=== PATIENT | female | born 1935 | race Caucasian/White ===

== ENCOUNTER 2016-12-13 17:39 | Emergency (ER) | payer MEDICARE ==
[~2016-12-13] VITALS: Ht 152.4 cm; Wt 44.9 kg
[~2016-12-13 17:39] MED LIST: AMLO1TAB52 PO; ASPI-933 PO; ATOR10TA PO; ATOR10TA66 PO; ATR20T PO; AZIT250T5 PO; AZTH250C PO; CELE50CA PO; CEPH500C PO; CLCX200C PO; CLN.1T PO; DCS100C PO; DIAZ2TAB2 PO; FOLI1TAB7 PO; FURO20TA4 PO; HYDR-2889 PO; HYDR-3816 PO; HYDR-700 PO; HYDR1TAB PO; METO50TA2 PO; METO50TA7 PO; ONDA8TAB6 PO; PHEN57OI24 PR; POLY119P5 PO; POLY17PO23 PO; albuterol MDI
--- OUTSIDE RECORDS SUMMARY | 2016-12-13 18:02 | XMS REPORT | Continuity of Care Document ---
Author Author [facility] Organization [facility] Address Unknown Phone Unavailable Allergies Active Description Code Type Severity Reaction Onset Reported/Identified Relationship to Patient Clinical Status Yes acetaminophen [id number] Drug Allergy Unknown N/A 03/16/2016 Yes codeine [id number] Drug Allergy Unknown N/A 03/16/2016 Yes erythromycin base [id number] Drug Allergy Unknown N/A 03/16/2016 Yes oxycodone [id number] Drug Allergy Unknown N/A 03/16/2016 Yes propoxyphene [id number] Drug Allergy Unknown N/A 03/16/2016 Yes Sulfa (Sulfonamide Antibiotics) [id number] Drug Allergy Unknown N/A 03/16/2016 Medications Problems Date Dx Coded Attending Type Code Diagnosis Diagnosed By 07/28/2010 Ot 250.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, TYPE II OR UNSPEC TY 07/28/2010 Ot 338.29 OTHER CHRONIC PAIN 07/28/2010 Ot 403.90 HYPTNSV CHR KID DIS, UNSPEC, W CHR KD ST 07/28/2010 Ot 414.00 CORON ATHEROSCLER NOS TYPE VESSEL, NATIV 07/28/2010 Ot 486 PNEUMONIA, ORGANISM NOS 07/28/2010 Ot 496 CHR AIRWAY OBSTRUCT NEC 07/28/2010 Ot 585.9 CHRONIC KIDNEY DISEASE, UNSPECIFIED 07/28/2010 Ot 780.52 INSOMNIA, UNSPECIFIED 07/28/2010 Ot 787.91 DIARRHEA 07/28/2010 Ot V45.81 AORTOCORONARY BYPASS 07/31/2010 Ot 715.90 OSTEOARTHROS NOS-UNSPEC 07/31/2010 Ot 719.41 JOINT PAIN-SHLDER 07/31/2010 Ot 733.00 OSTEOPOROSIS NOS 07/31/2010 Ot V45.81 AORTOCORONARY BYPASS 07/31/2010 Ot V45.82 PERCUTANEOUS TRANSLUM CORON ANGIOPLASTY 07/31/2010 Ot V57.1 PHYSICAL THERAPY NEC 07/31/2010 Ot V58.49 OTHER SPECIFIED AFTERCARE FOLLOWING SURG 12/03/2010 Ot 715.90 OSTEOARTHROS NOS-UNSPEC 12/03/2010 Ot 719.41 JOINT PAIN-SHLDER 12/03/2010 Ot 733.00 OSTEOPOROSIS NOS 12/03/2010 Ot V45.81 AORTOCORONARY BYPASS 12/03/2010 Ot V45.82 PERCUTANEOUS TRANSLUM CORON ANGIOPLASTY 12/03/2010 Ot V57.21 ENCOUNTER FOR OCCUPATIONAL THERAPY 12/03/2010 Ot V58.49 OTHER SPECIFIED AFTERCARE FOLLOWING SURG 03/01/2011 Ot 715.90 OSTEOARTHROS NOS-UNSPEC 03/01/2011 Ot 719.41 JOINT PAIN-SHLDER 03/01/2011 Ot 733.00 OSTEOPOROSIS NOS 03/01/2011 Ot V45.81 AORTOCORONARY BYPASS 03/01/2011 Ot V45.82 PERCUTANEOUS TRANSLUM CORON ANGIOPLASTY 03/01/2011 Ot V57.21 ENCOUNTER FOR OCCUPATIONAL THERAPY 03/01/2011 Ot V58.49 OTHER SPECIFIED AFTERCARE FOLLOWING SURG 09/12/2012 Ot 491.20 OBSTR CHRONIC BRONCHITIS, W/O EXACERBATI 09/12/2012 Ot 786.2 COUGH 04/12/2013 RO ABDULLAHI, KRZYSZTOF P Ot 564.00 UNSPEC CONSTIPATION 04/28/2013 CYNDIE ABDULLAHI, EDGAR Cassidy Ot 272.4 HYPERLIPIDEMIA NEC/NOS 04/28/2013 CYNDIE ABDULLAHI, EDGAR Cassidy Ot 305.1 TOBACCO USE DISORDER 04/28/2013 CYNDIE ABDULLAHI, EDGAR Cassidy Ot 401.9 HYPERTENSION NOS 04/28/2013 CYNDIE ABDULLAHI, EDGAR Cassidy Ot 486 PNEUMONIA, ORGANISM NOS 04/28/2013 EDGAR AEGE MD Ot 491.21 OBSTR CHRONIC BRONCHITIS, W (ACUTE) EXAC 04/28/2013 EDGAR AGEE MD Ot 593.9 RENAL URETERAL DIS NOS 11/06/2013 ANALIA ORDOÑEZ MD Ot 721.3 LUMBOSACRAL SPONDYLOSIS 11/06/2013 ANALIA ORDOÑEZ MD Ot 722.52 LUMB/LUMBOSAC DISC DEGEN 11/06/2013 ANALIA ORDOÑEZ MD Ot 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 11/06/2013 ANALIA ORDOÑEZ MD Ot V58.69 OTH MED,LT,CURRENT USE 04/08/2015 ANALIA ORDOÑEZ MD Ot M47.816 SPONDYLOSIS W/O MYELOPATHY OR RADICULOPA 04/08/2015 ANALIA ORDOÑEZ MD Ot M53.3 SACROCOCCYGEAL DISORDERS, NOT ELSEWHERE 04/08/2015 SMITA ABDULLAHI, ANALIA Bar Ot Z79.899 OTHER MARKETING SUPPORT SPECIALIST (CURRENT) DRUG THERAPY 10/27/2015 Ot 593.9 RENAL URETERAL DIS NOS 10/27/2015 Ot 783.21 LOSS OF WEIGHT 10/27/2015 Ot 585.9 CHRONIC KIDNEY DISEASE, UNSPECIFIED 10/27/2015 Ot 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, UNSPECIFIED 10/27/2015 Ot 585.9 CHRONIC KIDNEY DISEASE, UNSPECIFIED 10/27/2015 Ot 564.00 UNSPEC CONSTIPATION 11/23/2015 CYNDIE ABDULLAHI, EDGAR R Ot R05 COUGH 11/25/2015 CYNDIE ABDULLAHI, EDGAR R Ot R05 COUGH 01/01/2016 EDGAR AGEE MD R Ot M41.9 SCOLIOSIS, UNSPECIFIED 01/01/2016 EDGAR AGEE MD R Ot M51.24 OTHER INTERVERTEBRAL DISC DISPLACEMENT, 01/01/2016 EDGAR AGEE MD R Ot M54.5 LOW BACK PAIN 01/26/2016 EDGAR AGEE MD R Ot M41.9 SCOLIOSIS, UNSPECIFIED 01/26/2016 EDGAR AGEE MD R Ot M51.24 OTHER INTERVERTEBRAL DISC DISPLACEMENT, 01/26/2016 EDGAR AGEE MD R Ot M54.5 LOW BACK PAIN 02/13/2016 EDGAR AGEE MD R Ot M41.9 SCOLIOSIS, UNSPECIFIED 02/13/2016 EDGAR AGEE MD R Ot M51.24 OTHER INTERVERTEBRAL DISC DISPLACEMENT, 02/13/2016 EDGAR AGEE MD R Ot M54.5 LOW BACK PAIN 03/16/2016 Ot 564.00 UNSPEC CONSTIPATION 03/21/2016 EDGAR AGEE MD R Ot F17.210 NICOTINE DEPENDENCE, CIGARETTES, UNCOMPL 03/21/2016 EDGAR AGEE MD R Ot I11.0 HYPERTENSIVE HEART DISEASE WITH HEART FA 03/21/2016 EDGAR AGEE MD R Ot I50.9 HEART FAILURE, UNSPECIFIED 03/21/2016 EDGAR AGEE MD R Ot J44.9 CHRONIC OBSTRUCTIVE PULMONARY DISEASE, U 03/21/2016 EDGAR AGEE MD R Ot M06.9 RHEUMATOID ARTHRITIS, UNSPECIFIED 03/21/2016 EDGAR AGEE MD, Ot M21.70 UNEQUAL LIMB LENGTH (ACQUIRED), UNSPECIF 03/21/2016 EDGAR AGEE MD Ot M41.9 SCOLIOSIS, UNSPECIFIED 03/21/2016 EDGAR AGEE MD Ot N17.9 ACUTE KIDNEY FAILURE, UNSPECIFIED 03/21/2016 EDGAR AGEE MD Ot N39.0 URINARY TRACT INFECTION, SITE NOT SPECIF 03/21/2016 EDGAR AGEE MD Ot R26.89 OTHER ABNORMALITIES OF GAIT AND MOBILITY 03/21/2016 EDGAR AGEE MD Ot R63.4 ABNORMAL WEIGHT LOSS 03/21/2016 EDGAR AGEE MD, Ot S32.19XA OTHER FRACTURE OF SACRUM, INIT ENCNTR FO 03/21/2016 EDGAR GAEE MD Ot S32.591A OTH FRACTURE OF RIGHT PUBIS, INIT ENCNTR 03/21/2016 EDGAR AGEE MD Ot S51.812A LACERATION WITHOUT FOREIGN BODY OF LEFT 03/21/2016 EDGAR AGEE MD Ot W18.30XA FALL ON SAME LEVEL, UNSPECIFIED, INITIAL 03/21/2016 EDGAR AGEE MD Ot Y92.[address] [facility] 03/21/2016 EDGAR AGEE MD Ot Z95.1 PRESENCE OF AORTOCORONARY BYPASS GRAFT 03/21/2016 EDGAR AGEE MD Ot Z95.5 PRESENCE OF CORONARY ANGIOPLASTY IMPLANT 03/22/2016 EDGAR AGEE MD Ot F17.210 NICOTINE DEPENDENCE, CIGARETTES, UNCOMPL 03/22/2016 EDGAR AGEE MD Ot I11.0 HYPERTENSIVE HEART DISEASE WITH HEART FA 03/22/2016 EDGAR AGEE MD Ot I50.9 HEART FAILURE, UNSPECIFIED 03/22/2016 EDGAR AGEE MD Ot J44.9 CHRONIC OBSTRUCTIVE PULMONARY DISEASE, U 03/22/2016 EDGAR AGEE MD Ot M06.9 RHEUMATOID ARTHRITIS, UNSPECIFIED 03/22/2016 EDGAR AGEE MD Ot M21.70 UNEQUAL LIMB LENGTH (ACQUIRED), UNSPECIF 03/22/2016 SEGLIE MD, EDGAR R Ot M41.9 SCOLIOSIS, UNSPECIFIED 03/22/2016 EDGAR AGEE MD Ot N17.9 ACUTE KIDNEY FAILURE, UNSPECIFIED 03/22/2016 EDGAR AGEE MD Ot N39.0 URINARY TRACT INFECTION, SITE NOT SPECIF 03/22/2016 EDGAR AGEE MD Ot R26.89 OTHER ABNORMALITIES OF GAIT AND MOBILITY 03/22/2016 EDGAR AGEE MD Ot R63.4 ABNORMAL WEIGHT LOSS 03/22/2016 EDGAR AGEE MD R Ot S32.19XA OTHER FRACTURE OF SACRUM, INIT ENCNTR FO 03/22/2016 EDGAR AGEE MD Ot S32.591A OTH FRACTURE OF RIGHT PUBIS, INIT ENCNTR 03/22/2016 EDGAR AGEE MD Ot S51.812A LACERATION WITHOUT FOREIGN BODY OF LEFT 03/22/2016 EDGAR AGEE MD Ot W18.30XA FALL ON SAME LEVEL, UNSPECIFIED, INITIAL 03/22/2016 EDGAR AGEE MD Ot Y92.[address] IN [facility] (PRIVATE) 03/22/2016 EDGAR AGEE MD Ot Y99.8 OTHER EXTERNAL CAUSE STATUS 03/22/2016 EDGAR AGEE MD Ot Z95.1 PRESENCE OF AORTOCORONARY BYPASS GRAFT 03/22/2016 EDGAR AGEE MD Ot Z95.5 PRESENCE OF CORONARY ANGIOPLASTY IMPLANT 03/22/2016 Ot 593.9 RENAL URETERAL DIS NOS 03/22/2016 Ot 783.21 LOSS OF WEIGHT 03/22/2016 Ot 585.9 CHRONIC KIDNEY DISEASE, UNSPECIFIED 03/22/2016 Ot 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, UNSPECIFIED 03/22/2016 Ot 585.9 CHRONIC KIDNEY DISEASE, UNSPECIFIED 03/22/2016 Ot 564.00 UNSPEC CONSTIPATION 03/22/2016 EDGAR AGEE MD Ot R05 COUGH 03/22/2016 EDGAR AGEE MD Ot M41.9 SCOLIOSIS, UNSPECIFIED 03/22/2016 EDGAR AGEE MD Ot M51.24 OTHER INTERVERTEBRAL DISC DISPLACEMENT, 03/22/2016 EDGAR AGEE MD Ot M54.5 LOW BACK PAIN 03/22/2016 EDGAR AGEE MD Ot F17.210 NICOTINE DEPENDENCE, CIGARETTES, UNCOMPL 03/22/2016 EDGAR AGEE MD Ot I11.0 HYPERTENSIVE HEART DISEASE WITH HEART FA 03/22/2016 EDGAR AGEE MD Ot I50.9 HEART FAILURE, UNSPECIFIED 03/22/2016 EDGAR AGEE MD, Ot J44.9 CHRONIC OBSTRUCTIVE PULMONARY DISEASE, U 03/22/2016 EDGAR AGEE MD Ot M06.9 RHEUMATOID ARTHRITIS, UNSPECIFIED 03/22/2016 EDGAR AGEE MD Ot M21.70 UNEQUAL LIMB LENGTH (ACQUIRED), UNSPECIF 03/22/2016 EDGAR AGEE MD Ot M41.9 SCOLIOSIS, UNSPECIFIED 03/22/2016 EDGAR AGEE MD, Ot N17.9 ACUTE KIDNEY FAILURE, UNSPECIFIED 03/22/2016 EDGAR AGEE MD Ot N39.0 URINARY TRACT INFECTION, SITE NOT SPECIF 03/22/2016 EDGAR AGEE MD Ot R26.89 OTHER ABNORMALITIES OF GAIT AND MOBILITY 03/22/2016 EDGAR AGEE MD Ot R63.4 ABNORMAL WEIGHT LOSS 03/22/2016 EDGAR AGEE MD Ot S32.19XA OTHER FRACTURE OF SACRUM, INIT ENCNTR FO 03/22/2016 EDGAR AGEE MD Ot S32.591A OTH FRACTURE OF RIGHT PUBIS, INIT ENCNTR 03/22/2016 EDGAR AGEE MD Ot S51.812A LACERATION WITHOUT FOREIGN BODY OF LEFT 03/22/2016 EDGAR AGEE MD Ot W18.30XA FALL ON SAME LEVEL, UNSPECIFIED, INITIAL 03/22/2016 EDGAR AGEE MD Ot Y92.[address] IN [facility] 03/22/2016 EDGAR AGEE MD Ot Z95.1 PRESENCE OF AORTOCORONARY BYPASS GRAFT 03/22/2016 EDGAR AGEE MD Ot Z95.5 PRESENCE OF CORONARY ANGIOPLASTY IMPLANT 03/31/2016 CANDACE BETH MD Ot F17.210 NICOTINE DEPENDENCE, CIGARETTES, UNCOMPL 03/31/2016 CANDACE BETH MD Ot I11.0 HYPERTENSIVE HEART DISEASE WITH HEART FA 03/31/2016 CANDACE BETH MD Ot I25.10 ATHSCL HEART DISEASE OF [place] CORONARY 03/31/2016 CANDACE BETH MD Ot I50.9 HEART FAILURE, UNSPECIFIED 03/31/2016 CANDACE BETH MD Ot J44.9 CHRONIC OBSTRUCTIVE PULMONARY DISEASE, U 03/31/2016 CANDACE BETH MD Ot K59.00 CONSTIPATION, UNSPECIFIED 03/31/2016 CANDACE BETH MD Ot R35.1 NOCTURIA 03/31/2016 CANDACE BETH MD Ot S32.501D UNSP FRACTURE OF RIGHT PUBIS, SUBS FOR F 03/31/2016 CANDACE BETH MD Ot W19.XXXD UNSPECIFIED FALL, SUBSEQUENT ENCOUNTER 03/31/2016 CANDACE BETH MD Ot 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, STORE OR MARKET PLACE 03/31/2016 CANDACE BETH MD Ot Z95.1 PRESENCE OF AORTOCORONARY BYPASS GRAFT 03/31/2016 CANDACE BETH MD Ot Z95.5 PRESENCE OF CORONARY ANGIOPLASTY IMPLANT 05/22/2016 EDGAR AGEE MD R Ot S32.501D UNSP FRACTURE OF RIGHT PUBIS, SUBS FOR F 05/24/2016 EDGAR AGEE MD R Ot S32.501D UNSP FRACTURE OF RIGHT PUBIS, SUBS FOR F 06/14/2016 EDGAR AGEE MD R Ot S32.501D UNSP FRACTURE OF RIGHT PUBIS, SUBS FOR F 06/21/2016 EDGAR AGEE MD R Ot S32.501D UNSP FRACTURE OF RIGHT PUBIS, SUBS FOR F Procedures Results Test Result Range Complete urinalysis with reflex to culture - 03/16/16 15:10 Urine color determination YELLOW NRG Urine clarity determination CLEAR NRG Urine pH measurement by test strip 5 5- 9 Specific gravity of urine by test strip 1.015 1.016-1.022 Urine protein assay by test strip, semi-quantitative 2+ NEGATIVE Urine glucose detection by automated test strip NEGATIVE NEGATIVE Erythrocytes detection in urine sediment by light microscopy 3+ NEGATIVE Urine ketones detection by automated test strip NEGATIVE NEGATIVE Urine nitrite detection by test strip NEGATIVE NEGATIVE Urine total bilirubin detection by test strip NEGATIVE NEGATIVE Urine urobilinogen measurement by automated test strip (mass/volume) NORMAL NORMAL Urine leukocyte esterase detection by dipstick 3+ NEGATIVE Automated urine sediment erythrocyte count by microscopy (number/high power field) NONE NRG Automated urine sediment leukocyte count by microscopy (number/high power field ) [HPF] NRG Bacteria detection in urine sediment by light microscopy TRACE NRG Squamous epithelial cells detection in urine sediment by light microscopy 5-10 NRG Crystals detection in urine sediment by light microscopy NONE NRG Casts detection in urine sediment by light microscopy NONE NRG Mucus detection in urine sediment by light microscopy NEGATIVE NRG Complete urinalysis with reflex to culture YES NRG Bacterial urine culture - 03/16/16 15:10 URINE CULTURE RESULTS 10,000/ML - 100,000/ML NRG Complete blood count (CBC) with automated white blood cell (WBC) differential - 03/16/16 17:10 Blood leukocytes automated count (number/volume) 14.6 10*3/ uL 4.3-11.0 Blood erythrocytes automated count (number/volume) 4.04 10*6 /uL 4.35-5.85 Venous blood hemoglobin measurement (mass/volume) 12.4 g/dL 11.5-16.0 Blood hematocrit (volume fraction) 37 % 35-52 Automated erythrocyte mean corpuscular volume 90 [foz_us] 80-99 Automated erythrocyte mean corpuscular hemoglobin (mass per erythrocyte) 31 pg 25-34 Automated erythrocyte mean corpuscular hemoglobin concentration measurement ( mass/volume) 34 g/dL 32-36 Automated erythrocyte distribution width ratio 13.2 % 10.0-14.5 Automated blood platelet count (count/volume) 254 10*3/uL 130-400 Automated blood platelet mean volume measurement 10.3 [foz_ us] 7.4-10.4 Automated blood neutrophils/100 leukocytes 79 % 42-75 Automated blood lymphocytes/100 leukocytes 16 % 12-44 Blood monocytes/100 leukocytes 6 % 0-12 Automated blood eosinophils/100 leukocytes 0 % 0-10 Automated blood basophils/100 leukocytes 0 % 0-10 Blood neutrophils automated count (number/volume) 11.5 10*3 1.8-7.8 Blood lymphocytes automated count (number/volume) 2.3 10*3 1.0-4.0 Blood monocytes automated count (number/volume) 0.9 10*3 0.0-1.0 Automated eosinophil count 0.0 10*3/uL 0.0-0.3 Automated blood basophil count (count/volume) 0.0 10*3/uL 0.0-0.1 Comprehensive metabolic panel - 03/16/16 17:10 Serum or plasma sodium measurement (moles/volume) 140 mmol/ L 135-145 Serum or plasma potassium measurement (moles/volume) 4.4 mmol/L 3.6-5.0 Serum or plasma chloride measurement (moles/volume) 107 mmol /L 98-107 Carbon dioxide 22 mmol/L 21-32 Serum or plasma anion gap determination (moles/volume) 11 mmol/L 5-14 Serum or plasma urea nitrogen measurement (mass/volume) 64 mg/dL 7-18 Serum or plasma creatinine measurement (mass/volume) 2.61 mg /dL 0.60-1.30 Serum or plasma urea nitrogen/creatinine mass ratio 25 NRG Serum or plasma creatinine measurement with calculation of estimated glomerular filtration rate 18 NRG Serum or plasma glucose measurement (mass/volume) 110 mg/dL 70-105 Serum or plasma calcium measurement (mass/volume) 9.2 mg/dL 8.5-10.1 Serum or plasma total bilirubin measurement (mass/volume) 0.3 mg/dL 0.1-1.0 Serum or plasma alkaline phosphatase measurement (enzymatic activity/volume) 65 U/L 40-136 Serum or plasma aspartate aminotransferase measurement (enzymatic activity/ volume) 22 U/L 5-34 Serum or plasma alanine aminotransferase measurement (enzymatic activity/volume ) 14 U/L 0-55 Serum or plasma protein measurement (mass/volume) 7.0 g/dL 6.4-8.2 Serum or plasma albumin measurement (mass/volume) 4.1 g/dL 3.2-4.5 Blood manual differential performed detection - 03/16/16 17:10 Blood monocytes/100 leukocytes 3 % [facility] Manual blood segmented neutrophils/100 leukocytes 84 % [facility] Manual blood lymphocytes/100 leukocytes 13 % [facility] Blood erythrocyte morphology finding identification NORMAL [facility] PT panel in platelet poor plasma by coagulation assay - 03/16/16 17:10 Prothrombin time (PT) in platelet poor plasma by coagulation assay 12.7 s 12.2-14.7 INR in platelet poor plasma or blood by coagulation assay 1.0 0.8-1.4 Activated partial thromboplastin time (aPTT) in platelet poor plasma bycoagulation assay - 03/16/16 17:10 Activated partial thromboplastin time (aPTT) in platelet poor plasma bycoagulation assay 29 s 24-35 Complete blood count (CBC) with automated white blood cell (WBC) differential - 03/17/16 05:58 Blood leukocytes automated count (number/volume) 7.2 10*3/ uL 4.3-11.0 Blood erythrocytes automated count (number/volume) 3.48 10*6 /uL 4.35-5.85 Venous blood hemoglobin measurement (mass/volume) 10.6 g/dL 11.5-16.0 Blood hematocrit (volume fraction) 32 % 35-52 Automated erythrocyte mean corpuscular volume 92 [foz_us] 80-99 Automated erythrocyte mean corpuscular hemoglobin (mass per erythrocyte) 31 pg 25-34 Automated erythrocyte mean corpuscular hemoglobin concentration measurement ( mass/volume) 33 g/dL 32-36 Automated erythrocyte distribution width ratio 13.2 % 10.0-14.5 Automated blood platelet count (count/volume) 204 10*3/uL 130-400 Automated blood platelet mean volume measurement 9.8 [foz_us ] 7.4-10.4 Automated blood neutrophils/100 leukocytes 71 % 42-75 Automated blood lymphocytes/100 leukocytes 21 % 12-44 Blood monocytes/100 leukocytes 7 % 0-12 Automated blood eosinophils/100 leukocytes 0 % 0-10 Automated blood basophils/100 leukocytes 0 % 0-10 Blood neutrophils automated count (number/volume) 5.1 10*3 1.8-7.8 Blood lymphocytes automated count (number/volume) 1.5 10*3 1.0-4.0 Blood monocytes automated count (number/volume) 0.5 10*3 0.0-1.0 Automated eosinophil count 0.0 10*3/uL 0.0-0.3 Automated blood basophil count (count/volume) 0.0 10*3/uL 0.0-0.1 Whole blood basic metabolic panel - 03/17/16 05:58 Serum or plasma sodium measurement (moles/volume) 139 mmol/ L 135-145 Serum or plasma potassium measurement (moles/volume) 4.4 mmol/L 3.6-5.0 Serum or plasma chloride measurement (moles/volume) 112 mmol /L 98-107 Carbon dioxide 16 mmol/L 21-32 Serum or plasma anion gap determination (moles/volume) 11 mmol/L 5-14 Serum or plasma urea nitrogen measurement (mass/volume) 51 mg/dL 7-18 Serum or plasma creatinine measurement (mass/volume) 1.91 mg /dL 0.60-1.30 Serum or plasma urea nitrogen/creatinine mass ratio 27 NRG Serum or plasma creatinine measurement with calculation of estimated glomerular filtration rate 25 NRG Serum or plasma glucose measurement (mass/volume) 91 mg/dL 70-105 Serum or plasma calcium measurement (mass/volume) 8.3 mg/dL 8.5-10.1 Complete blood count (CBC) with automated white blood cell (WBC) differential - 03/19/16 07:18 Blood leukocytes automated count (number/volume) 8.7 10*3/ uL 4.3-11.0 Blood erythrocytes automated count (number/volume) 3.70 10*6 /uL 4.35-5.85 Venous blood hemoglobin measurement (mass/volume) 11.5 g/dL 11.5-16.0 Blood hematocrit (volume fraction) 34 % 35-52 Automated erythrocyte mean corpuscular volume 91 [foz_us] 80-99 Automated erythrocyte mean corpuscular hemoglobin (mass per erythrocyte) 31 pg 25-34 Automated erythrocyte mean corpuscular hemoglobin concentration measurement ( mass/volume) 34 g/dL 32-36 Automated erythrocyte distribution width ratio 13.1 % 10.0-14.5 Automated blood platelet count (count/volume) 171 10*3/uL 130-400 Automated blood platelet mean volume measurement 9.7 [foz_us ] 7.4-10.4 Automated blood neutrophils/100 leukocytes 74 % 42-75 Automated blood lymphocytes/100 leukocytes 18 % 12-44 Blood monocytes/100 leukocytes 8 % 0-12 Automated blood eosinophils/100 leukocytes 0 % 0-10 Automated blood basophils/100 leukocytes 0 % 0-10 Blood neutrophils automated count (number/volume) 6.5 10*3 1.8-7.8 Blood lymphocytes automated count (number/volume) 1.6 10*3 1.0-4.0 Blood monocytes automated count (number/volume) 0.7 10*3 0.0-1.0 Automated eosinophil count 0.0 10*3/uL 0.0-0.3 Automated blood basophil count (count/volume) 0.0 10*3/uL 0.0-0.1 Comprehensive metabolic panel - 03/19/16 07:18 Serum or plasma sodium measurement (moles/volume) 136 mmol/ L 135-145 Serum or plasma potassium measurement (moles/volume) 4.7 mmol/L 3.6-5.0 Serum or plasma chloride measurement (moles/volume) 109 mmol /L 98-107 Carbon dioxide 15 mmol/L 21-32 Serum or plasma anion gap determination (moles/volume) 12 mmol/L 5-14 Serum or plasma urea nitrogen measurement (mass/volume) 29 mg/dL 7-18 Serum or plasma creatinine measurement (mass/volume) 1.33 mg /dL 0.60-1.30 Serum or plasma urea nitrogen/creatinine mass ratio 22 NRG Serum or plasma creatinine measurement with calculation of estimated glomerular filtration rate 38 NRG Serum or plasma glucose measurement (mass/volume) 117 mg/dL 70-105 Serum or plasma calcium measurement (mass/volume) 8.5 mg/dL 8.5-10.1 Serum or plasma total bilirubin measurement (mass/volume) 0.3 mg/dL 0.1-1.0 Serum or plasma alkaline phosphatase measurement (enzymatic activity/volume) 49 U/L 40-136 Serum or plasma aspartate aminotransferase measurement (enzymatic activity/ volume) 21 U/L 5-34 Serum or plasma alanine aminotransferase measurement (enzymatic activity/volume ) 10 U/L 0-55 Serum or plasma protein measurement (mass/volume) 6.0 g/dL 6.4-8.2 Serum or plasma albumin measurement (mass/volume) 3.4 g/dL 3.2-4.5 Complete urinalysis with reflex to culture - 03/22/16 09:16 Urine color determination YELLOW NRG Urine clarity determination CLEAR NRG Urine pH measurement by test strip 7 5- 9 Specific gravity of urine by test strip 1.005 1.016-1.022 Urine protein assay by test strip, semi-quantitative 1+ NEGATIVE Urine glucose detection by automated test strip NEGATIVE NEGATIVE Erythrocytes detection in urine sediment by light microscopy 1+ NEGATIVE Urine ketones detection by automated test strip NEGATIVE NEGATIVE Urine nitrite detection by test strip NEGATIVE NEGATIVE Urine total bilirubin detection by test strip NEGATIVE NEGATIVE Urine urobilinogen measurement by automated test strip (mass/volume) NORMAL NORMAL Urine leukocyte esterase detection by dipstick NEGATIVE NEGATIVE Automated urine sediment erythrocyte count by microscopy (number/high power field) RARE NRG Automated urine sediment leukocyte count by microscopy (number/high power field ) NONE NRG Bacteria detection in urine sediment by light microscopy NEGATIVE NRG Squamous epithelial cells detection in urine sediment by light microscopy 5-10 NRG Crystals detection in urine sediment by light microscopy NONE NRG Casts detection in urine sediment by light microscopy NONE NRG Mucus detection in urine sediment by light microscopy NEGATIVE NRG Complete urinalysis with reflex to culture NO NRG Complete blood count (CBC) with automated white blood cell (WBC) differential - 03/23/16 04:45 Blood leukocytes automated count (number/volume) 6.7 10*3/ uL 4.3-11.0 Blood erythrocytes automated count (number/volume) 3.23 10*6 /uL 4.35-5.85 Venous blood hemoglobin measurement (mass/volume) 9.8 g/dL 11.5-16.0 Blood hematocrit (volume fraction) 29 % 35-52 Automated erythrocyte mean corpuscular volume 90 [foz_us] 80-99 Automated erythrocyte mean corpuscular hemoglobin (mass per erythrocyte) 30 pg 25-34 Automated erythrocyte mean corpuscular hemoglobin concentration measurement ( mass/volume) 34 g/dL 32-36 Automated erythrocyte distribution width ratio 13.0 % 10.0-14.5 Automated blood platelet count (count/volume) 225 10*3/uL 130-400 Automated blood platelet mean volume measurement 14.0 [foz_ us] 7.4-10.4 Automated blood neutrophils/100 leukocytes 64 % 42-75 Automated blood lymphocytes/100 leukocytes 25 % 12-44 Blood monocytes/100 leukocytes 10 % 0-12 Automated blood eosinophils/100 leukocytes 0 % 0-10 Automated blood basophils/100 leukocytes 0 % 0-10 Blood neutrophils automated count (number/volume) 4.3 10*3 1.8-7.8 Blood lymphocytes automated count (number/volume) 1.7 10*3 1.0-4.0 Blood monocytes automated count (number/volume) 0.7 10*3 0.0-1.0 Automated eosinophil count 0.0 10*3/uL 0.0-0.3 Automated blood basophil count (count/volume) 0.0 10*3/uL 0.0-0.1 Comprehensive metabolic panel - 03/23/16 04:55 Serum or plasma sodium measurement (moles/volume) 136 mmol/ L 135-145 Serum or plasma potassium measurement (moles/volume) 4.3 mmol/L 3.6-5.0 Serum or plasma chloride measurement (moles/volume) 104 mmol /L 98-107 Carbon dioxide 18 mmol/L 21-32 Serum or plasma anion gap determination (moles/volume) 14 mmol/L 5-14 Serum or plasma urea nitrogen measurement (mass/volume) 30 mg/dL 7-18 Serum or plasma creatinine measurement (mass/volume) 1.51 mg /dL 0.60-1.30 Serum or plasma urea nitrogen/creatinine mass ratio 20 NRG Serum or plasma creatinine measurement with calculation of estimated glomerular filtration rate 33 NRG Serum or plasma glucose measurement (mass/volume) 104 mg/dL 70-105 Serum or plasma calcium measurement (mass/volume) 8.7 mg/dL 8.5-10.1 Serum or plasma total bilirubin measurement (mass/volume) 0.4 mg/dL 0.1-1.0 Serum or plasma alkaline phosphatase measurement (enzymatic activity/volume) 50 U/L 40-136 Serum or plasma aspartate aminotransferase measurement (enzymatic activity/ volume) 21 U/L 5-34 Serum or plasma alanine aminotransferase measurement (enzymatic activity/volume ) 16 U/L 0-55 Serum or plasma protein measurement (mass/volume) 5.8 g/dL 6.4-8.2 Serum or plasma albumin measurement (mass/volume) 3.3 g/dL 3.2-4.5 Complete urinalysis with reflex to culture - 03/28/16 08:33 Urine color determination YELLOW NRG Urine clarity determination SLIGHTLY CLOUDY NRG Urine pH measurement by test strip 6.5 5 -9 Specific gravity of urine by test strip 1.010 1.016-1.022 Urine protein assay by test strip, semi-quantitative 1+ NEGATIVE Urine glucose detection by automated test strip NEGATIVE NEGATIVE Erythrocytes detection in urine sediment by light microscopy NEGATIVE NEGATIVE Urine ketones detection by automated test strip NEGATIVE NEGATIVE Urine nitrite detection by test strip NEGATIVE NEGATIVE Urine total bilirubin detection by test strip NEGATIVE NEGATIVE Urine urobilinogen measurement by automated test strip (mass/volume) NORMAL NORMAL Urine leukocyte esterase detection by dipstick 1+ NEGATIVE Automated urine sediment erythrocyte count by microscopy (number/high power field) NONE NRG Automated urine sediment leukocyte count by microscopy (number/high power field ) [HPF] NRG Bacteria detection in urine sediment by light microscopy NEGATIVE NRG Squamous epithelial cells detection in urine sediment by light microscopy 5-10 NRG Crystals detection in urine sediment by light microscopy NONE NRG Casts detection in urine sediment by light microscopy NONE NRG Mucus detection in urine sediment by light microscopy NEGATIVE NRG Complete urinalysis with reflex to culture NO NRG Automated blood complete blood count (hemogram) panel - 03/28/16 15:21 Blood leukocytes automated count (number/volume) 7.0 10*3/ uL 4.3-11.0 Blood erythrocytes automated count (number/volume) 3.42 10*6 /uL 4.35-5.85 Venous blood hemoglobin measurement (mass/volume) 10.6 g/dL 11.5-16.0 Blood hematocrit (volume fraction) 31 % 35-52 Automated erythrocyte mean corpuscular volume 90 [foz_us] 80-99 Automated erythrocyte mean corpuscular hemoglobin (mass per erythrocyte) 31 pg 25-34 Automated erythrocyte mean corpuscular hemoglobin concentration measurement ( mass/volume) 34 g/dL 32-36 Automated erythrocyte distribution width ratio 13.2 % 10.0-14.5 Automated blood platelet count (count/volume) 346 10*3/uL 130-400 Automated blood platelet mean volume measurement 9.4 [foz_us ] 7.4-10.4 Comprehensive metabolic panel - 03/28/16 15:21 Serum or plasma sodium measurement (moles/volume) 132 mmol/ L 135-145 Serum or plasma potassium measurement (moles/volume) 5.1 mmol/L 3.6-5.0 Serum or plasma chloride measurement (moles/volume) 99 mmol/ L 98-107 Carbon dioxide 20 mmol/L 21-32 Serum or plasma anion gap determination (moles/volume) 13 mmol/L 5-14 Serum or plasma urea nitrogen measurement (mass/volume) 43 mg/dL 7-18 Serum or plasma creatinine measurement (mass/volume) 1.95 mg /dL 0.60-1.30 Serum or plasma urea nitrogen/creatinine mass ratio 22 NRG Serum or plasma creatinine measurement with calculation of estimated glomerular filtration rate 25 NRG Serum or plasma glucose measurement (mass/volume) 105 mg/dL 70-105 Serum or plasma calcium measurement (mass/volume) 8.8 mg/dL 8.5-10.1 Serum or plasma total bilirubin measurement (mass/volume) 0.3 mg/dL 0.1-1.0 Serum or plasma alkaline phosphatase measurement (enzymatic activity/volume) 70 U/L 40-136 Serum or plasma aspartate aminotransferase measurement (enzymatic activity/ volume) 25 U/L 5-34 Serum or plasma alanine aminotransferase measurement (enzymatic activity/volume ) 23 U/L 0-55 Serum or plasma protein measurement (mass/volume) 6.5 g/dL 6.4-8.2 Serum or plasma albumin measurement (mass/volume) 3.7 g/dL 3.2-4.5 Encounters ACCT No. Visit Date/Time Discharge Status Pt. Type Provider Facility Loc./Unit Complaint [id number] 03/22/2016 13:46:00 2015 10:10:00 DIS Inpatient KIRIT ABDULLAHI, CANDACE [place] [facility] IRF ARF,PELVIC FX,UTI [id number] 03/16/2016 19:14:00 2015 13:45:00 DIS Inpatient EDGAR AGEE MD [facility] 4TH ARF,PELVIC FX,UTI [id number] 04/08/2015 12:43:00 2014 13:52:00 DIS Outpatient ANALIA ORDOÑEZ MD [facility] CARD SACROCOCCYGEAL DISORDER [id number] 11/06/2013 10:10:00 2013 11:25:00 DIS Outpatient ANALIA ORDOÑEZ MD [facility] CARD DDD-LUMBAR [id number] 04/24/2013 17:31:00 2012 11:25:00 DIS Inpatient EDGAR AGEE MD [facility] 4TH PNEUMONIA; CHEST AND ABDOMEN CONTUSION [id number] 01/12/2013 14:41:00 2012 00:01:00 DIS Outpatient RO ABDULLAHI, KRZYSZTOF P [facility] RAD CONSTIPATION [id number] 05/21/2016 14:15:00 ACT Outpatient EDGAR AGEE MD [facility] RAD HX FX OF PELVIS [id number] 03/22/2016 15:05:00 PEN Preadmit KIRIT ABDULLAHI, CANDACE [place] [facility] [id number] 12/23/2015 13:42:00 ACT Outpatient EDGAR AGEE MD [facility] RAD RENAL FAILURE [id number] 10/27/2015 15:04:00 ACT Outpatient EDGAR AGEE MD [facility] RAD COUGH [id number] 04/13/2013 00:00:00 Document Registration [id number] 09/12/2012 14:38:00 Document Registration [id number] 04/02/2011 13:35:00 Document Registration [id number] 03/29/2011 09:07:00 Document Registration [id number] 02/15/2011 13:40:00 Document Registration [id number] 01/19/2011 14:45:00 Document Registration [id number] 12/01/2010 13:18:00 Document Registration [id number] 07/22/2010 16:08:00 Document Registration [id number] 07/13/2010 13:14:00 Document Registration
[2016-12-13] MEDS ORDERED: ATOR10TA PO (18:24)
[2016-12-13] MEDS ORDERED: CLON0.1T PO (18:24)
[2016-12-13] MEDS ORDERED: METO50TA2 PO (18:24)
[2016-12-13] MEDS ORDERED: HYDR-700 PO (18:24)
[2016-12-13] MEDS ORDERED: ASPI-933 PO (18:24)
[2016-12-13] MEDS ORDERED: HYDR-3816 PO (18:24)
[2016-12-13] MEDS ORDERED: DIAZ2TAB2 PO (18:24)
[2016-12-13] MEDS ORDERED: AMLO1TAB52 PO (18:24)
--- NOTE | 2016-12-13 18:24 | ED Lower Extremity ---
General Chief Complaint: Lower Extremity Stated Complaint: RT LEG/FOOT TENDERNESS AND SWELLING Nursing Triage Note: to ER with complaints of right lower leg swelling and redness for the past week. Nursing Sepsis Screen: No Definite Risk Source: patient Exam Limitations: no limitations History of Present Illness Time seen by provider: 18:22 Initial Comments To ER with a swollen red leg area is been present for one week. Began after she scraped the anterior lateral aspect of the right lower leg on steps at home. She was seen at urgent care on Saturday of this week and had a bandage placed. Since then she's had progressive redness and swelling to the anterior and lateral aspect of the leg. None to the calf.. She denies fevers. Onset: just prior to arrival Severity: moderate Pain/Injury Location: right leg Method of Injury: other (scraped on Thursday 12/07) Allergies and Home Medications Allergies Coded Allergies: Sulfa (Sulfonamide Antibiotics) (Unverified Allergy, Unknown, 03/16/16) acetaminophen (Unverified Allergy, Unknown, 03/16/16) codeine (Unverified Allergy, Unknown, 03/16/16) erythromycin base (Unverified Allergy, Unknown, 03/16/16) oxycodone (Unverified Allergy, Unknown, 03/16/16) propoxyphene (Unverified Allergy, Unknown, 03/16/16) Home Medications Amlodipine Bes/Olmesartan Med 1 Each Tablet, 1 EACH PO DAILY, (Reported) Amoxicillin/Potassium Clav 1 Each Tablet, 1 EACH PO BID, #14 Prescribed by: MAIA CHISHOLM on 12/13/16 7974 Aspirin 81 Mg Tablet.dr, 81 MG PO DAILY, (Reported) Atorvastatin Calcium 10 Mg Tablet, 10 MG PO DAILY, (Reported) Clonidine HCl 0.1 Mg Tablet, 0.2 MG PO BID, (Reported) Diazepam 2 Mg Tablet, 2 MG PO HS PRN for SLEEP, (Reported) Hydrocodone/Acetaminophen 1 Each Tablet, 1 EACH PO q6-q8 PRN for PAIN-MILD TO MODERATE, (Reported) Hydroxyzine HCl 25 Mg Tablet, 25 MG PO DAILY PRN for RASH, (Reported) Metoprolol Tartrate 50 Mg Tablet, 50 MG PO DAILY, (Reported) Constitutional: see HPI, No chills, No fever EENTM: see HPI Respiratory: no symptoms reported Cardiovascular: no symptoms reported Genitourinary: no symptoms reported Musculoskeletal: no symptoms reported Skin: see HPI Psychiatric/Neurological: No Symptoms Reported Past Gwlyzei-Abvsiq-Igvnen Hx Patient Social History Alcohol Use: Denies Use Recreational Drug Use: No Smoking Status: Current Everyday Smoker Type Used: Cigarettes Recent Foreign Travel: No Contact w/Someone Who Travel: No Recent Infectious Disease Expo: No Recent Hopitalizations: No Immunizations Up To Date Tetanus Booster (TDap): More than 5yrs Seasonal Allergies Seasonal Allergies: No Surgeries HX Surgeries: Yes (HEMORRHOIDECTOMY) Surgeries: CABG, Coronary Stent, Eye Surgery, Gallbladder, Hysterectomy, Joint Replacement Respiratory Hx Respiratory Disorders: Yes Respiratory Disorders: Chronic Bronchitis, COPD Cardiovascular Hx Cardiac Disorders: Yes (STENTS, CABG, heart failure) Neurological Hx Neurological Disorders: Yes (shingles) Reproductive System Hx Reproductive Disorders: No Sexually Transmitted Disease: No HIV/AIDS: No Genitourinary Hx Genitourinary Disorders: Yes Genitourinary Disorders: Renal Failure Gastrointestinal Hx Gastrointestinal Disorders: Yes Gastrointestinal Disorders: Abdominal Hernia, Colitis, Chronic Constipation, Diverticulosis, Ulcer, Gall Bladder Disease, Irritable Bowel Musculoskeletal Hx Musculoskeletal Disorders: Yes (CHRONIC GENERALIZED PAIN) Musculoskeletal Disorders: Arthritis, Rheumatoid Arthritis, Chronic Back Pain Endocrine Hx Endocrine Disorders: No HEENT HX ENT Disorders: Yes HEENT Disorders: Cataract Loss of Vision: Bilateral Cancer Hx Cancer: No Psychosocial Hx Psychiatric Problems: Yes Behavioral Health Disorders: Anxiety, Depression Integumentary HX Skin/Integumentary Disorder: Yes (frequent hives) Blood Transfusions Hx Blood Disorders: No Family Medical History Family Medial History: Cataract 03 MOTHER Chest pain 03 FATHER Congestive heart failure 03 MOTHER Family history: Arthritis 03 FATHER 03 MOTHER Family history: Coronary thrombosis 03 FATHER Family history: Diabetes mellitus 03 FATHER Family history: Hypertension 03 FATHER Heart disease 03 FATHER Myocardial infarction 03 FATHER No Family History of: Abdominal aortic aneurysm [place]'s disease Alcoholism Aphasia Cancer Cancer of colon Congenital heart disease Cystic fibrosis Dementia Dysphagia Family history: Allergy Family history: Alzheimer's disease Family history: Asthma Family history: Breast disease Family history: Cardiovascular disease Family history: Gastrointestinal disease Family history: Glaucoma Family history: Osteoporosis Family history: Thyroid disorder Headache Hearing loss Hereditary disease History of - anemia History of - disorder History of - respiratory disease History of drug abuse Human immunodeficiency virus (HIV) seropositivity Hypercholesterolemia Infertile Kidney disease Malignant neoplasm of lung Parkinson's disease Prostate cancer Psychotic disorder Seizure disorder Stroke Tuberculosis Visual impairment Physical Exam Vital Signs Vital Sign - Last 12Hours 12/13/16 18:14 Temp 98.5 Pulse 75 Resp 15 B/P (MAP) 159/89 Pulse Ox 94 O2 Delivery Room Air Capillary Refill : Less Than 3 Seconds General Appearance: WD/WN, no apparent distress HEENT: PERRL/EOMI, normal ENT inspection Neck: non-tender, full range of motion Respiratory: no respiratory distress, no accessory muscle use Hips: bilateral hip non-tender, bilateral hip normal inspection, bilateral hip normal range of motion Legs: right leg pain, right leg soft tissue tenderness, right leg swelling Knees: bilateral knee non-tender, bilateral knee normal inspection, bilateral knee normal range of motion Ankles: bilateral ankle non-tender, bilateral ankle normal inspection, bilateral ankle normal range of motion Neurologic/Psychiatric: alert, normal mood/affect, oriented x 3 Skin: normal color, warm/dry Progress/Results/Core Measures Results/Orders Lab Results Laboratory Tests Test 12/13/16 18:28 Range/Units White Blood Count 8.4 4.3-11.0 10^3/uL Red Blood Count 3.93 L 4.35-5.85 10^6/uL Hemoglobin 12.0 11.5-16.0 G/DL Hematocrit 36 35-52 % Mean Corpuscular Volume 90 80-99 FL Mean Corpuscular Hemoglobin 31 25-34 PG Mean Corpuscular Hemoglobin Concent 34 32-36 G/DL Red Cell Distribution Width 13.4 10.0-14.5 % Platelet Count 262 130-400 10^3/uL Mean Platelet Volume 9.9 7.4-10.4 FL Neutrophils (%) (Auto) 66 42-75 % Lymphocytes (%) (Auto) 27 12-44 % Monocytes (%) (Auto) 7 0-12 % Eosinophils (%) (Auto) 0 0-10 % Basophils (%) (Auto) 0 0-10 % Neutrophils # (Auto) 5.5 1.8-7.8 X 10^3 Lymphocytes # (Auto) 2.3 1.0-4.0 X 10^3 Monocytes # (Auto) 0.6 0.0-1.0 X 10^3 Eosinophils # (Auto) 0.0 0.0-0.3 10^3/uL Basophils # (Auto) 0.0 0.0-0.1 10^3/uL Sodium Level 141 135-145 MMOL/L Potassium Level 4.0 3.6-5.0 MMOL/L Chloride Level 108 H 98-107 MMOL/L Carbon Dioxide Level 20 L 21-32 MMOL/L Anion Gap 13 5-14 MMOL/L Blood Urea Nitrogen 45 H 7-18 MG/DL Creatinine 1.94 H 0.60-1.30 MG/DL Estimat Glomerular Filtration Rate 25 BUN/Creatinine Ratio 23 Glucose Level 155 H 70-105 MG/DL Calcium Level 9.2 8.5-10.1 MG/DL My Orders Orders - MAIA CHISHOLM APRN Cbc With Automated Diff (12/13/16 18:21) Saline Lock/Iv-Start (12/13/16 18:21) Basic Metabolic Panel (12/13/16 18:21) Ceftriaxone Injection (Rocephin Injectio (12/13/16 19:00) Medications Given in ED Current Medications Medications Dose Ordered Sig/Varsha Route Start Time Stop Time Status Last Admin Dose Admin Ceftriaxone Sodium 1000 mg/ Sodium Chloride 50 ml @ 100 mls/hr ONCE ONCE IV 12/13/16 19:00 12/13/16 19:29 DC 12/13/16 19:06 100 MLS/HR Vital Signs/I&O Vital Sign - Last 12Hours 12/13/16 18:14 Temp 98.5 Pulse 75 Resp 15 B/P (MAP) 159/89 Pulse Ox 94 O2 Delivery Room Air Blood Pressure Mean: 112 Departure Impression Impression: Primary Impression: Cellulitis of leg Disposition: 01 HOME, SELF-CARE Condition: Stable Departure-Patient Inst. Decision time for Depature: 18:54 Referrals: EDGAR AGEE MD (PCP/Family) Primary Care Physician Patient Instructions: Cellulitis (Skin Infection), Adult (DC) Add. Discharge Instructions: 1. Return to ER for any concerns 2. See your doctor next week. If you have any worsening of symptoms between now and next week U should return to the emergency room. Worsening of symptoms would be fevers, increasing redness, pain. All discharge instructions reviewed with patient and/or family. Voiced understanding. Scripts Amoxicillin/Potassium Clav (Augmentin 875-125 Tablet) 1 Each Tablet 1 EACH PO BID, #14 TAB Prov: MAIA CHISHOLM APRN 12/13/16 MAIA CHISHOLM APRN Dec 13, 2016 18:24
[2016-12-13 18:34] LABS: BASOPHILS % (AUTO) 0 % (0-10); EOSINOPHILS % (AUTO) 0 % (0-10); LYMPHOCYTES # (AUTO) 2.3 X 10^3 (1.0-4.0); LYMPHOCYTES % (AUTO) 27 % (12-44); MEAN CORPUSCULAR HEMOGLOBIN 31 PG (25-34); MEAN CORPUSCULAR HGB CONC 34 G/DL (32-36); MEAN CORPUSCULAR VOLUME 90 FL (80-99); MEAN PLATELET VOLUME 9.9 FL (7.4-10.4); MONOCYTES # (AUTO) 0.6 X 10^3 (0.0-1.0); MONOCYTES % (AUTO) 7 % (0-12); NEUTROPHILS # (AUTO) 5.5 X 10^3 (1.8-7.8); NEUTROPHILS % (AUTO) 66 % (42-75); PLATELET COUNT 262 10^3/uL (130-400); RED BLOOD COUNT 3.93 10^6/uL (4.35-5.85); RED CELL DISTRIBUTION WIDTH 13.4 % (10.0-14.5); WHITE BLOOD COUNT 8.4 10^3/uL (4.3-11.0)
[2016-12-13 18:49] LABS: CALCIUM 9.2 MG/DL (8.5-10.1); CREATININE SERUM 1.94 MG/DL (0.60-1.30)
[2016-12-13] MEDS ORDERED: AMOX-358 PO (18:55)
[2016-12-13] MEDS ORDERED: cefTRIAXone INJECTION 1,000 MG in NS (IVPB) 50 ML IV ONE (19:00)
[2016-12-13 19:49] VITALS: BP 181/93
== END 2016-12-13 19:49 | disposition home or self-care (01) ==
LOC: EDUNIT# 17:39 → ER 17:42
DX: L03.115 Cellulitis of right lower limb (principal); F17.210 Nicotine dependence, cigarettes, uncomplicated; J44.9 Chronic obstructive pulmonary disease, unspecified; M06.9 Rheumatoid arthritis, unspecified; M19.90 Unspecified osteoarthritis, unspecified site; M54.9 Dorsalgia, unspecified; F41.9 Anxiety disorder, unspecified; F32.9 Major depressive disorder, single episode, unspecified
CPT/HCPCS: 36415; 80048; 85025; 96365

== ENCOUNTER 2017-01-10 20:59 | Inpatient (IN) | payer MEDICARE ==
[~2017-01-10] VITALS: Ht 152.4 cm; Wt 46.5 kg
[~2017-01-10 20:59] MED LIST changes: +AMOX-358 PO; +CLON0.1T PO
--- NOTE | 2017-01-10 21:28 | ED Lower Extremity ---
General Chief Complaint: Lower Extremity Stated Complaint: RT LEG/FOOT TENDERNESS AND SWELLING Nursing Triage Note: pt was brought to room by wheelchair. pt states she was in the er on december 13 of this year due to her right lower leg being red and swollen. pt states she was given numerous antibiotics and nothing has gotten better since then. pt also states she is pretty sure she broke her right pinky toe 2 days ago. Nursing Sepsis Screen: No Definite Risk Source: patient, old records History of Present Illness Time seen by provider: 21:07 Initial Comments PT ARRIVES VIA POV FROM HOME C/O PAIN, REDNESS AND SWELLING TO RIGHT LOWER LEG SYMPTOMS BEGAN A MONTH AGO--INITIALLY SCRAPED HER RIGHT LOWER LEG ON STEPS, AND IT GOT INFECTED. WENT TO URGENT CARE, AND THEN WAS SEEN HERE 12/13/16. WAS TREATED FOR CELLULITIS AND PRESCRIBED KEFLEX ( ORIGINALLY GIVEN RX FOR AUGMENTIN, BUT CAUSED NAUSEA SO SWITCHED TO OMNICEF, BUT PT STATES SHE WAS ON KEFLEX ) SYMPTOMS GOT A LITTLE BETTER, THEN GOT WORSE SEEN BY DR. AGEE A WEEK AGO FOR THIS PROBLEM AND WAS GIVEN RX FOR KEFLEX 500 MG QID #14 TABLETS, ANOTHER RX FOR KEFLEX WAS CALLED IN 2 DAYS AGO FOR 7 DAYS OF ANTIBIOTICS, BUT HAS NOT SEEN HIM SINCE THE . PT STATES SHE TOOK 2 DOSES YESTERDAY AND 3 DOSES TODAY SYMPTOMS ARE NOT IMPROVING, AND ARE GETTING WORSE NO KNOWN FEVER NO PARESTHESIAS OR MOTOR DEFICITS ADDITIONALLY, PT STUBBED HER RIGHT 5TH TOE ON A CHAIR LEG, YESTERDAY OR THE DAY BEFORE, AND NOW IT IS BRUISED AND SWOLLEN AND FEELS LIKE SHE HAS BROKEN HER TOE LAST TETANUS UNKNOWN, PT NOT INTERESTED IN GETTING A TETANUS SHOT PT HAS NOT TAKEN ANYTHING FOR PAIN TODAY, ALTHOUGH SHE HAS HYDROCODONE AT HOME, WHICH SHE TAKES FOR CHRONIC GENERALIZED PAIN. TOOK 1 YESTERDAY BEFORE BED. PCP: DR. AGEE Allergies and Home Medications Allergies Coded Allergies: Sulfa (Sulfonamide Antibiotics) (Unverified Allergy, Unknown, 03/16/16) acetaminophen (Unverified Allergy, Unknown, 03/16/16) codeine (Unverified Allergy, Unknown, 03/16/16) erythromycin base (Unverified Allergy, Unknown, 03/16/16) oxycodone (Unverified Allergy, Unknown, 03/16/16) propoxyphene (Unverified Allergy, Unknown, 03/16/16) Home Medications Amlodipine Bes/Olmesartan Med 1 Each Tablet, 1 EACH PO DAILY, (Reported) Amoxicillin/Potassium Clav 1 Each Tablet, 1 EACH PO BID, #14 Prescribed by: MAIA CHISHOLM on 12/13/16 6875 Aspirin 81 Mg Tablet.dr, 81 MG PO DAILY, (Reported) Atorvastatin Calcium 10 Mg Tablet, 10 MG PO DAILY, (Reported) Clonidine HCl 0.1 Mg Tablet, 0.2 MG PO BID, (Reported) Diazepam 2 Mg Tablet, 2 MG PO HS PRN for SLEEP, (Reported) Hydrocodone/Acetaminophen 1 Each Tablet, 1 EACH PO q6-q8 PRN for PAIN-MILD TO MODERATE, (Reported) Hydroxyzine HCl 25 Mg Tablet, 25 MG PO DAILY PRN for RASH, (Reported) Metoprolol Tartrate 50 Mg Tablet, 50 MG PO DAILY, (Reported) Constitutional: no symptoms reported Respiratory: no symptoms reported, cough (CHRONIC ) Cardiovascular: no symptoms reported Gastrointestinal: no symptoms reported Genitourinary: no symptoms reported Musculoskeletal: see HPI Skin: see HPI Psychiatric/Neurological: No Symptoms Reported Past Seufimx-Ymvwnu-Txqzps Hx Patient Social History Alcohol Use: Denies Use Recreational Drug Use: No Smoking Status: Current Everyday Smoker (1/2 PPD) Type Used: Cigarettes Recent Foreign Travel: No Contact w/Someone Who Travel: No Recent Infectious Disease Expo: No Recent Hopitalizations: No Immunizations Up To Date Tetanus Booster (TDap): More than 5yrs Seasonal Allergies Seasonal Allergies: No Surgeries HX Surgeries: Yes (HEMORRHOIDECTOMY; BLEPHAROPLASTY;CARDIAC CATHS AND STENTS; LEFT SHOULDER SURGERY; RIGHT THUMB SURGERY; CATARACTS) Surgeries: CABG, Coronary Stent, Eye Surgery, Gallbladder, Hysterectomy, Joint Replacement, Orthopedic, Rectal Respiratory Hx Respiratory Disorders: Yes Respiratory Disorders: Chronic Bronchitis, COPD Cardiovascular Hx Cardiac Disorders: Yes (CARDIAC CATHS, STENTS, CABG; CHF) Cardiac Disorders: Coronary Artery Disease, Heart Attack, High Cholesterol, Hypertension Neurological Hx Neurological Disorders: Yes (shingles) Neurological Disorders: Stroke Reproductive System Hx Reproductive Disorders: No Sexually Transmitted Disease: No HIV/AIDS: No Genitourinary Hx Genitourinary Disorders: Yes Genitourinary Disorders: Renal Failure Gastrointestinal Hx Gastrointestinal Disorders: Yes (S/P THOM) Gastrointestinal Disorders: Abdominal Hernia, Colitis, Chronic Constipation, Diverticulosis, Ulcer, Gall Bladder Disease, Irritable Bowel Musculoskeletal Hx Musculoskeletal Disorders: Yes (CHRONIC GENERALIZED PAIN) Musculoskeletal Disorders: Arthritis, Rheumatoid Arthritis, Chronic Back Pain Endocrine Hx Endocrine Disorders: No HEENT HX ENT Disorders: Yes HEENT Disorders: Cataract Loss of Vision: Bilateral Cancer Hx Cancer: No Psychosocial Hx Psychiatric Problems: Yes Behavioral Health Disorders: Anxiety, Depression Integumentary HX Skin/Integumentary Disorder: Yes (frequent hives; SHINGLES) Blood Transfusions Hx Blood Disorders: No Family Medical History Family Medial History: Cataract 03 MOTHER Chest pain 03 FATHER Congestive heart failure 03 MOTHER Family history: Arthritis 03 FATHER 03 MOTHER Family history: Coronary thrombosis 03 FATHER Family history: Diabetes mellitus 03 FATHER Family history: Hypertension 03 FATHER Heart disease 03 FATHER Myocardial infarction 03 FATHER No Family History of: Abdominal aortic aneurysm Conrado's disease Alcoholism Aphasia Cancer Cancer of colon Congenital heart disease Cystic fibrosis Dementia Dysphagia Family history: Allergy Family history: Alzheimer's disease Family history: Asthma Family history: Breast disease Family history: Cardiovascular disease Family history: Gastrointestinal disease Family history: Glaucoma Family history: Osteoporosis Family history: Thyroid disorder Headache Hearing loss Hereditary disease History of - anemia History of - disorder History of - respiratory disease History of drug abuse Human immunodeficiency virus (HIV) seropositivity Hypercholesterolemia Infertile Kidney disease Malignant neoplasm of lung Parkinson's disease Prostate cancer Psychotic disorder Seizure disorder Stroke Tuberculosis Visual impairment Physical Exam Vital Signs Vital Sign - Last 12Hours 01/10/17 21:09 Temp 98.6 Pulse 83 Resp 16 B/P (MAP) 169/89 Pulse Ox 96 O2 Delivery Room Air Capillary Refill : Less Than 3 Seconds General Appearance: no apparent distress, thin HEENT: other (POOR ORAL HYGIENE) Neck: normal inspection, No carotid bruit Cardiovascular: regular rate, rhythm, no murmur Respiratory: normal breath sounds, no respiratory distress, no accessory muscle use Gastrointestinal: non tender, soft Hips: bilateral hip normal inspection Legs: left leg normal inspection, right leg other (2-3+ EDEMA TO RIGHT LOWER LEG, WITH SIGNIFICANT REDNESS, WARMTH AND MILD TENDERNESS. DISTAL PULSES INTACT + 3/4 BILATERALLY. ) Knees: bilateral knee normal inspection Ankles: right ankle other ( ABOVE) Feet: left foot normal inspection, right foot other ( ABOVE; RIGHT 5TH TOE WITH MODERATE SWELLING, BRUISING AND TENDERNESS. ) Neurologic/Tendon: normal sensation, normal motor functions, normal tendon functions Neurologic/Psychiatric: leather staker II-XII nml as tested, no motor/sensory deficits, alert, normal mood/affect, oriented x 3 Skin: normal color, warm/dry Progress/Results/Core Measures Results/Orders Lab Results Laboratory Tests Test 01/10/17 21:17 Range/Units White Blood Count 7.3 4.3-11.0 10^3/uL Red Blood Count 3.90 L 4.35-5.85 10^6/uL Hemoglobin 11.9 11.5-16.0 G/DL Hematocrit 36 35-52 % Mean Corpuscular Volume 91 80-99 FL Mean Corpuscular Hemoglobin 31 25-34 PG Mean Corpuscular Hemoglobin Concent 34 32-36 G/DL Red Cell Distribution Width 13.2 10.0-14.5 % Platelet Count 255 130-400 10^3/uL Mean Platelet Volume 10.4 7.4-10.4 FL Neutrophils (%) (Auto) 71 42-75 % Lymphocytes (%) (Auto) 24 12-44 % Monocytes (%) (Auto) 6 0-12 % Eosinophils (%) (Auto) 0 0-10 % Basophils (%) (Auto) 0 0-10 % Neutrophils # (Auto) 5.2 1.8-7.8 X 10^3 Lymphocytes # (Auto) 1.7 1.0-4.0 X 10^3 Monocytes # (Auto) 0.4 0.0-1.0 X 10^3 Eosinophils # (Auto) 0.0 0.0-0.3 10^3/uL Basophils # (Auto) 0.0 0.0-0.1 10^3/uL Erythrocyte Sedimentation Rate 30 0-30 MM/HR Sodium Level 140 135-145 MMOL/L Potassium Level 4.6 3.6-5.0 MMOL/L Chloride Level 106 98-107 MMOL/L Carbon Dioxide Level 22 21-32 MMOL/L Anion Gap 12 5-14 MMOL/L Blood Urea Nitrogen 63 H 7-18 MG/DL Creatinine 2.01 H 0.60-1.30 MG/DL Estimat Glomerular Filtration Rate 24 BUN/Creatinine Ratio 31 Glucose Level 125 H 70-105 MG/DL Lactic Acid Level 0.76 0.50-2.00 MMOL/L Calcium Level 9.2 8.5-10.1 MG/DL Total Bilirubin 0.3 0.1-1.0 MG/DL Aspartate Amino Transf (AST/SGOT) 16 5-34 U/L Alanine Aminotransferase (ALT/SGPT) 10 0-55 U/L Alkaline Phosphatase 73 40-136 U/L C-Reactive Protein High Sensitivity 0.33 0.00-0.50 MG/DL Total Protein 7.0 6.4-8.2 GM/DL Albumin 3.9 3.2-4.5 GM/DL My Orders Orders - ONIEL FRANCISCO DO Saline Lock/Iv-Start (01/10/17 21:16) Cbc With Automated Diff (01/10/17 21:16) Comprehensive Metabolic Panel (01/10/17 21:16) Hs C Reactive Protein (01/10/17 21:16) Erythrocyte Sedimentation Rate (01/10/17 21:16) Lactic Acid Analyzer (01/10/17 21:16) Blood Culture (01/10/17 21:16) Tibia/Fibula, Right, 2 Views (01/10/17 21:16) Foot, Right, 3 View (01/10/17 21:16) Ketorolac Injection (Toradol Injection) (01/10/17 21:51) Vancomycin Injection (Vancomycin Injecti (01/10/17 22:00) Hydrocodone/Apap 10/325 Tablet (Lortab 1 (01/10/17 22:15) Vancomycin Injection (Vancomycin Injecti (01/10/17 22:01) Ns (Ivpb) (Sodium Chloride 0.9%) (01/10/17 22:02) Medications Given in ED Current Medications Medications Dose Ordered Sig/Varsha Route Start Time Stop Time Status Last Admin Dose Admin Vancomycin HCl 1000 mg/Sodium Chloride 250 ml @ 250 mls/hr ONCE ONCE IV 01/10/17 22:00 01/10/17 22:59 DC 01/10/17 22:12 250 MLS/HR Vital Signs/I&O Vital Sign - Last 12Hours 01/10/17 21:09 Temp 98.6 Pulse 83 Resp 16 B/P (MAP) 169/89 Pulse Ox 96 O2 Delivery Room Air Blood Pressure Mean: 115 Diagnostic Imaging Comments XRAYS RIGHT TIB-FIB-NO ACUTE PROCESS XRAYS RIGHT FOOT--FX PROXIMAL 5TH TOE Departure Communication Progress Notes 2149--SPOKE WITH DR. RUIZ, ACCEPTS PT FOR ADMIT. ADVISES VANCOMYCIN AND ZOSYN Impression Impression: Primary Impression: CELLULITIS RIGHT LOWER LEG AND FOOT Additional Impressions: Failure of outpatient treatment Fracture of fifth toe, right, closed Disposition: 09 ADMITTED INPATIENT Condition: Stable Decision to Admit Reason: Admit from ER (General) Decision to Admit/Date: Jan 10, 2017 Time/Decision to Admit Time: 21:55 Departure-Patient Inst. Referrals: EDGAR AGEE MD (PCP/Family) Primary Care Physician ONIEL FRANCISCO DO Jan 10, 2017 21:28
[2017-01-10 21:35] LABS: BASOPHILS % (AUTO) 0 % (0-10); EOSINOPHILS % (AUTO) 0 % (0-10); LYMPHOCYTES # (AUTO) 1.7 X 10^3 (1.0-4.0); LYMPHOCYTES % (AUTO) 24 % (12-44); MEAN CORPUSCULAR HEMOGLOBIN 31 PG (25-34); MEAN CORPUSCULAR HGB CONC 34 G/DL (32-36); MEAN CORPUSCULAR VOLUME 91 FL (80-99); MEAN PLATELET VOLUME 10.4 FL (7.4-10.4); MONOCYTES # (AUTO) 0.4 X 10^3 (0.0-1.0); MONOCYTES % (AUTO) 6 % (0-12); NEUTROPHILS # (AUTO) 5.2 X 10^3 (1.8-7.8); NEUTROPHILS % (AUTO) 71 % (42-75); PLATELET COUNT 255 10^3/uL (130-400); RED CELL DISTRIBUTION WIDTH 13.2 % (10.0-14.5); WHITE BLOOD COUNT 7.3 10^3/uL (4.3-11.0)
--- NOTE | 2017-01-10 21:45 | Diagnostic Imaging Report ---
INDICATION: Swelling right foot and leg. No known injury. FINDINGS: The bones appear osteoporotic. No bony destructive process or acute periosteal reaction. No fracture could be identified. IMPRESSION: Tib-fib appeared nonacute and unremarkable aside from extensive osteopenia. No gas or foreign body. Dictated by: Dictated on workstation # [id number]
--- NOTE | 2017-01-10 21:46 | Diagnostic Imaging Report ---
INDICATION: Red, swollen, painful foot. EXAMINATION: Multiple views of the right foot. FINDINGS: The bones are severely osteoporotic. There is a fracture through the base of the proximal phalanx of the fifth toe, extra-articular, and not significantly displaced. No abnormal parosteal reaction. No additional fracture. IMPRESSION: Osteoporotic bones. Fracture without evidence for healing, presumed recent extra-articular proximal phalanx fifth toe, nondisplaced. Dictated by: Dictated on workstation # [id number]
[2017-01-10] MEDS ORDERED: KETOROLAC 30 MG/ML VIAL IVP STA (21:51)
[2017-01-10 21:59] LABS: ERYTHROCYTE SEDIMENTATION RATE 30 MM/HR (0-30)
[2017-01-10] MEDS ORDERED: VANCOMYCIN INJECTION 1,000 MG in NS (IVPB) 250 ML IV ONE (22:00)
[2017-01-10] MEDS ORDERED: VANCOMYCIN 1000 MG/VIAL ONE (22:01)
[2017-01-10] MEDS ORDERED: NS (IVPB) 250 ML ONE (22:02)
[2017-01-10 22:03] LABS: ALBUMIN 3.9 GM/DL (3.2-4.5); BILIRUBIN,TOTAL 0.3 MG/DL (0.1-1.0); CALCIUM 9.2 MG/DL (8.5-10.1); CREATININE SERUM 2.01 MG/DL (0.60-1.30); POTASSIUM 4.6 MMOL/L (3.6-5.0); hs C REACTIVE PROTEIN 0.33 MG/DL (0.00-0.50)
[2017-01-10] MEDS ORDERED: HYDROcodone/APAP 10 MG/325 MG (LORTAB) TAB PO ONE (22:15)
[2017-01-10 22:40] VITALS: BP 170/86
[2017-01-10] MEDS ORDERED: NS (IVPB) 100 ML ONE (23:33)
[2017-01-10] MEDS ORDERED: PIPERACILLIN/TAZO 4.5 GM VIAL (ZOSYN) IV ONE (23:33)
[2017-01-11] VITALS: BP 151/70
[2017-01-11] MEDS ORDERED: cloNIDine 0.1 MG (CATAPRES) TAB ONE (00:12)
[2017-01-11] MEDS ORDERED: diphenhydrAMINE 50 MG/ML INJ (BENADRYL) INJ PRN (00:15)
[2017-01-11] MEDS: cloNIDine 0.1 MG (CATAPRES) TAB PO SCH ×3 (00:23→20:15)
[2017-01-11] MEDS ORDERED: HYDROcodone/APAP 10 MG/325 MG (LORTAB) TAB PO PRN (01:30)
[2017-01-11] MEDS ORDERED: KETOROLAC 30 MG/ML VIAL IVP PRN (01:30)
[2017-01-11 04:20] VITALS: BP 108/59
[2017-01-11] MEDS ORDERED: PIPERACILLIN/TAZOBACTAM 4.5 GM/NS100 ML IVPB IV SCH ×2 (06:00)
[2017-01-11 08:00] VITALS: BP 122/56
--- NOTE | 2017-01-11 09:28 | History & Physical-Hospitalist ---
HPI History of Present Illness: HPI/Chief Complaint CC: Severe right lower extremity cellulitis refractory to outpatient oral antibiotics 4 rounds by primary care provider HPI: This is an 81-year-old white female clinic patient of Dr. Coker that presents to the emergency room with complaints of severe right lower extremity pain with swelling and erythema. She reports a subjective fever at home and reports that she's had multiple antibiotic rounds including Keflex and amoxicillin and Augmentin (of which caused her nausea and vomiting and can no longer take that) within the past month after she scraped her lower leg on a door when she opened it at home. To note she had a very deep laceration many years ago in the right lower extremity and ever since has had issues with swelling and rashes. She did not qualify for sepsis. Due to the severity of the leg she was placed on vancomycin and Zosyn empirically and she has responded dramatically since admission. She does smoke of which I counseled for cessation. She does have a history of pelvic fracture that returned back home because she declined to go to senior living. She does not wear home oxygen. Source: patient Exam Limitations: no limitations Date Seen 01/11/17 Time Seen by Provider: 09:00 Attending Physician Anastacio Coker MD PCP Anastacio Coker MD Referring Physician Date of Admission Jan 10, 2017 at 22:12 Home Medications & Allergies Home Medications Reviewed patient Home Medication Reconciliation Form Allergies Allergies Coded Allergies Sulfa (Sulfonamide Antibiotics) (Unverified Allergy, Unknown, 03/16/16) acetaminophen (Unverified Allergy, Unknown, 03/16/16) codeine (Unverified Allergy, Unknown, 03/16/16) erythromycin base (Unverified Allergy, Unknown, 03/16/16) oxycodone (Unverified Allergy, Unknown, 03/16/16) propoxyphene (Unverified Allergy, Unknown, 03/16/16) Past Laozdqg-Tpaxwk-Oqijhu Hx Patient Social History Marrital Status: single Employed/Student: retired ([employer] 30 yrs) Alcohol Use: Occasionally Uses Recreational Drug Use: No Smoking Status: Current Everyday Smoker Type Used: Cigarettes 2nd Hand Smoke Exposure: Yes Physical Abuse Screen: No Sexual Abuse: No Recent Foreign Travel: No Contact w/other who traveled: No Recent Hopitalizations: No Recent Infectious Disease Expo: No Immunizations Up To Date Tetanus Booster (TDap): More than 5yrs Seasonal Allergies Seasonal Allergies: No Surgeries HX Surgeries: Yes (HEMORRHOIDECTOMY; BLEPHAROPLASTY;CARDIAC CATHS AND STENTS; LEFT SHOULDER SURGERY; RIGHT THUMB SURGERY; CATARACTS) Surgeries: CABG, Coronary Stent, Eye Surgery, Gallbladder, Hysterectomy, Joint Replacement, Orthopedic, Rectal Respiratory Hx Respiratory Disorders: Yes Respiratory Disorders: COPD Cardiovascular Hx Cardiovascular Disorders: Yes (CARDIAC CATHS, STENTS, CABG; CHF) Cardiac Disorders: Coronary Artery Disease, Heart Attack, High Cholesterol, Hypertension Neurological Hx Neurological Disorders: Yes (shingles) Neurological Disorders: Stroke Reproductive System Hx Reproductive Disorders: No Sexually Transmitted Disease: No HIV/AIDS: No Genitourinary Hx Genitourinary Disorders: Yes Genitourinary Disorders: Renal Failure Gastrointestinal Hx Gastrointestinal Disorders: Yes (S/P THOM) Gastrointestinal Disorders: Abdominal Hernia, Colitis, Chronic Constipation, Diverticulosis, Hemorrhoids, Ulcer, Gall Bladder Disease, Irritable Bowel Musculoskeletal Hx Musculoskeletal Disorders: Yes (CHRONIC GENERALIZED PAIN) Musculoskeletal Disorders: Arthritis, Rheumatoid Arthritis, Chronic Back Pain Endocrine Hx Endocrine Disorders: No HEENT HX ENT Disorders: Yes HEENT Disorders: Cataract Loss of Vision: Bilateral Cancer Hx Cancer: No Psychosocial Hx Psychiatric Problems: Yes Behavioral Health Disorders: Anxiety, Depression Integumentary HX Skin/Integumentary Disorder: Yes (frequent hives; SHINGLES) Blood Transfusions Hx Blood Disorders: No Family Medical History Family Hx: Cataract 03 MOTHER Chest pain 03 FATHER Congestive heart failure 03 MOTHER Family history: Arthritis 03 FATHER 03 MOTHER Family history: Coronary thrombosis 03 FATHER Family history: Diabetes mellitus 03 FATHER Family history: Hypertension 03 FATHER Heart disease 03 FATHER Myocardial infarction 03 FATHER No Family History of: Abdominal aortic aneurysm Conrado's disease Alcoholism Aphasia Cancer Cancer of colon Congenital heart disease Cystic fibrosis Dementia Dysphagia Family history: Allergy Family history: Alzheimer's disease Family history: Asthma Family history: Breast disease Family history: Cardiovascular disease Family history: Gastrointestinal disease Family history: Glaucoma Family history: Osteoporosis Family history: Thyroid disorder Headache Hearing loss Hereditary disease History of - anemia History of - disorder History of - respiratory disease History of drug abuse Human immunodeficiency virus (HIV) seropositivity Hypercholesterolemia Infertile Kidney disease Malignant neoplasm of lung Parkinson's disease Prostate cancer Psychotic disorder Seizure disorder Stroke Tuberculosis Visual impairment Review of Systems Constitutional: see HPI, fever, weakness EENTM: no symptoms reported Respiratory: no symptoms reported Cardiovascular: no symptoms reported Gastrointestinal: no symptoms reported Genitourinary: no symptoms reported Musculoskeletal: muscle pain (right lower leg) Skin: no symptoms reported Psychiatric/Neurological: No Symptoms Reported All Other Systems Reviewed Negative Unless Noted: Yes Physical Exam Physical Exam Vital Signs Vital Sign - Last 12Hours 01/10/17 21:09 Temp 98.6 Pulse 83 Resp 16 B/P (MAP) 169/89 Pulse Ox 96 O2 Delivery Room Air Capillary Refill : Less Than 3 SecondsLess Than 3 Seconds General Appearance: No Apparent Distress, WD/WN, Chronically ill, Thin Eyes: Bilateral Eye Normal Inspection, Bilateral Eye PERRL HEENT: PERRL/EOMI, Normal ENT Inspection, Pharynx Normal Neck: Full Range of Motion, Normal Inspection, Non Tender, Supple, Carotid Bruit Respiratory: Chest Non Tender, Lungs Clear, Normal Breath Sounds, No Accessory Muscle Use, No Respiratory Distress Cardiovascular: Regular Rate, Rhythm, No Edema, No Gallop, No JVD, No Murmur, Normal Peripheral Pulses Gastrointestinal: Normal Bowel Sounds, No Organomegaly, No Pulsatile Mass, Non Tender, Soft Back: Normal Inspection, No CVA Tenderness, No Vertebral Tenderness Extremity: Normal Capillary Refill, Normal Inspection, Normal Range of Motion, Non Tender, No Calf Tenderness, No Pedal Edema, Swelling (negative Homans sign) Neurologic/Psychiatric: Alert, Oriented x3, No Motor/Sensory Deficits, Normal Mood/Affect Skin: Normal Color, Warm/Dry, Rash (right lower leg with venous stasis changes noted but dramatic improvement of erythema with improvement from demarcation) Lymphatic: No Adenopathy Results Results/Procedures Lab Laboratory Tests 01/10/17 21:17 Assessment/Plan Admission Diagnosis Assessment: Severe right lower leg cellulitis refractory to PO abx with h/o deep laceration remotely of the right leg now w/recent abrasion 1 month ago Current smoker Coronary artery disease Presumed osteoporosis with recent pelvic fracture CRI usual creat 2.0 Congestive heart failure EF 40% h/o Shingles. Chronic Colitis. Chronic constipation. Diverticulosis. Irritable bowel syndrome. Anxiety. Depression. h/o CABG. Assessment and Plan Plan: Evaluate rash that occurred with Vancomycin and whether that was a true allergy or not considering she experiences urticaria frequency for now reason that responded to Benadryl quickly. I did speak with Hortencia with pharmacy and she agrees with the plan to continue the antibiotics because she does have chronic urticaria and it does not appear to be vancomycin allergy. Reconciled home meds Smoking cessation discussed Monitor creatinine Clinical Quality Measures DVT/VTE Risk/Contraindication: Risk Factor Score Per Nursin RFS Level Per Nursing on Admit: 4+=Very High CASTILLO RUIZ DO Jan 11, 2017 09:28
[2017-01-11] MEDS ORDERED: ATOR10TA66 PO (10:35)
[2017-01-11] MEDS ORDERED: FURO20TA4 PO (10:35)
[2017-01-11] MEDS ORDERED: CEPH500C PO (10:35)
[2017-01-11] MEDS ORDERED: POLY119P5 PO (10:47)
[2017-01-11] MEDS ORDERED: BISA-65 PO (10:47)
[2017-01-11 11:33] VITALS: BP 107/54
[2017-01-11] MEDS ORDERED: BISACODYL 5 MG (DULCOLAX) TABLET PO PRN (11:45)
[2017-01-11] MEDS ORDERED: hydrOXYzine (VISTARIL) 25 MG CAP PO PRN (12:15)
[2017-01-11] MEDS: PIPERACILLIN/TAZOBACTAM 4.5 GM/NS100 ML IVPB IV SCH ×2 (12:38)
[2017-01-11] MEDS: ENOXAPARIN 30 MG/0.3 ML (LOVENOX) SYR SC SCH (12:39)
[2017-01-11 16:00] VITALS: BP 122/73
[2017-01-11] MEDS ORDERED: TROUGH ORDER-PHARMACY XX NR (19:00)
[2017-01-11 20:00] VITALS: BP 121/77
[2017-01-11] MEDS: OLMESARTAN 20 MG (BENICAR) TABLET PO SCH (20:14)
[2017-01-11] MEDS: ASPIRIN E.C. 81 MG (ECOTRIN) TAB PO SCH (20:14)
[2017-01-11] MEDS: ATORVASTATIN 10 MG (LIPITOR) TABLET PO SCH (20:14)
[2017-01-11] MEDS: meTOprolol TARTRATE 50 MG (LOPRESSOR) TAB PO SCH (20:15)
[2017-01-11] MEDS: amLODIPine 5 MG (NORVASC) TAB PO SCH (20:15)
[2017-01-11] MEDS: FUROSEMIDE 20 MG (LASIX) TAB PO SCH (20:15)
[2017-01-11] MEDS: DIAZEPAM 2 MG (VALIUM) TAB PO SCH (20:15)
[2017-01-11] MEDS: VANCOMYCIN 500 MG/NS 100 ML IVPB IV SCH ×2 (20:16)
[2017-01-11] MEDS: HYDROcodone/APAP 7.5 MG/325 MG (LORTAB, LORCET PLUS) TABLET PO PRN (20:22)
[2017-01-11] MEDS ORDERED: POLYETHYLENE GLYCOL 17 GM (MIRALAX) PACK PO PRN (21:00)
[2017-01-11] MEDS ORDERED: VANCOMYCIN 1 GM/NS 250 ML IVPB IV SCH ×2 (22:00)
[2017-01-12] VITALS: BP 159/74
[2017-01-12] MEDS: PIPERACILLIN/TAZOBACTAM 4.5 GM/NS100 ML IVPB IV SCH ×6 (00:28→23:44)
[2017-01-12 05:39] LABS: BASOPHILS % (AUTO) 0 % (0-10); EOSINOPHILS % (AUTO) 0 % (0-10); LYMPHOCYTES % (AUTO) 28 % (12-44); MEAN CORPUSCULAR HEMOGLOBIN 30 PG (25-34); MEAN CORPUSCULAR HGB CONC 33 G/DL (32-36); MEAN CORPUSCULAR VOLUME 91 FL (80-99); MEAN PLATELET VOLUME 10.8 FL (7.4-10.4); MONOCYTES # (AUTO) 0.6 X 10^3 (0.0-1.0); MONOCYTES % (AUTO) 8 % (0-12); NEUTROPHILS # (AUTO) 4.5 X 10^3 (1.8-7.8); NEUTROPHILS % (AUTO) 64 % (42-75); PLATELET COUNT 247 10^3/uL (130-400); RED BLOOD COUNT 3.87 10^6/uL (4.35-5.85); RED CELL DISTRIBUTION WIDTH 13.2 % (10.0-14.5); WHITE BLOOD COUNT 7.1 10^3/uL (4.3-11.0)
[2017-01-12 06:03] LABS: ALBUMIN 3.5 GM/DL (3.2-4.5); BILIRUBIN,TOTAL 0.4 MG/DL (0.1-1.0); CALCIUM 8.6 MG/DL (8.5-10.1); CREATININE SERUM 2.08 MG/DL (0.60-1.30); POTASSIUM 4.6 MMOL/L (3.6-5.0); TOTAL PROTEIN 6.2 GM/DL (6.4-8.2)
[2017-01-12 08:00] VITALS: BP 155/82
[2017-01-12] MEDS ORDERED: ONDANSETRON 4 MG (ZOFRAN) ORAL DISSOLVE TAB ONE (08:48)
[2017-01-12] MEDS: cloNIDine 0.1 MG (CATAPRES) TAB PO SCH ×2 (08:55→21:17)
[2017-01-12] MEDS ORDERED: ONDANSETRON 4 MG (ZOFRAN) ORAL DISSOLVE TAB PO PRN (09:00)
[2017-01-12 11:32] VITALS: BP 112/65
[2017-01-12] MEDS: ENOXAPARIN 30 MG/0.3 ML (LOVENOX) SYR SC SCH (11:53)
[2017-01-12 16:00] VITALS: BP 128/74
--- NOTE | 2017-01-12 18:00 | Progress Note-Hospitalist ---
Subjective HPI/CC On Admission Date Seen by Provider: Jan 12, 2017 Time Seen by Provider: 17:57 CC: Severe right lower extremity cellulitis refractory to outpatient oral antibiotics 4 rounds by primary care provider HPI: This is an 81-year-old white female clinic patient of Dr. Coker that presents to the emergency room with complaints of severe right lower extremity pain with swelling and erythema. She reports a subjective fever at home and reports that she's had multiple antibiotic rounds including Keflex and amoxicillin and Augmentin (of which caused her nausea and vomiting and can no longer take that) within the past month after she scraped her lower leg on a door when she opened it at home. To note she had a very deep laceration many years ago in the right lower extremity and ever since has had issues with swelling and rashes. She did not qualify for sepsis. Due to the severity of the leg she was placed on vancomycin and Zosyn empirically and she has responded dramatically since admission. She does smoke of which I counseled for cessation. She does have a history of pelvic fracture that returned back home because she declined to go to snf. She does not wear home oxygen. Objective Exam Vital Signs Vital Sign - Last 12Hours 01/10/17 21:09 Temp 98.6 Pulse 83 Resp 16 B/P (MAP) 169/89 Pulse Ox 96 O2 Delivery Room Air Capillary Refill : Less Than 3 SecondsLess Than 3 Seconds General Appearance: No Apparent Distress, Chronically ill Respiratory: No Accessory Muscle Use, No Respiratory Distress, Other ( diminished BS posteriorly no rales or ronchi) Cardiovascular: Regular Rate, Rhythm, No Edema, No Gallop, No JVD, No Murmur Extremity: Swelling (around R 5th toe with purpura feet warm nor erythema with chronic venous insufficiency changes on R no ulceration) Neurologic/Psychiatric: Alert, Oriented x3 Results/Procedures Lab Laboratory Tests 01/13/17 05:11 Assessment/Plan Assessment and Plan Assess & Plan/Chief Complaint 1. Cellulitis versus exacerbation of venous insufficiency with dermatitis continue antibiotics possible discharge tomorrow. 2. 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 3. Plain films with previous sacral insufficiency fracture all compatible with significant osteoporosis secondary to number 2. Patient was advised to discuss treatment of osteoporosis with Dr. Coker and quit smoking. In discussion and answering her many questions with chart review 50 minutes care time spent today. FERN MCGUIRE MD Jan 12, 2017 18:00
[2017-01-12 19:44] VITALS: BP 136/81
[2017-01-12] MEDS: VANCOMYCIN 500 MG/NS 100 ML IVPB IV SCH ×2 (19:54)
[2017-01-12] MEDS: DIAZEPAM 2 MG (VALIUM) TAB PO SCH (21:16)
[2017-01-12] MEDS: OLMESARTAN 20 MG (BENICAR) TABLET PO SCH (21:16)
[2017-01-12] MEDS: amLODIPine 5 MG (NORVASC) TAB PO SCH (21:16)
[2017-01-12] MEDS: ATORVASTATIN 10 MG (LIPITOR) TABLET PO SCH (21:17)
[2017-01-12] MEDS: meTOprolol TARTRATE 50 MG (LOPRESSOR) TAB PO SCH (21:17)
[2017-01-12] MEDS: ASPIRIN E.C. 81 MG (ECOTRIN) TAB PO SCH (21:17)
[2017-01-12] MEDS: FUROSEMIDE 20 MG (LASIX) TAB PO SCH (21:17)
[2017-01-12] MEDS: HYDROcodone/APAP 7.5 MG/325 MG (LORTAB, LORCET PLUS) TABLET PO PRN (21:23)
[2017-01-13] VITALS: BP 113/68
[2017-01-13 03:59] VITALS: BP 122/69
[2017-01-13 06:02] LABS: CALCIUM 8.6 MG/DL (8.5-10.1); CREATININE SERUM 2.23 MG/DL (0.60-1.30); POTASSIUM 4.4 MMOL/L (3.6-5.0)
[2017-01-13 08:00] VITALS: BP 139/67
[2017-01-13] MEDS: cloNIDine 0.1 MG (CATAPRES) TAB PO SCH (08:32)
--- NOTE | 2017-01-13 10:51 | Progress Note-Hospitalist ---
Subjective HPI/CC On Admission Date Seen by Provider: Jan 13, 2017 Time Seen by Provider: 10:40 CC: Severe right lower extremity cellulitis refractory to outpatient oral antibiotics 4 rounds by primary care provider HPI: This is an 81-year-old white female clinic patient of Dr. Coker that presents to the emergency room with complaints of severe right lower extremity pain with swelling and erythema. She reports a subjective fever at home and reports that she's had multiple antibiotic rounds including Keflex and amoxicillin and Augmentin (of which caused her nausea and vomiting and can no longer take that) within the past month after she scraped her lower leg on a door when she opened it at home. To note she had a very deep laceration many years ago in the right lower extremity and ever since has had issues with swelling and rashes. She did not qualify for sepsis. Due to the severity of the leg she was placed on vancomycin and Zosyn empirically and she has responded dramatically since admission. She does smoke of which I counseled for cessation. She does have a history of pelvic fracture that returned back home because she declined to go to shelter. She does not wear home oxygen. Subjective/Events-last exam integument dose of MiraLAX yesterday evening over concerns of constipation and now is had multiple loose stools without abdominal cramping. She reports that this has happened to her in the past. She's had several accidents this morning. She denies any leg pain except if the fracture site in her right fifth metatarsal is pressured. Objective Exam Vital Signs Vital Sign - Last 12Hours 01/10/17 21:09 Temp 98.6 Pulse 83 Resp 16 B/P (MAP) 169/89 Pulse Ox 96 O2 Delivery Room Air Capillary Refill : Less Than 3 SecondsLess Than 3 Seconds General Appearance: No Apparent Distress Respiratory: No Accessory Muscle Use, No Respiratory Distress, Other (stable unchanged from yesterday.) Cardiovascular: Regular Rate, Rhythm, No Edema, No Gallop, No JVD, No Murmur Extremity: Other (old edema and purpura only at the fracture site elsewhere there is no pain tenderness redness or swelling of the right lower extremity.) Results/Procedures Lab Laboratory Tests 01/13/17 05:11 Assessment/Plan Assessment and Plan Assess & Plan/Chief Complaint 1. Right lower extremity cellulitis versus venous insufficiency with dermatitis. There is no evidence for infection at this point we'll give 1 more dose of vancomycin. 2. Diarrhea we'll discontinue Zosyn and check stool for C. difficile. If her diarrhea abates and she is C. difficile negative she could be discharged later this afternoon. FERN MCGUIRE MD Jan 13, 2017 10:51
[2017-01-13] MEDS: ENOXAPARIN 30 MG/0.3 ML (LOVENOX) SYR SC SCH (11:33)
[2017-01-13 11:48] VITALS: BP 129/77
[2017-01-13 14:20] VITALS: BP 129/77
[2017-01-13] MEDS ORDERED: TROUGH ORDER-PHARMACY XX NR (19:00)
== END 2017-01-13 14:20 | disposition home or self-care (01) | DRG 603 ==
LOC: EDUNIT# 20:59 → ER 21:01 → 4TH 22:12
PROVIDERS: ADMIT Internal Medicine; ATTEND Family Medicine
DX: L03.115 Cellulitis of right lower limb (principal); M80.071A Age-related osteoporosis with current pathological fracture, right ankle and foot, initial encounter for fracture; I10 Essential (primary) hypertension; I25.10 Atherosclerotic heart disease of native coronary artery without angina pectoris; I25.2 Old myocardial infarction; J44.9 Chronic obstructive pulmonary disease, unspecified; F17.210 Nicotine dependence, cigarettes, uncomplicated; F41.9 Anxiety disorder, unspecified; M19.91 Primary osteoarthritis, unspecified site; M06.9 Rheumatoid arthritis, unspecified; M54.9 Dorsalgia, unspecified; E78.00 Pure hypercholesterolemia, unspecified; S80.811S Abrasion, right lower leg, sequela; W22.03XA Walked into furniture, initial encounter; Z86.73 Personal history of transient ischemic attack (TIA), and cerebral infarction without residual deficits; Z95.1 Presence of aortocoronary bypass graft; Z95.5 Presence of coronary angioplasty implant and graft
CPT/HCPCS: 36415; 73590; 73630; 80048; 80053; 80202; 83605; 85025; 85652; 86141; 87040; 96374; 96375

== ENCOUNTER → 2017-05-24 | Outpatient (CLI) | payer MEDICARE ==
[~2017-05-24] MED LIST changes: +AZIT250T12 PO; -AZIT250T5 PO; +BISA-65 PO; +METO50TA15 PO; -METO50TA2 PO
--- NOTE | 2017-05-24 15:31 | Diagnostic Imaging Report ---
INDICATION: Cough x3 weeks. COMPARISON: 03/16/2016. FINDINGS: Obstructive interstitial lung disease is again noted with mnyxtovo-cj-ynxaib hyperaeration. No acute infiltrates are present. Median sternotomy changes are again noted. Heart is mildly enlarged. There is no evidence of pulmonary edema. No hilar adenopathy. No pneumothorax. No pleural effusion. IMPRESSION: 1. Kxmqqffo-xb-xhtoar obstructive interstitial lung disease with no acute infiltrates demonstrated. 2. Postoperative residue. Mild cardiomegaly with no findings to indicate congestive failure. Dictated by: Dictated on workstation # [id number]
== END ==
LOC: RAD 14:55
PROVIDERS: ATTEND Nurse Practitioner Family
DX: J84.89 Other specified interstitial pulmonary diseases (principal); I51.7 Cardiomegaly; Z98.890 Other specified postprocedural states
CPT/HCPCS: 71020

== ENCOUNTER 2018-02-25 09:00 | Emergency (ER) | payer MEDICARE ==
[~2018-02-25] VITALS: Ht 142.2 cm; Wt 44.5 kg
[~2018-02-25 09:00] MED LIST changes: +HYDR-34 PO; -HYDR-3816 PO
--- OUTSIDE RECORDS SUMMARY | 2018-02-25 09:09 | XMS REPORT | Clinical Summary ---
Author Author [facility] Organization [facility] Address Unknown Phone Unavailable Care Team Providers Care Director Of Training Name Role Phone Anastacio Coker MD PCP Cesar Herring MD Unavailable Source Comments Some departments are not documenting in the electronic medical record. If you do not see the information that you expected, contact Release of Information in the Health Information Management department at [phone] for further assistance in locating additional records.[facility] Allergies Active Allergy Reactions Severity Noted Date Comments Erythromycin NAUSEA AND VOMITING Low 02/03/2012 Sulfa (Sulfonamide UNKNOWN Low 07/30/2017 Antibiotics) Current Medications Prescription Sig. Disp. Refills Start End Date Status Date amLODIPine (NORVASC) 5 mg 07/22/19 Active tablet 18 aspirin EC 81 mg tablet 81 mg. Active atorvastatin (LIPITOR) 10 05/27/20 Active mg tablet 17 cloNIDine (CATAPRESS) 0.1 07/23/19 Active mg tablet 18 diazePAM (VALIUM) 2 mg 07/23/19 Active tablet 18 furosemide (LASIX) 20 mg 07/23/19 Active tablet 18 HYDROcodone/acetaminophen 07/26/19 Active (NORCO) 7.5/325 mg tablet 18 irbesartan(+) (AVAPRO) 07/22/19 Active 150 mg tablet 18 hydrOXYzine (ATARAX) 25 25 mg every 8 hours. Active mg tablet metoprolol tartrate 05/27/20 Active (LOPRESSOR) 50 mg tablet 17 valACYclovir (VALTREX) 500 mg. Active 500 mg tablet acyclovir (ZOVIRAX) 200 Take 200 mg by mouth five Active mg capsule times daily. Active Problems Problem Noted Date Leg swelling 07/31/2017 Dyslipidemia 07/31/2017 Family History Medical History Relation Name Comments Heart Disease Father None Reported Maternal Grandfather None Reported Maternal Grandmother Circulatory problem Mother Varicose Veins Heart Disease Mother Hypertension Mother Stroke Mother None Reported Paternal Grandfather None Reported Paternal Grandmother Relation Name Status Comments Father Maternal Grandfather Maternal Grandmother Mother Paternal Grandfather Paternal Grandmother Social History Tobacco Use Types Packs/Day Years Used Date Current Every Day Smoker Cigarettes 1 Smokeless Tobacco: Never Used Alcohol Use Drinks/Week oz/Week Comments Yes Sex Assigned at Date Recorded Not on file Last Filed Vital Signs Vital Sign Reading Time Taken Blood Pressure 128/80 07/30/2017 3:12 PM [employer] Pulse - - Temperature - - Respiratory Rate - - Oxygen Saturation - - Inhaled Oxygen - - Concentration Weight 44.9 kg (99 lb) 07/30/2017 3:12 PM [employer] Height 142.2 cm (4' 8") 07/30/2017 3:12 PM [employer] Body Mass Index 22.2 07/30/2017 3:12 PM [employer] Plan of Treatment Health Maintenance Due Date Last Done Comments PHYSICAL (COMPREHENSIVE) 1942 EXAM PERTUSSIS VACCINE 1946 TETANUS VACCINE 01/18/1952 SHINGLES RECOMBINANT 1985 VACCINE (1 of 2) OSTEOPOROSIS SCREENING 01/18/2000 PNEUMONIA (PCV13/PPSV23) 01/18/2000 VACCINES (1 of 2 - PCV13) INFLUENZA VACCINE 03/17/2018 Results Not on filefrom Last 3 Months
--- OUTSIDE RECORDS SUMMARY | 2018-02-25 09:13 | XMS REPORT | Continuity of Care Document ---
Author Author [facility] Organization [facility] Address Unknown Phone Unavailable Allergies Active Description Code Type Severity Reaction Onset Reported/Identified Relationship to Patient Clinical Status Yes acetaminophen [id number] Drug Allergy Unknown N/A 03/16/2016 Yes codeine [id number] Drug Allergy Unknown N/A 03/16/2016 Yes erythromycin base [id number] Drug Allergy Unknown N/A 03/16/2016 Yes oxycodone [id number] Drug Allergy Unknown N/A 03/16/2016 Yes propoxyphene [id number] Drug Allergy Unknown N/A 03/16/2016 Yes Sulfa (Sulfonamide Antibiotics) [id number] Drug Allergy Unknown N/A 2015 Medications There is no data. Problems Date Dx Coded Attending Type Code [...] 715.90 OSTEOARTHROS NOS-UNSPEC 07/31/2010 Ot 719.41 JOINT PAIN- SHLDER 07/31/2010 Ot 733.00 OSTEOPOROSIS NOS 07/31/2010 Ot V45.81 AORTOCORONARY BYPASS 07/31/2010 Ot V45.82 PERCUTANEOUS TRANSLUM CORON ANGIOPLASTY 07/31/2010 Ot V57.1 PHYSICAL THERAPY NEC 07/31/2010 Ot V58.49 OTHER SPECIFIED AFTERCARE FOLLOWING SURG 12/03/2010 Ot 715.90 OSTEOARTHROS NOS-UNSPEC 12/03/2010 Ot 719.41 JOINT PAIN- [place]LDER 12/03/2010 Ot 733.00 OSTEOPOROSIS NOS 12/03/2010 Ot V45.81 AORTOCORONARY BYPASS 12/03/2010 Ot V45.82 PERCUTANEOUS TRANSLUM CORON ANGIOPLASTY 12/03/2010 Ot V57.21 ENCOUNTER FOR OCCUPATIONAL THERAPY 12/03/2010 Ot V58.49 OTHER SPECIFIED AFTERCARE FOLLOWING SURG 03/01/2011 Ot 715.90 OSTEOARTHROS NOS-UNSPEC 03/01/2011 Ot 719.41 JOINT PAIN- [place] 03/01/2011 Ot 733.00 OSTEOPOROSIS NOS 03/01/2011 Ot V45.81 AORTOCORONARY BYPASS 03/01/2011 Ot V45.82 PERCUTANEOUS TRANSLUM CORON ANGIOPLASTY 03/01/2011 Ot V57.21 ENCOUNTER FOR OCCUPATIONAL THERAPY 03/01/2011 Ot V58.49 OTHER SPECIFIED AFTERCARE FOLLOWING SURG 09/12/2012 Ot 491.20 OBSTR CHRONIC BRONCHITIS, W/O EXACERBATI 09/12/2012 Ot 786.2 COUGH 04/12/2013 RO ABDULLAHI, KRZYSZTOF P Ot 564.00 UNSPEC CONSTIPATION 04/28/2013 EDGAR AGEE MD Ot 272.4 HYPERLIPIDEMIA NEC/NOS 04/28/2013 EDGAR AGEE MD Ot 305.1 TOBACCO USE DISORDER 04/28/2013 EDGAR AGEE MD Ot 401.9 HYPERTENSION NOS 04/28/2013 EDGAR AGEE MD Ot 486 PNEUMONIA, ORGANISM NOS 04/28/2013 EDGAR AGEE MD Ot 491.21 OBSTR CHRONIC BRONCHITIS, W [...] M47.816 SPONDYLOSIS W/O MYELOPATHY OR RADICULOPA 04/08/2015 SMITA ABDULLAHI, ANALIA Bar Ot M53.3 SACROCOCCYGEAL DISORDERS, NOT ELSEWHERE 04/08/2015 SMITA ABDULLAHI, ANALIA Bar Ot Z79.899 OTHER MANAGER BANK (CURRENT) DRUG THERAPY 10/27/2015 Ot 593.9 RENAL URETERAL DIS NOS 10/27/2015 Ot 783.21 LOSS OF WEIGHT 10/27/2015 Ot 585.9 CHRONIC KIDNEY DISEASE, UNSPECIFIED 10/27/2015 Ot 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, UNSPECIFIED 10/27/2015 Ot 585.9 CHRONIC KIDNEY DISEASE, UNSPECIFIED 10/27/2015 Ot 564.00 UNSPEC CONSTIPATION 11/23/2015 EDGAR AGEE MD R Ot R05 COUGH 11/25/2015 CYNDIE ABDULLAHI, [...] M06.9 RHEUMATOID ARTHRITIS, UNSPECIFIED 03/21/2016 EDGAR AGEE MD Ot M21.70 UNEQUAL LIMB [...] OF SACRUM, INIT ENCNTR FO 03/21/2016 EDGAR AGEE MD Ot S32.591A OTH FRACTURE OF RIGHT PUBIS, INIT ENCNTR 03/21/2016 EDGAR AGEE MD Ot S51.812A LACERATION WITHOUT FOREIGN BODY OF LEFT 03/21/2016 EDGAR AGEE MD Ot W18.30XA FALL ON SAME LEVEL, UNSPECIFIED, INITIAL 03/21/2016 EDGAR AGEE MD Ot Y92.[address] [facility] [place] [facility] 03/21/2016 EDGAR AGEE MD Ot [...] M21.70 UNEQUAL LIMB LENGTH (ACQUIRED), UNSPECIF 03/22/2016 DEGAR AGEE MD Ot M41.9 SCOLIOSIS, UNSPECIFIED 03/22/2016 [...] AGEE MD Ot Y92.[address] IN [place] NON[facility] (PRIVATE) 03/22/2016 EDGAR AGEE MD Ot Y99.8 [...] AGEE MD Ot Y92.[address] IN [place] NON[facility] (PRIVATE) 03/22/2016 EDGAR AGEE MD Ot Z95.1 PRESENCE OF AORTOCORONARY BYPASS GRAFT 03/22/2016 EDGAR AGEE MD Ot Z95.5 PRESENCE OF CORONARY ANGIOPLASTY IMPLANT 03/31/2016 CANDACE BETH MD Ot F17.210 NICOTINE DEPENDENCE, CIGARETTES, UNCOMPL 03/31/2016 CANDACE BETH MD Ot I11.0 HYPERTENSIVE HEART DISEASE WITH HEART FA 03/31/2016 CANDACE BETH MD Ot I25.10 ATHSCL HEART DISEASE OF [place] CORONARY 03/31/2016 CANDACE BETH MD Ot I50.9 [...] OF RIGHT PUBIS, SUBS FOR F 05/24/2016 CYNDIE ABDULLAHI EDGAR R Ot S32.501D UNSP FRACTURE OF RIGHT PUBIS, SUBS FOR F 06/14/2016 EDGAR AGEE MD R Ot S32.501D UNSP FRACTURE OF RIGHT PUBIS, SUBS FOR F 06/21/2016 CYNDIE ABDULLAHI EDGAR R Ot S32.501D UNSP FRACTURE OF RIGHT PUBIS, SUBS FOR F 12/13/2016 MAIA CHISHOLM APRN Ot F17.210 NICOTINE DEPENDENCE, CIGARETTES, UNCOMPL 12/13/2016 MAIA CHISHOLM APRN Ot F32.9 MAJOR DEPRESSIVE DISORDER, SINGLE EPISOD 12/13/2016 MAIA CHISHOLM APRN Ot F41.9 ANXIETY DISORDER, UNSPECIFIED 12/13/2016 MAIA CHISHOLM APRN Ot J44.9 CHRONIC OBSTRUCTIVE PULMONARY DISEASE, U 12/13/2016 MAIA CHISHOLM APRN Ot L03.115 CELLULITIS OF RIGHT LOWER LIMB 12/13/2016 MAIA CHISHOLM APRN Ot M06.9 RHEUMATOID ARTHRITIS, UNSPECIFIED 12/13/2016 MAIA CHISHOLM APRN Ot M19.90 UNSPECIFIED OSTEOARTHRITIS, UNSPECIFIED 12/13/2016 MAIA CHISHOLM APRN Ot M54.9 DORSALGIA, UNSPECIFIED 01/13/2017 EDGAR AGEE MD Ot E78.00 PURE HYPERCHOLESTEROLEMIA, UNSPECIFIED 01/13/2017 EDGAR AGEE MD Ot F17.210 NICOTINE DEPENDENCE, CIGARETTES, UNCOMPL 01/13/2017 EDGAR AGEE MD Ot F41.9 ANXIETY DISORDER, UNSPECIFIED 01/13/2017 EDGAR AGEE MD Ot I10 ESSENTIAL (PRIMARY) HYPERTENSION 01/13/2017 EDGAR AGEE MD Ot I25.10 ATHSCL HEART DISEASE OF [place] CORONARY 01/13/2017 EDGAR AGEE MD Ot I25.2 OLD MYOCARDIAL INFARCTION 01/13/2017 EDGAR AGEE MD, Ot J44.9 CHRONIC OBSTRUCTIVE PULMONARY DISEASE, U 01/13/2017 EDGAR AGEE MD Ot L03.115 CELLULITIS OF RIGHT LOWER LIMB 01/13/2017 EDGAR AGEE MD Ot M06.9 RHEUMATOID ARTHRITIS, UNSPECIFIED 01/13/2017 EDGAR AGEE MD Ot M19.91 PRIMARY OSTEOARTHRITIS, UNSPECIFIED SITE 01/13/2017 EDGAR AGEE MD Ot M54.9 DORSALGIA, UNSPECIFIED 01/13/2017 EDGAR AGEE MD Ot M80.071A AGE-REL OSTEOPOR W CURRENT PATH FRACTURE 01/13/2017 EDGAR AGEE MD Ot S80.811S ABRASION, RIGHT LOWER LEG, SEQUELA 01/13/2017 EDGAR AGEE MD Ot W22.03XA WALKED INTO FURNITURE, INITIAL ENCOUNTER 01/13/2017 EDGAR AGEE MD Ot Z86.73 PRSNL HX OF TIA (TIA), AND CEREB INFRC W 01/13/2017 EDGAR AGEE MD Ot Z95.1 PRESENCE OF AORTOCORONARY BYPASS GRAFT 01/13/2017 EDGAR AGEE MD Ot Z95.5 PRESENCE OF CORONARY ANGIOPLASTY IMPLANT 06/14/2017 NICOLAS FARIAS APRN Ot I51.7 CARDIOMEGALY 06/14/2017 NICOLAS FARIAS APRN Ot J84.89 OTHER SPECIFIED INTERSTITIAL PULMONARY D 06/14/2017 NICOLAS FARIAS APRN Ot Z98.890 OTHER SPECIFIED POSTPROCEDURAL STATES 06/27/2017 NICOLAS FARIAS APRN Ot I51.7 CARDIOMEGALY 06/27/2017 NICOLAS FARIAS APRN Ot J84.89 OTHER SPECIFIED INTERSTITIAL PULMONARY D 06/27/2017 NICOLAS FARIAS APRN Ot Z98.890 OTHER SPECIFIED POSTPROCEDURAL STATES Procedures There is no data. Results Test Result Range Complete urinalysis with reflex to culture - 03/16/16 15:10 Urine color determination YELLOW NRG Urine clarity determination CLEAR NRG Urine pH measurement by test strip 5 5-9 Specific gravity of urine by test strip 1.015 1.016- 1.022 Urine protein assay by test strip, semi-quantitative [...] 17:10 Blood leukocytes automated count (number/volume) 14.6 10*3/uL 4.3-11.0 Blood erythrocytes automated count (number/volume) 4.04 10*6/uL 4.35-5.85 Venous blood hemoglobin measurement (mass/volume) 12.4 [...] Automated blood platelet mean volume measurement 10.3 [foz_us] 7.4-10.4 Automated blood neutrophils/100 leukocytes 79 % [...] Serum or plasma sodium measurement (moles/volume) 140 mmol/L 135-145 Serum or plasma potassium measurement (moles/volume) 4.4 mmol/L 3.6-5.0 Serum or plasma chloride measurement (moles/volume) 107 mmol/L 98-107 Carbon dioxide 22 mmol/L 21-32 Serum or plasma anion gap determination (moles/volume) 11 mmol/L 5-14 Serum or plasma urea nitrogen measurement (mass/volume) 64 mg/dL 7-18 Serum or plasma creatinine measurement (mass/volume) 2.61 mg/dL 0.60-1.30 Serum or plasma urea nitrogen/creatinine mass [...] 03/16/16 17:10 Blood monocytes/100 leukocytes 3 % NRG Manual blood segmented neutrophils/100 leukocytes 84 % NRG Manual blood lymphocytes/100 leukocytes 13 % NR Blood erythrocyte morphology finding identification NORMAL NR PT panel in platelet poor plasma by [...] 05:58 Blood leukocytes automated count (number/volume) 7.2 10*3/uL 4.3-11.0 Blood erythrocytes automated count (number/volume) 3.48 10*6/uL 4.35-5.85 Venous blood hemoglobin measurement (mass/volume) 10.6 [...] Automated blood platelet mean volume measurement 9.8 [foz_us] 7.4-10.4 Automated blood neutrophils/100 leukocytes 71 % [...] Serum or plasma sodium measurement (moles/volume) 139 mmol/L 135-145 Serum or plasma potassium measurement (moles/volume) 4.4 mmol/L 3.6-5.0 Serum or plasma chloride measurement (moles/volume) 112 mmol/L 98-107 Carbon dioxide 16 mmol/L 21-32 Serum or plasma anion gap determination (moles/volume) 11 mmol/L 5-14 Serum or plasma urea nitrogen measurement (mass/volume) 51 mg/dL 7-18 Serum or plasma creatinine measurement (mass/volume) 1.91 mg/dL 0.60-1.30 Serum or plasma urea nitrogen/creatinine mass ratio 27 NRG Serum or plasma creatinine measurement with calculation of estimated glomerular filtration rate 25 NRG Serum or plasma glucose measurement (mass/volume) 91 mg/dL 70-105 Serum or plasma calcium measurement (mass/volume) 8.3 mg/dL 8.5-10.1 Complete blood count (CBC) with automated white blood cell (WBC) differential - 03/19/16 07:18 Blood leukocytes automated count (number/volume) 8.7 10*3/uL 4.3-11.0 Blood erythrocytes automated count (number/volume) 3.70 10*6/uL 4.35-5.85 Venous blood hemoglobin measurement (mass/volume) 11.5 [...] Automated blood platelet mean volume measurement 9.7 [foz_us] 7.4-10.4 Automated blood neutrophils/100 leukocytes 74 % [...] Serum or plasma sodium measurement (moles/volume) 136 mmol/L 135-145 Serum or plasma potassium measurement (moles/volume) 4.7 mmol/L 3.6-5.0 Serum or plasma chloride measurement (moles/volume) 109 mmol/L 98-107 Carbon dioxide 15 mmol/L 21-32 Serum or plasma anion gap determination (moles/volume) 12 mmol/L 5-14 Serum or plasma urea nitrogen measurement (mass/volume) 29 mg/dL 7-18 Serum or plasma creatinine measurement (mass/volume) 1.33 mg/dL 0.60-1.30 Serum or plasma urea nitrogen/creatinine mass [...] Urine pH measurement by test strip 7 5-9 Specific gravity of urine by test strip 1.005 1.016- 1.022 Urine protein assay by test strip, semi-quantitative [...] 04:45 Blood leukocytes automated count (number/volume) 6.7 10*3/uL 4.3-11.0 Blood erythrocytes automated count (number/volume) 3.23 10*6/uL 4.35-5.85 Venous blood hemoglobin measurement (mass/volume) 9.8 [...] Automated blood platelet mean volume measurement 14.0 [foz_us] 7.4-10.4 Automated blood neutrophils/100 leukocytes 64 % [...] Serum or plasma sodium measurement (moles/volume) 136 mmol/L 135-145 Serum or plasma potassium measurement (moles/volume) 4.3 mmol/L 3.6-5.0 Serum or plasma chloride measurement (moles/volume) 104 mmol/L 98-107 Carbon dioxide 18 mmol/L 21-32 Serum or plasma anion gap determination (moles/volume) 14 mmol/L 5-14 Serum or plasma urea nitrogen measurement (mass/volume) 30 mg/dL 7-18 Serum or plasma creatinine measurement (mass/volume) 1.51 mg/dL 0.60-1.30 Serum or plasma urea nitrogen/creatinine mass [...] Urine pH measurement by test strip 6.5 5-9 Specific gravity of urine by test strip 1.010 1.016- 1.022 Urine protein assay by test strip, semi-quantitative [...] 15:21 Blood leukocytes automated count (number/volume) 7.0 10*3/uL 4.3-11.0 Blood erythrocytes automated count (number/volume) 3.42 10*6/uL 4.35-5.85 Venous blood hemoglobin measurement (mass/volume) 10.6 [...] Automated blood platelet mean volume measurement 9.4 [foz_us] 7.4-10.4 Comprehensive metabolic panel - 03/28/16 15:21 Serum or plasma sodium measurement (moles/volume) 132 mmol/L 135-145 Serum or plasma potassium measurement (moles/volume) 5.1 mmol/L 3.6-5.0 Serum or plasma chloride measurement (moles/volume) 99 mmol/L 98-107 Carbon dioxide 20 mmol/L 21-32 Serum or plasma anion gap determination (moles/volume) 13 mmol/L 5-14 Serum or plasma urea nitrogen measurement (mass/volume) 43 mg/dL 7-18 Serum or plasma creatinine measurement (mass/volume) 1.95 mg/dL 0.60-1.30 Serum or plasma urea nitrogen/creatinine mass [...] plasma albumin measurement (mass/volume) 3.7 g/dL 3.2-4.5 Complete blood count (CBC) with automated white blood cell (WBC) differential - 12/13/16 18:28 Blood leukocytes automated count (number/volume) 8.4 10*3/uL 4.3-11.0 Blood erythrocytes automated count (number/volume) 3.93 10*6/uL 4.35-5.85 Venous blood hemoglobin measurement (mass/volume) 12.0 g/dL 11.5-16.0 Blood hematocrit (volume fraction) 36 % 35-52 Automated erythrocyte mean corpuscular volume 90 [foz_us] 80-99 Automated erythrocyte mean corpuscular hemoglobin (mass per erythrocyte) 31 pg 25-34 Automated erythrocyte mean corpuscular hemoglobin concentration measurement ( mass/volume) 34 g/dL 32-36 Automated erythrocyte distribution width ratio 13.4 % 10.0-14.5 Automated blood platelet count (count/volume) 262 10*3/uL 130-400 Automated blood platelet mean volume measurement 9.9 [foz_us] 7.4-10.4 Automated blood neutrophils/100 leukocytes 66 % 42-75 Automated blood lymphocytes/100 leukocytes 27 % 12-44 Blood monocytes/100 leukocytes 7 % 0-12 Automated blood eosinophils/100 leukocytes 0 % 0-10 Automated blood basophils/100 leukocytes 0 % 0-10 Blood neutrophils automated count (number/volume) 5.5 10*3 1.8-7.8 Blood lymphocytes automated count (number/volume) 2.3 10*3 1.0-4.0 Blood monocytes automated count (number/volume) 0.6 10*3 0.0-1.0 Automated eosinophil count 0.0 10*3/uL 0.0-0.3 Automated blood basophil count (count/volume) 0.0 10*3/uL 0.0-0.1 Whole blood basic metabolic panel - 12/13/16 18:28 Serum or plasma sodium measurement (moles/volume) 141 mmol/L 135-145 Serum or plasma potassium measurement (moles/volume) 4.0 mmol/L 3.6-5.0 Serum or plasma chloride measurement (moles/volume) 108 mmol/L 98-107 Carbon dioxide 20 mmol/L 21-32 Serum or plasma anion gap determination (moles/volume) 13 mmol/L 5-14 Serum or plasma urea nitrogen measurement (mass/volume) 45 mg/dL 7-18 Serum or plasma creatinine measurement (mass/volume) 1.94 mg/dL 0.60-1.30 Serum or plasma urea nitrogen/creatinine mass ratio 23 NRG Serum or plasma creatinine measurement with calculation of estimated glomerular filtration rate 25 NR Serum or plasma glucose measurement (mass/volume) 155 mg/dL 70-105 Serum or plasma calcium measurement (mass/volume) 9.2 mg/dL 8.5-10.1 Complete blood count (CBC) with automated white blood cell (WBC) differential - 01/10/17 21:17 Blood leukocytes automated count (number/volume) 7.3 10*3/uL 4.3-11.0 Blood erythrocytes automated count (number/volume) 3.90 10*6/uL 4.35-5.85 Venous blood hemoglobin measurement (mass/volume) 11.9 g/dL 11.5-16.0 Blood hematocrit (volume fraction) 36 % 35-52 Automated erythrocyte mean corpuscular volume 91 [foz_us] 80-99 Automated erythrocyte mean corpuscular hemoglobin (mass per erythrocyte) 31 pg 25-34 Automated erythrocyte mean corpuscular hemoglobin concentration measurement ( mass/volume) 34 g/dL 32-36 Automated erythrocyte distribution width ratio 13.2 % 10.0-14.5 Automated blood platelet count (count/volume) 255 10*3/uL 130-400 Automated blood platelet mean volume measurement 10.4 [foz_us] 7.4-10.4 Automated blood neutrophils/100 leukocytes 71 % 42-75 Automated blood lymphocytes/100 leukocytes 24 % 12-44 Blood monocytes/100 leukocytes 6 % 0-12 Automated blood eosinophils/100 leukocytes 0 % 0-10 Automated blood basophils/100 leukocytes 0 % 0-10 Blood neutrophils automated count (number/volume) 5.2 10*3 1.8-7.8 Blood lymphocytes automated count (number/volume) 1.7 10*3 1.0-4.0 Blood monocytes automated count (number/volume) 0.4 10*3 0.0-1.0 Automated eosinophil count 0.0 10*3/uL 0.0-0.3 Automated blood basophil count (count/volume) 0.0 10*3/uL 0.0-0.1 Blood lactic acid measurement (moles/volume) - 01/10/17 21:17 Blood lactic acid measurement (moles/volume) 0.76 mmol/L 0.50-2.00 Erythrocyte sedimentation rate by westergren method - 01/10/17 21:17 Erythrocyte sedimentation rate by westergren method 30 mm 0-30 Comprehensive metabolic panel - 01/10/17 21:17 Serum or plasma sodium measurement (moles/volume) 140 mmol/L 135-145 Serum or plasma potassium measurement (moles/volume) 4.6 mmol/L 3.6-5.0 Serum or plasma chloride measurement (moles/volume) 106 mmol/L 98-107 Carbon dioxide 22 mmol/L 21-32 Serum or plasma anion gap determination (moles/volume) 12 mmol/L 5-14 Serum or plasma urea nitrogen measurement (mass/volume) 63 mg/dL 7-18 Serum or plasma creatinine measurement (mass/volume) 2.01 mg/dL 0.60-1.30 Serum or plasma urea nitrogen/creatinine mass ratio 31 NRG Serum or plasma creatinine measurement with calculation of estimated glomerular filtration rate 24 NRG Serum or plasma glucose measurement (mass/volume) 125 mg/dL 70-105 Serum or plasma calcium measurement (mass/volume) 9.2 mg/dL 8.5-10.1 Serum or plasma total bilirubin measurement (mass/volume) 0.3 mg/dL 0.1-1.0 Serum or plasma alkaline phosphatase measurement (enzymatic activity/volume) 73 U/L 40-136 Serum or plasma aspartate aminotransferase measurement (enzymatic activity/ volume) 16 U/L 5-34 Serum or plasma alanine aminotransferase measurement (enzymatic activity/volume ) 10 U/L 0-55 Serum or plasma protein measurement (mass/volume) 7.0 g/dL 6.4-8.2 Serum or plasma albumin measurement (mass/volume) 3.9 g/dL 3.2-4.5 Serum or plasma C reactive protein measurement (mass/volume) - 01/10/17 21:17 Serum or plasma C reactive protein measurement (mass/volume) 0.33 mg /dL 0.00-0.50 Bacterial blood culture - 01/10/17 21:17 Bacterial blood culture NG NRG Bacterial blood culture - 01/10/17 21:28 Bacterial blood culture NG NRG Vancomycin trough - 01/11/17 18:55 Vancomycin trough 9.4 ug/mL 10.0-20.0 Complete blood count (CBC) with automated white blood cell (WBC) differential - 01/12/17 05:11 Blood leukocytes automated count (number/volume) 7.1 10*3/uL 4.3-11.0 Blood erythrocytes automated count (number/volume) 3.87 10*6/uL 4.35-5.85 Venous blood hemoglobin measurement (mass/volume) 11.7 g/dL 11.5-16.0 Blood hematocrit (volume fraction) 35 % 35-52 Automated erythrocyte mean corpuscular volume 91 [foz_us] 80-99 Automated erythrocyte mean corpuscular hemoglobin (mass per erythrocyte) 30 pg 25-34 Automated erythrocyte mean corpuscular hemoglobin concentration measurement ( mass/volume) 33 g/dL 32-36 Automated erythrocyte distribution width ratio 13.2 % 10.0-14.5 Automated blood platelet count (count/volume) 247 10*3/uL 130-400 Automated blood platelet mean volume measurement 10.8 [foz_us] 7.4-10.4 Automated blood neutrophils/100 leukocytes 64 % 42-75 Automated blood lymphocytes/100 leukocytes 28 % 12-44 Blood monocytes/100 leukocytes 8 % 0-12 Automated blood eosinophils/100 leukocytes 0 % 0-10 Automated blood basophils/100 leukocytes 0 % 0-10 Blood neutrophils automated count (number/volume) 4.5 10*3 1.8-7.8 Blood lymphocytes automated count (number/volume) 2.0 10*3 1.0-4.0 Blood monocytes automated count (number/volume) 0.6 10*3 0.0-1.0 Automated eosinophil count 0.0 10*3/uL 0.0-0.3 Automated blood basophil count (count/volume) 0.0 10*3/uL 0.0-0.1 Comprehensive metabolic panel - 01/12/17 05:11 Serum or plasma sodium measurement (moles/volume) 139 mmol/L 135-145 Serum or plasma potassium measurement (moles/volume) 4.6 mmol/L 3.6-5.0 Serum or plasma chloride measurement (moles/volume) 109 mmol/L 98-107 Carbon dioxide 17 mmol/L 21-32 Serum or plasma anion gap determination (moles/volume) 13 mmol/L 5-14 Serum or plasma urea nitrogen measurement (mass/volume) 60 mg/dL 7-18 Serum or plasma creatinine measurement (mass/volume) 2.08 mg/dL 0.60-1.30 Serum or plasma urea nitrogen/creatinine mass ratio 29 NRG Serum or plasma creatinine measurement with calculation of estimated glomerular filtration rate 23 NRG Serum or plasma glucose measurement (mass/volume) 90 mg/dL 70-105 Serum or plasma calcium measurement (mass/volume) 8.6 mg/dL 8.5-10.1 Serum or plasma total bilirubin measurement (mass/volume) 0.4 mg/dL 0.1-1.0 Serum or plasma alkaline phosphatase measurement (enzymatic activity/volume) 53 U/L 40-136 Serum or plasma aspartate aminotransferase measurement (enzymatic activity/ volume) 15 U/L 5-34 Serum or plasma alanine aminotransferase measurement (enzymatic activity/volume ) 9 U/L 0-55 Serum or plasma protein measurement (mass/volume) 6.2 g/dL 6.4-8.2 Serum or plasma albumin measurement (mass/volume) 3.5 g/dL 3.2-4.5 Whole blood basic metabolic panel - 01/13/17 05:11 Serum or plasma sodium measurement (moles/volume) 142 mmol/L 135-145 Serum or plasma potassium measurement (moles/volume) 4.4 mmol/L 3.6-5.0 Serum or plasma chloride measurement (moles/volume) 111 mmol/L 98-107 Carbon dioxide 19 mmol/L 21-32 Serum or plasma anion gap determination (moles/volume) 12 mmol/L 5-14 Serum or plasma urea nitrogen measurement (mass/volume) 46 mg/dL 7-18 Serum or plasma creatinine measurement (mass/volume) 2.23 mg/dL 0.60-1.30 Serum or plasma urea nitrogen/creatinine mass ratio 21 NRG Serum or plasma creatinine measurement with calculation of estimated glomerular filtration rate 21 NRG Serum or plasma glucose measurement (mass/volume) 96 mg/dL 70-105 Serum or plasma calcium measurement (mass/volume) 8.6 mg/dL 8.5-10.1 Encounters ACCT No. Visit Date/Time Discharge Status Pt. 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[employer] [facility] RAD R05 [id number] 01/10/2017 22:12:00 01/10/2017 23:59:59 CLS Inpatient EDGAR AGEE MD [facility] 4TH CELLULITIS R LOWER LEG- FAILURE OF OUTPT TX; [id number] 12/13/2016 17:42:00 12/13/2016 19:49:00 DIS Emergency MAIA CHISHOLM APRN [facility] ER RT LEG/FOOT TENDERNESS AND SWELLING [id number] 05/21/2016 14:15:00 05/21/2016 23:59:59 CLS Outpatient EDGAR AGEE MD [facility] RAD HX FX OF PELVIS [id number] 03/22/2016 13:46:00 03/31/2016 10:10:00 DIS Inpatient CANDACE BETH MD [facility] IRF ARF,PELVIC FX,UTI [id number] 03/22/2016 15:05:00 03/22/2016 23:59:59 CLS Preadmit KIRIT ABDULLAHI, CANDACE E REHAB [id number] 03/16/2016 19:14:00 03/22/2016 13:45:00 DIS Inpatient EDGAR AGEE MD [facility] 4TH ARF,PELVIC FX,UTI [id number] 12/23/2015 13:42:00 12/23/2015 23:59:59 CLS Outpatient EDGAR AGEE MD [facility] RAD RENAL FAILURE [id number] 10/27/2015 15:04:00 10/27/2015 23:59:59 CLS Outpatient EDGAR AGEE MD [facility] RAD COUGH [id number] 04/08/2015 12:43:00 04/08/2015 13:52:00 DIS Outpatient ANALIA ORDOÑEZ MD [facility] CARD SACROCOCCYGEAL DISORDER [id number] 11/06/2013 10:10:00 11/06/2013 11:25:00 DIS Outpatient ANALIA ORDOÑEZ MD [facility] CARD DDD-LUMBAR [id number] 04/24/2013 17:31:00 04/28/2013 11:25:00 DIS Inpatient EDGAR AGEE MD [facility] 4TH PNEUMONIA; CHEST AND ABDOMEN CONTUSION [id number] 01/12/2013 14:41:00 04/12/2013 00:01:00 DIS Outpatient KRZYSZTOF STARR MD [facility] RAD CONSTIPATION [id number] 04/13/2013 00:00:00 Document Registration [id number] 09/12/2012 14:38:00 Document Registration [id number] 04/02/2011 13:35:00 Document Registration [id number] 03/29/2011 09:07:00 Document Registration [id number] 02/15/2011 13:40:00 Document Registration [id number] 01/19/2011 14:45:00 Document Registration [id number] 12/01/2010 13:18:00 Document Registration [id number] 07/22/2010 16:08:00 Document Registration [id number] 07/13/2010 13:14:00 Document Registration
--- NOTE | 2018-02-25 09:32 | ED Fall/Injury ---
General Chief Complaint: Trauma-Non Activation Stated Complaint: FALL Nursing Triage Note: PT TO ROOM 3 PT CO OF FALL ON SATURDAY NITE, PT STATES FELL BACKWARDS UNSURE IF HAD LOC, PT CO OF NECK PAIN, UPPER BACK PAIN AND SHOULDER NAS PAIN, PT HAS BRUISE ON R ELBOW. PT STATES HAS NOT TAKEN PAIN MED, DR VERMA IN ROOM STATES OK TO TAKE OWN HYDROCODONE 7.5. PT IS VERY [place] Source: patient, family Exam Limitations: no limitations History of Present Illness Date Seen by Provider: Feb 25, 2018 Time Seen by Provider: 09:15 Initial Comments The patient presents to the ER by private conveyance with her significant other and chief complaint that Saturday around midnight, 2 days ago she was getting up melena night to the bathroom and fell. She's not sure why she fell. She does not think she got knocked out but she may have laid down on the floor for a few minutes she said. She had pain all over at that time but she wanted to wait and see what really hurt before coming to be evaluated at the hospital. She has hydrocodone available to her and she had taken one a few hours prior to the fall. She has not taken hydrocodone since that time though. She says today however she still having quite a bit of pain in her middle back between the shoulder blades as well as pain in both of her shoulders. She's had a lizzie placed in her left humerus by the orthopedic surgeon. She also has a large bruise on her right elbow and some tenderness in her right elbow. She's not had any nausea vomiting, fevers chills cough dysuria discharge, but she does have a headache. She says she only takes the hydrocodone when checked her members to take them which is not very often. A few a week she says. She says she has a known history of kidney failure but not on dialysis. Followed by Dr. Coker. The swelling in her right lower extremity is chronic and she's had evaluated by surgeons and told there is nothing to be done about it years ago. Allergies and Home Medications Allergies Coded Allergies: Sulfa (Sulfonamide Antibiotics) (Unverified Allergy, Unknown, 03/16/16) acetaminophen (Unverified Allergy, Unknown, 03/16/16) codeine (Unverified Allergy, Unknown, 03/16/16) erythromycin base (Unverified Allergy, Unknown, 03/16/16) oxycodone (Unverified Allergy, Unknown, 03/16/16) propoxyphene (Unverified Allergy, Unknown, 03/16/16) Home Medications Amlodipine Bes/Olmesartan Med 1 Each Tablet, 1 TAB PO HS, (Reported) Aspirin 81 Mg Tablet.dr, 81 MG PO HS, (Reported) Atorvastatin Calcium 10 Mg Tablet, 10 MG PO HS, (Reported) Bisacodyl 5 Mg Tablet.dr, 15 MG PO HS PRN for CONSTIPATION-5TH LINE, (Reported) TAKES 3 (5 MG) TABLETS Clonidine HCl 0.1 Mg Tablet, 0.2 MG PO HS, (Reported) TAKES 2 (0.1 MG) TABLETS Diazepam 2 Mg Tablet, 2 MG PO HS, (Reported) Furosemide 20 Mg Tablet, 20 MG PO HS, (Reported) Hydrocodone Bit/Acetaminophen 1 Each Tablet, 1 TAB PO EVERY 6-8 HOURS PRN for PAIN-MODERATE, (Reported) Hydroxyzine HCl 25 Mg Tablet, 25 MG PO Q12H PRN for RASH, (Reported) Metoprolol Tartrate 50 Mg Tablet, 50 MG PO HS, (Reported) Polyethylene Glycol 3350 119 Gm Powder, 17 GM PO HS PRN for CONSTIPATION-2ND LINE, (Reported) Patient Home Medication List Home Medication List Reviewed: Yes Review of Systems Review of Systems Constitutional: No chills, No diaphoresis Eyes: Denies Blindness, Denies Blurred Vision Ears, Nose, Mouth, Throat: denies ear pain, denies ear discharge Respiratory: No cough, No dyspnea on exertion Cardiovascular: No chest pain, No palpitations Gastrointestinal: No abdominal pain, No nausea Genitourinary: No discharge, No dysuria Musculoskeletal: see HPI, back pain, joint pain Past Ycvuggo-Rmlrur-Xqvfkr Hx Patient Social History Alcohol Use: Denies Use Number of Drinks Today: Alcohol Beverage of Choice: Wine Recreational Drug Use: No Smoking Status: Current Everyday Smoker Type Used: Cigarettes 2nd Hand Smoke Exposure: Yes Recent Foreign Travel: No Contact w/Someone Who Travel: No Recent Infectious Disease Expo: No Recent Hopitalizations: No Immunizations Up To Date Tetanus Booster (TDap): More than 5yrs Seasonal Allergies Seasonal Allergies: No Past Medical History Surgeries: Yes (HEMORRHOIDECTOMY) CABG, Coronary Stent, Eye Surgery, Gallbladder, Hysterectomy, Joint Replacement , Orthopedic, Rectal Respiratory: Yes Chronic Bronchitis, COPD Currently Using CPAP: No Currently Using BIPAP: No Cardiac: Yes (STENTS, CABG, heart failure) Coronary Artery Disease, Heart Attack, High Cholesterol, Hypertension Neurological: Yes (shingles) Stroke Reproductive Disorders: No Sexually Transmitted Disease: No HIV/AIDS: No Genitourinary: Yes Renal Failure Gastrointestinal: Yes Abdominal Hernia, Colitis, Chronic Constipation, Diverticulosis, Hemorrhoids, Ulcer, Gall Bladder Disease, Irritable Bowel Musculoskeletal: Yes (CHRONIC GENERALIZED PAIN) Arthritis, Rheumatoid Arthritis, Chronic Back Pain Endocrine: No Cataract Loss of Vision: Bilateral Cancer: No Psychosocial: Yes Anxiety, Depression Integumentary: Yes (frequent hives) Blood Disorders: No Family Medical History Cataract 03 MOTHER Chest pain 03 FATHER Congestive heart failure 03 MOTHER Family history: Arthritis 03 FATHER 03 MOTHER Family history: Coronary thrombosis 03 FATHER Family history: Diabetes mellitus 03 FATHER Family history: Hypertension 03 FATHER Heart disease 03 FATHER Myocardial infarction 03 FATHER No Family History of: Abdominal aortic aneurysm Hagerman's disease Alcoholism Aphasia Cancer Cancer of colon Congenital heart disease Cystic fibrosis Dementia Dysphagia Family history: Allergy Family history: Alzheimer's disease Family history: Asthma Family history: Breast disease Family history: Cardiovascular disease Family history: Gastrointestinal disease Family history: Glaucoma Family history: Osteoporosis Family history: Thyroid disorder Headache Hearing loss Hereditary disease History of - anemia History of - disorder History of - respiratory disease History of drug abuse Human immunodeficiency virus (HIV) seropositivity Hypercholesterolemia Infertile Kidney disease Malignant neoplasm of lung Parkinson's disease Prostate cancer Psychotic disorder Seizure disorder Stroke Tuberculosis Visual impairment Physical Exam Vital Signs Vital Signs - First Documented 02/25/18 09:00 Temp 97.9 Pulse 67 Resp 18 B/P (MAP) 177/80 (112) Pulse Ox 99 Capillary Refill : Less Than 3 Seconds Height, Weight, BMI Height: 4'8.00" Weight: 98lbs. 8.0oz. 44.236527lc; 20.0 BMI Method:Stated General Appearance: mild distress, thin HEENT: PERRL/EOMI, TMs normal, pharynx normal, other (negative for Ordaz signs , raccoon eyes, hemotympanum) Neck: non-tender, full range of motion, supple, normal inspection Cardiovascular: normal peripheral pulses, regular rate, rhythm, no murmur Respiratory: chest non-tender, lungs clear, normal breath sounds, no respiratory distress, no accessory muscle use Peripheral Pulses: 2+ Dorsalis Pedis (R), 2+ Left Dors-Pedis (L) Gastrointestinal: normal bowel sounds, non tender, soft Back: No normal inspection (kyphosis and scoliosis); decreased range of motion (chronic), vertebral tenderness (tenderness in the upper thoracic midline vertebral to palpation) 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, no motor/sensory deficits, alert, normal mood/affect, oriented x 3 Skin: other (small ecchymoses approximately 2-37 m diameter on right elbow) [place] Coma Score Best Eye Response: (4) Open Spontaneously Best Verbal Response: (5) Oriented Best Motor Response: (6) Obeys Commands Bernard Total: 15 Progress/Results/Core Measures Results/Orders Lab Results Laboratory Tests Test 02/25/18 09:35 02/25/18 09:36 Range/Units White Blood Count 9.8 4.3-11.0 10^3/uL Red Blood Count 3.57 L 4.35-5.85 10^6/uL Hemoglobin 11.3 L 11.5-16.0 G/DL Hematocrit 33 L 35-52 % Mean Corpuscular Volume 93 80-99 FL Mean Corpuscular Hemoglobin 32 25-34 PG Mean Corpuscular Hemoglobin Concent 34 32-36 G/DL Red Cell Distribution Width 14.2 10.0-14.5 % Platelet Count 270 130-400 10^3/uL Mean Platelet Volume 9.5 7.4-10.4 FL Neutrophils (%) (Auto) 81 H 42-75 % Lymphocytes (%) (Auto) 11 L 12-44 % Monocytes (%) (Auto) 8 0-12 % Eosinophils (%) (Auto) 0 0-10 % Basophils (%) (Auto) 0 0-10 % Neutrophils # (Auto) 8.0 H 1.8-7.8 X 10^3 Lymphocytes # (Auto) 1.1 1.0-4.0 X 10^3 Monocytes # (Auto) 0.8 0.0-1.0 X 10^3 Eosinophils # (Auto) 0.0 0.0-0.3 10^3/uL Basophils # (Auto) 0.0 0.0-0.1 10^3/uL Sodium Level 138 135-145 MMOL/L Potassium Level 4.7 3.6-5.0 MMOL/L Chloride Level 108 H 98-107 MMOL/L Carbon Dioxide Level 20 L 21-32 MMOL/L Anion Gap 10 5-14 MMOL/L Blood Urea Nitrogen 37 H 7-18 MG/DL Creatinine 1.74 H 0.60-1.30 MG/DL Estimat Glomerular Filtration Rate 28 BUN/Creatinine Ratio 21 Glucose Level 110 H 70-105 MG/DL Calcium Level 9.0 8.5-10.1 MG/DL Corrected Calcium 9.2 8.5-10.1 MG/DL Total Bilirubin 0.4 0.1-1.0 MG/DL Aspartate Amino Transf (AST/SGOT) 14 5-34 U/L Alanine Aminotransferase (ALT/SGPT) 11 0-55 U/L Alkaline Phosphatase 54 40-136 U/L Total Creatine Kinase 99 29-168 U/L Total Protein 6.4 6.4-8.2 GM/DL Albumin 3.8 3.2-4.5 GM/DL Urine Color YELLOW Urine Clarity CLEAR Urine pH 5 5-9 Urine Specific [place] 1.015 L 1.016-1.022 Urine Protein 3+ H NEGATIVE Urine Glucose (UA) NEGATIVE NEGATIVE Urine Ketones NEGATIVE NEGATIVE Urine Nitrite NEGATIVE NEGATIVE Urine Bilirubin NEGATIVE NEGATIVE Urine Urobilinogen NORMAL NORMAL MG/DL Urine Leukocyte Esterase NEGATIVE NEGATIVE Urine RBC (Auto) 1+ H NEGATIVE Urine RBC NONE /HPF Urine WBC NONE /HPF Urine Crystals NONE /LPF Urine Bacteria NEGATIVE /HPF Urine Casts PRESENT /LPF Urine Hyaline Casts RARE /LPF Urine Mucus NEGATIVE /LPF Urine Culture Indicated NO My Orders Orders - SYEDA VERMA Ct Head/Cervical Spine Wo (02/25/18 09:22) Ct Thoracic Spine Wo (02/25/18 09:22) Cbc With Automated Diff (02/25/18:22) Comprehensive Metabolic Panel (02/25/18:22) Ua Culture If Indicated (02/25/18:22) Elbow, Right, 3 Views (02/25/18:22) Creatine Kinase (02/25/18 09:32) Shoulder, Bilateral, 3 Views (02/25/18:22) Vital Signs/I&O 02/25/18 09:00 Temp 97.9 Pulse 67 Resp 18 B/P (MAP) 177/80 (112) Pulse Ox 99 Blood Pressure Mean: 112 Progress Progress Note : Time: 11:16 Progress Note We allowed her to have one of her 5 x 3 25 mg [place] use and this helped with her pain significantly. Diagnostic Imaging Diagonstic Imaging: Xray Plain Films/CT/US/NM/MRI: elbow Comments [facility] [place], [place] NAME: FLAKITO SABILLON [facility] REC#: [id number] PT STATUS: REG ER : 1935 PHYSICIAN: SYEDA VERMA MD ADMIT DATE: 02/25/18/ER Draft Date of Exam:02/25/18 ELBOW, RIGHT, 3 VIEWS INDICATION: Pain post recent fall TECHNIQUE: 3 views of the right elbow CORRELATION STUDY: None FINDINGS: Rather pronounced bony demineralization is present. Slight irregularity at the right radial head and neck likely of no significance. The osseous structures appear to be intact and in normal alignment. No abnormal joint effusion. IMPRESSION: 1. Negative for acute bony abnormality of the elbow. Rather pronounced bony demineralization present. Dictated on workstation # [id number] Dict: 02/25/18 1023 Trans: 02/25/18 1042 CR [id number] Interpreted by: JEREMY ALCANTARA DO Electronically signed by: Reviewed: Reviewed by Me Diagonstic Imaging: CT Plain Films/CT/US/NM/MRI: c-spine, head, other (T Spine) Comments [facility] [place] [place] NAME: FLAKITO SABILLON [facility] REC#: [id number] PT STATUS: REG ER : 1935 PHYSICIAN: SYEDA VERMA MD ADMIT DATE: 02/25/18/ER Draft Date of Exam:02/25/18 CT HEAD/CERVICAL SPINE WO Clinical indication: Patient fell hitting head. Exam: Head CT without IV contrast. Axial CT scan of the cervical spine with sagittal and coronal reformations. Comparison: CT scan of the head and cervical spine dated 03/16/2016. Findings: Head CT: There is no evidence of acute cerebral infarct, intracranial hemorrhage, or gross mass effect. The brain parenchymal volume appears appropriate for patient's age. There are small patchy areas of high T2 signal white matter changes involving both cerebral hemispheres, likely representing chronic small vessel ischemic disease. There is normal harris-white matter distinction. There is no significant midline shift or herniation. There is no evidence of hydrocephalus. The basal cisterns are unremarkable. The skull, extracranial soft tissue, and orbits are unremarkable. The paranasal sinuses are unremarkable. Temporal bones show no significant abnormality. Cervical spine: There is no interval acute cervical spine fracture. There is stable grade 2 anterolisthesis of C4 on C5 and C5 on C6. There is intervertebral bony fusion of the C5-C6 level. There is no pars defect seen. There is again seen hypertrophic spurs throughout cervical spine and facet arthropathy. There is focal kyphosis of the cervical spine centered at the C5-C6 level, again seen with at least moderate central canal narrowing. There is moderate to severe multilevel cervical spine neural foramen narrowing again noted. The neck soft tissue structures show no significant abnormalities. Visualized upper lung poole are clear. Impression: 1: There is no evidence of acute intracranial process, intracranial hemorrhage, or skull fracture. 2: There is no significant change to the cervical spine with no interval acute fracture. 3: Stable multilevel cervical spine degenerative disease, abnormal kyphosis of the cervical spine, and grade 2 anterolisthesis C4 on C5. Dictated on workstation # [id number] Dict: 02/25/18 1007 Trans: 02/25/18 1039 CV [id number] Interpreted by: JIM JACOME MD Electronically signed by: [facility]. [place], [place] NAME: FLAKITO SABILLON [facility] REC#: [id number] PT STATUS: REG ER : 1935 PHYSICIAN: SYEDA VERMA MD ADMIT DATE: 02/25/18/ER Draft Date of Exam:02/25/18 CT THORACIC SPINE WO PROCEDURE: CT thoracic spine without contrast. TECHNIQUE: Multiple axial computerized tomography images were obtained from the base of the thoracic spine to the vertex without intravenous contrast. INDICATION: Fall, pain. Study correlated with an MRI thoracic spine performed 12/23/2015 and correlated with axial and reconstructed images from a CT of the chest, abdomen and pelvis performed 04/24/2013. There is a moderate to severe leftward convexity thoracolumbar junction scoliotic curvature with leftward lateral listhesis of L1 on L2 is not obviously changed from the previous CT chest abdomen pelvis of 2013. There are old healed left greater than right rib deformities consistent with old healed fractures partially visualized. There is quintero-thoracic degenerative changes to the discs endplates and facets chronic. The some bilateral infrahilar and left greater than right paravertebral atelectatic changes and parenchymal scarring generally, chronic and not obviously changed. No demonstrated pleural fluid. No acute thoracic spinal fracture is evident. There is tortuous aortic atherosclerotic calcifications without demonstrated aneurysm. IMPRESSION: Severe spondylosis and leftward scoliosis and left lateral listhesis not appreciably changed from a CT performed in 2013. An acute spinal injury is not evident chronic lung disease unchanged. There are old healed rib fracture deformities. Dictated on workstation # [id number] Dict: 02/25/18 1012 Trans: 02/25/18 1027 CV [id number] Interpreted by: JORDON MAHONEY Electronically signed by: Reviewed: Reviewed by Me Diagonstic Imaging: Xray Plain Films/CT/US/NM/MRI: other (bilateral shoulders) Comments Old prostheses noted of the left humerus and glenohumeral joint. No new acute fractures. Reviewed: Reviewed by Me Departure Impression Primary Impression: Fall on same level Qualified Codes: W18.30XA - Fall on same level, unspecified, initial encounter Disposition: 01 HOME, SELF-CARE Condition: Stable Departure-Patient Inst. Decision time for Depature: 11:16 Referrals: EDGAR COKER MD (PCP/Family) Primary Care Physician Patient Instructions: Upper Back Pain (DC) Add. Discharge Instructions: Use Tylenol and ibuprofen as well as your [place] to control your pain. You can also use ice packs, heating pads or icy hot or Aspercreme. Follow-up with your primary care doctor if you're not seeing improvement in the next couple weeks. You're having constipation you can decrease the use of the hydrocodone as well as use a laxative such as MiraLAX twice a day, one capful in 6 ounces of fluids. All discharge instructions reviewed with patient and/or family. Voiced understanding. Copy Copies To 1: EDGAR COKER MD, TITUS J Feb 25, 2018 09:32
[2018-02-25 09:41] LABS: BASOPHILS % (AUTO) 0 % (0-10); EOSINOPHILS % (AUTO) 0 % (0-10); HEMATOCRIT 33 % (35-52); HEMOGLOBIN 11.3 G/DL (11.5-16.0); LYMPHOCYTES # (AUTO) 1.1 X 10^3 (1.0-4.0); LYMPHOCYTES % (AUTO) 11 % (12-44); MEAN CORPUSCULAR HEMOGLOBIN 32 PG (25-34); MEAN CORPUSCULAR HGB CONC 34 G/DL (32-36); MEAN CORPUSCULAR VOLUME 93 FL (80-99); MEAN PLATELET VOLUME 9.5 FL (7.4-10.4); MONOCYTES # (AUTO) 0.8 X 10^3 (0.0-1.0); MONOCYTES % (AUTO) 8 % (0-12); NEUTROPHILS % (AUTO) 81 % (42-75); PLATELET COUNT 270 10^3/uL (130-400); RED BLOOD COUNT 3.57 10^6/uL (4.35-5.85); RED CELL DISTRIBUTION WIDTH 14.2 % (10.0-14.5); WHITE BLOOD COUNT 9.8 10^3/uL (4.3-11.0)
[2018-02-25 09:45] LABS: BILIRUBIN,URINE NEGATIVE (NEGATIVE); CLARITY,URINE CLEAR; COLOR,URINE YELLOW; GLUCOSE, URINE (UA) NEGATIVE (NEGATIVE); KETONES,URINE NEGATIVE (NEGATIVE); LEUKOCYTE ESTERASE ,URINE NEGATIVE (NEGATIVE); NITRITE,URINE NEGATIVE (NEGATIVE); PH,URINE 5 (5-9); PROTEIN,URINE 3+ (NEGATIVE); UROBILINOGEN,URINE NORMAL (NORMAL)
[2018-02-25 10:01] LABS: BACTERIA,URINE NEGATIVE /HPF
[2018-02-25 10:01] LABS: ALBUMIN 3.8 GM/DL (3.2-4.5); BILIRUBIN,TOTAL 0.4 MG/DL (0.1-1.0); CREATININE SERUM 1.74 MG/DL (0.60-1.30); POTASSIUM 4.7 MMOL/L (3.6-5.0); TOTAL PROTEIN 6.4 GM/DL (6.4-8.2)
[2018-02-25 10:02] LABS: HYALINE CASTS, URINE RARE /LPF
--- NOTE | 2018-02-25 10:27 | Diagnostic Imaging Report ---
PROCEDURE: CT thoracic spine without contrast. TECHNIQUE: Multiple axial computerized tomography images were obtained from the base of the thoracic spine to the vertex without intravenous contrast. INDICATION: Fall, pain. Study correlated with an MRI thoracic spine performed 12/23/2015 and correlated with axial and reconstructed images from a CT of the chest, abdomen and pelvis performed 04/24/2013. There is a moderate to severe leftward convexity thoracolumbar junction scoliotic curvature with leftward lateral listhesis of L1 on L2 is not obviously changed from the previous CT chest abdomen pelvis of 2012. There are old healed left greater than right rib deformities consistent with old healed fractures partially visualized. There is quintero-thoracic degenerative changes to the discs endplates and facets chronic. The some bilateral infrahilar and left greater than right paravertebral atelectatic changes and parenchymal scarring generally, chronic and not obviously changed. No demonstrated pleural fluid. No acute thoracic spinal fracture is evident. There is tortuous aortic atherosclerotic calcifications without demonstrated aneurysm. IMPRESSION: Severe spondylosis and leftward scoliosis and left lateral listhesis not appreciably changed from a CT performed in 2012. An acute spinal injury is not evident chronic lung disease unchanged. There are old healed rib fracture deformities. Dictated by: Dictated on workstation # [id number]
--- NOTE | 2018-02-25 10:39 | Diagnostic Imaging Report ---
Clinical indication: Patient fell hitting head. Exam: Head CT without IV contrast. Axial CT scan of the cervical spine with sagittal and coronal reformations. Comparison: CT scan of the head and cervical spine dated 03/16/2016. Findings: Head CT: There is no evidence of acute cerebral infarct, intracranial hemorrhage, or gross mass effect. The brain parenchymal volume appears appropriate for patient's age. There are small patchy areas of high T2 signal white matter changes involving both cerebral hemispheres, likely representing chronic small vessel ischemic disease. There is normal harris-white matter distinction. There is no significant midline shift or herniation. There is no evidence of hydrocephalus. The basal cisterns are unremarkable. The skull, extracranial soft tissue, and orbits are unremarkable. The paranasal sinuses are unremarkable. Temporal bones show no significant abnormality. Cervical spine: There is no interval acute cervical spine fracture. There is stable grade 2 anterolisthesis of C4 on C5 and C5 on C6. There is intervertebral bony fusion of the C5-C6 level. There is no pars defect seen. There is again seen hypertrophic spurs throughout cervical spine and facet arthropathy. There is focal kyphosis of the cervical spine centered at the C5-C6 level, again seen with at least moderate central canal narrowing. There is moderate to severe multilevel cervical spine neural foramen narrowing again noted. The neck soft tissue structures show no significant abnormalities. Visualized upper lung poole are clear. Impression: 1: There is no evidence of acute intracranial process, intracranial hemorrhage, or skull fracture. 2: There is no significant change to the cervical spine with no interval acute fracture. 3: Stable multilevel cervical spine degenerative disease, abnormal kyphosis of the cervical spine, and grade 2 anterolisthesis C4 on C5. Dictated by: Dictated on workstation # [id number]
--- NOTE | 2018-02-25 10:42 | Diagnostic Imaging Report ---
INDICATION: Pain post recent fall TECHNIQUE: 3 views of the right elbow CORRELATION STUDY: None FINDINGS: Rather pronounced bony demineralization is present. Slight irregularity at the right radial head and neck likely of no significance. The osseous structures appear to be intact and in normal alignment. No abnormal joint effusion. IMPRESSION: 1. Negative for acute bony abnormality of the elbow. Rather pronounced bony demineralization present. Dictated by: Dictated on workstation # [id number]
--- NOTE | 2018-02-25 10:47 | Diagnostic Imaging Report ---
INDICATION: Pain post recent fall. TECHNIQUE: Multiple views of bilateral shoulders, 10:39 AM CORRELATION STUDY: None FINDINGS: Right shoulder: There is high riding humeral head with significant narrowing of the subacromial joint space. Osteophyte formation about the acromioclavicular joint. Marginal osteophyte formation of the humeral head and glenoid. There is no acute fracture or dislocation. Left shoulder: There are surgical change of reverse left shoulder arthroplasty. Heterotopic ossification in and around the resected component and prosthesis is present. The alignment appears to be anatomic. No evidence for fracture or loosening of hardware or acute bony abnormality. There are multiple displaced left sided and to a lesser degree right sided rib fracture deformities. While some of these do appear to be ununited, the overall features favor probable older bilateral rib fractures. IMPRESSION: 1. Negative for acute bony abnormality about the shoulder. Right shoulder demonstrates marked joint space narrowing which can be associated with underlying rotator cuff pathology. Surgical change of a left shoulder prosthesis. 2. Bilateral rib fracture deformities. Features are likely nonacute. Clinical correlation recommended. Dictated by: Dictated on workstation # [id number]
[2018-02-25 11:35] VITALS: BP 177/80
== END 2018-02-25 11:35 | disposition home or self-care (01) ==
LOC: EDUNIT# 09:00 → ER 09:01
DX: S50.01XA Contusion of right elbow, initial encounter (principal); M54.2 Cervicalgia; M54.6 Pain in thoracic spine; M25.511 Pain in right shoulder; M25.512 Pain in left shoulder; J44.9 Chronic obstructive pulmonary disease, unspecified; I25.2 Old myocardial infarction; I25.10 Atherosclerotic heart disease of native coronary artery without angina pectoris; I10 Essential (primary) hypertension; F41.9 Anxiety disorder, unspecified; F32.9 Major depressive disorder, single episode, unspecified; E78.00 Pure hypercholesterolemia, unspecified; M06.9 Rheumatoid arthritis, unspecified; R40.2142 Coma scale, eyes open, spontaneous, at arrival to emergency department; R40.2252 Coma scale, best verbal response, oriented, at arrival to emergency department; R40.2362 Coma scale, best motor response, obeys commands, at arrival to emergency department; F17.210 Nicotine dependence, cigarettes, uncomplicated; Z90.710 Acquired absence of both cervix and uterus; Z87.19 Personal history of other diseases of the digestive system; Z82.49 Family history of ischemic heart disease and other diseases of the circulatory system; Z86.73 Personal history of transient ischemic attack (TIA), and cerebral infarction without residual deficits; Z95.5 Presence of coronary angioplasty implant and graft; Z95.1 Presence of aortocoronary bypass graft; Z90.89 Acquired absence of other organs; Z88.2 Allergy status to sulfonamides; Z88.5 Allergy status to narcotic agent; Z88.0 Allergy status to penicillin; Z88.8 Allergy status to other drugs, medicaments and biological substances; Z79.82 Long term (current) use of aspirin; W18.30XA Fall on same level, unspecified, initial encounter; Y92.002 Bathroom of unspecified non-institutional (private) residence as the place of occurrence of the external cause
CPT/HCPCS: 36415; 51701; 70450; 72125; 72128; 73080; 80053; 81000; 82550; 85025

== ENCOUNTER 2018-03-29 08:16 | Emergency (ER) | payer MEDICARE ==
[~2018-03-29] VITALS: Ht 142.2 cm; Wt 44.7 kg
[2018-03-29] MEDS ORDERED: CETI5TAB6 PO (08:43)
[2018-03-29] MEDS ORDERED: CEFD300C3 PO (08:43)
--- NOTE | 2018-03-29 08:43 | ED General ---
General Chief Complaint: Cough/Cold/Flu Symptoms Stated Complaint: RIGHT EYE SWELLING,EAR CONGESTION Nursing Triage Note: TO ROOM REPORTS IS HAVING SOME CONGESTION AND WOULD LIKE A Z PACK. Nursing Sepsis Screen: No Definite Risk Source of Information: Patient Exam Limitations: No Limitations History of Present Illness Date Seen by Provider: Mar 29, 2018 Time Seen by Provider: 08:20 Initial Comments This 85 or one presents to the emergency room with complaints of ear congestion and left ear pain. She also states her right eye is irritated. She is to have surgery on her eye later this month and wants to make sure she is in good condition for that surgery. She is specifically requesting a Z-Enzo. She feels like there is some swelling behind her left ear. She has been afebrile. She denies cough. Patient smokes half pack a day. Allergies and Home Medications Allergies Coded Allergies: Sulfa (Sulfonamide Antibiotics) (Unverified Allergy, Unknown, 03/16/16) acetaminophen (Unverified Allergy, Unknown, 03/16/16) codeine (Unverified Allergy, Unknown, 03/16/16) erythromycin base (Unverified Allergy, Unknown, 03/16/16) oxycodone (Unverified Allergy, Unknown, 03/16/16) propoxyphene (Unverified Allergy, Unknown, 03/16/16) Home Medications Amlodipine Bes/Olmesartan Med 1 Each Tablet, 1 TAB PO HS, (Reported) Aspirin 81 Mg Tablet.dr, 81 MG PO HS, (Reported) Atorvastatin Calcium 10 Mg Tablet, 10 MG PO HS, (Reported) Bisacodyl 5 Mg Tablet.dr, 15 MG PO HS PRN for CONSTIPATION-5TH LINE, (Reported) TAKES 3 (5 MG) TABLETS Cefdinir 300 Mg Capsule, 300 MG PO DAILY Prescribed by: VINOD HAGER on 03/29/18842 Cetirizine HCl 5 Mg Tablet, 5 MG PO DAILY Prescribed by: VINOD HAGER on 03/29/18842 Clonidine HCl 0.1 Mg Tablet, 0.2 MG PO HS, (Reported) TAKES 2 (0.1 MG) TABLETS Diazepam 2 Mg Tablet, 2 MG PO HS, (Reported) Furosemide 20 Mg Tablet, 20 MG PO HS, (Reported) Hydrocodone Bit/Acetaminophen 1 Each Tablet, 1 TAB PO EVERY 6-8 HOURS PRN for PAIN-MODERATE, (Reported) Hydroxyzine HCl 25 Mg Tablet, 25 MG PO Q12H PRN for RASH, (Reported) Metoprolol Tartrate 50 Mg Tablet, 50 MG PO HS, (Reported) Polyethylene Glycol 3350 119 Gm Powder, 17 GM PO HS PRN for CONSTIPATION-2ND LINE, (Reported) Patient Home Medication List Home Medication List Reviewed: Yes Review of Systems Review of Systems Constitutional: no symptoms reported EENTM: see HPI Respiratory: no symptoms reported Cardiovascular: no symptoms reported Gastrointestinal: no symptoms reported Genitourinary: no symptoms reported Musculoskeletal: no symptoms reported Skin: no symptoms reported Psychiatric/Neurological: No Symptoms Reported Hematologic/Lymphatic: No Symptoms Reported Past Eimvryn-Qlkqag-Nmofqf Hx Patient Social History Alcohol Use: Denies Use Number of Drinks Today: Alcohol Beverage of Choice: Wine Recreational Drug Use: No Type Used: Cigarettes 2nd Hand Smoke Exposure: Yes Recent Foreign Travel: No Contact w/Someone Who Travel: No Recent Infectious Disease Expo: No Recent Hopitalizations: No Immunizations Up To Date Tetanus Booster (TDap): More than 5yrs Seasonal Allergies Seasonal Allergies: No Past Medical History Surgeries: Yes (HEMORRHOIDECTOMY) CABG, Coronary Stent, Eye Surgery, Gallbladder, Hysterectomy, Joint Replacement , Orthopedic, Rectal Respiratory: Yes Chronic Bronchitis, COPD Currently Using CPAP: No Currently Using BIPAP: No Cardiac: Yes (STENTS, CABG, heart failure) Coronary Artery Disease, Heart Attack, High Cholesterol, Hypertension Neurological: Yes (shingles) Stroke Reproductive Disorders: No Sexually Transmitted Disease: No HIV/AIDS: No Genitourinary: Yes Renal Failure Gastrointestinal: Yes Abdominal Hernia, Colitis, Chronic Constipation, Diverticulosis, Hemorrhoids, Ulcer, Gall Bladder Disease, Irritable Bowel Musculoskeletal: Yes (CHRONIC GENERALIZED PAIN) Arthritis, Rheumatoid Arthritis, Chronic Back Pain Endocrine: No Cataract Loss of Vision: Bilateral Cancer: No Psychosocial: Yes Anxiety, Depression Integumentary: Yes (frequent hives) Blood Disorders: No Family Medical History Cataract 03 MOTHER Chest pain 03 FATHER Congestive heart failure 03 MOTHER Family history: Arthritis 03 FATHER 03 MOTHER Family history: Coronary thrombosis 03 FATHER Family history: Diabetes mellitus 03 FATHER Family history: Hypertension 03 FATHER Heart disease 03 FATHER Myocardial infarction 03 FATHER No Family History of: Abdominal aortic aneurysm Conrado's disease Alcoholism Aphasia Cancer Cancer of colon Congenital heart disease Cystic fibrosis Dementia Dysphagia Family history: Allergy Family history: Alzheimer's disease Family history: Asthma Family history: Breast disease Family history: Cardiovascular disease Family history: Gastrointestinal disease Family history: Glaucoma Family history: Osteoporosis Family history: Thyroid disorder Headache Hearing loss Hereditary disease History of - anemia History of - disorder History of - respiratory disease History of drug abuse Human immunodeficiency virus (HIV) seropositivity Hypercholesterolemia Infertile Kidney disease Malignant neoplasm of lung Parkinson's disease Prostate cancer Psychotic disorder Seizure disorder Stroke Tuberculosis Visual impairment Physical Exam Vital Signs Vital Signs - First Documented 03/29/18 08:22 Temp 97.5 Pulse 66 Resp 18 B/P (MAP) 176/82 (113) Pulse Ox 100 Capillary Refill : Less Than 3 Seconds Height, Weight, BMI Height: 4'8.00" Weight: 98lbs. 8.0oz. [id number]; 20.0 BMI Method:Stated General Appearance: No Apparent Distress, WD/WN, Thin HEENT: PERRL/EOMI, Normal ENT Inspection, Pharynx Normal, TM Abnormal (L) ( erythema and tenderness with exam) Neck: Supple, Lymphadenopathy (L) Respiratory: Lungs Clear, Normal Breath Sounds, No Accessory Muscle Use, No Respiratory Distress Cardiovascular: Regular Rate, Rhythm, No Edema, No Murmur Extremity: Normal Inspection Neurologic/Psychiatric: Alert, Oriented x3, No Motor/Sensory Deficits, Normal Mood/Affect, engineering group leader II-XII Norm as Tested Skin: Normal Color, Warm/Dry Progress/Results/Core Measures Suspected Sepsis Recent Fever Within 48 Hours: No Infection Criteria Present: None New/Unexplained Altered Menta: No Sepsis Screen: No Definite Risk SIRS Temperature:97.5 Pulse: 66 Respiratory Rate: 18 Blood Pressure 176 /82 Mean: 113 Results/Orders Vital Signs/I&O 03/29/18 03/29/18 08:22 08:53 Temp 97.5 97.5 Pulse 66 66 Resp 18 18 B/P (MAP) 176/82 (113) 176/82 (113) Pulse Ox 100 100 Capillary Refill : Less Than 3 Seconds Blood Pressure Mean: 113 Progress Note : Progress Note I exam was unremarkable. Patient did have a left otitis media. Renal dosing of Omnicef was prescribed. Departure Impression Primary Impression: Left otitis media Qualified Codes: H66.002 - Acute suppurative otitis media without spontaneous rupture of ear drum, left ear Additional Impression: Irritation of right eye Disposition: 01 HOME, SELF-CARE Condition: Stable Departure-Patient Inst. Decision time for Depature: 08:35 Referrals: EDGAR AGEE MD (PCP/Family) Primary Care Physician Patient Instructions: Ear Infections (Otitis Media) Add. Discharge Instructions: Drink plenty of clear liquids. Complete your antibiotic as prescribed. You may take Tylenol up to 650 mg every 6 hours as needed for pain. Take cetirizine (antihistamine) as prescribed for eye irritation. Return to care if symptoms worsen. All discharge instructions reviewed with patient and/or family. Voiced understanding. Scripts Cetirizine HCl (Cetirizine HCl) 5 Mg Tablet 5 MG PO DAILY, #30 TAB Prov: VINOD HOLLIDAY MD 03/29/18 Cefdinir (Cefdinir) 300 Mg Capsule 300 MG PO DAILY, #10 CAP Prov: VINOD HOLLIDAY MD 03/29/18 VINOD HOLLIDAY MD Mar 29, 2018 08:43
[2018-03-29 08:53] VITALS: BP 176/82
== END 2018-03-29 08:53 | disposition home or self-care (01) ==
LOC: EDUNIT# 08:16 → ER 08:18
DX: H66.92 Otitis media, unspecified, left ear (principal); J44.9 Chronic obstructive pulmonary disease, unspecified; I25.2 Old myocardial infarction; I25.10 Atherosclerotic heart disease of native coronary artery without angina pectoris; E78.00 Pure hypercholesterolemia, unspecified; I10 Essential (primary) hypertension; F41.9 Anxiety disorder, unspecified; F32.9 Major depressive disorder, single episode, unspecified; F17.210 Nicotine dependence, cigarettes, uncomplicated; Z95.1 Presence of aortocoronary bypass graft; Z86.73 Personal history of transient ischemic attack (TIA), and cerebral infarction without residual deficits; Z82.49 Family history of ischemic heart disease and other diseases of the circulatory system; Z87.19 Personal history of other diseases of the digestive system; Z95.5 Presence of coronary angioplasty implant and graft; Z90.710 Acquired absence of both cervix and uterus; Z88.2 Allergy status to sulfonamides; Z88.5 Allergy status to narcotic agent; Z88.0 Allergy status to penicillin; Z88.1 Allergy status to other antibiotic agents; Z88.8 Allergy status to other drugs, medicaments and biological substances; Z79.82 Long term (current) use of aspirin
CPT/HCPCS: 99282

== ENCOUNTER 2019-05-16 09:52 | Emergency (ER) | payer MEDICARE ==
[~2019-05-16] VITALS: Ht 146 cm; Wt 46.3 kg
[~2019-05-16 09:52] MED LIST changes: +CEFD300C3 PO; +CETI5TAB6 PO
[2019-05-16] MEDS ORDERED: NS IV 500 ML 500 ML IV ONE (10:09)
[2019-05-16] MEDS ORDERED: CEFEPIME INJECTION 1,000 MG in WATER (STERILE) FOR INJECTION 10 ML IV ONE (10:15)
[2019-05-16] MEDS ORDERED: RT-ALBUTEROL/IPRATROPIUM 3 ML (DUONEB) VIAL INH ONE (10:15)
--- NOTE | 2019-05-16 10:19 | ED Cough/URI ---
General Chief Complaint: Cough/Cold/Flu Symptoms Stated Complaint: COUGH / CONGESTION Nursing Triage Note: Pt to ED in wheelchair. Pt c/o productive cough. Pt was seen in urgent care yesterday and provider thought pneumonia. Pt currently taking zpac. Sepsis Screen: No Definite Risk Source: patient Exam Limitations: no limitations History of Present Illness Date Seen by Provider: May 16, 2019 Time Seen by Provider: 10:04 Initial Comments Patient presents to ER by private conveyance with her significant other and chief complaint a week of cough with clear sputum production occasionally,, shortness of breath malaise. No fevers or chills. She saw a urgent care earlier in the week and they put her on azithromycin which she is still taking one day for. She saw another urgent care last night and they thought that the azithromycin will not be helpful and that she would need a workup for a pneumonia and sent her to the ER. She has not had a x-ray. She has a history of CABG. No worsening edema or weight gain. Chronic edema in her right lower extremity. She does not take breathing treatments or oxygen but does endorse COPD and smokes about one half packs of cigarettes per day. She sees Dr. Coker. She says she still follows with cardiology and nephrology and at one time her creatinine was 2.5. She is on Lasix and hydrochlorothiazide. Allergies and Home Medications Allergies Coded Allergies: Sulfa (Sulfonamide Antibiotics) (Unverified Allergy, Unknown, 03/16/16) acetaminophen (Unverified Allergy, Unknown, 03/16/16) codeine (Unverified Allergy, Unknown, 03/16/16) erythromycin base (Unverified Allergy, Unknown, 03/16/16) oxycodone (Unverified Allergy, Unknown, 03/16/16) propoxyphene (Unverified Allergy, Unknown, 03/16/16) Home Medications Amlodipine Bes/Olmesartan Med 1 Each Tablet, 1 TAB PO HS, (Reported) Aspirin 81 Mg Tablet.dr, 81 MG PO HS, (Reported) Atorvastatin Calcium 10 Mg Tablet, 10 MG PO HS, (Reported) Bisacodyl 5 Mg Tablet.dr, 15 MG PO HS PRN for CONSTIPATION-5TH LINE, (Reported) TAKES 3 (5 MG) TABLETS Cefdinir 300 Mg Capsule, 300 MG PO DAILY Prescribed by: VINOD HAGER on 03/29/18 0843 Cetirizine HCl 5 Mg Tablet, 5 MG PO DAILY Prescribed by: VINOD HAGER on 03/29/18 0843 Clonidine HCl 0.1 Mg Tablet, 0.2 MG PO HS, (Reported) TAKES 2 (0.1 MG) TABLETS Diazepam 2 Mg Tablet, 2 MG PO HS, (Reported) Furosemide 20 Mg Tablet, 20 MG PO HS, (Reported) Hydrocodone Bit/Acetaminophen 1 Each Tablet, 1 TAB PO EVERY 6-8 HOURS PRN for PAIN-MODERATE, (Reported) Hydroxyzine HCl 25 Mg Tablet, 25 MG PO Q12H PRN for RASH, (Reported) Metoprolol Tartrate 50 Mg Tablet, 50 MG PO HS, (Reported) Polyethylene Glycol 3350 119 Gm Powder, 17 GM PO HS PRN for CONSTIPATION-2ND LINE, (Reported) Patient Home Medication List Home Medication List Reviewed: Yes Review of Systems Review of Systems Constitutional: No chills, No fever; malaise EENTM: No ear discharge, No ear pain Respiratory: cough, phlegm, short of breath; No stridor, No wheezing Cardiovascular: No chest pain; Hx of Intervention Gastrointestinal: No abdominal pain, No nausea Genitourinary: No discharge, No dysuria Musculoskeletal: No back pain, No joint pain All Other Systems Reviewed Negative Unless Noted: Yes Past Nzfukpy-Sggege-Jltljj Hx Patient Social History Alcohol Use: Occasionally Uses Number of Drinks Today: Alcohol Beverage of Choice: Wine Recreational Drug Use: No Smoking Status: Current Everyday Smoker Type Used: Cigarettes 2nd Hand Smoke Exposure: Yes Recent Foreign Travel: No Contact w/Someone Who Travel: No Recent Infectious Disease Expo: No Recent Hopitalizations: No Immunizations Up To Date Tetanus Booster (TDap): More than 5yrs Seasonal Allergies Seasonal Allergies: No Past Medical History Surgeries: Yes (HEMORRHOIDECTOMY) CABG, Coronary Stent, Eye Surgery, Gallbladder, Hysterectomy, Joint Replacement, Orthopedic, Rectal Respiratory: Yes Chronic Bronchitis, COPD Currently Using CPAP: No Currently Using BIPAP: No Cardiac: Yes (STENTS, CABG, heart failure) Coronary Artery Disease, Heart Attack, High Cholesterol, Hypertension Neurological: Yes (shingles) Stroke Reproductive Disorders: No Sexually Transmitted Disease: No HIV/AIDS: No Genitourinary: Yes Renal Failure Gastrointestinal: Yes Abdominal Hernia, Colitis, Chronic Constipation, Diverticulosis, Hemorrhoids, Ulcer, Gall Bladder Disease, Irritable Bowel Musculoskeletal: Yes (CHRONIC GENERALIZED PAIN) Arthritis, Rheumatoid Arthritis, Chronic Back Pain Endocrine: No Cataract Loss of Vision: Bilateral Cancer: No Psychosocial: Yes Anxiety, Depression Integumentary: Yes (frequent hives) Blood Disorders: No Family Medical History Cataract 03 MOTHER Chest pain 03 FATHER Congestive heart failure 03 MOTHER Family history: Arthritis 03 FATHER 03 MOTHER Family history: Coronary thrombosis 03 FATHER Family history: Diabetes mellitus 03 FATHER Family history: Hypertension 03 FATHER Heart disease 03 FATHER Myocardial infarction 03 FATHER No Family History of: Abdominal aortic aneurysm Cassadaga's disease Alcoholism Aphasia Cancer Cancer of colon Congenital heart disease Cystic fibrosis Dementia Dysphagia Family history: Allergy Family history: Alzheimer's disease Family history: Asthma Family history: Breast disease Family history: Cardiovascular disease Family history: Gastrointestinal disease Family history: Glaucoma Family history: Osteoporosis Family history: Thyroid disorder Headache Hearing loss Hereditary disease History of - anemia History of - disorder History of - respiratory disease History of drug abuse Human immunodeficiency virus (HIV) seropositivity Hypercholesterolemia Infertile Kidney disease Malignant neoplasm of lung Parkinson's disease Prostate cancer Psychotic disorder Seizure disorder Stroke Tuberculosis Visual impairment Physical Exam Vital Signs - First Documented 05/16/19 09:58 Temp 36.4 Pulse 69 Resp 18 B/P (MAP) 139/90 (106) Pulse Ox 87 O2 Delivery Room Air Capillary Refill : Less Than 3 Seconds Height: 4'8.00" Weight: 98lbs. 8.0oz. 44.998775ht; 21.00 BMI Method:Stated General Appearance: WD/WN, mild distress Eyes: Bilateral Eye Normal Inspection, Bilateral Eye PERRL, Bilateral Eye EOMI HEENT: PERRL/EOMI, normal ENT inspection, TMs normal, pharynx normal Neck: full range of motion, normal inspection Respiratory: no accessory muscle use, respiratory distress (mild; oxygen saturation 88-90% on room air), rales (bilateral), rhonchi Cardiovascular: normal peripheral pulses, regular rate, rhythm, no murmur Gastrointestinal: normal bowel sounds, non tender, soft Neurologic/Psychiatric: alert, normal mood/affect, oriented x 3 Skin: normal color, warm/dry Progress/Results/Core Measures Suspected Sepsis Recent Fever Within 48 Hours: No Infection Criteria Present: None New/Unexplained Altered Menta: No Sepsis Screen: No Definite Risk SIRS Temperature: Pulse: 69 Respiratory Rate: 18 Laboratory Tests 05/16/19 10:20: White Blood Count 7.5 Blood Pressure 139 /90 Mean: 106 Laboratory Tests 05/16/19 10:20: Creatinine 2.32H, Platelet Count 223, Total Bilirubin 0.2 Results/Orders Lab Results Laboratory Tests Test 05/16/19 10:20 Range/Units White Blood Count 7.5 4.3-11.0 10^3/uL Red Blood Count 3.25 L 4.35-5.85 10^6/uL Hemoglobin 10.2 L 11.5-16.0 G/DL Hematocrit 32 L 35-52 % Mean Corpuscular Volume 97 80-99 FL Mean Corpuscular Hemoglobin 31 25-34 PG Mean Corpuscular Hemoglobin Concent 32 32-36 G/DL Red Cell Distribution Width 13.7 10.0-14.5 % Platelet Count 223 130-400 10^3/uL Mean Platelet Volume 10.2 7.4-10.4 FL Neutrophils (%) (Auto) 79 H 42-75 % Lymphocytes (%) (Auto) 14 12-44 % Monocytes (%) (Auto) 8 0-12 % Eosinophils (%) (Auto) 0 0-10 % Basophils (%) (Auto) 0 0-10 % Neutrophils # (Auto) 5.9 1.8-7.8 X 10^3 Lymphocytes # (Auto) 1.0 1.0-4.0 X 10^3 Monocytes # (Auto) 0.6 0.0-1.0 X 10^3 Eosinophils # (Auto) 0.0 0.0-0.3 10^3/uL Basophils # (Auto) 0.0 0.0-0.1 10^3/uL Sodium Level 141 135-145 MMOL/L Potassium Level 5.2 H 3.6-5.0 MMOL/L Chloride Level 114 H 98-107 MMOL/L Carbon Dioxide Level 18 L 21-32 MMOL/L Anion Gap 9 5-14 MMOL/L Blood Urea Nitrogen 59 H 7-18 MG/DL Creatinine 2.32 H 0.60-1.30 MG/DL Estimat Glomerular Filtration Rate 20 BUN/Creatinine Ratio 25 Glucose Level 117 H 70-105 MG/DL Calcium Level 8.6 8.5-10.1 MG/DL Corrected Calcium 8.6 8.5-10.1 MG/DL Total Bilirubin 0.2 0.1-1.0 MG/DL Aspartate Amino Transf (AST/SGOT) 19 5-34 U/L Alanine Aminotransferase (ALT/SGPT) 14 0-55 U/L Alkaline Phosphatase 65 40-136 U/L C-Reactive Protein High Sensitivity 2.58 H 0.00-0.50 MG/DL B-Type Natriuretic Peptide 910.7 H <100.0 PG/ML Total Protein 6.8 6.4-8.2 GM/DL Albumin 4.0 3.2-4.5 GM/DL Micro Results Microbiology 05/16/19 Influenza Types A,B Antigen (GHULAM) - Final, Complete My Orders Orders - SYEDA VERMA Albuterol/Ipra Inhalation Soln (Duoneb I (05/16/19 10:15) Chest 1 View, Ap/Pa Only (05/16/19 10:09) Ed Iv/Invasive Line Start (05/16/19 10:09) Ns Iv 500 Ml (Sodium Chloride 0.9%) (05/16/19 10:09) BNP (05/16/19 10:09) Blood Culture (05/16/19 10:09) Cbc With Automated Diff (05/16/19 10:09) Comprehensive Metabolic Panel (05/16/19 10:09) Hs C Reactive Protein (05/16/19 10:09) Cefepime Injection (Maxipime Injection) (05/16/19 10:15) Sputum Culture (05/16/19 10:09) Influenza A And B Antigens (05/16/19 10:23) Furosemide Injection (Lasix Injection) (05/16/19 11:30) Vital Signs/I&O 05/16/19 05/16/19 09:58 09:58 Temp 36.4 Pulse 69 Resp 18 B/P (MAP) 139/90 (106) Pulse Ox 87 O2 Delivery Room Air Room Air Capillary Refill : Less Than 3 Seconds Blood Pressure Mean: 106 POS Progress Note #1: Time: 10:22 Progress Note Flu, labs, blood cultures, sputum culture. Chest x-ray and a breathing treatment. ABG looking for CO2 retention. Put her on 2 L which brings her up in the mid to upper 90s oxygen sats. She may live in the low 90s upper 80s with her history of COPD and chronic smoking. She did endorse subjective shortness of breath however. We'll start with a half liter fluids and get a BNP. Progress Note #2: Time: 11:10 Progress Note Chest x-ray and BNP revealed pulmonary congestion likely due to acute on chronic heart failure. She is adamant that she does not want stay in the hospital so we can give her a dose of IV Lasix and have her continue her home Lasix can follow- up with primary care with good return precautions. Her potassium of 5.2 demonstrates she is either not taking the Lasix or it is doing no good. We did offer a stay in the hospital. Alternatively we'll give her Lasix she will follow up next week or early with her primary care doctor and double up on her Lasix twice a day. We have done teach back counseling. Diagnostic Imaging Diagonstic Imaging: Xray Plain Films/CT/US/NM/MRI: chest (1v) Comments NAME: FLAKITO SABILLON [facility] REC#: [id number] PT STATUS: REG ER : 1935 PHYSICIAN: SYEDA VERMA MD ADMIT DATE: 05/16/19/ER Draft POSDate of Exam:05/16/19 CHEST 1 VIEW, AP/PA ONLY EXAMINATION: Chest 1 view. HISTORY: CHF. Shortness of breath. COMPARISON: 05/24/2017 FINDINGS: There is cardiomegaly with central pulmonary vascular congestion and interstitial edema. Post-CABG changes are noted. Small bilateral pleural effusions are present. No large pneumothorax. Old left-sided rib fractures are seen. Postsurgical changes of reverse left shoulder arthroplasty are noted. IMPRESSION: 1. Cardiomegaly with central pulmonary vascular congestion and interstitial edema. 2. Small bilateral pleural effusions. Dictated on workstation # [id number] Dict: 05/16/19 1033 Trans: 05/16/19 1037 [facility] [id number] Interpreted by: MARIBEL ODELL DO Electronically signed by: Reviewed: Reviewed by Me Departure Impression Primary Impression: CHF exacerbation Qualified Codes: I50.9 - Heart failure, unspecified Disposition: 01 HOME, SELF-CARE Condition: Stable Departure-Patient Inst. Decision time for Depature: 11:26 Referrals: EDGAR COKER MD (PCP/Family) Primary Care Physician Patient Instructions: Heart Failure, Adult (DC) Add. Discharge Instructions: Start taking your Lasix twice daily once in the morning and again in the afternoon around 2:00. Do this for 7 days. Start taking the potassium supplement one capsule daily for the next week. Saturday morning call your primary care doctor and request follow-up this week. Return to the ER if you begin to have worsening shortness of breath, chest pain, fevers and chills or other worrisome symptoms of a pneumonia. All discharge instructions reviewed with patient and/or family. Voiced understanding. Scripts Potassium Chloride (Potassium Chloride) 20 Meq Tab.er.prt 20 MEQ PO DAILY for 7 Days, #7 EA 0 Refills Prov: SYEDA VERMA 05/16/19 Furosemide (Lasix) 20 Mg Tablet 20 MG PO BID for 7 Days, #14 TAB 0 Refills Prov: SYEDA VERMA 05/16/19 SYEDA VERMA May 16, 2019 10:19 POS
[2019-05-16 10:32] LABS: BASOPHILS % (AUTO) 0 % (0-10); EOSINOPHILS % (AUTO) 0 % (0-10); HEMATOCRIT 32 % (35-52); HEMOGLOBIN 10.2 G/DL (11.5-16.0); LYMPHOCYTES % (AUTO) 14 % (12-44); MEAN CORPUSCULAR HEMOGLOBIN 31 PG (25-34); MEAN CORPUSCULAR HGB CONC 32 G/DL (32-36); MEAN CORPUSCULAR VOLUME 97 FL (80-99); MEAN PLATELET VOLUME 10.2 FL (7.4-10.4); MONOCYTES # (AUTO) 0.6 X 10^3 (0.0-1.0); MONOCYTES % (AUTO) 8 % (0-12); NEUTROPHILS # (AUTO) 5.9 X 10^3 (1.8-7.8); NEUTROPHILS % (AUTO) 79 % (42-75); PLATELET COUNT 223 10^3/uL (130-400); RED CELL DISTRIBUTION WIDTH 13.7 % (10.0-14.5); WHITE BLOOD COUNT 7.5 10^3/uL (4.3-11.0)
--- NOTE | 2019-05-16 10:37 | Diagnostic Imaging Report ---
EXAMINATION: Chest 1 view. HISTORY: CHF. Shortness of breath. COMPARISON: 05/24/2017 FINDINGS: There is cardiomegaly with central pulmonary vascular congestion and interstitial edema. Post-CABG changes are noted. Small bilateral pleural effusions are present. No large pneumothorax. Old left-sided rib fractures are seen. Postsurgical changes of reverse left shoulder arthroplasty are noted. IMPRESSION: 1. Cardiomegaly with central pulmonary vascular congestion and interstitial edema. 2. Small bilateral pleural effusions. Dictated by: Dictated on workstation # [id number]
[2019-05-16 10:49] LABS: BILIRUBIN,TOTAL 0.2 MG/DL (0.1-1.0); CALCIUM 8.6 MG/DL (8.5-10.1); CREATININE SERUM 2.32 MG/DL (0.60-1.30); POTASSIUM 5.2 MMOL/L (3.6-5.0); TOTAL PROTEIN 6.8 GM/DL (6.4-8.2)
[2019-05-16] MEDS ORDERED: FUROSEMIDE 40 MG/4 ML INJ (LASIX) IVP ONE (11:30)
[2019-05-16] MEDS ORDERED: POTA20TA15 PO (11:32)
[2019-05-16] MEDS ORDERED: FURO-125 PO (11:32)
[2019-05-16 11:59] VITALS: BP 148/72
== END 2019-05-16 11:59 | disposition home or self-care (01) ==
LOC: EDUNIT# 09:52 → ER 09:53
DX: I11.0 Hypertensive heart disease with heart failure (principal); I50.9 Heart failure, unspecified; J44.9 Chronic obstructive pulmonary disease, unspecified; I25.10 Atherosclerotic heart disease of native coronary artery without angina pectoris; E78.00 Pure hypercholesterolemia, unspecified; I25.2 Old myocardial infarction; F41.9 Anxiety disorder, unspecified; F32.9 Major depressive disorder, single episode, unspecified; K58.9 Irritable bowel syndrome, unspecified; M06.9 Rheumatoid arthritis, unspecified; F17.210 Nicotine dependence, cigarettes, uncomplicated; Z86.73 Personal history of transient ischemic attack (TIA), and cerebral infarction without residual deficits; Z95.5 Presence of coronary angioplasty implant and graft; Z90.710 Acquired absence of both cervix and uterus; Z95.1 Presence of aortocoronary bypass graft; Z88.2 Allergy status to sulfonamides; Z88.6 Allergy status to analgesic agent; Z88.5 Allergy status to narcotic agent; Z88.1 Allergy status to other antibiotic agents; Z79.82 Long term (current) use of aspirin; Z82.49 Family history of ischemic heart disease and other diseases of the circulatory system
CPT/HCPCS: 36415; 71045; 80053; 83880; 85025; 86141; 87040; 87070; 87077; 87186; 87205; 87804; 96374

== ENCOUNTER 2019-05-18 09:24 | Inpatient (IN) | payer MEDICARE ==
[~2019-05-18] VITALS: Ht 140 cm; Wt 42.7 kg
[~2019-05-18 09:24] MED LIST changes: +FURO-125 PO; +POTA20TA15 PO
--- NOTE | 2019-05-18 09:36 | ED Dyspnea ---
General Chief Complaint: Respiratory Problems Stated Complaint: SOA Source of Information: Patient, EMS History of Present Illness Date Seen by Provider: May 18, 2019 Time Seen by Provider: 09:34 Initial Comments 84-year-old female brought in for shortness of breath and decreased responsiveness. Patient was seen in the ER 2 days ago with pulmonary edema. Moy ortez was recommended admission but refused. This morning patient's neighbor who normally checks on her was unable to get a hold of her and called EMS. When EMS arrived patient was lethargic and hypoxic. She was given breathing treatments, and placed on oxygen and she is now alert to her baseline and feeling much better. Patient still requires a couple liters of oxygen by nasal cannula. She has a mild cough, denies any fevers chills nausea vomiting other systemic complaints. Allergies and Home Medications Allergies Coded Allergies: Sulfa (Sulfonamide Antibiotics) (Unverified Allergy, Mild, hives, 05/18/19) acetaminophen (Unverified Allergy, Unknown, 03/16/16) codeine (Unverified Allergy, Unknown, 03/16/16) erythromycin base (Unverified Allergy, Unknown, 03/16/16) oxycodone (Unverified Allergy, Unknown, 03/16/16) propoxyphene (Unverified Allergy, Unknown, 03/16/16) Home Medications Amlodipine Besylate 5 Mg Tablet, 5 MG PO HS, (Reported) Aspirin 81 Mg Tablet.dr, 81 MG PO HS, (Reported) Atorvastatin Calcium 10 Mg Tablet, 10 MG PO HS, (Reported) Diazepam 2 Mg Tablet, 2 MG PO HS, (Reported) Doxazosin Mesylate 4 Mg Tablet, 4 MG PO HS, (Reported) Furosemide 20 Mg Tablet, 20 MG PO DAILY PRN for SWELLING, (Reported) Furosemide 20 Mg Tablet, 20 MG PO BID, (Reported) 7 DAY THERAPY FILLED 05-16-19 Hydrocodone/Acetaminophen 1 Each Tablet, 2 TAB PO Q6H PRN for PAIN-MODERATE (5- 7), (Reported) Hydroxyzine HCl 25 Mg Tablet, 25 MG PO Q12H PRN for RASH, (Reported) Metoprolol Tartrate 50 Mg Tablet, 50 MG PO HS, (Reported) Potassium Chloride 20 Meq Tablet.er, 20 MEQ PO DAILY, (Reported) 7 DAY THERAPY FILLED 05-16-19 Valsartan 80 Mg Tablet, 80 MG PO HS, (Reported) Patient Home Medication List Home Medication List Reviewed: Yes Review of Systems Review of Systems Constitutional: No chills, No fever Respiratory: see HPI Cardiovascular: No chest pain, No palpitations Gastrointestinal: no symptoms reported Genitourinary: no symptoms reported Musculoskeletal: no symptoms reported Skin: no symptoms reported Past Xwvgvrz-Hnthsw-Bzzpka Hx Patient Social History Alcohol Beverage of Choice: Wine Type Used: Cigarettes 2nd Hand Smoke Exposure: Yes Recent Hopitalizations: No Immunizations Up To Date Tetanus Booster (TDap): More than 5yrs Seasonal Allergies Seasonal Allergies: No Past Medical History Surgeries: Yes (HEMORRHOIDECTOMY) CABG, Coronary Stent, Eye Surgery, Gallbladder, Hysterectomy, Joint Replacement, Orthopedic, Rectal Respiratory: Yes Chronic Bronchitis, COPD Currently Using CPAP: No Currently Using BIPAP: No Cardiac: Yes (STENTS, CABG, heart failure) Coronary Artery Disease, Heart Attack, High Cholesterol, Hypertension Neurological: Yes (shingles) Stroke Reproductive Disorders: No Sexually Transmitted Disease: No HIV/AIDS: No Genitourinary: Yes Renal Failure Gastrointestinal: Yes Abdominal Hernia, Colitis, Chronic Constipation, Diverticulosis, Hemorrhoids, Ulcer, Gall Bladder Disease, Irritable Bowel Musculoskeletal: Yes (CHRONIC GENERALIZED PAIN) Arthritis, Rheumatoid Arthritis, Chronic Back Pain Endocrine: No Cataract Loss of Vision: Bilateral Cancer: No Psychosocial: Yes Anxiety, Depression Integumentary: Yes (frequent hives) Blood Disorders: No Family Medical History Cataract 03 MOTHER Chest pain 03 FATHER Congestive heart failure 03 MOTHER Family history: Arthritis 03 FATHER 03 MOTHER Family history: Coronary thrombosis 03 FATHER Family history: Diabetes mellitus 03 FATHER Family history: Hypertension 03 FATHER Heart disease 03 FATHER Myocardial infarction 03 FATHER No Family History of: Abdominal aortic aneurysm Redmon's disease Alcoholism Aphasia Cancer Cancer of colon Congenital heart disease Cystic fibrosis Dementia Dysphagia Family history: Allergy Family history: Alzheimer's disease Family history: Asthma Family history: Breast disease Family history: Cardiovascular disease Family history: Gastrointestinal disease Family history: Glaucoma Family history: Osteoporosis Family history: Thyroid disorder Headache Hearing loss Hereditary disease History of - anemia History of - disorder History of - respiratory disease History of drug abuse Human immunodeficiency virus (HIV) seropositivity Hypercholesterolemia Infertile Kidney disease Malignant neoplasm of lung Parkinson's disease Prostate cancer Psychotic disorder Seizure disorder Stroke Tuberculosis Visual impairment Physical Exam Vital Signs Vital Signs - First Documented 05/18/19 09:25 Temp 36.6 Pulse 58 Resp 20 B/P (MAP) 137/94 (108) Pulse Ox 96 O2 Delivery Nasal Cannula O2 Flow Rate 2.00 Capillary Refill : Height, Weight, BMI Height: 4'8.00" Weight: 98lbs. 8.0oz. 44.503845ek; 21.00 BMI Method:Stated General Appearance: No Apparent Distress, WD/WN Respiratory: No Accessory Muscle Use, No Respiratory Distress, Decreased Breath Sounds (mild bibasilar) Cardiovascular: Regular Rate, Rhythm, No Edema Extremity: Normal Capillary Refill, Normal Inspection Neurologic/Psychiatric: Alert, Oriented x3, Normal Mood/Affect Skin: Normal Color, Warm/Dry Progress/Results/Core Measures Results/Orders Lab Results Laboratory Tests Test 05/18/19 09:41 Range/Units White Blood Count 7.8 4.3-11.0 10^3/uL Red Blood Count 3.27 L 4.35-5.85 10^6/uL Hemoglobin 10.2 L 11.5-16.0 G/DL Hematocrit 33 L 35-52 % Mean Corpuscular Volume 99 80-99 FL Mean Corpuscular Hemoglobin 31 25-34 PG Mean Corpuscular Hemoglobin Concent 31 L 32-36 G/DL Red Cell Distribution Width 14.1 10.0-14.5 % Platelet Count 235 130-400 10^3/uL Mean Platelet Volume 10.3 7.4-10.4 FL Neutrophils (%) (Auto) 71 42-75 % Lymphocytes (%) (Auto) 19 12-44 % Monocytes (%) (Auto) 10 0-12 % Eosinophils (%) (Auto) 0 0-10 % Basophils (%) (Auto) 0 0-10 % Neutrophils # (Auto) 5.5 1.8-7.8 X 10^3 Lymphocytes # (Auto) 1.5 1.0-4.0 X 10^3 Monocytes # (Auto) 0.8 0.0-1.0 X 10^3 Eosinophils # (Auto) 0.0 0.0-0.3 10^3/uL Basophils # (Auto) 0.0 0.0-0.1 10^3/uL Sodium Level 141 135-145 MMOL/L Potassium Level 5.9 H 3.6-5.0 MMOL/L Chloride Level 114 H 98-107 MMOL/L Carbon Dioxide Level 20 L 21-32 MMOL/L Anion Gap 7 5-14 MMOL/L Blood Urea Nitrogen 67 H 7-18 MG/DL Creatinine 2.59 H 0.60-1.30 MG/DL Estimat Glomerular Filtration Rate 18 BUN/Creatinine Ratio 26 Glucose Level 113 H 70-105 MG/DL Calcium Level 8.6 8.5-10.1 MG/DL Troponin I 0.031 H <0.028 NG/ML B-Type Natriuretic Peptide 802.5 H <100.0 PG/ML My Orders Orders - BAUTISTA,NATIVIDAD L DO Chest Pa/Lat (2 View) (05/18/19 09:32) Basic Metabolic Panel (05/18/19 09:32) BNP (05/18/19 09:32) Cbc With Automated Diff (05/18/19 09:32) Troponin I (05/18/19 09:32) Ekg Tracing (05/18/19 09:32) Rt Request For Service (05/18/19 10:45) Prednisone Tablet (Deltasone Tablet) (05/18/19 10:45) Ceftriaxone For Iv Use (Rocephin For I (05/18/19 10:45) Furosemide Injection (Lasix Injection) (05/18/19 11:00) Medications Given in ED Current Medications Medications Dose Ordered Sig/Varsha Route Start Time Stop Time Status Last Admin Dose Admin Ceftriaxone Sodium 1000 mg/ Sterile Water 10 ml @ 200 mls/hr ONCE ONCE IV 05/18/19 10:45 05/18/19 10:48 DC 05/18/19 11:24 200 MLS/HR Furosemide 20 mg ONCE ONCE IVP 05/18/19 11:00 05/18/19 11:01 DC 05/18/19 11:24 20 MG Prednisone 40 mg ONCE ONCE PO 05/18/19 10:45 05/18/19 10:48 DC 05/18/19 11:24 40 MG Vital Signs/I&O 05/18/19 09:25 Temp 36.6 Pulse 58 Resp 20 B/P (MAP) 137/94 (108) Pulse Ox 96 O2 Delivery Nasal Cannula O2 Flow Rate 2.00 Departure Communication (Admissions) Time/Spoke to Admitting Phy: 10:58 Patient will be admitted in stable condition with 20 mg IV Lasix and breathing treatments. Impression Primary Impression: Pulmonary edema Qualified Codes: J81.0 - Acute pulmonary edema Additional Impression: COPD (chronic obstructive pulmonary disease) Qualified Codes: J44.9 - Chronic obstructive pulmonary disease, unspecified Disposition: 09 ADMITTED INPATIENT Condition: Stable Admissions Decision to Admit Reason: Admit from ER (General) Decision to Admit/Date: May 18, 2019 Time/Decision to Admit Time: 10:55 Departure-Patient Inst. Referrals: EDGAR AGEE MD (PCP/Family) Primary Care Physician NATIVIDAD BAUTISTA DO May 18, 2019 09:35 POS
[2019-05-18 09:55] LABS: BASOPHILS % (AUTO) 0 % (0-10); EOSINOPHILS % (AUTO) 0 % (0-10); HEMATOCRIT 33 % (35-52); HEMOGLOBIN 10.2 G/DL (11.5-16.0); LYMPHOCYTES # (AUTO) 1.5 X 10^3 (1.0-4.0); LYMPHOCYTES % (AUTO) 19 % (12-44); MEAN CORPUSCULAR HEMOGLOBIN 31 PG (25-34); MEAN CORPUSCULAR HGB CONC 31 G/DL (32-36); MEAN CORPUSCULAR VOLUME 99 FL (80-99); MEAN PLATELET VOLUME 10.3 FL (7.4-10.4); MONOCYTES # (AUTO) 0.8 X 10^3 (0.0-1.0); MONOCYTES % (AUTO) 10 % (0-12); NEUTROPHILS # (AUTO) 5.5 X 10^3 (1.8-7.8); NEUTROPHILS % (AUTO) 71 % (42-75); PLATELET COUNT 235 10^3/uL (130-400); RED CELL DISTRIBUTION WIDTH 14.1 % (10.0-14.5); WHITE BLOOD COUNT 7.8 10^3/uL (4.3-11.0)
[2019-05-18 10:10] LABS: CALCIUM 8.6 MG/DL (8.5-10.1); CREATININE SERUM 2.59 MG/DL (0.60-1.30); POTASSIUM 5.9 MMOL/L (3.6-5.0)
--- NOTE | 2019-05-18 10:19 | Diagnostic Imaging Report ---
EXAMINATION: Chest 2 view HISTORY: Productive cough. COMPARISON: 05/16/2019 FINDINGS: Stable cardiomegaly with post-CABG changes. There has been interval decrease in central pulmonary vessel congestion with interstitial edema. Bilateral small pleural effusions are unchanged. No pneumothorax. Postsurgical changes are again noted in the left shoulder. IMPRESSION: 1. Stable cardiomegaly with improved central pulmonary vascular congestion and interstitial edema. 2. Stable small bilateral pleural effusions. Dictated by: Dictated on workstation # [id number]
[2019-05-18] MEDS ORDERED: predniSONE 20 MG TAB PO ONE (10:45)
[2019-05-18] MEDS ORDERED: cefTRIAXone FOR IV USE 1,000 MG in WATER (STERILE) FOR INJECTION 10 ML IV ONE (10:45)
[2019-05-18] MEDS ORDERED: FUROSEMIDE 40 MG/4 ML INJ (LASIX) IVP ONE (11:00)
[2019-05-18] MEDS ORDERED: RT-ALBUTEROL/IPRATROPIUM 3 ML (DUONEB) VIAL IH PRN (13:00)
[2019-05-18] MEDS ORDERED: CATHETER FLUSH 10 ML SYR IV PRN (13:00)
[2019-05-18] MEDS ORDERED: BISACODYL 10 MG SUPP (DULCOLAX) PR PRN (14:00)
[2019-05-18] MEDS ORDERED: ONDANSETRON 4 MG/2 ML (SDV) Z0FRAN IV PRN (14:00)
[2019-05-18] MEDS ORDERED: ANTACID SUSP 30 ML UDC (MYLANTA) PO PRN (14:00)
[2019-05-18] MEDS ORDERED: POLYETHYLENE GLYCOL 17 GM (MIRALAX) PACK PO PRN (14:00)
[2019-05-18] MEDS ORDERED: MELATONIN 3 MG TABLET PO PRN (14:00)
[2019-05-18] MEDS ORDERED: AMLO5TAB9 PO ×2 (14:02)
[2019-05-18] MEDS ORDERED: VALS80TA31 PO ×2 (14:02)
[2019-05-18] MEDS ORDERED: DOXA4TAB2 PO ×2 (14:02)
[2019-05-18] MEDS ORDERED: HYDR-3816 PO ×2 (14:08)
[2019-05-18] MEDS ORDERED: POTA-51 PO ×2 (14:15)
[2019-05-18] MEDS ORDERED: FURO20TA4 PO ×2 (14:19)
--- NOTE | 2019-05-18 14:21 | NUR ---
SPOKE WITH THE PATIENT ABOUT MEDICATIONS. FAMILY IN THE ROOM HAD A MED LIST ON HER PHONE. I COMPARED THAT WITH THE EXT MED HX. PATIENT STATES ASIDE FROM HER HYDROCODONE SHE TAKES EVERYTHING AT NIGHT. SHE WAS PRESCRIBED 7 DAYS OF POTASSIUM 20MEQ DAILY AND LASIX 20MG BID 05-16-19 FROM ED. PRIOR TO THAT SHE STATES SHE ONLY TOOK HER LASIX DAILY NEEDED. THE DOXAZOSIN IS FILLED #60 FOR 30 DAYS AND IT IS ON HER MED LIST BID. SHE STATES SHE IS PRETTY SURE SHE DOES NOT TAKE THAT IN THE MORNING BUT SHE IS NOT SURE IF SHE TAKES 1 OR 2 AT HS. THEY CALLED AND LEFT A MESSAGE WITH DARIUS WHO SETS UP HER PILL FINGER [employer]WER AND WILL UPDATE ME WHEN SHE CALLS THEM BACK. SHE TAKES ASPIRIN 81MG HS OTC. Addendum: 05/18/19 at 1520 by AMY ROMAN [facility] FAMILY CALLED BACK TO VERIFY THE PATIENT HAS ONLY BEEN TAKING DOXAZOSIN 1 TABLET AT HS. UPDATED MED REC AT THIS TIME.
--- NOTE | 2019-05-18 14:25 | History & Physical-Hospitalist ---
TERESA,EJNN [facility] 05/18/19 1425: History of Present Illness HPI/Chief Complaint Luisa is a 84 y/o white female that came to the ER via Ambulance. Cousin had tried to contact pt but she was not answering so she called 911. Ambulance found patient unresponsive at home and brought her to [facility] ER. Pt was lethargic and SOB. She presented to the ER a couple of days earlier for the same symptoms but declined admission and went home. She is back now for worsened symptoms of SOB, coughing and phlegm production. Pt has PMH of COPD and Chronic Bronchitis. These symptoms have been going on for a couple of weeks and she has never had symptoms of this severity before. Oxygen supplementation via nasal canula has helped. Pt does not wear oxygen at home but does use a machine at home to help break up secretions. Source: patient Date Seen 05/18/19 Time Seen by a Provider: 14:30 Attending Physician Fer Pickens MD PCP Anastacio Coker MD Referring Physician Date of Admission May 18, 2019 at 11:00 Home Medications & Allergies Home Medications Reviewed patient Home Medication Reconciliation performed by pharmacy medication reconciliations press technician and/or nursing. Patients Allergies have been reviewed. Allergies Allergies Coded Allergies Sulfa (Sulfonamide Antibiotics) (Unverified Allergy, Mild, hives, 05/18/19) acetaminophen (Unverified Allergy, Unknown, 03/16/16) codeine (Unverified Allergy, Unknown, 03/16/16) erythromycin base (Unverified Allergy, Unknown, 03/16/16) oxycodone (Unverified Allergy, Unknown, 03/16/16) propoxyphene (Unverified Allergy, Unknown, 03/16/16) Past Sgttdyi-Qyrlyy-Jrrwuw Hx Patient Social History Alcohol Use: Denies Use Number of Drinks Today: Alcohol Beverage of Choice: Wine Recreational Drug Use: No Smoking Status: Current Everyday Smoker Type Used: Cigarettes 2nd Hand Smoke Exposure: Yes Recent Foreign Travel: No Contact w/other who traveled: No Recent Hopitalizations: No Recent Infectious Disease Expo: No Immunizations Up To Date Tetanus Booster (TDap): More than 5yrs Seasonal Allergies Seasonal Allergies: No Past Medical History Surgeries: CABG, Coronary Stent, Eye Surgery, Gallbladder, Hysterectomy, Joint Replacement, Orthopedic, Rectal Respiratory: COPD Currently Using CPAP: No Currently Using BIPAP: No Cardiac: Coronary Artery Disease, Heart Attack, High Cholesterol, Hypertension Neurological: Stroke Reproductive: No Sexually Transmitted Disease: No HIV/AIDS: No Genitourinary: Renal Failure Gastrointestinal: Abdominal Hernia, Colitis, Chronic Constipation, Diverticulosis, Hemorrhoids, Ulcer, Gall Bladder Disease, Irritable Bowel Musculoskeletal: Arthritis, Rheumatoid Arthritis, Chronic Back Pain HEENT: Cataract Loss of Vision: Bilateral Psychosocial: Anxiety, Depression History of Blood Disorders: No Family History Cataract 03 MOTHER Chest pain 03 FATHER Congestive heart failure 03 MOTHER Family history: Arthritis 03 FATHER 03 MOTHER Family history: Coronary thrombosis 03 FATHER Family history: Diabetes mellitus 03 FATHER Family history: Hypertension 03 FATHER Heart disease 03 FATHER Myocardial infarction 03 FATHER No Family History of: Abdominal aortic aneurysm Conrado's disease Alcoholism Aphasia Cancer Cancer of colon Congenital heart disease Cystic fibrosis Dementia Dysphagia Family history: Allergy Family history: Alzheimer's disease Family history: Asthma Family history: Breast disease Family history: Cardiovascular disease Family history: Gastrointestinal disease Family history: Glaucoma Family history: Osteoporosis Family history: Thyroid disorder Headache Hearing loss Hereditary disease History of - anemia History of - disorder History of - respiratory disease History of drug abuse Human immunodeficiency virus (HIV) seropositivity Hypercholesterolemia Infertile Kidney disease Malignant neoplasm of lung Parkinson's disease Prostate cancer Psychotic disorder Seizure disorder Stroke Tuberculosis Visual impairment Review of Systems Constitutional: chills; No dizziness, No fever; weakness, weight loss EENTM: no symptoms reported Respiratory: cough; No hemoptysis; phlegm, short of breath, wheezing Cardiovascular: No chest pain; edema; No palpitations Gastrointestinal: no symptoms reported Genitourinary: no symptoms reported Musculoskeletal: gout, joint pain, muscle pain Skin: lumps (back mass on right side, stasis dermatitis ) Psychiatric/Neurological: No Symptoms Reported Physical Exam Physical Exam Vital Signs Vital Signs - First Documented 05/18/19 09:25 Temp 36.6 Pulse 58 Resp 20 B/P (MAP) 137/94 (108) Pulse Ox 96 O2 Delivery Nasal Cannula O2 Flow Rate 2.00 Capillary Refill : Less Than 3 Seconds Height, Weight, BMI Height: 4'8.00" Weight: 98lbs. 8.0oz. 44.227463jn; 22.00 BMI Method:Stated General Appearance: Chronically ill, Mild Distress, Thin Eyes: Bilateral Eye PERRL, Bilateral Eye EOMI HEENT: PERRL/EOMI, Moist Mucous Membranes; No Photophobia Neck: Full Range of Motion, Non Tender, Supple Respiratory: Chest Non Tender, Accessory Muscle Use, Wheezing Cardiovascular: Regular Rate, Rhythm; No Friction Rub Gastrointestinal: Normal Bowel Sounds, No Organomegaly, Non Tender; No Distended, No Guarding Back: No Vertebral Tenderness, Other (Right lateral back mass) Extremity: Normal Capillary Refill, No Calf Tenderness, Pedal Edema, Other (Radial pulse is 2/4. UE 5/5 Strength BL, 4/5 LE to dorsi and plantarflexion. Sensory intact for UE and LE ) Neurologic/Psychiatric: Alert, Oriented x3, belt back operator II-XII Norm as Tested Skin: Warm/Dry; No Petechia, No Rash Lymphatic: No Adenopathy Results Results/Procedures Labs Laboratory Tests 05/18/19 09:41 Patient resulted labs reviewed. Assessment/Plan Admission Diagnosis 1. Pulmonary Edema secondary to HF 2. Acute COPD Exacerbation 3. Chronic Bronchitis 4. Hyperkalemia 5. CKD Stage IV 6 Back Mass 7. Stasis Dermatitis 8. Anorexia 9. Sacrum wound 10. HTN 11. CAD 12. Heart Disease 13. Rheumatoid Arthritis 14. Constipation 15. High Cholesterol 16. Depression and Anxiety 17. Smoker Assessment and Plan 1. Pulmonary Edema secondary to HF 2. Acute COPD Exacerbation 3. Chronic Bronchitis 4. Hyperkalemia 5. CKD Stage IV 6 Back Mass 7. Stasis Dermatitis 8. Anorexia 9. Sacrum wound 10. HTN 11. CAD 12. Heart Disease 13. Rheumatoid Arthritis 14. Constipation 15. High Cholesterol 16. Depression and Anxiety 17, Smoker 18. DVT prophylaxis Plan: 1. Pulmonary Edema secondary to HF - continue Lasix - consult cardiology - monitor I/Os - daily weights 2. Acute COPD Exacerbation - start on Albuterol/Ipratropium, Prednisone - Appreciate Respiratory therapy Assistance - continue ABX regimen - continue NC - place pt on Mucinex - consult pulmonology and consider Bronchoscopy 3. Chronic Bronchitis - Mucinex 4. Hyperkalemia - Calcium Gluconate - Albuterol (Pt already on for COPD) - Continue Lasix - Continue to monitor and will consider other options if there is no improvement ( Insulin, Kayexalate) 5. CKD Stage IV - IV Fluids - Continue to monitor labs 6 Back Mass - Will continue to monitor, possibly consult General but will manage more prominent respiratory issues first. 7. Stasis Dermatitis - Lasix - leg compressions 8. Anorexia - diet as tolerated - consider nutritional supplement shake 9. Sacrum wound - consult wound care 10. HTN - continue medical management 11. CAD - Continue medical management 12. Heart Disease - Consulted cardiology 13. Rheumatoid Arthritis - Pain and medical management 14. Constipation - monitor I/Os and continue stool softeners PRN 15. High Cholesterol - Continue medical management 16. Depression and Anxiety - continue to monitor and continue medical management 17. Smoker - counseled pt on smoking cessation - Consider nicotine patch 18. DVT prophylaxis - Continue mechanical DVT prophylaxis with SCDs FER PICKENS MD 05/18/192050: Past Giawniz-Chhywy-Abskpy Hx Past Med/Social Hx: Reviewed Nursing Past Med/Soc Hx Family History Cataract 03 MOTHER Chest pain 03 FATHER Congestive heart failure 03 MOTHER Family history: Arthritis 03 FATHER 03 MOTHER Family history: Coronary thrombosis 03 FATHER Family history: Diabetes mellitus 03 FATHER Family history: Hypertension 03 FATHER Heart disease 03 FATHER Myocardial infarction 03 FATHER No Family History of: Abdominal aortic aneurysm Conrado's disease Alcoholism Aphasia Cancer Cancer of colon Congenital heart disease Cystic fibrosis Dementia Dysphagia Family history: Allergy Family history: Alzheimer's disease Family history: Asthma Family history: Breast disease Family history: Cardiovascular disease Family history: Gastrointestinal disease Family history: Glaucoma Family history: Osteoporosis Family history: Thyroid disorder Headache Hearing loss Hereditary disease History of - anemia History of - disorder History of - respiratory disease History of drug abuse Human immunodeficiency virus (HIV) seropositivity Hypercholesterolemia Infertile Kidney disease Malignant neoplasm of lung Parkinson's disease Prostate cancer Psychotic disorder Seizure disorder Stroke Tuberculosis Visual impairment Assessment/Plan Admission Diagnosis Admission Status: Inpatient Order (span 2 midnights) Reason for Inpatient Admission: Will need continued diuresis and potential bronchoscopy. High risk for decompensation if DC early. Diagnosis/Problems Diagnosis/Problems (1) Pulmonary edema Status: Acute Qualifiers: Chronicity: acute Qualified Codes: J81.0 - Acute pulmonary edema (2) COPD (chronic obstructive pulmonary disease) Status: Chronic Qualifiers: COPD type: unspecified COPD Qualified Codes: J44.9 - Chronic obstructive pulmonary disease, unspecified Supervisory-Addendum Brief Verification & Attestation Participated in pt care: history, MDM, physical Personally performed: exam, history, MDM, supervision of care Care discussed with: Medical Student Procedures: n/a Results interpretation: Verified all documentation Verification and Attestation of Medical Student E/M Service A medical student performed and documented this service in my presence. I reviewed and verified all information documented by the medical student and made modifications to such information, when appropriate. I personally performed the physical exam and medical decision making. Fer Pickens, May 18, 2019,20:51 JENN MOORE [facility] May 18, 2019 14:25 FER OREILLY MD May 18, 2019 20:51 POS
[2019-05-18 14:28] VITALS: BP 159/68
--- NOTE | 2019-05-18 14:49 | Occupational Therapy Eval ---
OT Evaluation-General/PLF Medical Diagnosis Admission Date May 18, 2019 at 11:00 Medical Diagnosis: pulmonary edema, hypoxia, COPD Onset Date: May 11, 2019 Therapy Diagnosis Therapy Diagnosis: impaired ADLs and functional mobility Height/Weight Height (Feet): 4 Height (Inches): 8.00 Weight (Pounds): 98 Weight (Ounces): 8.0 Precautions Precautions/Isolations: Fall Prevention, Standard Precautions, Pressure Ulcer Weight Bear Status Weight Bearing Restriction: Weight Bearing/Tolerated Location Restriction: LE Bilateral Referral Physician: Nelia Referral Reason: Activity Tolerance, Self Care, Evaluation/Treatment, Strengthening/ROM Medical History Pertinent Medical History: Arthritis, CABG, CAD, COPD, CVA, Heart Failure, HTN, Renal Insufficiency, Smoking Additional Medical History PMH includes CABG, coronary stent, COPD, chronic bronchitis, CAD, high cholesterol, HTN, arthritis, irritable bowel, colitis, shingles, stroke, bilateral cataracts, anxiety/depression Current History Pt presented to ED via EMS from home with complaints of SOA, and increased productive cough over the last week. Pt was seen 2 days prior for pulmonary edema but refused admission. Pt and family member report another family member going to check on pt at home this AM where they found her sleeping and unable to awaken. Reviewed History: Yes Social History Home: Single Level Current Living Status: Alone Steps Into Home: 3 ADL-Prior Level of Function SCALE: Activities may be completed with or without assistive devices. 3-Ipjchanenn-ckxixxm completes the activity by him/herself with no assistance from a helper. 5-Set-up or Clean-up Assistance-helper sets up or cleans up; patient completes activity. [place] assists only prior to or following the activity. 4-Supervision or Touching Assistance-helper provides verbal cues and/or touching/steadying and/or contact guard assistance as patient completes activity. Assistance may be provided throughout the activity or intermittently. 3-Partial/Moderate Assistance-helper does LESS THAN HALF the effort. [place] lifts, holds or supports trunk or limbs, but provides less than half the effort. 2-Substantial/Maximal Assistance-helper does MORE THAN HALF the effort. [place] lifts or holds trunk or limbs and provides more than half the effort. 2-Gnqshkcdc-wkhmph does ALL the effort. Patient does none of the effort to co mplete the activity. Or, the assistance of 2 or more helpers is required for the patient to complete the activity. If activity was not attempted, code reason: 7-Patient Refused. 9-Not Applicable-not attempted and the patient did not perform the activity before the current illness, exacerbation or injury. 10-Not Attempted due to Environmental Limitations-(lack of equipment, weather restraints, etc.). 88-Not Attempted due to Medical Conditions or Safety Concerns. ADL PLOF Comments Pt reports she required assistance at home for all ADLs, pt unable to state how much assistance she required but she said she is able to help some with the tasks. Self Care: Needed Some Help Functional Cognition: Needed Some Help DME/Equipment Comments walker OT Current Status Subjective Pt laying in bed at start of session with family member present. Pt agreeable to OT evaluation, stating she would like to get some cough syrup. Pt stated she wants to go home multiple times during session and that she does not want to be in the hospital long. Pt did not report any pain during tx. Mental Status/Objective Patient Orientation: Person, Place, Time, Situation Attachments: Oxygen Current Glasses/Contacts: Yes Hearing Aids: No Dentures/Partials: No Hand Dominance: Right Upper Extremity ROM WFL, RUE shoulder flexion to approximately 90 degrees, LUE shoulder flexion to approximately 120 degrees. Pt reports having a left shoulder replacement previously. Upper Extremity Coordination no deficits noted Upper Extremity Sensation pt did not report any changes in sensation Upper Extremity Strength grossly 3/5 MMT BUE ADL-Treatment Eating (QC): 7 Oral Hygiene (QC): 7 Shower/Bathe Self (QC): 7 Upper Body Dressing (QC): 7 Lower Body Dressing (QC): 7 On/Off Footwear (QC): 7 Toileting Hygiene (QC): 7 Toilet Transfer (QC): 7 Other Treatments Pt laying in bed, provided information about PLOF and home set up. OT educated pt on the benefits of OT. Pt had family member present throughout session. Pt denied completing ADLs this session, stating she would like some cough medicine (nurse notified) and that she did not want to stay at the hospital for a long time. Post OT session, pt laying in bed, call light in reach and all needs met with PT present. Education OT Patient Education: Correct positioning, Energy conservation, Modified ADL techniques, Progress toward Goal/Update tx plan, Purpose of tx/functional activities Teaching Recipient: Patient Teaching Methods: Discussion Response to Teaching: Reinforcement Needed OT Alf Goals Broom Machine Operator Goals Time Frame: May 29, 2019 Eating (QC): 5 Oral Hygiene (QC): 5 Toileting Hygiene (QC): 3 Shower/Bathe Self (QC): 3 Upper Body Dressing (QC): 3 Lower Body Dressing (QC): 3 On/Off Footwear (QC): 3 Additional Goals: 1-Demonstrate ADL Tasks, 2-Verbalize Understanding, 3-Impr oveStrength/Dai 1=Demonstrate adherence to instructed precautions during ADL tasks. 2=Patient will verbalize/demonstrate understanding of assistive devices/modifications for ADL. 3=Patient will improve strength/tolerance for activity to enable patient to perform ADL's. OT Education/Plan Problem List/Assessment Assessment: Decreased Activ Tolerance, Decreased UE Strength, Impaired Funct Balance, Impaired I ADL's, Impaired Self-Care Skills Discharge Recommendations Plan/Recommendations: Continue POC Treatment Plan/Plan of Care Treatment,Training & Education: Yes Patient would benefit from OT for education, treatment and training to promote independence in ADL's, mobility, safety and/or upper extremity function for ADL's. Plan of Care: ADL Retraining, Caregiver Training, Functional Mobility, UE Funct Exercise/Act Treatment Duration: May 29, 2019 Frequency: 5 times per week Estimated Hrs Per Day: .25 hour per day Agreement: Yes Rehab Potential: Guarded Time/GCodes Start Time: 14:28 Stop Time: 14:36 Total Time Billed (hr/min): 8 Billed Treatment Time 1, MARY PITTS OT May 18, 2019 14:49 POS
--- NOTE | 2019-05-18 14:59 | Physical Therapy Evaluation ---
PT Evaluation-General Medical Diagnosis Admission Date May 18, 2019 at 11:00 Medical Diagnosis: pulmonary edema, hypoxia, COPD Onset Date: May 18, 2019 Therapy Diagnosis Therapy Diagnosis: weakness Height/Weight Height (Feet): 4 Height (Inches): 8.00 Weight (Pounds): 98 Weight (Ounces): 8.0 Precautions Precautions/Isolations: Fall Prevention, Standard Precautions, Pressure Ulcer Weight Bear Status Right Lower Extremity: Right Weight Bearing/Tolerated Left Lower Extremity: Left Weight Bearing/Tolerated Referral Physician: Nelia Reason for Referral: Evaluation/Treatment Medical History Pertinent Medical History: CABG, CAD, COPD, Heart Failure, Renal Insufficiency, Rheumatoid Arthritis, Smoking Current History EMS secondary to hypoxia and lethargy Reviewed History: Yes Social History Home: Single Level Current Living Status: Alone Entry Into Home: Stairs With Railing PT Steps Into Home: 4 Prior Prior Level of Function SCALE: Activities may be completed with or without assistive devices. 6-Yqkqxvxpvy-wxfyxcb completes the activity by him/herself with no assistance from a helper. 5-Set-up or Clean-up Assistance-helper sets up or cleans up; patient completes activity. [place] assists only prior to or following the activity. 4-Supervision or Touching Assistance-helper provides verbal cues and/or touching/steadying and/or contact guard assistance as patient completes activity. Assistance may be provided throughout the activity or intermittently. 3-Partial/Moderate Assistance-helper does LESS THAN HALF the effort. [place] lifts, holds or supports trunk or limbs, but provides less than half the effort. 2-Substantial/Maximal Assistance-helper does MORE THAN HALF the effort. [place] lifts or holds trunk or limbs and provides more than half the effort. 4-Fmywccpao-koljal does ALL the effort. Patient does none of the effort to complete the activity. Or, the assistance of 2 or more helpers is required for the patient to complete the activity. If activity was not attempted, code reason: 7-Patient Refused. 9-Not Applicable-not attempted and the patient did not perform the activity before the current illness, exacerbation or injury. 10-Not Attempted due to Environmental Limitations-(lack of equipment, weather restraints, etc.). 88-Not Attempted due to Medical Conditions or Safety Concerns. Bed Mobility: 6 Transfers (B,C,W/C): 6 Gait: 6 Stairs: 6 Indoor Mobility (Ambulation): Independent Stairs: Independent Prior Devices Use: Walker PT Evaluation-Current Subjective Patient and family member agree to PT at this time. Patient states she does not want to stay in the hospital long. States she uses walker at home but does not use O2. Pain Numeric Pain Scale: 0-No Pain Location: No Pain Reported Objective Patient Orientation: Person, Place, Time, Situation Attachments: Oxygen (2L) ROM/Strength ROM Lower Extremities WFL Strength Lower Extremities Grossly 3/5 bilaterally Integumentary/Posture Integumentary See nursing notes Bowel Incontinence: No Bladder Incontinence: No Posture Kyphotic posture, head forward and bent Neuromuscular (Tone, Coordination, Reflexes) Grossly intact Sensory Vision: Wears Glasses Hearing: Functional Transfers Roll Left to Right (QC): 4 Sit to Lying (QC): 4 Lying to Sitting/Side of Bed(Q: 4 Sit to Stand (QC): 4 Chair/Bmn-yc-Xlkrq Xfer(QC): 88 Car Transfer (QC): 10 Gait Does the Patient Walk?: Yes Mode of Locomotion: Walk Anticipated Mode of Locomotion: Walk Walk 10 feet (QC): 4 Walk 50 ft with 2 Turns(QC): 4 Walk 150 ft (QC): 88 Walking 10ft/uneven surface-QC: 88 Distance: 100' Gait Assistive Device: FWW Comments/Gait Description Persistent bilateral knee flexion, unsteady, kyphotic posture over walker Wheelchair Training Does the Pt Use a Wheelchair?: No Wheel 50 ft with 2 turns (QC): 9 Wheel 150 ft (QC): 9 Type of Wheelchair: Manual Stairs 1 Step (curb) (QC): 88 4 Steps (QC): 88 12 Steps (QC): 9 Balance Sitting Static: Normal Sitting Dynamic: Normal Standing Static: Fair Standing Dynamic: Fair Picking up an Object (QC): 88 Assessment/Needs Patient able to perform bed mobility with minimal assistance. Able to transfer from supine to sitting EOB with verbal cues but required assistance to lift legs to return to supine from sitting EOB. Patient able to stand from EOB without assistance but required use of FWW to pull self nearer to edge and up to standing. Patient able to maintain standing balance for prolonged period of time. Patient ambulated 100' with FWW with kyphotic posture and persistent knee flexion. Patient self limited in ambulation, stating she only ambulates household distances. Patient returned to bed and positioned in L sidelying at conclusion of treatment. Rehab Potential: Fair PT Pellet Preparation Operator Goals Pellet Preparation Operator Goals PT Pellet Preparation Operator Goals Time Frame: May 29, 2019 Roll Left & Right (QC): 6 Sit to Lying (QC): 6 Lying-Sitting on Side/Bed(QC): 6 Sit to Stand (QC): 6 Chair/Cbg-ro-Jnyid Xfer(QC): 6 Toilet Transfer (QC): 6 Car Transfer (QC): 6 Does the Patient Walk: Yes Walk 10 feet (QC): 6 Walk 50ft with 2 Turns (QC): 6 Walk 150 ft (QC): 6 Walking 10ft on Uneven Surface: 6 1 Step (curb) (QC): 6 4 Steps (QC): 6 12 Steps (QC): 9 Picking up an Object (QC): 6 Does the Pt use WC or Scooter?: No Type: N/A Type: N/A PT Plan Problem List Problem List: Activity Tolerance, Functional Strength, Safety, Balance, Gait, Transfer, Bed Mobility Treatment/Plan Treatment Plan: Continue Plan of Care Treatment Plan: Bed Mobility, Education, Functional Activity Dai, Functional Strength, Gait, Safety, Therapeutic Exercise, Transfers Treatment Duration: May 29, 2019 Frequency: 6 times per week Estimated Hrs Per Day: .25 hour per day Patient and/or Family Agrees t: Yes Time/GCodes Time In: 1436 Time Out: 1450 Total Billed Treatment Time: 14 Total Billed Treatment 1 visit EVLowC 14min VALDEZ POWERS PT May 18, 2019 14:59 POS
[2019-05-18] MEDS: CATHETER FLUSH 10 ML SYR IV SCH ×2 (15:41→22:32)
[2019-05-18 15:43] VITALS: BP 119/58
--- NOTE | 2019-05-18 16:21 | Pulmonary Consultation ---
History of Present Illness History of Present Illness Date Seen by Provider: May 18, 2019 Time Seen by Provider: 16:16 Date of Admission History of Present Illness 84yo with hx of COPD (Not on home 02) recent ED visit 2 days ago secondary to SOB however declined admission presented to ED via EMS after being found unresponsive at home. Pt was found to have worsening SOB since last ED visit. Pt has been having copious amounts of sputum production. I am consulted for pulmonary management and bronchoscopy secondary to probable mucous plugging. Allergies and Home Medications Allergies Coded Allergies: Sulfa (Sulfonamide Antibiotics) (Unverified Allergy, Mild, hives, 05/18/19) acetaminophen (Unverified Allergy, Unknown, 03/16/16) codeine (Unverified Allergy, Unknown, 03/16/16) erythromycin base (Unverified Allergy, Unknown, 03/16/16) oxycodone (Unverified Allergy, Unknown, 03/16/16) propoxyphene (Unverified Allergy, Unknown, 03/16/16) Home Medications Amlodipine Besylate 5 Mg Tablet, 5 MG PO HS, (Reported) Aspirin 81 Mg Tablet.dr, 81 MG PO HS, (Reported) Atorvastatin Calcium 10 Mg Tablet, 10 MG PO HS, (Reported) Diazepam 2 Mg Tablet, 2 MG PO HS, (Reported) Doxazosin Mesylate 4 Mg Tablet, 4 MG PO HS, (Reported) Furosemide 20 Mg Tablet, 20 MG PO DAILY PRN for SWELLING, (Reported) Furosemide 20 Mg Tablet, 20 MG PO BID, (Reported) 7 DAY THERAPY FILLED 05-16-19 Hydrocodone/Acetaminophen 1 Each Tablet, 2 TAB PO Q6H PRN for PAIN-MODERATE (5- 7), (Reported) Hydroxyzine HCl 25 Mg Tablet, 25 MG PO Q12H PRN for RASH, (Reported) Metoprolol Tartrate 50 Mg Tablet, 50 MG PO HS, (Reported) Potassium Chloride 20 Meq Tablet.er, 20 MEQ PO DAILY, (Reported) 7 DAY THERAPY FILLED 05-16-19 Valsartan 80 Mg Tablet, 80 MG PO HS, (Reported) Past Hvmbayr-Gfkryo-Ormlhx Hx Patient Social History Alcohol Use: Denies Use Number of Drinks Today: Alcohol Beverage of Choice: Wine Recreational Drug Use: No Smoking Status: Current Everyday Smoker Type Used: Cigarettes 2nd Hand Smoke Exposure: Yes Recent Foreign Travel: No Contact w/Someone Who Travel: No Recent Infectious Disease Expo: No Recent Hopitalizations: No Physical Abuse: No Sexual Abuse: No Mistreated: No Fear: No Immunizations Up To Date Tetanus Booster (TDap): More than 5yrs Seasonal Allergies Seasonal Allergies: No Past Medical History Surgeries: Yes (HEMORRHOIDECTOMY) CABG, Coronary Stent, Eye Surgery, Gallbladder, Hysterectomy, Joint Replacement, Orthopedic, Rectal Respiratory: Yes Chronic Bronchitis, COPD Currently Using CPAP: No Currently Using BIPAP: No Cardiac: Yes (STENTS, CABG, heart failure) Coronary Artery Disease, Heart Attack, High Cholesterol, Hypertension Neurological: Yes (shingles) Stroke Reproductive Disorders: No Sexually Transmitted Disease: No HIV/AIDS: No Genitourinary: Yes Renal Failure Gastrointestinal: Yes Abdominal Hernia, Colitis, Chronic Constipation, Diverticulosis, Hemorrhoids, Ulcer, Gall Bladder Disease, Irritable Bowel Musculoskeletal: Yes (CHRONIC GENERALIZED PAIN) Arthritis, Rheumatoid Arthritis, Chronic Back Pain Endocrine: No Cataract Loss of Vision: Bilateral Cancer: No Psychosocial: Yes Anxiety, Depression Integumentary: Yes (frequent hives) Blood Disorders: No Family Medical History Cataract 03 MOTHER Chest pain 03 FATHER Congestive heart failure 03 MOTHER Family history: Arthritis 03 FATHER 03 MOTHER Family history: Coronary thrombosis 03 FATHER Family history: Diabetes mellitus 03 FATHER Family history: Hypertension 03 FATHER Heart disease 03 FATHER Myocardial infarction 03 FATHER No Family History of: Abdominal aortic aneurysm Norris's disease Alcoholism Aphasia Cancer Cancer of colon Congenital heart disease Cystic fibrosis Dementia Dysphagia Family history: Allergy Family history: Alzheimer's disease Family history: Asthma Family history: Breast disease Family history: Cardiovascular disease Family history: Gastrointestinal disease Family history: Glaucoma Family history: Osteoporosis Family history: Thyroid disorder Headache Hearing loss Hereditary disease History of - anemia History of - disorder History of - respiratory disease History of drug abuse Human immunodeficiency virus (HIV) seropositivity Hypercholesterolemia Infertile Kidney disease Malignant neoplasm of lung Parkinson's disease Prostate cancer Psychotic disorder Seizure disorder Stroke Tuberculosis Visual impairment Review of Systems Date Seen by Provider: May 18, 2019 Time Seen by Provider: 16:20 Constitutional: Sweats, Weakness, Malaise Eyes: No: Pain, Vision change, Conjunctivae inflammation, Eyelid inflammation, Other, Redness ENT: Nose congestion; No: Ear pain, Ear discharge, Nose pain, Nose discharge, Mouth pain, Mouth swelling, Throat pain, Throat swelling, Other Respiratory: Cough, Shortness of breath, SOB with excertion, Wheezing, Sputum; No: Hemoptysis Cardiovascular: Palpitations, Paroxysmal Noc. Dyspnea Gastrointestinal: No: Nausea, Vomiting Musculoskeletal: back pain Neurological: Weakness Sepsis Event Evaluation Height, Weight, BMI Height: 4'8.00" Weight: 98lbs. 8.0oz. 44.104077eo; 22.95 BMI Method:Stated Exam Exam Vital Signs Date Time Temp Pulse Resp B/P (MAP) Pulse Ox O2 Delivery O2 Flow Rate FiO2 05/18/19 15:43 36.8 62 16 119/58 (78) 98 05/18/19 14:28 36.6 61 16 159/68 94 Nasal Cannula 2.00 2.00 05/18/19 12:50 94 Nasal Cannula 2.00 05/18/19 12:39 53 16 118/54 95 Nasal Cannula 2.00 05/18/19 09:25 36.6 58 20 137/94 (108) 96 Nasal Cannula 2.00 Height & Weight Height: 4'8.00" Weight: 98lbs. 8.0oz. 44.011877cc; 22.95 BMI Method:Stated General Appearance: Chronically ill, Mild Distress, Thin HEENT: PERRL/EOMI, Moist Mucous Membranes; No Photophobia Neck: Full Range of Motion, Non Tender, Supple Respiratory: Chest Non Tender, Accessory Muscle Use, Wheezing Cardiovascular: Regular Rate, Rhythm; No Friction Rub Capillary Refill: Less Than 3 Seconds Extremity: Normal Capillary Refill, No Calf Tenderness, Pedal Edema, Other (Radial pulse is 2/4. UE 5/5 Strength BL, 4/5 LE to dorsi and plantarflexion. Sensory intact for UE and LE ) Neurologic/Psychiatric: Alert, Oriented x3, channel specialist II-XII Norm as Tested Skin: Warm/Dry; No Petechia, No Rash Lymphatic: No Adenopathy Results Lab Laboratory Tests 05/18/19 09:41 Assessment/Plan Assessment/Plan Acute on chronic respiratory failure Syncope probably secondary to mucous plugging -Will plan for bronchoscopy in AM -Check ABG Severe COPD - -SVNS -Check CT of chest Hyperkalemia -repeat labs if K+ still high give 2amps of bicarb, and 10units of reg insulin IV, and 1amp of D50 Renal failure -monitor COCO PRUITT DO May 18, 2019 16:21 POS
[2019-05-18] MEDS ORDERED: inSUlin (REGULAR) HUMAN 1 UNIT/0.01 ML (CHARGE PER UNIT) IV NR (16:30)
[2019-05-18] MEDS ORDERED: SODIUM BICARB 8.4% 50 MEQ/50 ML (ABBOTT) SYR IV ONE (16:30)
[2019-05-18] MEDS ORDERED: SODIUM BICARB 8.4% 50 MEQ/50 ML VIAL IV NR (16:30)
[2019-05-18] MEDS ORDERED: DEXTROSE 50% 50 ML (IMS) SYR IV NR (16:30)
[2019-05-18 16:48] LABS: ABG BASE EXCESS -5.5 MMOL/L (-2.5-2.5); ABG OXYGEN SATURATION 96 % (94-100); ABG PCO2 38 MMHG (35-45); ABG PO2 82 MMHG (79-93); ABG TCO2 20.5 MMOL/L (21.0-31.0)
[2019-05-18 16:57] LABS: ALLENS TEST YES-POS; VENTILATOR NO
[2019-05-18 16:59] LABS: ABG PH 7.33 (7.37-7.43)
[2019-05-18 17:22] LABS: ALBUMIN 3.6 GM/DL (3.2-4.5); BILIRUBIN,TOTAL 0.2 MG/DL (0.1-1.0); CALCIUM 8.6 MG/DL (8.5-10.1); CREATININE SERUM 2.61 MG/DL (0.60-1.30); MAGNESIUM 2.2 MG/DL (1.6-2.4); PHOSPHORUS 4.7 MG/DL (2.3-4.7); POTASSIUM 5.9 MMOL/L (3.6-5.0); TOTAL PROTEIN 6.3 GM/DL (6.4-8.2)
[2019-05-18] MEDS ORDERED: RT-ALBUTEROL/IPRATROPIUM 3 ML (DUONEB) VIAL INH PRN ×2 (18:00→20:00)
--- NOTE | 2019-05-18 19:16 | Diagnostic Imaging Report ---
CLINICAL INDICATION: Patient with pulmonary edema, hypoxia, and mucus plugging. EXAM: Axial CT scan of the chest performed without IV contrast. Sagittal and coronal reformatted images were created. COMPARISON: CT scan of the chest without contrast dated 04/24/2013. FINDINGS: There is slight progression of atelectasis involving the lingula and left lung base. There is slight progression of segmental and subsegmental consolidation/collapse of the left lower lobe with volume loss. There is slight improved aeration of the right lower lobe with decreased patchy consolidation in a bronchovascular distribution. There is no significant change to the segmental and subsegmental atelectasis involving the right lung base with volume loss. There is no interval lung infiltrate seen. There is minimal pleural thickening or pleural fluid seen bilaterally which has progressed in the interim. Mild ectasia of the ascending thoracic aorta measuring 3.7 cm in greatest axial dimension. There is no mediastinal lymphadenopathy. Coronary artery calcifications are seen. There is no axillary lymphadenopathy. Again seen are postop changes to the chest with sternotomy wires. Gallbladder resection clips are again seen. Tortuous abdominal aorta is seen which is densely calcified. Again seen right renal cyst. There is levorotoscoliosis of the lumbar spine and degenerative spurs. There is no other gross significant abnormality of the abdomen on this limited exam. IMPRESSION: 1: There is progression of left basilar and lingular atelectasis. 2: There is slight improved aeration of the right lower lobe with residual mild right basilar atelectasis. 3: There is no definite interval lung infiltrate seen. 4: There is progression of minimal bilateral pleural effusions or pleural thickening. 5: Vascular ectasia of the ascending thoracic aorta. Dictated by: Dictated on workstation # [id number]
[2019-05-18] MEDS ORDERED: IBUPROFEN 800 MG (MOTRIN) TAB PO PRN (19:30)
[2019-05-18] MEDS: RT-ALBUTEROL/IPRATROPIUM 3 ML (DUONEB) VIAL IH SCH ×2 (19:30→22:42)
[2019-05-18] MEDS ORDERED: FUROSEMIDE 40 MG/4 ML INJ (LASIX) IVP NR (19:45)
[2019-05-18 20:10] VITALS: BP 177/69
[2019-05-18] MEDS: guaiFENesin (MUCINEX) 600 MG TAB PO SCH (20:19)
[2019-05-18] MEDS ORDERED: RT-ALBUTEROL/IPRATROPIUM 3 ML (DUONEB) VIAL INH SCH (21:00)
[2019-05-19] VITALS: BP 129/68
[2019-05-19] MEDS: RT-ALBUTEROL/IPRATROPIUM 3 ML (DUONEB) VIAL IH SCH ×6 (02:43→23:38)
[2019-05-19 03:50] LABS: BASOPHILS % (AUTO) 0 % (0-10); EOSINOPHILS % (AUTO) 0 % (0-10); HEMATOCRIT 29 % (35-52); LYMPHOCYTES # (AUTO) 0.8 X 10^3 (1.0-4.0); LYMPHOCYTES % (AUTO) 13 % (12-44); MEAN CORPUSCULAR HEMOGLOBIN 31 PG (25-34); MEAN CORPUSCULAR HGB CONC 32 G/DL (32-36); MEAN CORPUSCULAR VOLUME 97 FL (80-99); MEAN PLATELET VOLUME 10.6 FL (7.4-10.4); MONOCYTES # (AUTO) 0.4 X 10^3 (0.0-1.0); MONOCYTES % (AUTO) 6 % (0-12); NEUTROPHILS # (AUTO) 5.3 X 10^3 (1.8-7.8); NEUTROPHILS % (AUTO) 82 % (42-75); PLATELET COUNT 222 10^3/uL (130-400); RED CELL DISTRIBUTION WIDTH 13.4 % (10.0-14.5); WHITE BLOOD COUNT 6.5 10^3/uL (4.3-11.0)
[2019-05-19 04:00] VITALS: BP 148/84
[2019-05-19 04:05] LABS: ALBUMIN 3.4 GM/DL (3.2-4.5); BILIRUBIN,TOTAL 0.2 MG/DL (0.1-1.0); CALCIUM 8.1 MG/DL (8.5-10.1); CREATININE SERUM 2.48 MG/DL (0.60-1.30); MAGNESIUM 2.1 MG/DL (1.6-2.4); PHOSPHORUS 3.9 MG/DL (2.3-4.7); POTASSIUM 5.2 MMOL/L (3.6-5.0); TOTAL PROTEIN 5.9 GM/DL (6.4-8.2)
--- NOTE | 2019-05-19 05:40 | Pulmonary Progress Note ---
Subjective Time Seen by a Provider: 05:45 Subjective/Events-last exam Pt is lethargic and states she does not want bronchoscopy. She wants to talk to daughter. Sepsis Event Evaluation Height, Weight, BMI Height: 4'8.00" Weight: 98lbs. 8.0oz. 44.103112sg; 22.95 BMI Method:Stated Exam Exam Vital Signs Date Time Temp Pulse Resp B/P (MAP) Pulse Ox O2 Delivery O2 Flow Rate FiO2 05/19/19 04:00 37.2 56 16 148/84 (105) 98 Nasal Cannula 2.00 05/19/19 02:43 95 Nasal Cannula 2.00 05/19/19 01:00 60 05/19/19 00:00 37.2 67 16 129/68 (88) 97 Nasal Cannula 2.00 05/18/19 22:42 95 Nasal Cannula 2.00 05/18/19 20:10 37.2 70 19 177/69 (105) 96 05/18/19 20:00 Nasal Cannula 2.00 05/18/19 19:30 95 Nasal Cannula 2.00 05/18/19 19:00 60 05/18/19 16:46 Nasal Cannula 2.00 05/18/19 16:33 60 05/18/19 15:43 36.8 62 16 119/58 (78) 98 05/18/19 14:28 36.6 61 16 159/68 94 Nasal Cannula 2.00 2.00 05/18/19 12:50 94 Nasal Cannula 2.00 05/18/19 12:39 53 16 118/54 95 Nasal Cannula 2.00 05/18/19 09:25 36.6 58 20 137/94 (108) 96 Nasal Cannula 2.00 I & O 05/19/19 07:00 Intake Total 700 ml Balance 700 ml Height & Weight Height: 4'8.00" Weight: 98lbs. 8.0oz. 44.071762ot; 22.95 BMI Method:Stated General Appearance: No Apparent Distress, WD/WN HEENT: PERRL/EOMI, Moist Mucous Membranes; No Photophobia Neck: Full Range of Motion, Non Tender, Supple Respiratory: No Accessory Muscle Use, No Respiratory Distress, Decreased Breath Sounds (mild bibasilar) Cardiovascular: Regular Rate, Rhythm, No Edema Capillary Refill: Less Than 3 Seconds Extremity: Normal Capillary Refill, Normal Inspection Neurologic/Psychiatric: Alert, Oriented x3, Normal Mood/Affect Skin: Normal Color, Warm/Dry Lymphatic: No Adenopathy Results Lab Laboratory Tests 05/18/19 09:41 05/18/19 16:56 05/19/19 03:25 Assessment/Plan Assessment/Plan Acute on chronic respiratory failure Syncope probably secondary to mucous plugging -Possible bronchoscopy this AM If patient/family consents. Pt is lethargic and wants us to talk to daughter first. I discussed with patient's daughter and she is ok with bronchoscopy if pt agrees. -Check ABG prior to bronchoscopy. -UPDATE: secondary to pt reluctance, hyperkalemia, bradycardia, diarrhea I am going to hold off on bronchoscopy this morning. Repeat Hyperkalemia treatment this AM and repeat labs at 1300. If pt is agreeable and appears more stable will do bronchoscopy tomorrow morning. -Mucinex -SVNs Severe COPD -SVNS - CT of chest- reviewed and shows atelectasis which is probably secondary to mucous plugging. Hyperkalemia with sinus bradycardia (per RN pt's HR dipped down into 40's last night) -Give 1 amp of ca gluconate. -Repeat labs at 1300. -Pt is already scheduled for lasix Diarrhea - started this AM Renal failure -monitor COCO PRUITT DO May 19, 2019 05:39 POS
[2019-05-19] MEDS ORDERED: SODIUM BICARB 8.4% 50 MEQ/50 ML (ABBOTT) SYR IV ONE (05:45)
[2019-05-19] MEDS ORDERED: DEXTROSE 50% 50 ML (IMS) SYR IV ONE (05:45)
[2019-05-19] MEDS ORDERED: inSUlin (REGULAR) HUMAN 1 UNIT/0.01 ML (CHARGE PER UNIT) IV ONE (05:45)
[2019-05-19] MEDS ORDERED: CALCIUM GLUC. 10% 4.65 MEQ/10 ML VIAL IV ONE (06:00)
[2019-05-19 06:18] LABS: ABG BASE EXCESS 4.4 MMOL/L (-2.5-2.5); ABG OXYGEN SATURATION 99 % (94-100); ABG PCO2 34 MMHG (35-45); ABG PH 7.52 (7.37-7.43); ABG PO2 131 MMHG (79-93); ABG TCO2 28.3 MMOL/L (21.0-31.0)
[2019-05-19 06:22] LABS: ALLENS TEST YES-POS
[2019-05-19 06:23] LABS: INSPIRED O2 2L; PATIENT TEMP 37.3; VENTILATOR NO
[2019-05-19] MEDS ORDERED: SODIUM BICARB 8.4% 50 MEQ/50 ML VIAL ONE (06:34)
[2019-05-19] MEDS ORDERED: CALCIUM GLUC. 10% 4.65 MEQ/10 ML VIAL ONE (06:44)
[2019-05-19] MEDS: CATHETER FLUSH 10 ML SYR IV SCH ×3 (06:48→21:19)
[2019-05-19] MEDS ORDERED: FUROSEMIDE 40 MG/4 ML INJ (LASIX) IV SCH (07:00)
[2019-05-19] MEDS: predniSONE 20 MG TAB PO SCH (07:32)
[2019-05-19 08:00] VITALS: BP 160/70
[2019-05-19] MEDS: guaiFENesin (MUCINEX) 600 MG TAB PO SCH ×2 (08:58→21:18)
--- NOTE | 2019-05-19 09:31 | Progress Note - Hospitalist ---
[facility] 05/19/19 0931: Subjective HPI/CC On Admission Date Seen by Provider: May 19, 2019 Time Seen by Provider: 07:20 Luisa is a 84 y/o white female that came to the ER via Ambulance. Cousin had tried to contact pt but she was not answering so she called 911. Ambulance found patient unresponsive at home and brought her to [facility] ER. Pt was lethargic and SOB. She presented to the ER a couple of days earlier for the same symptoms but declined admission and went home. She is back now for worsened symptoms of SOB, coughing and phlegm production. Pt has PMH of COPD and Chronic Bronchitis. These symptoms have been going on for a couple of weeks and she has never had symptoms of this severity before. Oxygen supplementation via nasal canula has helped. Pt does not wear oxygen at home but does use a machine at home to help break up secretions. Subjective/Events-last exam Pt is alert and very hard to wake up, daughter is at bedside Pt is states she is not feeling better and is still requiring supplement oxygen. She is still coughing with mucus production States she is still having diffuse pain Pt has SOB, Chest pain that is non radiating, denies N/V and F/C Review of Systems General: No Chills; Fatigue Pulmonary: Dyspnea, Cough Cardiovascular: Chest Pain (Non radiating and not sure if its associated with coughing ), Edema (LE BL Edema ); No: Palpitations Gastrointestinal: No: Nausea, Vomiting, Abdominal Pain Objective Exam Vital Signs Vital Signs Date Time Temp Pulse Resp B/P (MAP) Pulse Ox O2 Delivery O2 Flow Rate FiO2 05/19/19 08:00 37.3 52 18 160/70 (100) 95 Nasal Cannula 2.00 Capillary Refill : Less Than 3 Seconds General Appearance: Chronically ill Neck: Non Tender Respiratory: No Respiratory Distress, Accessory Muscle Use, Wheezing Cardiovascular: Normal Peripheral Pulses, Bradycardia Gastrointestinal: Normal Bowel Sounds, No Organomegaly, Non Tender Extremity: No Calf Tenderness, Pedal Edema Neurologic/Psychiatric: Alert, Depressed Affect Skin: Warm/Dry Lymphatic: No Adenopathy Results/Procedures Lab Laboratory Tests 05/18/19 16:56 05/19/19 03:25 Patient resulted labs reviewed. Assessment/Plan Assessment and Plan Assess & Plan/Chief Complaint 1. Pulmonary Edema secondary to HF 2. Acute COPD Exacerbation 3. Chronic Bronchitis 4. Hyperkalemia 5. CKD Stage IV 6 Back Mass 7. Stasis Dermatitis 8. Anorexia 9. Sacrum wound 10. HTN 11. CAD 12. Heart Disease 13. Rheumatoid Arthritis 14. Constipation 15. High Cholesterol 16. Depression and Anxiety 17, Smoker 18. DVT prophylaxis Plan: 1. Pulmonary Edema secondary to HF - continue Lasix - Cardiology consulted, ECHO planned - monitor I/Os - daily weights 2. Acute COPD Exacerbation - Continue Albuterol/Ipratropium, Prednisone, MAT protocol - Appreciate Respiratory therapy Assistance - continue ABX regimen - continue NC but we can titrate down to 1L and monitor O2 Saturation - place pt on Mucinex - Pt refused bronchoscopy, pulmonary team will talk to pt later this afternoon to see if she would like it done. 3. Chronic Bronchitis - Mucinex 4. Hyperkalemia - hyperkalemia is improviing from 5.9 to 5.2 - Calcium Gluconate - Albuterol (Pt already on for COPD) - Continue Lasix - Continue to monitor and will consider other options if there is no improvement ( Insulin, Kayexalate) 5. CKD Stage IV - IV Fluids - Continue to monitor labs, Creatinine is improving 6 Back Mass - Will continue to monitor, possibly consult General but will manage more prominent respiratory issues first. 7. Stasis Dermatitis - Lasix - leg compressions 8. Anorexia - diet as tolerated - consider nutritional supplement shake 9. Sacrum wound - consult wound care 10. HTN - continue home meds 11. CAD - Continue home meds 12. Heart Disease - Consulted cardiology 13. Rheumatoid Arthritis - Pain and medical management 14. Constipation - monitor I/Os and continue stool softeners PRN 15. High Cholesterol - Continue home meds 16. Depression and Anxiety - continue to monitor and continue medical management 17. Smoker - counseled pt on smoking cessation - Consider nicotine patch 18. DVT prophylaxis - Continue mechanical DVT prophylaxis with SCDs Clinical Quality Measures DVT/VTE Risk/Contraindication: Risk Factor Score Per Nursin RFS Level Per Nursing on Admit: 4+=Very High FER PICKENS MD 05/20/19 3106: Assessment/Plan Assessment and Plan Assess & Plan/Chief Complaint Continue treatment with IV lasix and attempt to titrate off oxygen. monitor Creatinine with diuresis. Can likely DC home tomorrow if stable. Patient has declined home oxygen and home health. Offered hospice as well given CKD stage IV but declined as well. Supervisory-Addendum Brief Verification & Attestation Participated in pt care: history, MDM, physical Personally performed: exam, history, MDM, supervision of care Care discussed with: Medical Student Procedures: n/a Results interpretation: Verified all documentation Verification and Attestation of Medical Student E/M Service A medical student performed and documented this service in my presence. I reviewed and verified all information documented by the medical student and made modifications to such information, when appropriate. I personally performed the physical exam and medical decision making. Fer Pickens, May 20, 2019,16:35 [facility] May 19, 2019 09:31 FER OREILLY MD May 20, 2019 16:36 POS
--- NOTE | 2019-05-19 09:48 | Physical Therapy Daily Note ---
PT Daily Note-Current Subjective Patient reluctantly agrees to PT. Declines to get out of bed initially and reluctant to participate in exercises. Requests toileting during session. Did not verbalize any pain. Pain Numeric Pain Scale: 0-No Pain Location: No Pain Reported Mental Status Patient Orientation: Normal For Age Attachments: Oxygen (2L) Transfers SCALE: Activities may be completed with or without assistive devices. 9-Qjnuqeaopq-swqblkm completes the activity by him/herself with no assistance from a helper. 5-Set-up or Clean-up Assistance-helper sets up or cleans up; patient completes activity. [place] assists only prior to or following the activity. 4-Supervision or Touching Assistance-helper provides verbal cues and/or touching/steadying and/or contact guard assistance as patient completes activity. Assistance may be provided throughout the activity or intermittently. 3-Partial/Moderate Assistance-helper does LESS THAN HALF the effort. [place] lifts, holds or supports trunk or limbs, but provides less than half the effort. 2-Substantial/Maximal Assistance-helper does MORE THAN HALF the effort. [place] lifts or holds trunk or limbs and provides more than half the effort. 6-Sydptzwto-xugkfa does ALL the effort. Patient does none of the effort to complete the activity. Or, the assistance of 2 or more helpers is required for the patient to complete the activity. If activity was not attempted, code reason: 7-Patient Refused. 9-Not Applicable-not attempted and the patient did not perform the activity before the current illness, exacerbation or injury. 10-Not Attempted due to Environmental Limitations-(lack of equipment, weather restraints, etc.). 88-Not Attempted due to Medical Conditions or Safety Concerns. Roll Left & Right (QC): 4 Sit to Lying (QC): 4 Lying to Sitting/Side of Bed(Q: 4 Sit to Stand (QC): 4 Chair/Oyr-fy-Lejry Xfer(QC): 4 Weight Bearing Right Lower Extremity: Right Weight Bearing/Tolerated Left Lower Extremity: Left Weight Bearing/Tolerated Gait Training Does the Patient Walk?: Yes Distance: 10' Walk 10 feet (QC): 4 Gait Assistive Device: FWW Kyphotic posture, short shuffling steps Exercises Supine Ex: Ankle pumps, Heel Slides Supine Reps: 10 Seated Therapy Exercises: Long arc quads, Hip flexion Seated Reps: 10 Assessment Patient was reluctant to participate in any treatment today. Performed some supine and seated exercises with cues and assistance, stating discomfort during exercises. Able to move to EOB with minimal assistance. Once seated EOB, patient stood and ambulated 10' to bedside commode. Able to complete toileting with assistance only for transfers and dressing. Patient returned to bed with assistance to return to supine. PT Custodial Goals Toxicologist Goals PT Custodial Goals Time Frame: May 29, 2019 Roll Left & Right (QC): 6 Sit to Lying (QC): 6 Lying-Sitting on Side/Bed(QC): 6 Sit to Stand (QC): 6 Chair/Pxt-fv-Jyaay Xfer(QC): 6 Toilet Transfer (QC): 6 Car Transfer (QC): 6 Does the Patient Walk: Yes Walk 10 feet (QC): 6 Walk 50ft with 2 Turns (QC): 6 Walk 150 ft (QC): 6 Walking 10ft on Uneven Surface: 6 1 Step (curb) (QC): 6 4 Steps (QC): 6 12 Steps (QC): 9 Picking up an Object (QC): 6 Does the Pt use WC or Scooter?: No Type: N/A Type: N/A PT Plan Treatment/Plan Treatment Plan: Continue Plan of Care Treatment Plan: Bed Mobility, Education, Functional Activity Dai, Functional Strength, Gait, Safety, Therapeutic Exercise, Transfers Treatment Duration: May 29, 2019 Frequency: 6 times per week Estimated Hrs Per Day: .25 hour per day Patient and/or Family Agrees t: Yes Time/GCodes Time In: 905 Time Out: 928 Total Billed Treatment Time: 23 Total Billed Treatment 1 visit EX 8min FA 15min VALDEZ POWERS PT May 19, 2019 09:48 POS
--- NOTE | 2019-05-19 11:00 | NUR ---
REPORT TAKEN AT THIS TIME FROM SHEILA ONTIVEROS IN CARDIAC STEPDOWN UNIT AT THIS TIME. THIS RN WILL ASSUME CARE OF THIS PATIENT WHEN SHE ARRIVES TO THIS FLOOR.
--- NOTE | 2019-05-19 11:30 | NUR ---
patient to 4th floor room 432-1 at this time accompanied by family at this time.
--- NOTE | 2019-05-19 11:54 | Occupational Ther Daily Note ---
OT Current Status-Daily Note Subjective Pt seen in bed, asleep. classroom aide states pt has been sleeping on/off all morning. Pt easily wakes with verbals. Pt hesitantly agreeable to OT tx session. Mental Status/Objective Attachments: Oxygen ADL-Treatment Therapy Code Descriptions/Definitions Functional [place] Measure: 0=Not Assessed/NA 4=Minimal Assistance 1=Total Assistance 5=Supervision or Setup 2=Maximal Assistance 6=Modified [place] 3=Moderate Assistance 7=Complete IndependenceSCALE: Activities may be completed with or without assistive devices. 9-Uzeqgugltu-qmijraa completes the activity by him/herself with no assistance from a helper. 5-Set-up or Clean-up Assistance-helper sets up or cleans up; patient completes activity. [place] assists only prior to or following the activity. 4-Supervision or Touching Assistance-helper provides verbal cues and/or touching/steadying and/or contact guard assistance as patient completes activity. Assistance may be provided throughout the activity or intermittently. 3-Partial/Moderate Assistance-helper does LESS THAN HALF the effort. [place] lifts, holds or supports trunk or limbs, but provides less than half the effort. 2-Substantial/Maximal Assistance-helper does MORE THAN HALF the effort. [place] lifts or holds trunk or limbs and provides more than half the effort. 8-Solyvwkwe-ymyxxn does ALL the effort. Patient does none of the effort to complete the activity. Or, the assistance of 2 or more helpers is required for the patient to complete the activity. If activity was not attempted, code reason: 7-Patient Refused. 9-Not Applicable-not attempted and the patient did not perform the activity before the current illness, exacerbation or injury. 10-Not Attempted due to Environmental Limitations-(lack of equipment, weather restraints, etc.). 88-Not Attempted due to Medical Conditions or Safety Concerns. Eating (QC): 88 (Pt states she did not receive breakfast on this date. Nursing questioned, states NPO. OT writes NPO with notes of no food/ drink on board and educates pt in NPO status. Pt states understanding, later in session states she wants food, educated once more.) Lower Body Dressing (QC): 3 (assist with R leg donning) Toileting Hygiene (QC): 3 (Pt completes with CGA and min A for thoroughness post-BM and hemorrhoid) Toilet Transfer (QC): 4 (CGA with use of FWW) Other Treatment Pt agreeable to toileting. Pt bed mob with mod A to scoot hips EOB. Pt sit to stand with CGA, CGA to toilet transfer. Pt urinates while in stance, sheets soiled EOB- nursing notified. Pt completes BM and urination. Pt requests sit in high back chair. Pt completes brief donning with mod A for threading one foot. Pt left in recliner chair with call light in reach, 02 on, all needs met, education of NPO addressed once more. Nursing notified of pt's position in chair. Education OT Patient Education: Correct positioning, Purpose of tx/functional activities, Safety issues, Transfer techniques Teaching Recipient: Patient Teaching Methods: Demonstration, Discussion Response to Teaching: Verbalize Understanding, Return Demonstration OT Land Surveyor Manager Goals Alf Goals Time Frame: May 29, 2019 Eating (QC): 5 Oral Hygiene (QC): 5 Toileting Hygiene (QC): 3 (met) Shower/Bathe Self (QC): 3 Upper Body Dressing (QC): 3 Lower Body Dressing (QC): 3 (met) On/Off Footwear (QC): 3 Additional Goals: 1-Demonstrate ADL Tasks, 2-Verbalize Understanding, 3- ImproveStrength/Dai 1=Demonstrate adherence to instructed precautions during ADL tasks. 2=Patient will verbalize/demonstrate understanding of assistive devices/modifications for ADL. 3=Patient will improve strength/tolerance for activity to enable patient to perform ADL's. OT Education/Plan Problem List/Assessment Assessment: Decreased Activ Tolerance, Decreased UE Strength, Dependent Transfers, Impaired Cognition, Impaired Funct Balance, Impaired I ADL's, Impaired Self-Care Skills, Restricted Funct UE ROM Discharge Recommendations Plan/Recommendations: Continue POC Treatment Plan/Plan of Care Treatment,Training & Education: Yes Patient would benefit from OT for education, treatment and training to promote independence in ADL's, mobility, safety and/or upper extremity function for ADL's. Plan of Care: ADL Retraining, Caregiver Training, Functional Mobility, UE Funct Exercise/Act Treatment Duration: May 29, 2019 Frequency: 5 times per week Estimated Hrs Per Day: .25 hour per day Agreement: Yes Rehab Potential: Fair Time/GCodes Start Time: 10:15 Stop Time: 10:30 Total Time Billed (hr/min): 15 Billed Treatment Time 1, ADL (15) TAMY RICH OTR May 19, 2019 11:54 POS
[2019-05-19 12:00] VITALS: BP 174/82
--- NOTE | 2019-05-19 12:18 | Consultation-Cardiology ---
HPI-Cardiology Cardiology Consultation: Date of Consultation 05/19/19 Time Seen by a Provider: 10:15 Date of Admission 05-18-19 Attending Physician Fer Pickens MD Admitting Physician Anastacio Coker MD Consulting Physician ROXANE ROY HPI: Chief Complaint: Elevated BNP Ms. Sabillon is an 84 year old female admitted to 511 from the ED. At the time of this exam she states she is tired. She is easy to awaken, but goes back to sleep very easily. Limited amt of information can be obtain. No family is present. A review of the chart has been completed. Per ED notes she was brought in by EMS after being found at home unresponsive. Review of Systems-Cardiology Review of Systems Other comments ROS to the extent it could be obtained by the patient is as listed in HPI EBO-Fvgcot-Trbejb Hx Patient Social History Alcohol Use: Denies Use Recreational Drug Use: No Smoking Status: Current Everyday Smoker Type Used: Cigarettes 2nd Hand Smoke Exposure: Yes Recent Foreign Travel: No Recent Infectious Disease Expo: No Immunizations Up To Date Tetanus Booster (TDap): More than 5yrs Past Medical History PMH As described under Assessment. Family Medical History Family Medical History: Unable to obtain from pt d/t lethargy. Chart review shows father had CAD, HTN and [place]. Mother had CHF. Family History: Cataract 03 MOTHER Chest pain 03 FATHER Congestive heart failure 03 MOTHER Family history: Arthritis 03 FATHER 03 MOTHER Family history: Coronary thrombosis 03 FATHER Family history: Diabetes mellitus 03 FATHER Family history: Hypertension 03 FATHER Heart disease 03 FATHER Myocardial infarction 03 FATHER No Family History of: Abdominal aortic aneurysm Mason's disease Alcoholism Aphasia Cancer Cancer of colon Congenital heart disease Cystic fibrosis Dementia Dysphagia Family history: Allergy Family history: Alzheimer's disease Family history: Asthma Family history: Breast disease Family history: Cardiovascular disease Family history: Gastrointestinal disease Family history: Glaucoma Family history: Osteoporosis Family history: Thyroid disorder Headache Hearing loss Hereditary disease History of - anemia History of - disorder History of - respiratory disease History of drug abuse Human immunodeficiency virus (HIV) seropositivity Hypercholesterolemia Infertile Kidney disease Malignant neoplasm of lung Parkinson's disease Prostate cancer Psychotic disorder Seizure disorder Stroke Tuberculosis Visual impairment Allergies and Home Medications Allergies Coded Allergies: Sulfa (Sulfonamide Antibiotics) (Unverified Allergy, Mild, hives, 05/18/19) acetaminophen (Unverified Allergy, Unknown, 03/16/16) codeine (Unverified Allergy, Unknown, Pt has had Lortab in the past w/o issue, 05/19/19) erythromycin base (Unverified Allergy, Unknown, 03/16/16) oxycodone (Unverified Allergy, Unknown, Pt has had Lortab in the past w/o issue, 05/19/19) propoxyphene (Unverified Allergy, Unknown, 03/16/16) Home Medications Amlodipine Besylate 5 Mg Tablet, 5 MG PO HS, (Reported) Aspirin 81 Mg Tablet.dr, 81 MG PO HS, (Reported) Atorvastatin Calcium 10 Mg Tablet, 10 MG PO HS, (Reported) Diazepam 2 Mg Tablet, 2 MG PO HS, (Reported) Doxazosin Mesylate 4 Mg Tablet, 4 MG PO HS, (Reported) Furosemide 20 Mg Tablet, 20 MG PO DAILY PRN for SWELLING, (Reported) Furosemide 20 Mg Tablet, 20 MG PO BID, (Reported) 7 DAY THERAPY FILLED 05-16-19 Guaifenesin 600 Mg Tab.er.12h, 600 MG PO BID Prescribed by: FER PICKENS on 05/20/19 0815 Hydrocodone/Acetaminophen 1 Each Tablet, 2 TAB PO Q6H PRN for PAIN-MODERATE (5- 7), (Reported) Hydroxyzine HCl 25 Mg Tablet, 25 MG PO Q12H PRN for RASH, (Reported) Metoprolol Tartrate 50 Mg Tablet, 50 MG PO HS, (Reported) Potassium Chloride 20 Meq Tablet.er, 20 MEQ PO DAILY, (Reported) 7 DAY THERAPY FILLED 05-16-19 Prednisone 20 Mg Tab, 40 MG PO DAILY@0700 Prescribed by: FER PICKENS on 05/20/19 0815 Valsartan 80 Mg Tablet, 80 MG PO HS, (Reported) Patient Home Medication List Home Medication List Reviewed: Yes Physical Exam-Cardiology Physical Exam Vital Signs/I&O Capillary Refill : Less Than 3 Seconds Constitutional: other (Lethargic) HEENT: hard of hearing Neck: No carotid bruit Respiratory: No accessory muscle use, No respiratory distress; chest expansion is symmetric, chest is bilaterally symmetric, rhonchi (scattered) Cardiovascular: regular rate-rhythm; No JVD; S1 and S2 Gastrointestinal: No tender; audible bowel sounds Extremities: no lower extremity edema bilateral Neurologic/Psychiatric: other (moves extremities) Skin: No rash on exposed areas, No ulcerations on exposed areas Data Review Labs Radiology NAME: FLAKITO SABILLON [facility] REC#: [id number] PT STATUS: REG ER : 1935 PHYSICIAN: NATIVIDAD BAUTISTA DO ADMIT DATE: 05/18/19/ER Signed Date of Exam:05/18/19 CHEST PA/LAT (2 VIEW) EXAMINATION: Chest 2 view HISTORY: Productive cough. COMPARISON: 05/16/2019 FINDINGS: Stable cardiomegaly with post-CABG changes. There has been interval decrease in central pulmonary vessel congestion with interstitial edema. Bilateral small pleural effusions are unchanged. No pneumothorax. Postsurgical changes are again noted in the left shoulder. IMPRESSION: 1. Stable cardiomegaly with improved central pulmonary vascular congestion and interstitial edema. 2. Stable small bilateral pleural effusions. Dictated by: Dictated on workstation # [id number] Dict: 05/18/19 1017 Trans: 05/18/19 1032 [facility] [id number] Interpreted by: MARIBEL ODELL DO Electronically signed by: MARIBEL ODELL DO 05/18/19 1032 NAME: FLAKITO SABILLON [facility] REC#: [id number] PT STATUS: ADM IN : 1935 PHYSICIAN: COCO PRUITT DO ADMIT DATE: 05/18/19/[facility] Signed Date of Exam:05/18/19 CT CHEST WO CLINICAL INDICATION: Patient with pulmonary edema, hypoxia, and mucus plugging. EXAM: Axial CT scan of the chest performed without IV contrast. Sagittal and coronal reformatted images were created. COMPARISON: CT scan of the chest without contrast dated 04/24/2013. FINDINGS: There is slight progression of atelectasis involving the lingula and left lung base. There is slight progression of segmental and subsegmental consolidation/collapse of the left lower lobe with volume loss. There is slight improved aeration of the right lower lobe with decreased patchy consolidation in a bronchovascular distribution. There is no significant change to the segmental and subsegmental atelectasis involving the right lung base with volume loss. There is no interval lung infiltrate seen. There is minimal pleural thickening or pleural fluid seen bilaterally which has progressed in the interim. Mild ectasia of the ascending thoracic aorta measuring 3.7 cm in greatest axial dimension. There is no mediastinal lymphadenopathy. Coronary artery calcifications are seen. There is no axillary lymphadenopathy. Again seen are postop changes to the chest with sternotomy wires. Gallbladder resection clips are again seen. Tortuous abdominal aorta is seen which is densely calcified. Again seen right renal cyst. There is levorotoscoliosis of the lumbar spine and degenerative spurs. There is no other gross significant abnormality of the abdomen on this limited exam. IMPRESSION: 1: There is progression of left basilar and lingular atelectasis. 2: There is slight improved aeration of the right lower lobe with residual mild right basilar atelectasis. 3: There is no definite interval lung infiltrate seen. 4: There is progression of minimal bilateral pleural effusions or pleural thickening. 5: Vascular ectasia of the ascending thoracic aorta. Dictated by: Dictated on workstation # [id number] Dict: 05/18/[id number] Trans: 05/18/191945 [id number] Interpreted by: JIM JACOME MD Electronically signed by: JIM JACOME MD 05/18/191945 A/P-Cardiology Assessment/Admission Diagnosis SOB, multi-factorial, d/t acute on chronic exacerbation of COPD and chronic diastolic CHF Echocardiogram of 05-19-19 showed LVEF 60-65%. Grade 1 diastolic dysfunction. Mod LA enlargement. Mild to mod TR. RVSP 38 mmHg. Acute on chronic renal failure BNP elevation d/t acute on chronic renal failure Hyperkalemia likely d/t acute on chronic renal failure Acute on chronic exacerbation of COPD HTN HLD - statin tx Discussion and Recomendations Complex management d/t multiple issues as noted above Advise gentle IV fluid hydration given renal failure with component of intravascular vol depletion D/C Lasix - use only as needed and tolerated Monitor lab closely Further recs will be based on her hospital course We would like to thank medical services for this consult Clinical Quality Measures DVT/VTE Risk/Contraindication: Risk Factor Score Per Nursin RFS Level Per Nursing on Admit: 4+=Very High ROXANE MAJOR May 19, 2019 12:17 POS
--- NOTE | 2019-05-19 12:27 | NUR ---
DISCHARGE PLANNING: was asked by patients daughters for a caregiver(sitter) list. We talked of various ways to help their mother. I gave them a list of HHC agencies, Hospice agencies as well as the sitter list which include home care Agencies. She is not discharged today according to Dr. Pickens.
[2019-05-19] MEDS ORDERED: NS IV 1000 ML 1,000 ML IV SCH (12:30)
[2019-05-19 14:32] LABS: CALCIUM 8.9 MG/DL (8.5-10.1); CREATININE SERUM 2.47 MG/DL (0.60-1.30); MAGNESIUM 2.1 MG/DL (1.6-2.4); PHOSPHORUS 3.9 MG/DL (2.3-4.7); POTASSIUM 4.9 MMOL/L (3.6-5.0)
--- NOTE | 2019-05-19 15:29 | NUR ---
Senior Analyst Programmer visit: Pt expressed irritations with not feeling good and being in the hospital longer than anticipated. Gave space for ventilation of frustrations. Pt requested coffee, and I called her order in to the kitchen. Deescalated frustrations through empathic listening and compassionate presence. Pt demonstrated positive coping at end of visit. She describes herself as a 'cradle Holiness' without current meaningful connection with a parish. She declines communion at this time. Pt requested prayer and expressed appreciation for our visit.
--- NOTE | 2019-05-19 15:35 | NUR ---
PT REFUSED O2 WALK STATED SHE'S NOT GOING HOME ON O2 Addendum: 05/19/19 at 1539 by NIMO PEARCE [address] DR[address] MENENDEZ NOTIFIED
[2019-05-19 15:36] VITALS: BP 146/78
--- NOTE | 2019-05-19 16:15 | Consultation-Cardiology ---
HPI-Cardiology Cardiology Consultation: Date of Consultation 05/19/19 Time Seen by a Provider: 13:00 Date of Admission Attending Physician Ginger Pickens MD Admitting Physician Anastacio Coker MD Consulting Physician CHET SOLIMAN MD, MA, FACP, FACC, FSCAI, CCDS HPI: Chief Complaint: Reason for consultation: Elevated BNP HPI Ms. Zamora is an 84 year old female admitted to 511 from the ED. At the time of this exam she states she is tired. She is easy to awaken, but goes back to sleep very easily. Limited amt of information can be obtain. No family is present. A review of the chart has been completed. Per ED notes she was brought in by EMS after being found at home unresponsive. Review of Systems-Cardiology Review of Systems Constitutional: malaise, tiredness; No weight loss Eyes: No vision change Ears/Nose/Throat: No ear discharge, No nasal drainage, No recent hearing loss Respiratory: As described under HPI Cardiovascular: As described under HPI Gastrointestinal: No diarrhea, No nausea, No vomiting Genitourinary: No dysuria Musculoskeletal: back pain (chronic) Skin: No rash, No ulcerations Psychiatric/Neurological: No seizure, No focal weakness, No syncope Hematologic: No bleeding abnormalities ZIO-[id number]-[id number] Hx Patient Social History Alcohol Use: Denies Use Recreational Drug Use: No Smoking Status: Current Everyday Smoker Type Used: Cigarettes 2nd Hand Smoke Exposure: Yes Recent Foreign Travel: No Recent Infectious Disease Expo: No Immunizations Up To Date Tetanus Booster (TDap): More than 5yrs Past Medical History PMH As described under Assessment. Family Medical History Family Medical History: Unable to obtain from pt d/t lethargy. Chart review shows father had CAD, HTN and FL. Mother had CHF. Family History: Cataract 03 MOTHER Chest pain 03 FATHER Congestive heart failure 03 MOTHER Family history: Arthritis 03 FATHER 03 MOTHER Family history: Coronary thrombosis 03 FATHER Family history: Diabetes mellitus 03 FATHER Family history: Hypertension 03 FATHER Heart disease 03 FATHER Myocardial infarction 03 FATHER No Family History of: Abdominal aortic aneurysm [place]'s disease Alcoholism Aphasia Cancer Cancer of colon Congenital heart disease Cystic fibrosis Dementia Dysphagia Family history: Allergy Family history: Alzheimer's disease Family history: Asthma Family history: Breast disease Family history: Cardiovascular disease Family history: Gastrointestinal disease Family history: Glaucoma Family history: Osteoporosis Family history: Thyroid disorder Headache Hearing loss Hereditary disease History of - anemia History of - disorder History of - respiratory disease History of drug abuse Human immunodeficiency virus (HIV) seropositivity Hypercholesterolemia Infertile Kidney disease Malignant neoplasm of lung Parkinson's disease Prostate cancer Psychotic disorder Seizure disorder Stroke Tuberculosis Visual impairment Allergies and Home Medications Allergies Coded Allergies: Sulfa (Sulfonamide Antibiotics) (Unverified Allergy, Mild, hives, 05/18/19) acetaminophen (Unverified Allergy, Unknown, 03/16/16) codeine (Unverified Allergy, Unknown, 03/16/16) erythromycin base (Unverified Allergy, Unknown, 03/16/16) oxycodone (Unverified Allergy, Unknown, 03/16/16) propoxyphene (Unverified Allergy, Unknown, 03/16/16) Home Medications Amlodipine Besylate 5 Mg Tablet, 5 MG PO HS, (Reported) Aspirin 81 Mg Tablet.dr, 81 MG PO HS, (Reported) Atorvastatin Calcium 10 Mg Tablet, 10 MG PO HS, (Reported) Diazepam 2 Mg Tablet, 2 MG PO HS, (Reported) Doxazosin Mesylate 4 Mg Tablet, 4 MG PO HS, (Reported) Furosemide 20 Mg Tablet, 20 MG PO DAILY PRN for SWELLING, (Reported) Furosemide 20 Mg Tablet, 20 MG PO BID, (Reported) 7 DAY THERAPY FILLED 05-16-19 Hydrocodone/Acetaminophen 1 Each Tablet, 2 TAB PO Q6H PRN for PAIN-MODERATE (5- 7), (Reported) Hydroxyzine HCl 25 Mg Tablet, 25 MG PO Q12H PRN for RASH, (Reported) Metoprolol Tartrate 50 Mg Tablet, 50 MG PO HS, (Reported) Potassium Chloride 20 Meq Tablet.er, 20 MEQ PO DAILY, (Reported) 7 DAY THERAPY FILLED 05-16-19 Valsartan 80 Mg Tablet, 80 MG PO HS, (Reported) Patient Home Medication List Home Medication List Reviewed: Yes Physical Exam-Cardiology Physical Exam Vital Signs/I&O 05/19/19 05/19/19 05/19/19 05/19/19 07:00 08:00 08:00 11:37 Temp 37.3 Pulse 73 52 Resp 18 B/P (MAP) 160/70 (100) Pulse Ox 95 95 O2 Delivery Nasal Cannula Nasal Cannula Nasal Cannula O2 Flow Rate 2.00 2.00 2.00 05/19/19 05/19/19 05/19/193/19 12:00 13:00 15:30 15:36 Temp 36.7 37.9 Pulse 62 78 70 Resp 18 20 B/P (MAP) 174/82 (112) 146/78 (100) Pulse Ox 95 91 94 O2 Delivery Nasal Cannula Room Air Nasal Cannula O2 Flow Rate 2.00 2.00 05/19/19 00:00 Intake Total 690 ml Balance 690 ml Capillary Refill : Less Than 3 Seconds Constitutional: other (Lethargic) HEENT: hard of hearing Neck: No carotid bruit Respiratory: No accessory muscle use, No respiratory distress; chest expansion is symmetric, chest is bilaterally symmetric, rhonchi (scattered) Cardiovascular: regular rate-rhythm; No JVD; S1 and S2 Gastrointestinal: No tender; audible bowel sounds Extremities: no lower extremity edema bilateral Neurologic/Psychiatric: other (moves extremities) Skin: No rash on exposed areas, No ulcerations on exposed areas Data Review Labs Laboratory Tests 05/18/19 16:40: Blood Gas Puncture Site LR, Blood Gas Patient Temperature 37.0, Arterial Blood pH 7.33*L, Arterial Blood Partial Pressure CO2 38, Arterial Blood Partial Pressure O2 82, Arterial Blood HCO3 19L, Arterial Blood Total CO2 20.5L, Arterial Blood Oxygen Saturation 96, Arterial Blood Base Excess -5.5L, Wilman Test YES-POS, Blood Gas Ventilator Setting NO, Blood Gas Inspired Oxygen 2% 05/18/19 16:56: Sodium Level 141, Potassium Level 5.9H, Chloride Level 111H, Carbon Dioxide Level 21, Anion Gap 9, Blood Urea Nitrogen 67H, Creatinine 2.61H, Estimat Glomerular Filtration Rate 17, BUN/Creatinine Ratio 26, Glucose Level 168H, Calcium Level 8.6, Corrected Calcium 8.9, Phosphorus Level 4.7, Magnesium Level 2.2, Total Bilirubin 0.2, Aspartate Amino Transf (AST/SGOT) 13, Alanine Aminotransferase (ALT/SGPT) 12, Alkaline Phosphatase 72, Troponin I 0.029H, Total Protein 6.3L, Albumin 3.6 05/19/19 03:25: Sodium Level 144, Potassium Level 5.2H, Chloride Level 109H, Carbon Dioxide Level 22, Anion Gap 13, Blood Urea Nitrogen 70H, Creatinine 2.48H, Estimat Glomerular Filtration Rate 19, BUN/Creatinine Ratio 28, Glucose Level 109H, C alcium Level 8.1L, Corrected Calcium 8.6, Phosphorus Level 3.9, Magnesium Level 2.1, Total Bilirubin 0.2, Aspartate Amino Transf (AST/SGOT) 12, Alanine Aminotransferase (ALT/SGPT) 10, Alkaline Phosphatase 62, Total Protein 5.9L, Albumin 3.4, White Blood Count 6.5, Red Blood Count 2.93L, Hemoglobin 9.0L, Hematocrit 29L, Mean Corpuscular Volume 97, Mean Corpuscular Hemoglobin 31, Mean Corpuscular Hemoglobin Concent 32, Red Cell Distribution Width 13.4, Platelet Count 222, Mean Platelet Volume 10.6H, Neutrophils (%) (Auto) 82H, Lymphocytes (%) (Auto) 13, Monocytes (%) (Auto) 6, Eosinophils (%) (Auto) 0, Basophils (%) (Auto) 0, Neutrophils # (Auto) 5.3, Lymphocytes # (Auto) 0.8L, Monocytes # (Auto) 0.4, Eosinophils # (Auto) 0.0, Basophils # (Auto) 0.0 05/19/19 06:14: Blood Gas Puncture Site RIGHT RADIAL, Blood Gas Patient Temperature 37.3, Arterial Blood pH 7.52H, Arterial Blood Partial Pressure CO2 34L, Arterial Blood Partial Pressure O2 131H, Arterial Blood HCO3 27, Arterial Blood Total CO2 28.3, Arterial Blood Oxygen Saturation 99, Arterial Blood Base Excess 4.4H, Wilman Test YES-POS, Blood Gas Ventilator Setting NO, Blood Gas Inspired Oxygen 2L 05/19/19 13:49: Sodium Level 142, Potassium Level 4.9, Chloride Level 107, Carbon Dioxide Level 22, Anion Gap 13, Blood Urea Nitrogen 66H, Creatinine 2.47H, Estimat Glomerular Filtration Rate 19, BUN/Creatinine Ratio 27, Glucose Level 193H, Calcium Level 8.9, Phosphorus Level 3.9, Magnesium Level 2.1 Laboratory Tests 05/18/19 09:41 05/18/19 16:56 05/19/19 03:25 05/19/19 13:49 A/P-Cardiology Assessment/Admission Diagnosis Shortness of breath, multi-factorial: acute on chronic exacerbation of COPD and chronic diastolic CHF and gen debility Echocardiogram of 05-19-19: LVEF 60-65%. Grade 1 diastolic dysfunction. Mod LA enlargement. Mild to mod TR. RVSP 38 mmHg. Acute on chronic renal failure BNP elevation d/t acute on chronic renal failure Hyperkalemia likely d/t acute on chronic renal failure Acute on chronic exacerbation of COPD HTN HLD - statin tx Discussion and Recomendations Complex management d/t multiple issues as noted above Advise gentle IV fluid hydration given renal failure with component of intravascular vol depletion D/C Lasix - use only as needed and tolerated Monitor lab closely Further recs will be based on her hospital course We would like to thank Medical Services for this consult Clinical Quality Measures DVT/VTE Risk/Contraindication: Risk Factor Score Per Nursin RFS Level Per Nursing on Admit: 4+=Very High CHET SOLIMAN MD FACP FAC CCDS May 19, 2019 16:15 POS
[2019-05-19] MEDS: RT-BUDESONIDE NEBS 0.5 MG/2ML (PULMICORT) AMP INH SCH (19:10)
[2019-05-19 20:00] VITALS: BP 147/61
--- NOTE | 2019-05-19 20:00 | NUR ---
PT C/O PAIN 03/26. NO PAIN MEDICATION ORDERED. DR. ESTRADA CALLED AND INFORMED OF PT PAIN. ALSO INFORMED PT TAKES HYDROCODONE 7.5/325 MG 2 TAB Q6HR PRN. HOWEVER DR. MENENDEZ HAS PAIN MEDICATION ON HOLD. DR. ESTRADA ORDERED HYDROCODONE 7.5/325MG 1 TAB Q6HR PRN.
[2019-05-19] MEDS ORDERED: HYDROcodone/APAP 7.5 MG/325 MG (LORTAB, LORCET PLUS) TABLET PO PRN (20:15)
[2019-05-19] MEDS ORDERED: ASPIRIN E.C. 81 MG (ECOTRIN) TAB PO SCH (21:00)
[2019-05-19] MEDS ORDERED: doxAzosin 4 MG (CARDURA) TAB PO SCH (21:00)
[2019-05-19] MEDS ORDERED: ASPIRIN 81 MG PO SCH (21:00)
[2019-05-19] MEDS ORDERED: amLODIPine 5 MG (NORVASC) TAB PO SCH (21:00)
[2019-05-19] MEDS ORDERED: meTOprolol TARTRATE 50 MG (LOPRESSOR) TAB PO SCH (21:00)
[2019-05-19] MEDS ORDERED: NON-FORMULARY MEDICATION 1 EA EA (Amlodipine Besylate 5 MG) PO SCH (21:00)
[2019-05-19] MEDS ORDERED: DIAZEPAM 2 MG (VALIUM) TAB PO SCH (21:00)
[2019-05-20 00:05] VITALS: BP 144/68
[2019-05-20 03:15] VITALS: BP 137/71
[2019-05-20] MEDS: RT-ALBUTEROL/IPRATROPIUM 3 ML (DUONEB) VIAL IH SCH ×2 (03:30→07:47)
[2019-05-20 05:55] LABS: BASOPHILS % (AUTO) 0 % (0-10); EOSINOPHILS % (AUTO) 0 % (0-10); HEMATOCRIT 29 % (35-52); HEMOGLOBIN 9.3 G/DL (11.5-16.0); LYMPHOCYTES # (AUTO) 1.7 X 10^3 (1.0-4.0); LYMPHOCYTES % (AUTO) 21 % (12-44); MEAN CORPUSCULAR HEMOGLOBIN 31 PG (25-34); MEAN CORPUSCULAR HGB CONC 32 G/DL (32-36); MEAN CORPUSCULAR VOLUME 96 FL (80-99); MEAN PLATELET VOLUME 10.5 FL (7.4-10.4); MONOCYTES # (AUTO) 0.7 X 10^3 (0.0-1.0); MONOCYTES % (AUTO) 9 % (0-12); NEUTROPHILS # (AUTO) 5.9 X 10^3 (1.8-7.8); NEUTROPHILS % (AUTO) 71 % (42-75); PLATELET COUNT 238 10^3/uL (130-400); WHITE BLOOD COUNT 8.3 10^3/uL (4.3-11.0)
[2019-05-20] MEDS: CATHETER FLUSH 10 ML SYR IV SCH (06:16)
[2019-05-20] MEDS: predniSONE 20 MG TAB PO SCH (06:16)
[2019-05-20 06:21] LABS: CALCIUM 8.3 MG/DL (8.5-10.1); CREATININE SERUM 2.6 MG/DL (0.60-1.30); MAGNESIUM 1.9 MG/DL (1.6-2.4); PHOSPHORUS 3.6 MG/DL (2.3-4.7); POTASSIUM 4.9 MMOL/L (3.6-5.0)
[2019-05-20] MEDS: RT-BUDESONIDE NEBS 0.5 MG/2ML (PULMICORT) AMP INH SCH (07:48)
[2019-05-20 08:00] VITALS: BP 136/65
--- NOTE | 2019-05-20 08:10 | Discharge Summary ---
[facility] 05/20/19 0809: Diagnosis/Chief Complaint Date of Admission May 18, 2019 at 11:00 Date of Discharge May 20 2019 Discharge Date: May 20, 2019 Admission Diagnosis 1. Pulmonary Edema secondary to HF 2. Acute COPD Exacerbation 3. Chronic Bronchitis 4. Hyperkalemia 5. CKD Stage IV 6 Back Mass 7. Stasis Dermatitis 8. Anorexia 9. Sacrum wound 10. HTN 11. CAD 12. Heart Disease 13. Rheumatoid Arthritis 14. Constipation 15. High Cholesterol 16. Depression and Anxiety 17. Smoker Primary Care Anastacio Coker MD Discharge Diagnosis (1) Pulmonary edema Status: Acute (2) COPD (chronic obstructive pulmonary disease) Status: Chronic Discharge Summary Discharge Physical Exam Allergies: Coded Allergies: Sulfa (Sulfonamide Antibiotics) (Unverified Allergy, Mild, hives, 05/18/19) acetaminophen (Unverified Allergy, Unknown, 03/16/16) codeine (Unverified Allergy, Unknown, Pt has had Lortab in the past w/o issue, 05/19/19) erythromycin base (Unverified Allergy, Unknown, 03/16/16) oxycodone (Unverified Allergy, Unknown, Pt has had Lortab in the past w/o issue, 05/19/19) propoxyphene (Unverified Allergy, Unknown, 03/16/16) Vitals & I&Os Vital Signs Date Time Temp Pulse Resp B/P (MAP) Pulse Ox O2 Delivery O2 Flow Rate FiO2 05/20/19 07:55 Room Air 05/20/19 07:48 87 05/20/19 06:48 54 05/20/19 03:15 36.8 18 137/71 (93) 05/19/19 15:36 2.00 General Appearance: No Apparent Distress, Thin HEENT: PERRL/EOMI; No Photophobia Respiratory: Chest Non Tender, No Accessory Muscle Use, No Respiratory Distress, Wheezing (Improved) Cardiovascular: Regular Rate, Rhythm, Normal Peripheral Pulses Gastrointestinal: No Organomegaly, No Pulsatile Mass; No Distended, No Guarding Extremity: Normal Capillary Refill, No Calf Tenderness, Pedal Edema Skin: Normal Color, Warm/Dry Neurologic/Psychiatric: Alert, Oriented x3 Hospital Course Was the Problem List Reviewed?: Yes Luisa was admitted to [facility] on 05/18 and is being discharged today 05/20. She was admitted with Acute COPD Exacerbation, Pulmonary Edema, Hyperkalemia and Stage IV CKD. During her admission she was under the care of Dr. Nelia ABDULLAHI Hospitalist. Consulted physicians included Dr. Nguyen Pulmonary care and Dr. Rosen cardiology. She also received care from PT and OT. Luisa has a PMH of COPD, Chronic bronchitis and stage IV CKD. While under our care she was found to have pulmonary edema, acute COPD exacerbation, hyperkalemia and copious amounts of sputum production Procedures included Cardiac ECHO with LVEF of 60-65, Chest X-ray showing pulmonary vascular congestion and interstitial edema and CT of the abdomen and chest showing atelectasis and bilateral pleural effusions. Pertinent lab findings include potassium of 5.9, BUN/Cr of 67/2.67 and BNP of 802. Pertinent exams findings included rapid short breaths,, accessory muscle use, severe wheezing, and sputum production.She was started on [place] oxygen and received Albuterol/Ipratropium and Prednisone for exacerbation. She received Lasix to help with pulmonary edema and hyperkalemia. The patient was started of Mucinex to help clear sputum. Her breathing has improved and she is now stating at 93% on room air, she has improved lung sounds, decreased sputum production and no accessory muscle use. Her hyperkalemia has resolved to 4.9 and kidney function made minimal progress. She was offered home health and oxygen study while at the hospital which she refused. The patient will be discharge today May 20 2019 in stable condition. Instructions for medications are outlined in discharge packet, the patient was informed she must follow up with her PCP and her stamp collector as soon as possible. The following information is only a summary of the patients admission while at [facility] and is not all inclusive please review entire chart for more information. Labs (last 24 hrs) Laboratory Tests 05/19/19 13:49: Sodium Level 142, Potassium Level 4.9, Chloride Level 107, Carbon Dioxide Level 22, Anion Gap 13, Blood Urea Nitrogen 66H, Creatinine 2.47H, Estimat Glomerular Filtration Rate 19, BUN/Creatinine Ratio 27, Glucose Level 193H, Calcium Level 8.9, Phosphorus Level 3.9, Magnesium Level 2.1 05/20/19 05:20: Sodium Level 140, Potassium Level 4.9, Chloride Level 105, Carbon Dioxide Level 23, Anion Gap 12, Blood Urea Nitrogen 68H, Creatinine 2.60H, Estimat Glomerular Filtration Rate 18, BUN/Creatinine Ratio 26, Glucose Level 104, Calcium Level 8.3L, Phosphorus Level 3.6, Magnesium Level 1.9, White Blood Count 8.3, Red Blood Count 3.00L, Hemoglobin 9.3L, Hematocrit 29L, Mean Corpuscular Volume 96, Mean Corpuscular Hemoglobin 31, Mean Corpuscular Hemoglobin Concent 32, Red Cell Distribution Width 13.0, Platelet Count 238, Mean Platelet Volume 10.5H, Neutrophils (%) (Auto) 71, Lymphocytes (%) (Auto) 21, Monocytes (%) (Auto) 9, Eosinophils (%) (Auto) 0, Basophils (%) (Auto) 0, Neutrophils # (Auto) 5.9, Lymphocytes # (Auto) 1.7, Monocytes # (Auto) 0.7, Eosinophils # (Auto) 0.0, Basophils # (Auto) 0.0 Patient resulted labs reviewed. Pending Labs Laboratory Tests 05/20/19 05:20: White Blood Count 8.3, Red Blood Count 3.00, Hemoglobin 9.3, Hematocrit 29, Mean Corpuscular Volume 96, Mean Corpuscular Hemoglobin 31, Mean Corpuscular Hemoglobin Concent 32, Red Cell Distribution Width 13.0, Platelet Count 238, Mean Platelet Volume 10.5, Neutrophils (%) (Auto) 71, Lymphocytes (%) (Auto) 21, Monocytes (%) (Auto) 9, Eosinophils (%) (Auto) 0, Basophils (%) (Auto) 0, Neutrophils # (Auto) 5.9, Lymphocytes # (Auto) 1.7, Monocytes # (Auto) 0.7, Eosinophils # (Auto) 0.0, Basophils # (Auto) 0.0, Sodium Level 140, Potassium Level 4.9, Chloride Level 105, Carbon Dioxide Level 23, Anion Gap 12, Blood Urea Nitrogen 68, Creatinine 2.60, Estimat Glomerular Filtration Rate 18, BUN/Creatinine Ratio 26, Glucose Level 104, Calcium Level 8.3, Phosphorus Level 3.6, Magnesium Level 1.9 Discussion & Recommendations Discharge Planning: >30 minutes discharge planning Discharge Home Medications: Active Scripts Active Reported Furosemide 20 Mg Tablet 20 Mg PO BID 7 Days 7 DAY THERAPY FILLED 05-16-19 Potassium Chloride 20 Meq Tablet.er 20 Meq PO DAILY 7 Days 7 DAY THERAPY FILLED 05-16-19 Hydrocodone-Acetamin 7.5-325 (Hydrocodone/Acetaminophen) 1 Each Tablet 2 Tab PO Q6H PRN Amlodipine Besylate 5 Mg Tablet 5 Mg PO HS Valsartan 80 Mg Tablet 80 Mg PO HS Doxazosin Mesylate 4 Mg Tablet 4 Mg PO HS Furosemide 20 Mg Tablet 20 Mg PO DAILY PRN Atorvastatin Calcium 10 Mg Tablet 10 Mg PO HS Hydroxyzine HCl 25 Mg Tablet 25 Mg PO Q12H PRN Diazepam 2 Mg Tablet 2 Mg PO HS Metoprolol Tartrate 50 Mg Tablet 50 Mg PO HS Ecotrin (Aspirin) 81 Mg Tablet.dr 81 Mg PO HS Instructions to patient/family Please see electronic discharge instructions given to patient. Clinical Quality Measures End of Life/Advance Care Plan: Advance Care discuss with: patient Plan: initiate discussion DVT/VTE Risk/Contraindication: Risk Factor Score Per Nursin RFS Level Per Nursing on Admit: 4+=Very High FER PICKENS MD 05/21/19 1131: Discharge Summary Discharge Physical Exam Allergies: Coded Allergies: Sulfa (Sulfonamide Antibiotics) (Unverified Allergy, Mild, hives, 05/18/19) acetaminophen (Unverified Allergy, Unknown, 03/16/16) codeine (Unverified Allergy, Unknown, Pt has had Lortab in the past w/o issue, 05/19/19) erythromycin base (Unverified Allergy, Unknown, 03/16/16) oxycodone (Unverified Allergy, Unknown, Pt has had Lortab in the past w/o issue, 05/19/19) propoxyphene (Unverified Allergy, Unknown, 03/16/16) Supervisory-Addendum Brief Verification & Attestation Participated in pt care: history, MDM, physical Personally performed: exam, history, MDM, supervision of care Care discussed with: Medical Student Procedures: n/a Results interpretation: Verified all documentation Verification and Attestation of Medical Student E/M Service A medical student performed and documented this service in my presence. I reviewed and verified all information documented by the medical student and made modifications to such information, when appropriate. I personally performed the physical exam and medical decision making. Fer Pickens, May 21, 2019,11:31 Problem Qualifiers (1) Pulmonary edema: Chronicity: acute Qualified Codes: J81.0 - Acute pulmonary edema (2) COPD (chronic obstructive pulmonary disease): COPD type: unspecified COPD Qualified Codes: J44.9 - Chronic obstructive pulmonary disease, unspecified [facility] May 20, 2019 08:09 FER OREILLY MD May 21, 2019 11:31 POS
[2019-05-20] MEDS ORDERED: PRD20T PO ×2 (08:15)
[2019-05-20] MEDS ORDERED: GUAI600T43 PO ×2 (08:15)
[2019-05-20] MEDS: guaiFENesin (MUCINEX) 600 MG TAB PO SCH (08:18)
--- NOTE | 2019-05-20 08:18 | Discharge Inst-Simple/Standard ---
Discharge Inst-Standard Discharge Medications New, Converted or Re-Newed RX: Transmitted to Pharmacy Patient Instructions/Follow Up Plan of Care/Instructions/FU: Please continue to take your medications as written. Please follow up with your primary physician Dr Coker in the next week and with Dr Escalante to follow up this hospital stay. Activity as Tolerated: Yes Discharge Diet: Low Sodium Diet Return to The Hospital For: Shortness of breath, fever, worsening cough, chest pain, confusion, if you feel you are getting worse. Planned Outpatient Orders/Ref. Pneu Vac Indicated: Yes FER MENENDEZ MD May 20, 2019 08:18 POS
[2019-05-20 09:35] VITALS: BP 136/65
--- NOTE | 2019-05-20 09:46 | NUR ---
FLAKITO SABILLON demonstrates understanding of discharge instructions and accurately returns instructions upon questioning. Copy of Post-Discharge Instructions and Medication Discharge Instructions given to pt. FLAKITO SABILLON is able to manage continuing needs after discharge. Patients belongings returned to pt. Skin dry and intact; no breakdown noted. Patient discharged from [facility]- on 05/20/19 at 0945. FLAKITO SABILLON left floor via WC, accompanied by staff and adult child.
--- OUTSIDE RECORDS SUMMARY | 2019-06-11 22:47 | XMS REPORT ---
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 403.10 Mar, [place] 939952 Problem DEGENERATIVE ARTHRIT 715.90 Feb, [place] ve [id number] Problem HTN,essential-Benign 401.1 Mar, [place] ve 6317782 Problem BONE-UNSPEC DIS BONE 733.90 Feb, Inact[place] ve 50322317 Problem CKD STAGE III (MOD) 585.3 Feb, Inactiv e [id number] Problem IRRITABLE BOWEL 564.1 Aug, Inactive 1 2939481 Problem CAD, UNSPECIFIED 414.00 Feb, Inactive [id number] Problem HYPERLIPIDEMIA 272.4 Feb, Inactive 55 220725 Problem HTN, essential-Unspe 401.9 Feb, Inacti ve 37737653 Problem OSTEOPOROSIS 733.00 Feb, Inactive 6485 9006 ALLERGIES No Information ENCOUNTERS Encounter Location Date Diagnosis [facility] [place] [address] [facility] [address] [place] [address] May, [facility] [place] [address] [facility] [address] [place] [address] Apr, Chronic kidney disease, stage 4 (severe) N18.4 ; Hyperkalemia E87.5 and Metabolic acidosis E87.2 [facility] [address] [facility] [address] [place] [address] Jan, [facility] [place] [address] [place] [address] Jan, [facility] [address] [place] [address] October, [facility] [address] [place] [address] Feb, [facility] [address] [place] [address] Aug, [facility] [address] [place] [address] Aug, [facility] [address] [place] [address] Jan, [facility] [address] [place] [address] Jul, [facility] [address] [place] [address] Aug, [facility] [address] [place] [address] Feb, [facility] [address] [place] [address] Aug, [facility] [address] [place] [address] Feb, [facility] [address] [place] [address] Nov, [facility] [address] [place] [address] May, [facility] [address] [place] [address] Feb, [facility] [address] [place] [address] Aug, [facility] [address] [place] [address] Aug, [facility] [address] [place] [address] Feb, [facility] [address] [place] [address] Aug, [facility] [address] [place] [address] Apr, [facility] [address] [place] [address] Jan, [facility] [address] [place] [address] Sep, [facility] [address] [place] [address] Jun, [facility] [address] [place] [address] 16 Apr, 2007 IMMUNIZATIONS No Known Immunizations SOCIAL HISTORY Never Assessed REASON FOR VISIT cx appt PLAN OF CARE VITAL SIGNS MEDICATIONS Unknown Medications RESULTS No Results PROCEDURES No Known procedures INSTRUCTIONS MEDICATIONS ADMINISTERED No Known Medications MEDICAL (GENERAL) HISTORY Type Description Date Medical History IRRITABLE BOWEL SYNDROME-History of irri table bowel syndrome Medical History STAGE 4-History of chronic kidney diseas e, stage 4 Medical History CELLULITIS-History of cellulitis Medical History CORONARY ARTERY DISEASE-History of coron frank artery disease Medical History PNEUMONIA-pneumonia Medical History EDEMA-History of edema Medical History OSTEOARTHRITIS-History of osteoarthritis Medical History HYPERTENSION-History of hypertension Medical History past medical/surgical histor y [use for free text]-Pneumonia, July of 2010 Medical History SIMPLE-History of simple renal cyst Medical History past medical/surgical histor y [use for free text]-Last Breat Exam: 2004 Medical History past medical/surgical histor y [use for free text]-PMH: Pneumonia, July of 2010. Medical History HYPERKALEMIA-History of hyperkalemia Medical History no additions since (date)-moy jarvis medical history reviewed with no additions Medical History past medical history-Past medical histor y Medical History date of last menstruation-date of last m enstruation 1963 Medical History past medical/surgical histor y [use for free text]-Last Rectal Exam: 2004 Medical History URTICARIA-urticaria Medical History Blood-blood transfusion Medical History past medical history-past medical histor y Medical History ARTHRITIS-arthritis Medical History HYPERLIPIDEMIA-History of hyperlipidemia Medical History comprehensive medical evalua tion-previous history of visit for: comprehensive medical evaluation 2004 (Dr. Harman) Patient states they could not perform required surgery Medical History RENAL DISEASE-renal disease Medical History Previous Stent Placement-A h istory of prior stent placement X 2 in 2007 at [facility]. Medical History ARTHRITIS-Arthritis Medical History surgical history reviewed-Surgical histo ry reviewed Medical History METABOLIC ACIDOSIS-History of metabolic acidosis Medical History no additions since (date)-[facility] medical history reviewed with no additions Medical History CHRONIC OBSTRUCTIVE PULMONAR Y DISEASE-History of chronic obstructive pulmonary disease Medical History PNEUMONIA-Pneumonia in July,. Medical History KIDNEY DISEASE-History of hypertensive k idney disease Medical History Blood-Blood transfusion Medical History Previous Stent Placement-[place] or stent placement X 2 in 2007 at [facility]. Medical History OSTEOPOROSIS-History of osteoporosis Medical History prior Pap smear-A Pap smear was performe d five years ago. Medical History HEMORRHOIDS-Hemorrhoids Medical History ANEMIA-History of anemia Medical History STAGE 3-Chronic kidney disease, stage 3 Medical History HYPERLIPIDEMIA-history of hyperlipidemia Medical History HERPES ZOSTER-History of herpes zoster ( shingles) December 2011 Medical History OSTEOPOROSIS-history of osteoporosis Medical History recent severe illness or inj ury-a recent severe illness or injury Saw Dr. Coker in 12/21 in [place] for possible bladder infection. Saw Dr. Harman in 2005 in [place] for colon surgery check-up Medical History HEMORRHOIDS-hemorrhoids Medical History for pneumococcal pneumonia-n o recent immunization for pneumococcal pneumonia Medical History CORONARY ARTERY DISEASE-history of coron frank artery disease Medical History HYPERTENSION-history of hypertension Medical History Complete Colonoscopy-no hist ory of complete colonoscopy since 2007 Medical History HERPES ZOSTER-history of herpes zoster ( shingles) December 2011 Medical History Previous Stent Placement-a h istory of prior stent placement X 2 in 2007 at [facility] Medical History past medical/surgical histor y [use for free text]-Last Pap Smear: Years ago Medical History IRRITABLE BOWEL SYNDROME-history of irri table bowel syndrome Medical History HEART DISEASE-heart disease Medical History Previous Stent Placement-[place] or stent placement X 2 in 2007 at [facility] Medical History PNEUMONIA-pneumonia in July, Medical History for pneumococcal pneumonia-N o recent immunization for pneumococcal pneumonia Medical History Complete Colonoscopy-No hist ory of complete colonoscopy since 2007 Medical History STAGE 3-chronic kidney disease, stage 3 Medical History Complete Colonoscopy-history of complete colonoscopy Medical History for flu-no recent immunization for flu Medical History surgical history reviewed-surgical histo ry reviewed Medical History KIDNEY DISEASE-history of hypertensive k idney disease Medical History OSTEOARTHRITIS-history of osteoarthritis Medical History SIMPLE-history of simple renal cyst Medical History EDEMA-history of edema Medical History CELLULITIS-history of cellulitis Medical History METABOLIC ACIDOSIS-history of metabolic acidosis Medical History ANEMIA-history of anemia Medical History CHRONIC OBSTRUCTIVE PULMONAR Y DISEASE-history of chronic obstructive pulmonary disease Medical History HYPERKALEMIA-history of hyperkalemia Medical History STAGE 4-history of chronic kidney diseas e, stage 4 Surgical History Bypass Graft-history of a CA BG was done --triple bypass in 199508/05/2014 Surgical History Bypass Graft-history of a CA BG was done --triple bypass in 199508/25/2015 Surgical History Bypass Graft-history of a CA BG was done --triple bypass in 199509/02/2012 Surgical History Bypass Graft-history of a CA BG was done --triple bypass in 199509/10/2013 Surgical History Bypass Graft-history of a CA BG was done --triple bypass in 199509/12/2017 Surgical History Bypass Graft-history of a CA BG was done --triple bypass in 199511/13/2018 Surgical History Bypass Graft-history of a CA BG was done --triple bypass in 199501/27/2015 Surgical History Bypass Graft-history of a CA BG was done --triple bypass in 199503/13/2018 Surgical History Bypass Graft-history of a CA BG was done --triple bypass in 199504/09/2012 Surgical History Bypass Graft-History of a CA BG was done --triple bypass in 1995. 07/17/2012 Surgical History Bypass Graft-History of a CA BG was done --triple bypass in 1995. 11/14/2018 Surgical History Bypass Graft-History of a CA BG was done --triple bypass in 1995. 12/06/2011 Surgical History Bypass Graft-History of a CA BG was done --triple bypass in 1995. 02/25/2012 Surgical History Bypass Graft-History of a CA BG was done --triple bypass in 1995. 03/05/2013 Surgical History Bypass Graft-history of a co ronary artery bypass graft was done --triple bypass in 19952011 Surgical History Cholecystectomy-History of cholecystecto my 07/17/2012 Surgical History Cholecystectomy-history of cholecystecto my 08/05/2014 Surgical History Cholecystectomy-history of cholecystecto my 08/25/2015 Surgical History Cholecystectomy-History of cholecystecto my 08/30/2010 Surgical History Cholecystectomy-history of cholecystecto my 09/02/2012 Surgical History Cholecystectomy-history of cholecystecto my 09/10/2013 Surgical History Cholecystectomy-history of cholecystecto my 09/12/2017 Surgical History Cholecystectomy-history of cholecystecto my 11/13/2018 Surgical History Cholecystectomy-History of cholecystecto my 11/14/2018 Surgical History Cholecystectomy-History of cholecystecto my 12/06/2011 Surgical History Cholecystectomy-history of cholecystecto my 01/27/2015 Surgical History Cholecystectomy-history of cholecystecto my 02/23/2011 Surgical History Cholecystectomy-History of cholecystecto my 02/25/2012 Surgical History Cholecystectomy-History of cholecystecto my 03/05/2013 Surgical History Cholecystectomy-history of cholecystecto my 03/13/2018 Surgical History Cholecystectomy-history of cholecystecto my 04/09/2012 Surgical History Cholecystectomy-history of cholecystecto my 05/28/2011 Surgical History Partial Colectomy-History of partial col ectomy 07/17/2012 Surgical History Partial Colectomy-history of partial col ectomy 08/05/2014 Surgical History Partial Colectomy-history of partial col ectomy 08/25/2015 Surgical History Partial Colectomy-history of partial col ectomy 09/02/2012 Surgical History Partial Colectomy-history of partial col ectomy 09/10/2013 Surgical History Partial Colectomy-history of partial col ectomy 09/12/2017 Surgical History Partial Colectomy-history of partial col ectomy 11/13/2018 Surgical History Partial Colectomy-History of partial col ectomy 11/14/2018 Surgical History Partial Colectomy-History of partial col ectomy 12/06/2011 Surgical History Partial Colectomy-history of partial col ectomy 01/27/2015 Surgical History Partial Colectomy-History of partial col ectomy 02/25/2012 Surgical History Partial Colectomy-History of partial col ectomy 03/05/2013 Surgical History Partial Colectomy-history of partial col ectomy 03/13/2018 Surgical History Partial Colectomy-history of partial col ectomy 04/09/2012 Surgical History Partial Colectomy-history of partial col ectomy 05/28/2011 Surgical History prior surgery-prior surgery Colon surgery with 9 inches removed 02/23/2011 Surgical History prior surgery-prior surgery Hand joint replacement in [place], [place] 02/23/2011 Surgical History prior surgery-prior surgery Triple bypa ss, 1995 in [place], [place] 02/23/2011 Surgical History prior surgery-prior surgery Two stent placements in 2007 at [facility] 02/23/2011 Surgical History prior surgery-prior surgery Two stent placements in 2007 at [facility] 05/28/2011 Surgical History prior surgery-Prior surgery Colon surgery with 9 inches removed. 08/30/2010 Surgical History prior surgery-Prior surgery Hand joint replacement in [place], [place]. 08/30/2010 Surgical History prior surgery-Prior surgery Triple bypas s, 1995 in [place], [place]. 08/30/2010 Surgical History prior surgery-Prior surgery Two stent placements in 2007 at [facility]. 08/30/2010 Surgical History prior surgery-rior surgery 1. Hysterectomy / 1963 / [facility] in [place]. 2. Eye lift (bottom) / 1974 / Dr. Garay in [place]. 3. Gallbladder / ? / [facility] in [place]. 4. Joint replacement (hand) / ?date / [facility]. 5. Tr 05/02/2007 Surgical History Repair-history of hand repair --with eva int replacement 08/05/2014 Surgical History Repair-history of hand repair --with eva int replacement 08/25/2015 Surgical History Repair-history of hand repair --with eva int replacement 09/02/2012 Surgical History Repair-history of hand repair --with eva int replacement 09/10/2013 Surgical History Repair-history of hand repair --with eva int replacement 09/12/2017 Surgical History Repair-history of hand repair --with eva int replacement 11/13/2018 Surgical History Repair-history of hand repair --with eva int replacement 01/27/2015 Surgical History Repair-history of hand repair --with eva int replacement 03/13/2018 Surgical History Repair-history of hand repair --with eva int replacement 04/09/2012 Surgical History Repair-history of hand repair --with eva int replacement 05/28/2011 Surgical History Repair-History of hand repair --with michael nt replacement. 07/17/2012 Surgical History Repair-History of hand repair --with michael nt replacement. 11/14/2018 Surgical History Repair-History of hand repair --with michael nt replacement. 12/06/2011 Surgical History Repair-History of hand repair --with michael nt replacement. 02/25/2012 Surgical History Repair-History of hand repair --with michael nt replacement. 03/05/2013
--- OUTSIDE RECORDS SUMMARY | 2019-06-11 22:47 | XMS REPORT | Clinical Summary ---
Author Author [facility] Organization [facility] Address Unknown Phone Unavailable Care Team Providers Care Motorcycle Fabricator Name Role Phone Anastacio Coker MD PCP Cesar Herring MD Unavailable Source Comments Some departments are not documenting in the electronic medical record. If you d o not see the information that you expected, contact Release of Information in [facility] [employer] Information Management department at [phone] for further assistan ce in locating additional records.[facility] Allergies Comments Active Allergy Reactions Severity Noted Date Erythromycin NAUSEA AND Low 02/03/2012 VOMITING Sulfa (Sulfonamide UNKNOWN Low 07/30/2017 Antibiotics) Medications End Date Status Medication Sig Dispensed Refills Start Date Active amLODIPine (NORVASC) 5 mg 0 tablet 8 Active aspirin EC 81 mg tablet 81 mg. 0 Active atorvastatin (LIPITOR) 10 0 mg tablet 7 Active cloNIDine (CATAPRESS) 0.1 0 mg tablet 8 Active diazePAM (VALIUM) 2 mg 0 tablet 8 Active furosemide (LASIX) 20 mg 0 tablet 8 Active HYDROcodone/acetaminophen 0 (NORCO) 7.5/325 mg tablet 8 Active irbesartan(+) (AVAPRO) 0 150 mg tablet 8 Active hydrOXYzine (ATARAX) 25 25 mg every 8 0 mg tablet hours. Active metoprolol tartrate 0 (LOPRESSOR) 50 mg tablet 7 Active valACYclovir (VALTREX) 500 mg. 0 500 mg tablet Active acyclovir (ZOVIRAX) 200 Take 200 mg 0 mg capsule by mouth five times daily. Active Problems Problem Noted Date [...] Mother Paternal Grandfather Paternal Grandmother Social History Date Tobacco Use Types Packs/Day Years Used Current Every Day Smoker Cigarettes 1 Smokeless Tobacco: Never Used Drinks/Week oz/Week Comments Alcohol Use Yes Sex Assigned at Date Recorded Not on file Industry Job Start Date Occupation Not on file Not on file Not on file Travel End Travel History Travel Start No recent travel history available. Last Filed Vital Signs Reading Time Taken Comments Vital Sign 128/80 07/30/2017 3:12 PM LARRY CAR OPERATOR Blood Pressure - - Pulse - - Temperature - - Respiratory Rate - - Oxygen Saturation - - Inhaled Oxygen Concentration 44.9 kg (99 lb) 07/30/2017 3:12 PM LARRY CAR OPERATOR Weight 142.2 cm (4' 8") 07/30/2017 3:12 PM LARRY CAR OPERATOR Height 22.2 07/30/2017 3:12 PM LARRY CAR OPERATOR Body Mass Index Plan of Treatment Health Maintenance Due Date Last Done Comments MEDICARE ANNUAL WELLNESS 1935 VISIT DTAP/TDAP VACCINES (1 - 1946 Tdap) PHYSICAL (COMPREHENSIVE) 1953 EXAM SHINGLES RECOMBINANT 1985 VACCINE (1 of 2) OSTEOPOROSIS 01/18/2000 SCREENING/MONITORING PNEUMONIA (PCV13/PPSV23) 01/18/2000 VACCINES (1 of 2 - PCV13) INFLUENZA VACCINE 01/15/2019 Results Not on filefrom Last 3 Months Insurance Type Payer Benefit Subscriber ID Effective Phone Address Plan / Dates Group Medicare MEDICARE MEDICARE xxxxxxxxxx 2000-P PART A AND resent B Medicare BCBS [place] BCBS xxxxxxxxxxxx 2017-P SUPPLEMENT resent Advance Directives Patient Log Skidder Explanation Type Date Recorded Advance Directive/DPOA
--- OUTSIDE RECORDS SUMMARY | 2019-06-12 06:13 | XMS REPORT | Clinical Summary ---
Author Author [facility] Organization [facility] Address Unknown Phone Unavailable Care Team Providers Care Patrol Supervisor Name Role Phone Anastacio Coker MD PCP Cesar Herring MD Unavailable Source Comments Some departments are not documenting in the electronic medical record. If you d o not see the information that you expected, contact Release of Information in [facility] [employer] Information Management department at [phone] for further assistan ce in locating additional records.[facility] Allergies Comments Active Allergy Reactions Severity [...] Comments Vital Sign 128/80 07/30/2017 3:12 PM CRUISE AGENT Blood Pressure - - Pulse - - Temperature - - Respiratory Rate - - Oxygen Saturation - - Inhaled Oxygen Concentration 44.9 kg (99 lb) 07/30/2017 3:12 PM CRUISE AGENT Weight 142.2 cm (4' 8") 07/30/2017 3:12 PM CRUISE AGENT Height 22.2 07/30/2017 3:12 PM CRUISE AGENT Body Mass Index Plan of Treatment Health [...] xxxxxxxxxxxx 2017-P SUPPLEMENT resent Advance Directives Patient Seasoning Sprayer Explanation Type Date Recorded Advance Directive/DPOA
== END 2019-05-20 09:45 | disposition home or self-care (01) | DRG 291 ==
LOC: EDUNIT# 09:24 → ER 09:25 → CSD 11:00 → 4TH 12:35 → CSD 12:35 → 4TH 05-19 11:30
PROVIDERS: ADMIT Family Medicine; ATTEND Family Medicine
DX: I13.0 Hypertensive heart and chronic kidney disease with heart failure and stage 1 through stage 4 chronic kidney disease, or unspecified chronic kidney disease (principal); I50.33 Acute on chronic diastolic (congestive) heart failure; N18.4 Chronic kidney disease, stage 4 (severe); J44.1 Chronic obstructive pulmonary disease with (acute) exacerbation; J96.21 Acute and chronic respiratory failure with hypoxia; N17.9 Acute kidney failure, unspecified; J98.09 Other diseases of bronchus, not elsewhere classified; J98.11 Atelectasis; I07.1 Rheumatic tricuspid insufficiency; R19.7 Diarrhea, unspecified; K59.00 Constipation, unspecified; M06.9 Rheumatoid arthritis, unspecified; M19.91 Primary osteoarthritis, unspecified site; F17.210 Nicotine dependence, cigarettes, uncomplicated; F41.9 Anxiety disorder, unspecified; F32.9 Major depressive disorder, single episode, unspecified; I25.10 Atherosclerotic heart disease of native coronary artery without angina pectoris; R22.2 Localized swelling, mass and lump, trunk; R63.0 Anorexia; I87.2 Venous insufficiency (chronic) (peripheral); E78.5 Hyperlipidemia, unspecified; I25.2 Old myocardial infarction; Z95.1 Presence of aortocoronary bypass graft; Z95.5 Presence of coronary angioplasty implant and graft; Z86.73 Personal history of transient ischemic attack (TIA), and cerebral infarction without residual deficits; Z90.710 Acquired absence of both cervix and uterus
CPT/HCPCS: 36415; 36600; 71045; 71046; 71250; 80048; 80053; 82805; 83735; 83880; 84100; 84484; 85025; 86141; 87040; 87070; 87077; 87186; 87205; 87804; 93005; 93306; 94640; 94760; 96374; 96375

== ENCOUNTER 2019-07-16 15:45 | Emergency (ER) | payer MEDICARE ==
[~2019-07-16] VITALS: Ht 149.8 cm; Wt 45.0 kg
[~2019-07-16 15:45] MED LIST changes: +AMLO5TAB9 PO; +DOXA4TAB2 PO; +GUAI600T43 PO; +HYDR-3816 PO; +POTA-51 PO; +PRD20T PO; +VALS80TA31 PO
--- NOTE | 2019-07-16 15:55 | ED Head Injury ---
General Stated Complaint: FELL Source: patient, EMS Exam Limitations: no limitations History of Present Illness Date Seen by Provider: Jul 16, 2019 Time Seen by Provider: 15:53 Initial Comments To ER per EMS from home with reports of a posterior scalp laceration after a fall. Tetanus not up to date. No LOC, no nausea no vomiting. Occurred: just prior to arrival Severity: moderate Location: occipital Method of Injury: direct blow Loss of Consciousness: no loss of consciousness Associated Systoms: Headaches Allergies and Home Medications Allergies Coded Allergies: Sulfa (Sulfonamide Antibiotics) (Unverified Allergy, Mild, hives, 05/18/19) acetaminophen (Unverified Allergy, Unknown, 03/16/16) codeine (Unverified Allergy, Unknown, Pt has had Lortab in the past w/o issue, 05/19/19) erythromycin base (Unverified Allergy, Unknown, 03/16/16) oxycodone (Unverified Allergy, Unknown, Pt has had Lortab in the past w/o issue, 05/19/19) propoxyphene (Unverified Allergy, Unknown, 03/16/16) Home Medications Amlodipine Besylate 5 Mg Tablet, 5 MG PO HS, (Reported) Aspirin 81 Mg Tablet.dr, 81 MG PO HS, (Reported) Atorvastatin Calcium 10 Mg Tablet, 10 MG PO HS, (Reported) Diazepam 2 Mg Tablet, 2 MG PO HS, (Reported) Doxazosin Mesylate 4 Mg Tablet, 4 MG PO HS, (Reported) Furosemide 20 Mg Tablet, 20 MG PO DAILY PRN for SWELLING, (Reported) Furosemide 20 Mg Tablet, 20 MG PO BID, (Reported) 7 DAY THERAPY FILLED 05-16-19 Guaifenesin 600 Mg Tab.er.12h, 600 MG PO BID Prescribed by: FER MENENDEZ on 05/20/19 0815 Hydrocodone/Acetaminophen 1 Each Tablet, 2 TAB PO Q6H PRN for PAIN-MODERATE (5- 7), (Reported) Hydroxyzine HCl 25 Mg Tablet, 25 MG PO Q12H PRN for RASH, (Reported) Metoprolol Tartrate 50 Mg Tablet, 50 MG PO HS, (Reported) Potassium Chloride 20 Meq Tablet.er, 20 MEQ PO DAILY, (Reported) 7 DAY THERAPY FILLED 05-16-19 Prednisone 20 Mg Tab, 40 MG PO DAILY@0700 Prescribed by: FER MENENDEZ on 05/20/19 0815 Valsartan 80 Mg Tablet, 80 MG PO HS, (Reported) Patient Home Medication List Home Medication List Reviewed: Yes Review of Systems Review of Systems Constitutional: see HPI Eyes: No Symptoms Reported Ears, Nose, Mouth, Throat: no symptoms reported Respiratory: no symptoms reported Cardiovascular: no symptoms reported Genitourinary: no symptoms reported Musculoskeletal: no symptoms reported Skin: no symptoms reported Psychiatric/Neurological: Headache Endocrine: No Symptoms Reported Past Wwoolgi-Rtpfyk-Imvdrj Hx Patient Social History Alcohol Beverage of Choice: Wine Type Used: Cigarettes 2nd Hand Smoke Exposure: Yes Recent Foreign Travel: No Contact w/Someone Who Travel: No Recent Hopitalizations: No Immunizations Up To Date Tetanus Booster (TDap): More than 5yrs Seasonal Allergies Seasonal Allergies: No Past Medical History Surgeries: Yes (HEMORRHOIDECTOMY) CABG, Coronary Stent, Eye Surgery, Gallbladder, Hysterectomy, Joint Replacement, Orthopedic, Rectal Respiratory: Yes Chronic Bronchitis, COPD Currently Using CPAP: No Currently Using BIPAP: No Cardiac: Yes (STENTS, CABG, heart failure) Coronary Artery Disease, Heart Attack, High Cholesterol, Hypertension Neurological: Yes (shingles) Stroke Reproductive Disorders: No Sexually Transmitted Disease: No HIV/AIDS: No Genitourinary: Yes Renal Failure Gastrointestinal: Yes Abdominal Hernia, Colitis, Chronic Constipation, Diverticulosis, Hemorrhoids, Ulcer, Gall Bladder Disease, Irritable Bowel Musculoskeletal: Yes (CHRONIC GENERALIZED PAIN) Arthritis, Rheumatoid Arthritis, Chronic Back Pain Endocrine: No Cataract Loss of Vision: Bilateral Cancer: No Psychosocial: Yes Anxiety, Depression Integumentary: Yes (frequent hives) Blood Disorders: No Family Medical History Cataract 03 MOTHER Chest pain 03 FATHER Congestive heart failure 03 MOTHER Family history: Arthritis 03 FATHER 03 MOTHER Family history: Coronary thrombosis 03 FATHER Family history: Diabetes mellitus 03 FATHER Family history: Hypertension 03 FATHER Heart disease 03 FATHER Myocardial infarction 03 FATHER No Family History of: Abdominal aortic aneurysm [place]'s disease Alcoholism Aphasia Cancer Cancer of colon Congenital heart disease Cystic fibrosis Dementia Dysphagia Family history: Allergy Family history: Alzheimer's disease Family history: Asthma Family history: Breast disease Family history: Cardiovascular disease Family history: Gastrointestinal disease Family history: Glaucoma Family history: Osteoporosis Family history: Thyroid disorder Headache Hearing loss Hereditary disease History of - anemia History of - disorder History of - respiratory disease History of drug abuse Human immunodeficiency virus (HIV) seropositivity Hypercholesterolemia Infertile Kidney disease Malignant neoplasm of lung Parkinson's disease Prostate cancer Psychotic disorder Seizure disorder Stroke Tuberculosis Visual impairment Physical Exam Vital Signs Vital Signs - First Documented 07/16/19 15:48 Temp 36.4 Pulse 77 Resp 18 B/P (MAP) 171/94 (119) Pulse Ox 95 O2 Delivery Room Air Capillary Refill : Height, Weight, BMI Height: 4'8.00" Weight: 98lbs. 8.0oz. 44.539656ph; 22.95 BMI Method:Stated General Appearance: WD/WN, no apparent distress HEENT: PERRL/EOMI, normal ENT inspection Neck: non-tender, full range of motion Respiratory: no respiratory distress, no accessory muscle use Extremities: normal range of motion, non-tender Psychiatric: alert, oriented x 3 Crainal Nerves: normal hearing, normal speech, PERRL Motor/Sensory: no motor deficit, no sensory deficit Skin: normal color, warm/dry Procedures/Interventions Wound Location: Scalp Wound Length (cm): 2.5 Wound's Depth, Shape: linear, sub Q Wound Explored: clean Anesthesia: Lidocaine w/ Epi 5 tian Progress/Results/Core Measures Results/Orders My Orders Orders - MAIA CHISHOLM APRN Ct Head/Cervical Spine Wo (07/16/19 15:52) Lidocaine/Epi 2% 1:100,000 (Xylocaine/Ep (07/16/19 16:00) Dipht,Pertuss(Acell),Tet Adult (Boostrix (07/16/19 16:00) Medications Given in ED Current Medications Medications Dose Ordered Sig/Varsha Route Start Time Stop Time Status Last Admin Dose Admin Diphtheria/ Tetanus/Acell Pertussis 0.5 ml ONCE ONCE IM 07/16/19 16:00 07/16/19 16:01 DC 07/16/19 15:59 0.5 ML Lidocaine/ Epinephrine 2 ml ONCE ONCE INJ 07/16/19 16:00 07/16/19 16:01 DC 07/16/19 16:34 2 ML Vital Signs/I&O 07/16/19 15:48 Temp 36.4 Pulse 77 Resp 18 B/P (MAP) 171/94 (119) Pulse Ox 95 O2 Delivery Room Air Departure Impression Primary Impression: Fall on same level Qualified Codes: W18.30XA - Fall on same level, unspecified, initial enco unter Additional Impression: Scalp laceration Disposition: 01 HOME, SELF-CARE Condition: Stable Departure-Patient Inst. Decision time for Depature: 16:38 Referrals: EDGAR AGEE MD (PCP/Family) Primary Care Physician Patient Instructions: Laceration Repair With Tian (DC) Add. Discharge Instructions: 1. [place] out in 5-7 days. 2. Return to ER for any concerns such as loss of consciousness, nausea, vomiting, headache. MAIA CHISHOLM [employer] INSPECTOR Jul 16, 2019 15:55
[2019-07-16] MEDS ORDERED: TETANUS,DIPTH,PERTUSS P/F (BOOSTRIX) 0.5 ML VIAL IM ONE (16:00)
[2019-07-16] MEDS ORDERED: LIDOCAINE/EPI 2% 1:100,00 (XYLOCAINE) 20 ML VIAL INJ ONE (16:00)
--- NOTE | 2019-07-16 16:36 | Diagnostic Imaging Report ---
PROCEDURE: CT head and CT cervical spine without contrast. TECHNIQUE: Multiple contiguous axial images were obtained through the brain and cervical spine without the use of intravenous contrast. Sagittal and coronal reformations through the cervical spine were then performed. Auto Exposure Controls were utilized during the CT exam to meet ALARA standards for radiation dose reduction. INDICATION: Fall. Head injury. COMPARISON: 02/25/2018. FINDINGS: CT Head: Advanced generalized cerebral and cerebellar parenchymal volume loss. No intracranial hemorrhage, mass effect, hydrocephalus, or extra-axial fluid collections. No CT evidence of a territorial infarction. Scalp contusion near the vertex. No fractures. The visualized paranasal sinuses and mastoids are clear. CT Cervical Spine: Stable grade 1 anterolisthesis of C3 on C4, C4 on C5, and grade 2 anterolisthesis of C5 on C6 which is likely fused. No new malalignment. No fractures. Moderate atherosclerotic calcifications in the carotid bifurcations. Partially visualized sternotomy. The visualized lung apices are clear. IMPRESSION: 1. Scalp contusion near the vertex. No underlying fractures. 2. No acute intracranial or cervical spine CT findings. Chronic findings as above. Dictated by: Dictated on workstation # [id number]
[2019-07-16 16:46] VITALS: BP 158/85
== END 2019-07-16 16:46 | disposition home or self-care (01) ==
LOC: EDUNIT# 15:45 → ER 15:46
DX: S01.01XA Laceration without foreign body of scalp, initial encounter (principal); I10 Essential (primary) hypertension; E78.00 Pure hypercholesterolemia, unspecified; I25.2 Old myocardial infarction; I25.10 Atherosclerotic heart disease of native coronary artery without angina pectoris; J44.9 Chronic obstructive pulmonary disease, unspecified; F41.9 Anxiety disorder, unspecified; F32.9 Major depressive disorder, single episode, unspecified; Z95.1 Presence of aortocoronary bypass graft; Z95.5 Presence of coronary angioplasty implant and graft; Z23 Encounter for immunization; Z86.73 Personal history of transient ischemic attack (TIA), and cerebral infarction without residual deficits; Z79.82 Long term (current) use of aspirin; Z79.52 Long term (current) use of systemic steroids; Z77.22 Contact with and (suspected) exposure to environmental tobacco smoke (acute) (chronic); Z88.2 Allergy status to sulfonamides; Z88.5 Allergy status to narcotic agent; Z88.1 Allergy status to other antibiotic agents; Z88.8 Allergy status to other drugs, medicaments and biological substances; Z82.49 Family history of ischemic heart disease and other diseases of the circulatory system; W18.30XA Fall on same level, unspecified, initial encounter
CPT/HCPCS: 70450; 72125; 90471; 90715

== ENCOUNTER 2019-07-23 09:22 | Emergency (ER) | payer MEDICARE ==
[~2019-07-23] VITALS: Ht 152 cm; Wt 42.7 kg
[2019-07-23 09:45] VITALS: BP 0/0
== END 2019-07-23 09:45 | disposition home or self-care (01) ==
LOC: EDUNIT# 09:22 → ER 09:23
DX: S01.81XD Laceration without foreign body of other part of head, subsequent encounter (principal); X58.XXXD Exposure to other specified factors, subsequent encounter

== ENCOUNTER 2020-05-09 14:59 | Emergency (ER) | payer MEDICARE ==
[~2020-05-09] VITALS: Ht 140 cm; Wt 43.1 kg
[~2020-05-09 14:59] MED LIST changes: +AMLO-250 PO; -AMLO5TAB9 PO; -CLON0.1T PO; -HYDR-3816 PO
--- NOTE | 2020-05-09 16:40 | ED General ---
General Chief Complaint: Trauma-Non Activation Stated Complaint: FALL Nursing Triage Note: PT BROUGHT IN BY [facility] FROM HOME WITH COMPLAINT OF FALL. PT STATES SHE SLIPPED OUT OF HER CHAIR AND HIT HEAD ON FLOOR. DENIES LOC. PT HAS LACERATION ABOVE LEFT EYE. STATES SHE TOOK A HYDROCODONE BEFORE SHE CAME. PT REFUSED CCOLLAR FOR EMS. Nursing Sepsis Screen: No Definite Risk History of Present Illness Date Seen by Provider: May 09, 2020 Time Seen by Provider: 16:39 Initial Comments This is a 85-year-old female who presented via [facility] from home for a same level fall. Patient states she went to sit down in her chair and slid out of her chair, hitting her head on the floor. Denies loss of consciousness. Does report sustaining a laceration to her left eyebrow which was covered with bandage and Kerlix by EMS. States she took a hydrocodone prior to ED arrival. She refused c-collar for EMS, stating he was too uncomfortable for her neck and bony prominences on her chest wall. Denies headache, syncope, vertigo, lightheadedness, chest pain, nausea, vomiting, abdominal pain, upper and lower extremity joint pain. Timing/Duration: 1/2 Hour Allergies and Home Medications Allergies Coded Allergies: Sulfa (Sulfonamide Antibiotics) (Unverified Allergy, Mild, hives, 05/18/19) acetaminophen (Unverified Allergy, Unknown, 03/16/16) codeine (Unverified Allergy, Unknown, Pt has had Lortab in the past w/o issue, 05/19/19) erythromycin base (Unverified Allergy, Unknown, 03/16/16) oxycodone (Unverified Allergy, Unknown, Pt has had Lortab in the past w/o issue, 05/19/19) propoxyphene (Unverified Allergy, Unknown, 03/16/16) Home Medications Amlodipine Besylate 5 Mg Tablet, 5 MG PO HS, (Reported) Aspirin 81 Mg Tablet.dr, 81 MG PO HS, (Reported) Atorvastatin Calcium 10 Mg Tablet, 10 MG PO HS, (Reported) Diazepam 2 Mg Tablet, 2 MG PO HS, (Reported) Doxazosin Mesylate 4 Mg Tablet, 4 MG PO HS, (Reported) Furosemide 20 Mg Tablet, 20 MG PO DAILY PRN for SWELLING, (Reported) Furosemide 20 Mg Tablet, 20 MG PO BID, (Reported) 7 DAY THERAPY FILLED 05-16-19 Guaifenesin 600 Mg Tab.er.12h, 600 MG PO BID Prescribed by: FER MENENDEZ on 05/20/19 0815 Hydrocodone Bit/Acetaminophen 1 Each Tablet, 2 TAB PO Q6H PRN for PAIN-MODERATE (5-7), (Reported) Hydroxyzine HCl 25 Mg Tablet, 25 MG PO Q12H PRN for RASH, (Reported) Metoprolol Tartrate 50 Mg Tablet, 50 MG PO HS, (Reported) Potassium Chloride 20 Meq Tablet.er, 20 MEQ PO DAILY, (Reported) 7 DAY THERAPY FILLED 05-16-19 Prednisone 20 Mg Tab, 40 MG PO DAILY@0700 Prescribed by: FER MENENDEZ on 05/20/19 0815 Valsartan 80 Mg Tablet, 80 MG PO HS, (Reported) Patient Home Medication List Home Medication List Reviewed: Yes Review of Systems Review of Systems Constitutional: see HPI EENTM: see HPI Respiratory: cough (. Chronic) Cardiovascular: no symptoms reported Gastrointestinal: no symptoms reported Genitourinary: no symptoms reported Musculoskeletal: see HPI Skin: see HPI Psychiatric/Neurological: No Symptoms Reported Hematologic/Lymphatic: No Symptoms Reported Immunological/Allergic: no symptoms reported Past Tsyyeon-Pzlxea-Gdwhgx Hx Patient Social History Alcohol Use: Denies Use Number of Drinks Today: Alcohol Beverage of Choice: Wine Recreational Drug Use: No Smoking Status: Current Everyday Smoker Type Used: Cigarettes 2nd Hand Smoke Exposure: Yes Recent Foreign Travel: No Contact w/Someone Who Travel: No Recent Infectious Disease Expo: No Recent Hopitalizations: No Immunizations Up To Date Tetanus Booster (TDap): More than 5yrs Seasonal Allergies Seasonal Allergies: No Past Medical History Surgeries: Yes (HEMORRHOIDECTOMY) CABG, Coronary Stent, Eye Surgery, Gallbladder, Hysterectomy, Joint Replacement, Orthopedic, Rectal Respiratory: Yes Chronic Bronchitis, COPD Currently Using CPAP: No Currently Using BIPAP: No Cardiac: Yes (STENTS, CABG, heart failure) Coronary Artery Disease, Heart Attack, High Cholesterol, Hypertension Neurological: Yes (shingles) Stroke Reproductive Disorders: No Sexually Transmitted Disease: No HIV/AIDS: No Genitourinary: Yes Renal Failure Gastrointestinal: Yes Abdominal Hernia, Colitis, Chronic Constipation, Diverticulosis, Hemorrhoids, Ulcer, Gall Bladder Disease, Irritable Bowel Musculoskeletal: Yes (CHRONIC GENERALIZED PAIN) Arthritis, Rheumatoid Arthritis, Chronic Back Pain Endocrine: No Cataract Loss of Vision: Bilateral Cancer: No Psychosocial: Yes Anxiety, Depression Integumentary: Yes (frequent hives) Blood Disorders: No Family Medical History Cataract 03 MOTHER Chest pain 03 FATHER Congestive heart failure 03 MOTHER Family history: Arthritis 03 FATHER 03 MOTHER Family history: Coronary thrombosis 03 FATHER Family history: Diabetes mellitus 03 FATHER Family history: Hypertension 03 FATHER Heart disease 03 FATHER Myocardial infarction 03 FATHER No Family History of: Abdominal aortic aneurysm Colby's disease Alcoholism Aphasia Cancer Cancer of colon Congenital heart disease Cystic fibrosis Dementia Dysphagia Family history: Allergy Family history: Alzheimer's disease Family history: Asthma Family history: Breast disease Family history: Cardiovascular disease Family history: Gastrointestinal disease Family history: Glaucoma Family history: Osteoporosis Family history: Thyroid disorder Headache Hearing loss Hereditary disease History of - anemia History of - disorder History of - respiratory disease History of drug abuse Human immunodeficiency virus (HIV) seropositivity Hypercholesterolemia Infertile Kidney disease Malignant neoplasm of lung Parkinson's disease Prostate cancer Psychotic disorder Seizure disorder Stroke Tuberculosis Visual impairment Physical Exam Vital Signs Vital Signs - First Documented 05/09/20 15:00 Temp 35.9 Pulse 90 Resp 20 B/P (MAP) 163/85 (111) Pulse Ox 93 O2 Delivery Room Air Capillary Refill : Less Than 3 Seconds Height, Weight, BMI Height: 4'8.00" Weight: 98lbs. 8.0oz. 44.982250sv; 21.00 BMI Method:Actual General Appearance: No Apparent Distress, Chronically ill Eyes: Bilateral Eye Normal Inspection, Bilateral Eye PERRL, Bilateral Eye EOMI HEENT: PERRL/EOMI, TMs Normal, Normal ENT Inspection, Pharynx Normal Neck: Normal Inspection, Tender Lateral (with palpation) Respiratory: Chest Non Tender, No Accessory Muscle Use, No Respiratory Distress, Rhonci (diffuse) Cardiovascular: Regular Rate, Rhythm, No Edema, No Murmur, Normal Peripheral Pulses Gastrointestinal: Normal Bowel Sounds, Non Tender, Soft Back: Normal Inspection, No Vertebral Tenderness Extremity: Normal Capillary Refill, Normal Inspection, Normal Range of Motion, Non Tender, No Pedal Edema Neurologic/Psychiatric: Alert, Oriented x3, No Motor/Sensory Deficits, Normal Mood/Affect Skin: Normal Color, Warm/Dry, Other (2 cm laceration on left eyebrow, moderate swelling and bruising around left eyebrow and orbit. ) Procedures/Interventions Wound Location: Face Other Wound Location left eyebrow Wound Length (cm): 2 Wound's Depth, Shape: irregular Wound Explored: clean Anesthesia: 1% Lidocaine Volume Anesthetic (ccs): 1 Suture: Prolene Suture Size: 5-0 Number of Sutures: 6 Progress/Results/Core Measures Suspected Sepsis Recent Fever Within 48 Hours: No Infection Criteria Present: None New/Unexplained Altered Menta: No Sepsis Screen: No Definite Risk SIRS Temperature: Pulse: 90 Respiratory Rate: 20 Laboratory Tests 05/09/20 17:45: White Blood Count 6.6 Blood Pressure 163 /85 Mean: 111 Laboratory Tests 05/09/20 17:45: Creatinine 2.81H, Platelet Count 226, Total Bilirubin 0.3 Results/Orders Lab Results Laboratory Tests Test 05/09/20 17:45 05/09/20 18:30 Range/Units White Blood Count 6.6 4.3-11.0 10^3/uL Red Blood Count 3.37 L 3.80-5.11 10^6/uL Hemoglobin 10.2 L 11.5-16.0 g/dL Hematocrit 32 L 35-52 % Mean Corpuscular Volume 95 80-99 fL Mean Corpuscular Hemoglobin 30 25-34 pg Mean Corpuscular Hemoglobin Concent 32 32-36 g/dL Red Cell Distribution Width 13.5 10.0-14.5 % Platelet Count 226 130-400 10^3/uL Mean Platelet Volume 10.1 9.0-12.2 fL Sodium Level 142 135-145 MMOL/L Potassium Level 4.8 3.6-5.0 MMOL/L Chloride Level 108 H 98-107 MMOL/L Carbon Dioxide Level 20 L 21-32 MMOL/L Anion Gap 14 5-14 MMOL/L Blood Urea Nitrogen 70 H 7-18 MG/DL Creatinine 2.81 H 0.60-1.30 MG/DL Estimat Glomerular Filtration Rate 16 BUN/Creatinine Ratio 25 Glucose Level 92 70-105 MG/DL Calcium Level 8.1 L 8.5-10.1 MG/DL Corrected Calcium 8.3 L 8.5-10.1 MG/DL Total Bilirubin 0.3 0.1-1.0 MG/DL Aspartate Amino Transf (AST/SGOT) 17 5-34 U/L Alanine Aminotransferase (ALT/SGPT) 9 0-55 U/L Alkaline Phosphatase 53 40-136 U/L Total Protein 6.7 6.4-8.2 GM/DL Albumin 3.8 3.2-4.5 GM/DL Urine Color YELLOW Urine Clarity CLEAR Urine pH 6.0 5-9 Urine Specific [place] 1.015 L 1.016-1.022 Urine Protein TRACE H NEGATIVE Urine Glucose (UA) NEGATIVE NEGATIVE Urine Ketones NEGATIVE NEGATIVE Urine Nitrite NEGATIVE NEGATIVE Urine Bilirubin NEGATIVE NEGATIVE Urine Urobilinogen 0.2 < = 1.0 MG/DL Urine Leukocyte Esterase NEGATIVE NEGATIVE Urine RBC (Auto) TRACE-I NEGATIVE Urine RBC 0-2 /HPF Urine WBC NONE /HPF Urine Crystals PRESENT H /LPF Urine Amorphous Sediment FEW JIM URATES H /LPF Urine Bacteria NEGATIVE /HPF Urine Casts NONE /LPF Urine Mucus NEGATIVE /LPF Urine Culture Indicated NO My Orders Orders - JANIYA LUCERO APPRENTICE FUNERAL DIRECTOR Cbc No Diff (05/09/20 16:38) Ct Head/Cervical Spine Wo (05/09/20 16:38) Comprehensive Metabolic Panel (05/09/20 16:38) Ua Culture If Indicated (05/09/20 16:38) Chest 1 View, Ap/Pa Only (05/09/20 16:46) Pelvis/Nas Hips 2 Views (05/09/20 16:46) Lidocaine 1% Inj 20 Ml (Xylocaine 1% Inj (05/09/20 18:45) Lidocaine 1% Inj 20 Ml (Xylocaine 1% Inj (05/09/20 18:44) Shoulder, Right, 3 Views (05/09/20 19:16) Medications Given in ED Current Medications Medications Dose Ordered Sig/Varsha Route Start Time Stop Time Status Last Admin Dose Admin Lidocaine HCl 20 ml ONCE ONCE INJ 05/09/20 18:45 05/09/20 18:46 DC 05/09/20 18:45 20 ML Vital Signs/I&O 05/09/20 15:00 Temp 35.9 Pulse 90 Resp 20 B/P (MAP) 163/85 (111) Pulse Ox 93 O2 Delivery Room Air Capillary Refill : Less Than 3 Seconds Blood Pressure Mean: 111 Progress Note : Progress Note Reviewed CT cervical spine findings with patient. States that she was told by her primary care provider if she ever went under general anesthesia again she would unlikely wake-up due to the severity of her COPD. Stated that if I did find anything that required hospitalization she is unwilling to stay in the hospital. Remaining images were unremarkable, reviewed discharge plan of care with her and she is agreeable plan. Encouraged her to wear supportive shoes, not slipper socks or socks to prevent falls and to utilize her walker instead of using furniture to ambulate. She is provided with a soft c-collar as she stated she would not use the hard c-collar. Diagnostic Imaging Diagonstic Imaging: CT Plain Films/CT/US/NM/MRI: c-spine, head Comments NAME: FLAKITO SABILLON [facility] REC#: [id number] PT STATUS: REG ER : 1935 PHYSICIAN: JANIYA LUCERO APRN ADMIT DATE: 05/09/20/ER Signed Date of Exam:05/09/20 CT HEAD/CERVICAL SPINE WO PROCEDURE: CT head and CT cervical spine without contrast. TECHNIQUE: Multiple contiguous axial images were obtained through the brain and cervical spine without the use of intravenous contrast. Sagittal and coronal reformations through the cervical spine were then performed. Auto Exposure Controls were utilized during the CT exam to meet ALARA standards for radiation dose reduction. INDICATION: Fell, head and neck pain CT HEAD: Reportedly, the patient has fallen and has a laceration above the left eye. There is soft tissue edema over the left globe and orbit but there is no sign of an injury to the globe and there is no evidence for fracture of the orbit. The orbital contents on the left also seem undisturbed. The right orbit is within normal limits. There is no intracranial mass, shift of the midline or hemorrhage to indicate an acute abnormality. The ventricles are not abnormally dilated and stable in size when compared to the prior exam of 07/16/2019. The senescent changes noted on the previous study including cortical atrophy and periventricular encephalomalacia are again evident and no different. The sinuses are generally clear. IMPRESSION: 1. There is soft tissue edema over the left globe and left bony orbit but there is no sign of an acute fracture or of an injury to the globe. Clinical follow-up is recommended, however. 2. There is no acute intracranial abnormality noted either. 3. If clinical concern regarding an acute intracranial abnormality persists, then MRI would be recommended for further study. 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 This includes near complete obliteration of the disc space at C5-C6 with a grade 2 spondylolisthesis of C5 with respect to C6. There is also marked narrowing of the disc space at C6-C7 and C4-C5. The previous study failed to show any sign of an acute bony abnormality. However on this exam, the coronal images do show widening of the facet joint on the left at C3-C4 when compared to the prior study (page 9 of 33 series 604). This finding is not as pronounced on the axial series, but does persist on the sagittal sequences. This finding is worrisome for an acute bony injury. MRI would be recommended for further study. No other fracture is identified. There is no sign of retropharyngeal edema. The thyroid gland is generally unremarkable. The lung apices are clear. IMPRESSION: 1. There is widening of the facet joint on the left at C3-C4. This changed from the previous exam does suggest an acute bony/ligamentous injury.. MRI would be recommended for additional imaging. A neurosurgical or orthopedic consult would also be recommended. 2. These results were discussed with Dr. Janiya Lucero in the Emergency Room at the time of dictation. CRITICAL FINDING Dictated by: Dictated on workstation # [id number] Dict: 05/09/201722 Trans: 05/09/201829 [facility] [id number] Interpreted by: ABIGAIL NAVARRO MD Electronically signed by: ABIGAIL NAVARRO MD 05/09/201829 Diagonstic Imaging: Xray Plain Films/CT/US/NM/MRI: other (shoulder ) Comments NAME: REUBENDAVIDFLAKITO K [facility] REC#: [id number] PT STATUS: DEP ER : 1935 PHYSICIAN: JANIYA LUCERO APPRENTICE FUNERAL DIRECTOR ADMIT DATE: 05/09/20/ER Signed Date of Exam:05/09/20 SHOULDER, RIGHT, 3 VIEWS Right shoulder at 720 hours. INDICATION: Fell, shoulder pain. 5 views were obtained. This study is less than optimal as the patient was difficult to position. FINDINGS: There is no fracture, dislocation or acute bony abnormality evident. There are severe degenerative changes involving the shoulder joints seen on the prior exam of 02/25/2018 are again visualized and do not appear to have progressed. The soft tissues are unremarkable. The previous study did note right-sided rib fracture deformities. Those findings are again evident and do not appear to have changed significantly. IMPRESSION: 1. 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 2. If clinical concern regarding an occult fracture persists, then CT would be recommended for further evaluation. Dictated by: Dictated on workstation # [id number] Dict: 05/09/202007 Trans: 05/09/202146 [id number] Interpreted by: ABIGAIL NAVARRO MD Electronically signed by: ABIGAIL NAVARRO MD 05/09/202146 Diagonstic Imaging: Xray Plain Films/CT/US/NM/MRI: chest Comments NAME: JOSUE SABILLONJORIKeanu Greenfield [facility] REC#: [id number] PT STATUS: REG ER : 1935 PHYSICIAN: JANIYA LUCERO APRN ADMIT DATE: 05/09/20/ER Signed Date of Exam:05/09/20 CHEST 1 VIEW, AP/PA ONLY HISTORY: Trauma. Fall. TECHNIQUE: Frontal view of the chest. COMPARISON: 05/18/2019. FINDINGS: Lung volumes are mildly large. No focal consolidation is seen. There is no pleural effusion or pneumothorax. The cardiac silhouette is mildly large. Sternotomy wires and post-CABG changes are seen. There is diffuse osteopenia. There is a chronic right rotator cuff injury. There is a left shoulder arthroplasty. There are degenerative changes and left convex curvature in the spine. There are old left-sided rib fractures. IMPRESSION: 1. Chronic findings in the chest with no acute pulmonary abnormality seen. Dictated by: Dictated on workstation # [id number] Dict: 05/09/20 1728 Trans: 05/09/201857 [facility] [id number] Interpreted by: RAIN SOTO MD Electronically signed by: RAIN SOTO MD 05/09/201857 Diagonstic Imaging: Xray Plain Films/CT/US/NM/MRI: pelvis Comments NAME: FLAKITO SABILLON [facility] REC#: [id number] PT STATUS: REG ER : 1935 PHYSICIAN: JANIYA LUCERO APPRENTICE FUNERAL DIRECTOR ADMIT DATE: 05/09/20/ER Signed Date of Exam:05/09/20 PELVIS/NAS HIPS 2 VIEWS HISTORY: Trauma. Fall. TECHNIQUE: Frontal view of the pelvis. Frontal and lateral views of the bilateral hips. COMPARISON: 05/21/2016. FINDINGS: There is diffuse osteopenia. There is deformity of the right pubis from old trauma. No acute fracture is seen. The femoral heads are well seated in the acetabula bilaterally. There is calcific atherosclerosis. There are degenerative changes in the bilateral sacroiliac joints. IMPRESSION: 1. No acute osseous abnormality is seen in the pelvis or bilateral hips. If there is persistent clinical concern for acute fracture, consider cross-sectional imaging. Dictated by: Dictated on workstation # [id number] Dict: 05/09/201728 Trans: 05/09/201857 [facility] [id number] Interpreted by: RAIN SOTO MD Electronically signed by: RAIN SOTO MD 05/09/201857 Departure Communication (Admissions) Time/Spoke to Consulting Phy: 20:[address] Chauhan neurosurgery at [facility] in [place], [place]. Discussed concern for widening of the facet joint on the left at C3- C4. Reviewed with her the patient's clinical history and exam findings of minimal neck tenderness with no neurological symptoms. States that this is unlikely an acute injury. However, as the patient is not a surgical candidate we can provide her with a c-collar and encourage her to use it. Impression Primary Impression: Fall on same level Additional Impression: Laceration Disposition: 01 HOME, SELF-CARE Condition: Improved Departure-Patient Inst. Decision time for Depature: 20:54 Patient Instructions: Laceration Repair With Stitches (DC), Preventing Falls Add. Discharge Instructions: Plan: 1. Discharge home. 2. May take Tylenol 650mg by mouth every 4-6 hours as needed for pain. 3. Return on May 14 for suture removal. Keep sutures clean and. dry. Monitor for any signs of infection such as redness, swelling, purulent drainage. 4. Use soft collar for neck pain. Follow up with primary care provider if symptoms persist. 5. Return to ER for any new concerning or worsening symptoms. All discharge instructions reviewed with patient and/or family. Voiced understanding. JANIYA LUCERO APPRENTICE FUNERAL DIRECTOR May 09, 2020 16:39
[2020-05-09 17:57] LABS: HEMOGLOBIN 10.2 g/dL (11.5-16.0); MEAN PLATELET VOLUME 10.1 fL (9.0-12.2); WHITE BLOOD COUNT 6.6 10^3/uL (4.3-11.0)
[2020-05-09 18:04] LABS: ALBUMIN 3.8 GM/DL (3.2-4.5); POTASSIUM 4.8 MMOL/L (3.6-5.0)
[2020-05-09 18:06] LABS: CALCIUM 8.1 MG/DL (8.5-10.1)
[2020-05-09 18:07] LABS: TOTAL PROTEIN 6.7 GM/DL (6.4-8.2)
[2020-05-09 18:09] LABS: BILIRUBIN,TOTAL 0.3 MG/DL (0.1-1.0)
[2020-05-09 18:10] LABS: CREATININE SERUM 2.81 MG/DL (0.60-1.30)
[2020-05-09 18:43] LABS: BILIRUBIN,URINE NEGATIVE (NEGATIVE); CLARITY,URINE CLEAR; COLOR,URINE YELLOW; GLUCOSE, URINE (UA) NEGATIVE (NEGATIVE); KETONES,URINE NEGATIVE (NEGATIVE); LEUKOCYTE ESTERASE ,URINE NEGATIVE (NEGATIVE); NITRITE,URINE NEGATIVE (NEGATIVE); PROTEIN,URINE TRACE (NEGATIVE)
[2020-05-09] MEDS ORDERED: LIDOCAINE 1% INJ 20 ML 20 ML VIAL ONE (18:44)
[2020-05-09] MEDS ORDERED: LIDOCAINE 1% INJ 20 ML 20 ML VIAL INJ ONE (18:45)
[2020-05-09 18:50] LABS: BACTERIA,URINE NEGATIVE /HPF; RBC,URINE 0-2 /HPF
[2020-05-09 18:51] LABS: AMORPHOUS SEDIMENT,UR FEW AMOR URATES /LPF
--- NOTE | 2020-05-09 20:23 | Diagnostic Imaging Report ---
HISTORY: Trauma. Fall. TECHNIQUE: Frontal view of the pelvis. Frontal and lateral views of the bilateral hips. COMPARISON: 05/21/2016. FINDINGS: There is diffuse osteopenia. There is deformity of the right pubis from old trauma. No acute fracture is seen. The femoral heads are well seated in the acetabula bilaterally. There is calcific atherosclerosis. There are degenerative changes in the bilateral sacroiliac joints. IMPRESSION: 1. No acute osseous abnormality is seen in the pelvis or bilateral hips. If there is persistent clinical concern for acute fracture, consider cross-sectional imaging. Dictated by: Dictated on workstation # [id number]
--- NOTE | 2020-05-09 20:23 | Diagnostic Imaging Report ---
PROCEDURE: CT head and CT cervical spine without contrast. TECHNIQUE: Multiple contiguous axial images were obtained through the brain and cervical spine without the use of intravenous contrast. Sagittal and coronal reformations through the cervical spine were then performed. Auto Exposure Controls were utilized during the CT exam to meet ALARA standards for radiation dose reduction. INDICATION: Fell, head and neck pain CT HEAD: Reportedly, the patient has fallen and has a laceration above the left eye. There is soft tissue edema over the left globe and orbit but there is no sign of an injury to the globe and there is no evidence for fracture of the orbit. The orbital contents on the left also seem undisturbed. The right orbit is within normal limits. There is no intracranial mass, shift of the midline or hemorrhage to indicate an acute abnormality. The ventricles are not abnormally dilated and stable in size when compared to the prior exam of 07/16/2019. The senescent changes noted on the previous study including cortical atrophy and periventricular encephalomalacia are again evident and no different. The sinuses are generally clear. IMPRESSION: 1. There is soft tissue edema over the left globe and left bony orbit but there is no sign of an acute fracture or of an injury to the globe. Clinical follow-up is recommended, however. 2. There is no acute intracranial abnormality noted either. 3. If clinical concern regarding an acute intracranial abnormality persists, then MRI would be recommended for further study. 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 This includes near complete obliteration of the disc space at C5-C6 with a grade 2 spondylolisthesis of C5 with respect to C6. There is also marked narrowing of the disc space at C6-C7 and C4-C5. The previous study failed to show any sign of an acute bony abnormality. However on this exam, the coronal images do show widening of the facet joint on the left at C3-C4 when compared to the prior study (page 9 of 33 series 604). This finding is not as pronounced on the axial series, but does persist on the sagittal sequences. This finding is worrisome for an acute bony injury. MRI would be recommended for further study. No other fracture is identified. There is no sign of retropharyngeal edema. The thyroid gland is generally unremarkable. The lung apices are clear. IMPRESSION: 1. There is widening of the facet joint on the left at C3-C4. This changed from the previous exam does suggest an acute bony/ligamentous injury.. MRI would be recommended for additional imaging. A neurosurgical or orthopedic consult would also be recommended. 2. These results were discussed with Dr. Janiya Busby in the Emergency Room at the time of dictation. CRITICAL FINDING Dictated by: Dictated on workstation # [id number]
--- NOTE | 2020-05-09 20:23 | Diagnostic Imaging Report ---
HISTORY: Trauma. Fall. TECHNIQUE: Frontal view of the chest. COMPARISON: 05/18/2019. FINDINGS: Lung volumes are mildly large. No focal consolidation is seen. There is no pleural effusion or pneumothorax. The cardiac silhouette is mildly large. Sternotomy wires and post-CABG changes are seen. There is diffuse osteopenia. There is a chronic right rotator cuff injury. There is a left shoulder arthroplasty. There are degenerative changes and left convex curvature in the spine. There are old left-sided rib fractures. IMPRESSION: 1. Chronic findings in the chest with no acute pulmonary abnormality seen. Dictated by: Dictated on workstation # [id number]
--- NOTE | 2020-05-09 20:23 | Diagnostic Imaging Report ---
Right shoulder at 720 hours. INDICATION: Fell, shoulder pain. 5 views were obtained. This study is less than optimal as the patient was difficult to position. FINDINGS: There is no fracture, dislocation or acute bony abnormality evident. There are severe degenerative changes involving the shoulder joints seen on the prior exam of 02/25/2018 are again visualized and do not appear to have progressed. The soft tissues are unremarkable. The previous study did note right-sided rib fracture deformities. Those findings are again evident and do not appear to have changed significantly. IMPRESSION: 1. 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 2. If clinical concern regarding an occult fracture persists, then CT would be recommended for further evaluation. Dictated by: Dictated on workstation # [id number]
[2020-05-09 21:30] VITALS: BP 148/83
== END 2020-05-09 21:30 | disposition home or self-care (01) ==
LOC: EDUNIT# 14:59 → ER 15:00
DX: S01.112A Laceration without foreign body of left eyelid and periocular area, initial encounter (principal); I25.2 Old myocardial infarction; I11.0 Hypertensive heart disease with heart failure; I50.9 Heart failure, unspecified; Z95.1 Presence of aortocoronary bypass graft; E78.00 Pure hypercholesterolemia, unspecified; F41.9 Anxiety disorder, unspecified; G89.29 Other chronic pain; M54.9 Dorsalgia, unspecified; I25.10 Atherosclerotic heart disease of native coronary artery without angina pectoris; J44.9 Chronic obstructive pulmonary disease, unspecified; F17.210 Nicotine dependence, cigarettes, uncomplicated; Z82.61 Family history of arthritis; Z83.3 Family history of diabetes mellitus; Z82.49 Family history of ischemic heart disease and other diseases of the circulatory system; Z95.5 Presence of coronary angioplasty implant and graft; Z88.2 Allergy status to sulfonamides; Z88.5 Allergy status to narcotic agent; Z88.6 Allergy status to analgesic agent; Z88.1 Allergy status to other antibiotic agents; Z88.8 Allergy status to other drugs, medicaments and biological substances; Z79.52 Long term (current) use of systemic steroids; Z79.891 Long term (current) use of opiate analgesic; Z79.82 Long term (current) use of aspirin; W18.39XA Other fall on same level, initial encounter; W22.8XXA Striking against or struck by other objects, initial encounter
CPT/HCPCS: 12011; 36415; 70450; 71045; 72125; 73030; 73521; 80053; 81000; 85027

== ENCOUNTER 2020-05-14 11:06 | Emergency (ER) | payer MEDICARE | END 2020-05-14 12:25 | disposition home or self-care (01) | LOC: EDUNIT# 11:06 → ER 11:07 | DX: T14.8XXD Other injury of unspecified body region, subsequent encounter (principal); X58.XXXD Exposure to other specified factors, subsequent encounter ==

== ENCOUNTER 2021-06-13 16:23 | Inpatient (IN) | payer MEDICARE ==
[~2021-06-13] VITALS: Ht 145 cm; Wt 48.3 kg
[~2021-06-13 16:23] MED LIST changes: +POTA-179 PO; -POTA20TA15 PO
--- NOTE | 2021-06-13 16:53 | ED General ---
General Chief Complaint: General Problems/Pain Stated Complaint: CONGESTION/LEGS SWELLING Source of Information: Patient Exam Limitations: No Limitations (MAIA CHISHOLM APRN) History of Present Illness Date Seen by Provider: Jun 13, 2021 Time Seen by Provider: 16:51 Initial Comments To ER with bilateral leg swelling and chest congestion. Sent here from [facility]. She lives at home alone. She is had both Covid vaccines and a booster. She has stage IV CKD and follows with nephrology out of [place]. She has CHF and COPD by history. Does not wear oxygen at home. The swelling in her legs has gotten severe enough to affect her ability to care for herself at home. Timing/Duration: 1-2 Days Severity: Moderate Associated Systoms: Cough (MAIA CHISHOLM APRN) Allergies and Home Medications Allergies Coded Allergies: Sulfa (Sulfonamide Antibiotics) (Unverified Allergy, Mild, hives, 05/18/19) acetaminophen (Unverified Allergy, Unknown, 03/16/16) codeine (Unverified Allergy, Unknown, Pt has had Lortab in the past w/o issue, 05/19/19) erythromycin base (Unverified Allergy, Unknown, 03/16/16) oxycodone (Verified Allergy, Unknown, Pt has had Lortab in the past w/o issue, 06/13/21) makes pt vomit propoxyphene (Unverified Allergy, Unknown, 03/16/16) Patient Home Medication List Home Medication List Reviewed: Yes (MAIA CHISHOLM APRN) Amlodipine Besylate (Amlodipine Besylate) 5 Mg Tablet, 5 MG PO HS, (Reported) Entered as Reported by: AMY ROMAN on 05/18/19 1402 Last Action: Held Aspirin (Ecotrin) 81 Mg Tablet.dr, 81 MG PO HS, (Reported) Entered as Reported by: ANDREAS BARTLETT on 12/13/161823 Last Action: Continued Atorvastatin Calcium (Atorvastatin Calcium) 10 Mg Tablet, 10 MG PO HS, (Reported) Entered as Reported by: RIKKI EL on 01/11/17 1035 Last Action: Continued Diazepam (Diazepam) 2 Mg Tablet, 2 MG PO HS, (Reported) Entered as Reported by: ANDREAS BARTLETT on 12/13/161823 Last Action: Held Doxazosin Mesylate (Doxazosin Mesylate) 4 Mg Tablet, 4 MG PO BID, (Reported) Entered as Reported by: AMY ROMAN on 05/18/19 140 Last Action: Continued Furosemide (Furosemide) 40 Mg Tablet, 40 MG PO BID, (Reported) Entered as Reported by: EVARISTO WALL on 06/14/21 1549 Last Action: Held Hydrocodone/Acetaminophen (Hydrocodone-Acetamin 7.5-325) 1 Each Tablet, 1 EA PO TID PRN for PAIN-MODERATE (5-7), (Reported) Entered as Reported by: EVARISTO WALL on 06/14/21 154 Last Action: Held Metoprolol Tartrate (Metoprolol Tartrate) 50 Mg Tablet, 50 MG PO BID, (Reported) Entered as Reported by: ANDREAS BARTLETT on 12/13/161823 Last Action: Continued Valsartan (Valsartan) 80 Mg Tablet, 80 MG PO HS, (Reported) Entered as Reported by: AMY ROMAN on 05/18/191401 Last Action: Held Discontinued Medications Furosemide (Furosemide) 20 Mg Tablet, 20 MG PO DAILY PRN for SWELLING, (Reported) Discontinued Reason: Duplicate Order Entered as Reported by: RIKKI EL on 01/11/17 1035 Last Action: Discontinued Furosemide (Furosemide) 20 Mg Tablet, 20 MG PO BID, (Reported) Discontinued Reason: Duplicate Order Entered as Reported by: AMY ROMAN on 05/18/19 141 Last Action: Discontinued Guaifenesin (Mucinex) 600 Mg Tab.er.12h, 600 MG PO BID Discontinued Reason: No Longer Taking Prescribed by: FER MENENDEZ on 05/20/19 0815 Last Action: Discontinued Hydrocodone Bit/Acetaminophen (HYDROcodone/APAP 7.5/325 TAB) 1 Each Tablet, 2 TAB PO Q6H PRN for PAIN-MODERATE (5-7), (Reported) Discontinued Reason: Duplicate Order Entered as Reported by: AMY ROMAN on 05/18/191407 Last Action: Discontinued Hydroxyzine HCl (Hydroxyzine HCl) 25 Mg Tablet, 25 MG PO Q12H PRN for RASH, (Reported) Discontinued Reason: No Longer Taking Entered as Reported by: ANDREAS BARTLETT on 12/13/161823 Last Action: Discontinued Potassium Chloride (Potassium Chloride) 20 Meq Tablet.er, 20 MEQ PO DAILY, (Reported) Discontinued Reason: No Longer Taking Entered as Reported by: AMY ROMAN on 05/18/19 1415 Last Action: Discontinued Prednisone (Prednisone) 20 Mg Tab, 40 MG PO DAILY@0700 Discontinued Reason: No Longer Taking Prescribed by: FER MENENDEZ on 05/20/19 0815 Last Action: Discontinued Review of Systems Review of Systems Constitutional: see HPI EENTM: see HPI Respiratory: no symptoms reported Cardiovascular: no symptoms reported Genitourinary: no symptoms reported Musculoskeletal: no symptoms reported Skin: no symptoms reported Psychiatric/Neurological: No Symptoms Reported Hematologic/Lymphatic: No Symptoms Reported (MAIA CHISHOLM APRN) Past Emggjys-Qhigct-Cmlmxs Hx Immunizations Up To Date Tetanus Booster (TDap): More than 5yrs (MAIA CHISHOLM APRN) Seasonal Allergies Seasonal Allergies: No (MAIA CHISHOLM APRN) Past Medical History Surgeries: Yes (HEMORRHOIDECTOMY) CABG, Coronary Stent, Eye Surgery, Gallbladder, Hysterectomy, Joint Replacement, Orthopedic, Rectal Respiratory: Yes Chronic Bronchitis, COPD Currently Using CPAP: No Currently Using BIPAP: No Cardiac: Yes (STENTS, CABG, heart failure) Coronary Artery Disease, Heart Attack, High Cholesterol, Hypertension Neurological: Yes (shingles) Stroke Reproductive Disorders: No Sexually Transmitted Disease: No HIV/AIDS: No Genitourinary: Yes Renal Failure Gastrointestinal: Yes Abdominal Hernia, Colitis, Chronic Constipation, Diverticulosis, Hemorrhoids, Ulcer, Gall Bladder Disease, Irritable Bowel Musculoskeletal: Yes (CHRONIC GENERALIZED PAIN) Arthritis, Rheumatoid Arthritis, Chronic Back Pain Endocrine: No Cataract Loss of Vision: Bilateral Cancer: No Psychosocial: Yes Anxiety, Depression Integumentary: Yes (frequent hives) Blood Disorders: No (MAIA CHISHOLM APRN) Family Medical History Cataract 03 MOTHER Chest pain 03 FATHER Congestive heart failure 03 MOTHER Family history: Arthritis 03 FATHER 03 MOTHER Family history: Coronary thrombosis 03 FATHER Family history: Diabetes mellitus 03 FATHER Family history: Hypertension 03 FATHER Heart disease 03 FATHER Myocardial infarction 03 FATHER No Family History of: Abdominal aortic aneurysm Conrado's disease Alcoholism Aphasia Cancer Cancer of colon Congenital heart disease Cystic fibrosis Dementia Dysphagia Family history: Allergy Family history: Alzheimer's disease Family history: Asthma Family history: Breast disease Family history: Cardiovascular disease Family history: Gastrointestinal disease Family history: Glaucoma Family history: Osteoporosis Family history: Thyroid disorder Headache Hearing loss Hereditary disease History of - anemia History of - disorder History of - respiratory disease History of drug abuse Human immunodeficiency virus (HIV) seropositivity Hypercholesterolemia Infertile Kidney disease Malignant neoplasm of lung Parkinson's disease Prostate cancer Psychotic disorder Seizure disorder Stroke Tuberculosis Visual impairment Physical Exam Vital Signs Vital Signs - First Documented 06/13/21 16:40 Temp 36.3 Pulse 66 Resp 16 B/P (MAP) 172/71 (104) Pulse Ox 87 O2 Delivery Nasal Cannula O2 Flow Rate 2.00 (VINOD HOLLIDAY MD) Vital Signs Capillary Refill : (MAIA CHISHOLM APRN) Height, Weight, BMI Height: 4'8.00" Weight: 98lbs. 8.0oz. 44.177525op; 21.00 BMI Method:Actual General Appearance: No Apparent Distress, WD/WN, Other (Oxygen 87% room air, increased to 93% with 2 Liters. ) Eyes: Bilateral Eye Normal Inspection, Bilateral Eye PERRL, Bilateral Eye EOMI Neck: JVD Respiratory: No Accessory Muscle Use, No Respiratory Distress, Crackles, Other (faint wheeze--history of COPD) Cardiovascular: Regular Rate, Rhythm, Normal Peripheral Pulses Gastrointestinal: Normal Bowel Sounds, Non Tender, Soft Extremity: Swelling, Other (Bilateral 3+ pitting edema with venous stasis dermatitis bilaterally. No open wounds) Neurologic/Psychiatric: Alert, Oriented x3 Skin: Normal Color, Warm/Dry (MAIA CHISHOLM APRN) Procedures/Interventions Suture Size: 5-0 (MAIA CHISHOLM APRN) Progress/Results/Core Measures Suspected Sepsis SIRS Temperature: Pulse: Respiratory Rate: Laboratory Tests 06/13/21 17:08: White Blood Count 5.8 Blood Pressure / Mean: Laboratory Tests 06/13/21 17:08: Creatinine 3.64H, INR Comment 1.0, Platelet Count 191, Total Bilirubin 0.5 (MAIA CHISHOLM APRN) Results/Orders Lab Results Laboratory Tests Test 06/13/21 17:08 06/13/21 18:27 Range/Units White Blood Count 5.8 4.3-11.0 10^3/uL Red Blood Count 3.40 L 3.80-5.11 10^6/uL Hemoglobin 10.4 L 11.5-16.0 g/dL Hematocrit 35 35-52 % Mean Corpuscular Volume 102 H 80-99 fL Mean Corpuscular Hemoglobin 31 25-34 pg Mean Corpuscular Hemoglobin Concent 30 L 32-36 g/dL Red Cell Distribution Width 13.7 10.0-14.5 % Platelet Count 191 130-400 10^3/uL Mean Platelet Volume 10.8 9.0-12.2 fL Immature Granulocyte % (Auto) 0 % Neutrophils (%) (Auto) 74 42-75 % Lymphocytes (%) (Auto) 18 12-44 % Monocytes (%) (Auto) 8 0-12 % Eosinophils (%) (Auto) 0 0-10 % Basophils (%) (Auto) 0 0-10 % Neutrophils # (Auto) 4.3 1.8-7.8 10^3/uL Lymphocytes # (Auto) 1.1 1.0-4.0 10^3/uL Monocytes # (Auto) 0.5 0.0-1.0 10^3/uL Eosinophils # (Auto) 0.0 0.0-0.3 10^3/uL Basophils # (Auto) 0.0 0.0-0.1 10^3/uL Immature Granulocyte # (Auto) 0.0 0.0-0.1 10^3/uL Prothrombin Time 13.9 12.2-14.7 SEC INR Comment 1.0 0.8-1.4 Activated Partial Thromboplast Time 27 24-35 SEC Sodium Level 144 135-145 MMOL/L Potassium Level 5.7 H 3.6-5.0 MMOL/L Chloride Level 109 H 98-107 MMOL/L Carbon Dioxide Level 23 21-32 MMOL/L Anion Gap 12 5-14 MMOL/L Blood Urea Nitrogen 79 H 7-18 MG/DL Creatinine 3.64 H 0.60-1.30 MG/DL Estimat Glomerular Filtration Rate 12 BUN/Creatinine Ratio 22 Glucose Level 103 70-105 MG/DL Calcium Level 8.7 8.5-10.1 MG/DL Corrected Calcium 8.9 8.5-10.1 MG/DL Magnesium Level 2.5 H 1.6-2.4 MG/DL Total Bilirubin 0.5 0.1-1.0 MG/DL Aspartate Amino Transf (AST/SGOT) 21 5-34 U/L Alanine Aminotransferase (ALT/SGPT) 8 0-55 U/L Alkaline Phosphatase 63 40-136 U/L Myoglobin 153.8 H 10.0-92.0 NG/ML Troponin I 0.049 H <0.028 NG/ML B-Type Natriuretic Peptide 1762.6 H <100.0 PG/ML Total Protein 6.8 6.4-8.2 GM/DL Albumin 3.8 3.2-4.5 GM/DL Influenza Type A (RT-PCR) Not Detected Not Detecte Influenza Type B (RT-PCR) Not Detected Not Detecte SARS-CoV-2 RNA (RT-PCR) Not Detected Not Detecte (VINOD HOLLIDAY MD) Vital Signs/I&O 06/13/21 06/13/21 16:40 16:40 Temp 36.3 Pulse 66 Resp 16 B/P (MAP) 172/71 (104) Pulse Ox 87 O2 Delivery Nasal Cannula Room Air O2 Flow Rate 2.00 (VINOD HOLLIDAY MD) Vital Signs/I&O Capillary Refill : (MAIA CHISHOLM APRN) Departure Communication (Admissions) Spoke Dr. Farrah Can, will admit Family Conversation 1819-I spoke with the patient and her daughter. Patient is somnolent but engages in conversation. I broached the subject of wishes if her kidney function should continue to worsen. I discussed with her that we do not have dialysis capabilities here, her potassium is already a little elevated and this can lead to arrhythmias causing . In the event that her heart should stop unexpectedly she would want to be a DO NOT RESUSCITATE status, her daughter is at the bedside and verifies this. I also discussed the subject of dialysis with her. They both state that she does not want dialysis should it become necessary even if foregoing dialysis meant likely . Daughter reports that patient has a family member who had dialysis and they said it was horrible. The family member stated that they would never want it again themself and Flak[facility] indicated that she would never want it either. Their wishes would be to get her legs less swollen so that she can function and go back ho-- best case scenario, but understanding that in worst case scenario kidney function may worsen and she may never leave the hospital. Daughter states that [facility] has been reluctant to longterm placement but it could be discussed with her if she was unable to take care of herself at home when she was ready for discharge. NAME: FLAKITO SABILLON [facility] REC#: [id number] PT STATUS: REG ER : 1935 PHYSICIAN: MAIA CHISHOLM APRN ADMIT DATE: 06/13/21/ER Draft Date of Exam:06/13/21 CHEST 1 VIEW, AP/PA ONLY INDICATION: Chest pain. TECHNIQUE: Frontal chest obtained at 05:12 p.m. and compared to 05/09/2020. FINDINGS: There is prominent cardiomegaly, patient is somewhat rotated. There is central vascular congestion with borderline interstitial edema. There is some atelectatic change or scarring in the right base. There is no significant pleural fluid. IMPRESSION: Limited study due to rotation. There is prominent cardiomegaly and central vascular congestion with borderline edema. There is some mild scarring or atelectasis in the right base. There is no significant-sized pleural effusion. Dictated on workstation # [id number] Dict: 06/13/21 1726 Trans: 06/13/21 1732 [id number] Interpreted by: MARIAA CHENG MD Electronically signed by: (MAIA CHISHOLM APRN) Impression Primary Impression: CHF exacerbation Additional Impression: CKD (chronic kidney disease) Disposition: ADMITTED INPATIENT Condition: Stable Admissions Decision to Admit Reason: Admit from ER (General) Decision to Admit/Date: Jun 13, 2021 Time/Decision to Admit Time: 18:22 (MAIA CHISHOLM APRN) Departure-Patient Inst. Referrals: ELAINA HENDERSON MD (PCP/Family) Primary Care Physician ATTENDING PHYSICIAN NOTE: I was physically present as attending physician in the emergency department during the care of this patient, but I was not directly involved in the decision making or delivery of care for this patient. (VINOD HOLLIDAY MD) MAIA CHISHOLM APRN Jun 13, 2021 16:52 VINOD HOLLIDAY MD Jun 15, 2021 09:02
[2021-06-13 17:14] LABS: BASOPHILS % (AUTO) 0 % (0-10); EOSINOPHILS % (AUTO) 0 % (0-10); HEMATOCRIT 35 % (35-52); HEMOGLOBIN 10.4 g/dL (11.5-16.0); LYMPHOCYTES # (AUTO) 1.1 10^3/uL (1.0-4.0); LYMPHOCYTES % (AUTO) 18 % (12-44); MEAN CORPUSCULAR HEMOGLOBIN 31 pg (25-34); MEAN CORPUSCULAR HGB CONC 30 g/dL (32-36); MEAN CORPUSCULAR VOLUME 102 fL (80-99); MEAN PLATELET VOLUME 10.8 fL (9.0-12.2); MONOCYTES # (AUTO) 0.5 10^3/uL (0.0-1.0); MONOCYTES % (AUTO) 8 % (0-12); NEUTROPHILS # (AUTO) 4.3 10^3/uL (1.8-7.8); NEUTROPHILS % (AUTO) 74 % (42-75); PLATELET COUNT 191 10^3/uL (130-400); WHITE BLOOD COUNT 5.8 10^3/uL (4.3-11.0)
[2021-06-13 17:22] LABS: ALBUMIN 3.8 GM/DL (3.2-4.5); POTASSIUM 5.7 MMOL/L (3.6-5.0)
[2021-06-13 17:24] LABS: CALCIUM 8.7 MG/DL (8.5-10.1)
[2021-06-13 17:25] LABS: TOTAL PROTEIN 6.8 GM/DL (6.4-8.2)
[2021-06-13 17:26] LABS: PROTHROMBIN TIME PATIENT 13.9 SEC (12.2-14.7)
[2021-06-13 17:27] LABS: BILIRUBIN,TOTAL 0.5 MG/DL (0.1-1.0)
[2021-06-13 17:29] LABS: CREATININE SERUM 3.64 MG/DL (0.60-1.30)
[2021-06-13 17:31] LABS: MAGNESIUM 2.5 MG/DL (1.6-2.4)
--- NOTE | 2021-06-13 17:33 | Diagnostic Imaging Report ---
INDICATION: Chest pain. TECHNIQUE: Frontal chest obtained at 05:12 p.m. and compared to 05/09/2020. FINDINGS: There is prominent cardiomegaly, patient is somewhat rotated. There is central vascular congestion with borderline interstitial edema. There is some atelectatic change or scarring in the right base. There is no significant pleural fluid. IMPRESSION: Limited study due to rotation. There is prominent cardiomegaly and central vascular congestion with borderline edema. There is some mild scarring or atelectasis in the right base. There is no significant-sized pleural effusion. Dictated by: Dictated on workstation # [id number]
[2021-06-13] MEDS ORDERED: FUROSEMIDE 40 MG/4 ML INJ (LASIX) IVP ONE ×2 (18:00→18:30)
[2021-06-13 19:02] LABS: BILIRUBIN,URINE NEGATIVE (NEGATIVE); CLARITY,URINE CLEAR; COLOR,URINE YELLOW; GLUCOSE, URINE (UA) NEGATIVE (NEGATIVE); KETONES,URINE NEGATIVE (NEGATIVE); LEUKOCYTE ESTERASE ,URINE NEGATIVE (NEGATIVE); NITRITE,URINE NEGATIVE (NEGATIVE); PROTEIN,URINE TRACE (NEGATIVE)
[2021-06-13 19:09] LABS: BACTERIA,URINE NEGATIVE /HPF
[2021-06-13 20:42] VITALS: BP 159/74
[2021-06-13] MEDS ORDERED: MELATONIN 3 MG TABLET PO PRN (21:00)
[2021-06-13] MEDS ORDERED: HYDROcodone/APAP 5 MG/325 MG (LORTAB) TAB PO PRN (21:00)
[2021-06-13] MEDS ORDERED: DIAZEPAM 2 MG (VALIUM) TAB PO PRN (21:00)
[2021-06-13] MEDS ORDERED: ACETAMINOPHEN 325 MG TABLET PO PRN (21:00)
[2021-06-13] MEDS ORDERED: BISACODYL 10 MG SUPP (DULCOLAX) PR PRN (21:00)
[2021-06-13] MEDS ORDERED: CALCIUM CARBONATE 500 MG (TUMS) TAB.CHEW PO PRN (21:00)
[2021-06-13] MEDS ORDERED: hydrALAZINE (APRESOLINE) 25 MG TAB PO PRN (21:00)
[2021-06-13] MEDS ORDERED: MILK OF MAGNESIA 400 MG/5 ML 30 ML UDC PO PRN (21:00)
[2021-06-13] MEDS ORDERED: ONDANSETRON 4 MG (ZOFRAN) ORAL DISSOLVE TAB PO PRN (21:00)
[2021-06-13] MEDS ORDERED: diphenhydrAMINE 25 MG TAB (BENADRYL) PO PRN (21:00)
[2021-06-13] MEDS ORDERED: polyethylene glycoL POWDER 17 GM (MIRALAX) PACK PO PRN (21:00)
[2021-06-13] MEDS ORDERED: ALPRAZolam 0.25 MG (XANAX) TAB PO PRN (21:00)
[2021-06-13] MEDS ORDERED: diphenhydrAMINE 50 MG/ML INJ (BENADRYL) IVP PRN (21:00)
[2021-06-13] MEDS ORDERED: SENNOSIDES 8.6 MG (SENOKOT) TAB PO SCH (21:00)
[2021-06-13] MEDS ORDERED: ANTACID SUSP 30 ML UDC (MYLANTA) PO PRN (21:00)
[2021-06-13] MEDS ORDERED: ONDANSETRON 4 MG/2 ML (SDV) Z0FRAN IV PRN (21:00)
[2021-06-13] MEDS ORDERED: LACTULOSE SYRUP 10GM/15ML (ENULOSE) 30ML UDC PO PRN ×2 (21:00)
[2021-06-13] MEDS ORDERED: HYDROmorphone 2 MG/ML VIAL (DILAUDID) IVP PRN (21:00)
[2021-06-13 21:10] VITALS: BP 159/74
[2021-06-13] MEDS ORDERED: RT-ALBUTEROL SULF 2.5 MG/3 ML PRE-MIX VIAL INH PRN (21:15)
[2021-06-13] MEDS: inSUlin ASPART (NovoLOG) 1 UNIT/0.01 ML (CHARGE PER UNIT) SC SCH (22:26)
[2021-06-13] MEDS: methylPREDNISolone 40 MG/ML (Solu-MEDROL) VIAL IV SCH (22:28)
[2021-06-13] MEDS: SENNA W/DOCUSATE (SENOKOT S) TABLET PO SCH (22:28)
[2021-06-13] MEDS: DOCUSATE SODIUM 100 MG (COLACE) CAP PO SCH (22:28)
[2021-06-13 23:50] VITALS: BP 157/72
[2021-06-14 04:20] VITALS: BP 134/62
[2021-06-14 05:59] LABS: BASOPHILS % (AUTO) 0 % (0-10); EOSINOPHILS % (AUTO) 0 % (0-10); HEMATOCRIT 32 % (35-52); LYMPHOCYTES # (AUTO) 0.4 10^3/uL (1.0-4.0); LYMPHOCYTES % (AUTO) 7 % (12-44); MEAN CORPUSCULAR HEMOGLOBIN 31 pg (25-34); MEAN CORPUSCULAR HGB CONC 31 g/dL (32-36); MEAN CORPUSCULAR VOLUME 101 fL (80-99); MEAN PLATELET VOLUME 11.1 fL (9.0-12.2); MONOCYTES % (AUTO) 1 % (0-12); NEUTROPHILS # (AUTO) 5.4 10^3/uL (1.8-7.8); NEUTROPHILS % (AUTO) 92 % (42-75); PLATELET COUNT 192 10^3/uL (130-400); WHITE BLOOD COUNT 5.9 10^3/uL (4.3-11.0)
[2021-06-14 06:15] LABS: POTASSIUM 5.8 MMOL/L (3.6-5.0)
[2021-06-14 06:16] LABS: ALBUMIN 3.5 GM/DL (3.2-4.5)
[2021-06-14 06:17] LABS: CALCIUM 8.4 MG/DL (8.5-10.1)
[2021-06-14 06:18] LABS: TOTAL PROTEIN 6.4 GM/DL (6.4-8.2)
[2021-06-14 06:20] LABS: BILIRUBIN,TOTAL 0.3 MG/DL (0.1-1.0)
[2021-06-14] MEDS: inSUlin ASPART (NovoLOG) 1 UNIT/0.01 ML (CHARGE PER UNIT) SC SCH ×4 (06:21→20:39)
[2021-06-14 06:22] LABS: CREATININE SERUM 3.71 MG/DL (0.60-1.30)
[2021-06-14 07:49] VITALS: BP 106/52
[2021-06-14] MEDS: amLODIPine 5 MG (NORVASC) TAB PO SCH (08:45)
[2021-06-14] MEDS: methylPREDNISolone 40 MG/ML (Solu-MEDROL) VIAL IV SCH ×2 (09:40→21:03)
[2021-06-14] MEDS: SENNA W/DOCUSATE (SENOKOT S) TABLET PO SCH ×2 (09:40→20:39)
[2021-06-14] MEDS: DOCUSATE SODIUM 100 MG (COLACE) CAP PO SCH ×2 (09:40→20:39)
[2021-06-14 11:44] VITALS: BP 137/57
--- NOTE | 2021-06-14 13:12 | Occupational Therapy Eval ---
OT Evaluation-General/PLF Medical Diagnosis Admission Date Jun 13, 2021 at 18:49 Medical Diagnosis: CHF exacerbation, CKD stage 4 Onset Date: Jun 13, 2021 Therapy Diagnosis Therapy Diagnosis: decreased ADL Status Height/Weight Height (Feet): 4 Height (Inches): 8.00 Weight (Pounds): 98 Weight (Ounces): 8.0 Precautions Precautions/Isolations: Fall Prevention, Standard Precautions Referral Physician: Juan José Referral Reason: Evaluation/Treatment Medical History Pertinent Medical History: CABG, CAD, COPD, Heart Failure, Renal Insufficiency, Rheumatoid Arthritis, Smoking Additional Medical History CHF, COPD, CABG, arthritis Current History ED due to BLE swelling and chest congestion. Social History Home: Single Level Current Living Status: Alone Entry Into Home: Stairs With Railing Steps Into Home: 4 Pt requires assistance getting in/out of house. ADL-Prior Level of Function SCALE: Activities may be completed with or without assistive devices. 1-Fweufqczlu-yfuaqvx completes the activity by him/herself with no assistance from a helper. 5-Set-up or Clean-up Assistance-helper sets up or cleans up; patient completes activity. Center Line assists only prior to or following the activity. 4-Supervision or Touching Assistance-helper provides verbal cues and/or t ouching/steadying and/or contact guard assistance as patient completes activity. Assistance may be provided throughout the activity or intermittently. 3-Partial/Moderate Assistance-helper does LESS THAN HALF the effort. Center Line lifts, holds or supports trunk or limbs, but provides less than half the effort. 2-Substantial/Maximal Assistance-helper does MORE THAN HALF the effort. Center Line lifts or holds trunk or limbs and provides more than half the effort. 2-Gxhlbfati-ugqrga does ALL the effort. Patient does none of the effort to complete the activity. Or, the assistance of 2 or more helpers is required for the patient to complete the activity. If activity was not attempted, code reason: 7-Patient Refused. 9-Not Applicable-not attempted and the patient did not perform the activity before the current illness, exacerbation or injury. 10-Not Attempted due to Environmental Limitations-(lack of equipment, weather restraints, etc.). 88-Not Attempted due to Medical Conditions or Safety Concerns. ADL PLOF Comments Pt reports IND with ADLs and functional mobility using a cane. She is able to bathe and dress herself and prepare simple meals. Self Care: Independent Functional Cognition: Independent DME/Equipment: Tub/Shower OT Current Status Subjective Pt laying in bed, agreeable to OT Tx. Pt feels very tired. Mental Status/Objective Patient Orientation: Person, Place, Situation Attachments: Alvarez Catheter, Oxygen Current Upper Extremity ROM Decreased bilaterally. AAROM BUE shoulder flexion to approx 100 degrees Upper Extremity Strength grossly 2/5 ADL-Treatment Eating (QC): 3 (assist bringing cup to her mouth.) Toileting Hygiene (QC): 1 (per clincial judgment.) Other Treatments Pt in bed, agreeable to OT Tx. Pt provided information about PLOF and home set up and participated in UE screen. Pt had difficulty keeping her eyes open during session. Pt required total assistance with washing her face, she was able to hold the washcloth in her R hand but unable to lift to her face. Max A with hair brushing, pt only able to reach a little bit on the front and L side of her head. Pt requests drink of water, OT brought cup to pt's lips, pt then able to close lips around straw and take a drink. Post tx, pt in bed, call light in reach and all needs met. Education OT Patient Education: Correct positioning, Energy conservation, Modified ADL techniques, Progress toward Goal/Update tx plan, Purpose of tx/functional activities, Rehab process Teaching Recipient: Patient Teaching Methods: Discussion Response to Teaching: Verbalize Understanding OT Residential Goals Process Control Operator Goals Time Frame: Jun 30, 2021 Eating (QC): 6 Oral Hygiene (QC): 6 Toileting Hygiene (QC): 4 Shower/Bathe Self (QC): 4 Upper Body Dressing (QC): 5 Lower Body Dressing (QC): 4 On/Off Footwear (QC): 4 Additional Goals: 1-Demonstrate ADL Tasks, 2-Verbalize Understanding, 3- ImproveStrength/Dai 1=Demonstrate adherence to instructed precautions during ADL tasks. 2=Patient will verbalize/demonstrate understanding of assistive devices/modifications for ADL. 3=Patient will improve strength/tolerance for activity to enable patient to perform ADL's. OT Education/Plan Problem List/Assessment Assessment: Decreased Activ Tolerance, Decreased UE Strength, Impaired Funct Balance, Impaired I ADL's, Impaired Self-Care Skills, Restricted Funct UE ROM Discharge Recommendations Plan/Recommendations: Continue POC Therapy Discharge Recommendati: Post Acute OT (SNF) Equpiment Recommendations-D/C: Extended Bath Bench Treatment Plan/Plan of Care Patient would benefit from OT for education, treatment and training to promote independence in ADL's, mobility, safety and/or upper extremity function for ADL's. Plan of Care: ADL Retraining, Functional Mobility, UE Funct Exercise/Act Treatment Duration: Jun 30, 2021 Frequency: 3 times per week (3-5 times per week) Estimated Hrs Per Day: .25 hour per day Agreement: Yes Rehab Potential: Guarded Time/GCodes Start Time: 12:50 Stop Time: 13:05 Total Time Billed (hr/min): 15 Billed Treatment Time 1, MARY PITTS OT Jun 14, 2021 13:12
--- NOTE | 2021-06-14 14:36 | Physical Therapy Evaluation ---
PT Evaluation-General Medical Diagnosis Admission Date Jun 13, 2021 at 18:49 Medical Diagnosis: CHF exacerbation, CKD stage 4 Onset Date: Jun 13, 2021 Therapy Diagnosis Therapy Diagnosis: Gait deficit, strength deficit Height/Weight Height (Feet): 4 Height (Inches): 8.00 Weight (Pounds): 98 Weight (Ounces): 8.0 Precautions Precautions/Isolations: Fall Prevention, Standard Precautions Referral Physician: Juan José Reason for Referral: Evaluation/Treatment Medical History Pertinent Medical History: CABG, CAD, COPD, Heart Failure, Renal Insufficiency, Rheumatoid Arthritis, Smoking Social History Home: Single Level Current Living Status: Alone Entry Into Home: Stairs With Railing PT Steps Into Home: 4 Prior Prior Level of Function SCALE: Activities may be completed with or without assistive devices. 2-Poorgqkred-gssblug completes the activity by him/herself with no assistance from a helper. 5-Set-up or Clean-up Assistance-helper sets up or cleans up; patient completes activity. [place] assists only prior to or following the activity. 4-Supervision or Touching Assistance-helper provides verbal cues and/or touching/steadying and/or contact guard assistance as patient completes activity. Assistance may be provided throughout the activity or intermittently. 3-Partial/Moderate Assistance-helper does LESS THAN HALF the effort. [place] lifts, holds or supports trunk or limbs, but provides less than half the effort. 2-Substantial/Maximal Assistance-helper does MORE THAN HALF the effort. [place] lifts or holds trunk or limbs and provides more than half the effort. 1-Eetcpjsbu-tjeuew does ALL the effort. Patient does none of the effort to complete the activity. Or, the assistance of 2 or more helpers is required for the patient to complete the activity. If activity was not attempted, code reason: 7-Patient Refused. 9-Not Applicable-not attempted and the patient did not perform the activity before the current illness, exacerbation or injury. 10-Not Attempted due to Environmental Limitations-(lack of equipment, weather restraints, etc.). 88-Not Attempted due to Medical Conditions or Safety Concerns. Bed Mobility: 6 Transfers (B,C,W/C): 6 Gait: 6 Stairs: 6 Indoor Mobility (Ambulation): Independent Stairs: Independent Prior Devices Use: None PT Evaluation-Current Subjective Patient lying supine in bed upon PT arrival, agreeable to treatment. Reports 0/10 pain currently but notes she is very thirsty. Objective Patient Orientation: Person Attachments: Oxygen, Alvarez Catheter, IV ROM/Strength ROM Lower Extremities WFLs all planes, however bilateral LE edema does appear to limit minimally from normal ROM Strength Lower Extremities Patient able to move BLEs through full ROM but unable to tolerate any resistance, 3/5 bilaterally. Sensory Vision: Functional Hearing: Impaired Sensation Right Lower Extremit: Intact Sensation Left Lower Extremity: Intact Transfers Roll Left to Right (QC): 1 Sit to Lying (QC): 1 Lying to Sitting/Side of Bed(Q: 1 Sit to Stand (QC): 1 Gait Does the Patient Walk?: No and Walking Goal IS indicated Mode of Locomotion: Walk Anticipated Mode of Locomotion: Walk Balance Sitting Static: Poor Sitting Dynamic: Poor Standing Static: Poor Standing Dynamic: Poor Assessment/Needs Patient very lethargic, however nurse reports she is more awake at the moment than she has been all day. Patient agreeable to treatment. Requires dependence for all bed mobility and transfers. Patient is able to sit at the edge of the bed x 5 minutes with total assistance. Attempted to focus patients core weight through UEs, however due to patients posture and core weakness, she has difficulty maintaining sitting balance. Total assistance for return to bed and situating in bed. Patient supine in bed post treatment with all needs met, nursing notified, call light in reach. Rehab Potential: Fair PT Concrete Handler Goals Care Home Goals PT Care Home Goals Time Frame: Jun 30, 2021 Roll Left & Right (QC): 4 Sit to Lying (QC): 4 Lying-Sitting on Side/Bed(QC): 4 Sit to Stand (QC): 4 Chair/Wjr-jc-Iekeh Xfer(QC): 4 Toilet Transfer (QC): 4 Does the Patient Walk: Yes Walk 10 feet (QC): 3 Walk 50ft with 2 Turns (QC): 3 Walk 150 ft (QC): 3 1 Step (curb) (QC): 3 4 Steps (QC): 3 PT Plan Problem List Problem List: Activity Tolerance, Functional Strength, Safety, Balance, Gait, Transfer, Bed Mobility, ROM Treatment/Plan Treatment Plan: Continue Plan of Care Treatment Plan: Bed Mobility, Education, Functional Activity Dai, Functional Strength, Group Therapy, Gait, Safety, Therapeutic Exercise, Transfers Treatment Duration: Jul 14, 2021 Frequency: 6 times per week Estimated Hrs Per Day: .25 hour per day Patient and/or Family Agrees t: Yes Safety Risks/Education Patient Education: Transfer Techniques, Safety Issues Teaching Recipient: Patient Teaching Methods: Demonstration, Discussion Response to Teaching: Reinforcement Needed Time/GCodes Time In: 1407 Time Out: 1432 Total Billed Treatment Time: 25 Total Billed Treatment Visit, FRANKY Diaz JOHN A PT Jun 14, 2021 14:36
[2021-06-14 15:25] VITALS: BP 133/61
--- NOTE | 2021-06-14 15:29 | History & Physical-Hospitalist ---
BERTHA FINN 06/14/21 1529: History of Present Illness HPI/Chief Complaint Patient is an 86 year old female who was admitted from the ER with fluid overl oad, chronic kidney disease, and CHF. In the ER, Patient wished to be DNR and no dialysis. She was started on IV lasix and admitted to the hospital for care. Patient has a history of HTN, T2DM, CK, and CHF. Patient is normally independent and lives alone, but when I went to visit she was very groggy and only oriented to person and place. She did state she urinated a lot and felt like her legs felt less swollen. Patient is nauseous and would like some nausea medication. Patient fell asleep in the middle of my exam and was unable to track the conversation well. When the daughter came to visit later she did say she is much more aware in the afternoons usually. Date Seen 06/14/21 Time Seen by a Provider: 09:10 Attending Physician Baylee Ruiz DO PCP Alvaro Martinez MD Referring Physician Date of Admission Jun 13, 2021 at 18:49 Home Medications & Allergies Home Medications Reviewed patient Home Medication Reconciliation performed by pharmacy medication reconciliations weatherization technician and/or nursing. Patients Allergies have been reviewed. Allergies Allergies Coded Allergies Sulfa (Sulfonamide Antibiotics) (Unverified Allergy, Mild, hives, 05/18/19) acetaminophen (Unverified Allergy, Unknown, 03/16/16) codeine (Unverified Allergy, Unknown, Pt has had Lortab in the past w/o issue, 05/19/19) erythromycin base (Unverified Allergy, Unknown, 03/16/16) oxycodone (Verified Allergy, Unknown, Pt has had Lortab in the past w/o issue, 06/13/21) makes pt vomit propoxyphene (Unverified Allergy, Unknown, 03/16/16) Past Fhcochu-Rlbjxm-Lxsfjp Hx Patient Social History Tobacco Use?: Yes Tobacco type used: Cigarettes Smoking Status: Current Everyday Smoker Substance use?: No Alcohol Use?: No Pt feels they are or have been: No Immunizations Up To Date First/Initial COVID19 Vaccinat: 03/07 Second COVID19 Vaccination Ethan: 03/07 Tetanus Booster (TDap): Unknown Hepatitis A: No Hepatitis B: No Seasonal Allergies Seasonal Allergies: No Current Status Advance Directives: Yes Advance Directive Location: Family to bring in copy Communicates: Verbally Primary Language: Sudanese Preferred Spoken Language: Sudanese Is interpretation needed?: No Sensory deficits: Vision impairment Implanted or Applied Medical D: None Past Medical History Surgeries: CABG, Coronary Stent, Eye Surgery, Gallbladder, Hysterectomy, Joint Replacement, Orthopedic, Rectal Chronic Bronchitis, COPD Currently Using CPAP: No Currently Using BIPAP: No Coronary Artery Disease, Heart Attack, High Cholesterol, Hypertension Stroke Sexually Transmitted Disease: No HIV/AIDS: No Renal Failure Abdominal Hernia, Colitis, Chronic Constipation, Diverticulosis, Hemorrhoids, Ulcer, Gall Bladder Disease, Irritable Bowel Arthritis, Rheumatoid Arthritis, Chronic Back Pain Cataract Loss of Vision: Bilateral Anxiety, Depression Blood Disorders: No Family Medical History Cataract 03 MOTHER Chest pain 03 FATHER Congestive heart failure 03 MOTHER Family history: Arthritis 03 FATHER 03 MOTHER Family history: Coronary thrombosis 03 FATHER Family history: Diabetes mellitus 03 FATHER Family history: Hypertension 03 FATHER Heart disease 03 FATHER Myocardial infarction 03 FATHER No Family History of: Abdominal aortic aneurysm Conrado's disease Alcoholism Aphasia Cancer Cancer of colon Congenital heart disease Cystic fibrosis Dementia Dysphagia Family history: Allergy Family history: Alzheimer's disease Family history: Asthma Family history: Breast disease Family history: Cardiovascular disease Family history: Gastrointestinal disease Family history: Glaucoma Family history: Osteoporosis Family history: Thyroid disorder Headache Hearing loss Hereditary disease History of - anemia History of - disorder History of - respiratory disease History of drug abuse Human immunodeficiency virus (HIV) seropositivity Hypercholesterolemia Infertile Kidney disease Malignant neoplasm of lung Parkinson's disease Prostate cancer Psychotic disorder Seizure disorder Stroke Tuberculosis Visual impairment Review of Systems Constitutional: see HPI Respiratory: No cough; short of breath Cardiovascular: No chest pain, No palpitations Physical Exam Physical Exam Vital Signs Vital Signs - First Documented 06/13/21 16:40 Temp 36.3 Pulse 66 Resp 16 B/P (MAP) 172/71 (104) Pulse Ox 87 O2 Delivery Nasal Cannula O2 Flow Rate 2.00 Capillary Refill : Less Than 3 Seconds Height, Weight, BMI Height: 4'8.00" Weight: 98lbs. 8.0oz. 44.894249fx; 22.97 BMI Method:Actual General Appearance: No Apparent Distress, WD/WN Respiratory: Chest Non Tender, Lungs Clear, Normal Breath Sounds, No Accessory Muscle Use, No Respiratory Distress Cardiovascular: Regular Rate, Rhythm, Normal Peripheral Pulses Rectal: Deferred Extremity: Non Tender, No Calf Tenderness, Pedal Edema Neurologic/Psychiatric: Disoriented, Other (Groggy) Results Results/Procedures Labs Laboratory Tests 06/13/21 17:08 06/14/21 05:29 Patient resulted labs reviewed. Assessment/Plan Admission Diagnosis CHF Exacerbation, CKD Admission Status: Inpatient Order (span 2 midnights) Reason for Inpatient Admission: CHF Exacerbation, CKD Assessment and Plan Assessment CHF Exacerbation Chronic Kidney Disease Hyperkalemia T2DM HTN Plan Diuretics SS to determine plan of action for care/code status Home medications SARAAMARILYSOmero JUAREZ 06/15/21 0614: History of Present Illness HPI/Chief Complaint CC: Exacerbation of CHF HPI: This is an 86yoWF who has a history of chronic kidney disease managed by nephrology in [place] who presented to the ER with SOb and cough. Pt was found to have exacerbation of CHF and COPD. She had a long conversation with the ER provider along with her daughter, who does not wish to be on dialysis and wanted a DNR but currently she is doing a lot better, shandra lethargic and drowsy in the morning, generally that is her general routine but her daughter is now second guessing the DNR and no dialysis. It does not appear that she has an immediate need for dialysis but that will have to be addressed by an advance directive evaluation. Source: patient Exam Limitations: clinical condition Past Syjtkus-Xkktoj-Cvjswk Hx Patient Social History Marrital Status: single Employed/Student: retired Smoking Status: Former Smoker Past Medical History Chronic Edema/Swelling, High Cholesterol, Hypertension Renal Failure Family Medical History Cataract 03 MOTHER Chest pain 03 FATHER Congestive heart failure 03 MOTHER Family history: Arthritis 03 FATHER 03 MOTHER Family history: Coronary thrombosis 03 FATHER Family history: Diabetes mellitus 03 FATHER Family history: Hypertension 03 FATHER Heart disease 03 FATHER Myocardial infarction 03 FATHER No Family History of: Abdominal aortic aneurysm Conrado's disease Alcoholism Aphasia Cancer Cancer of colon Congenital heart disease Cystic fibrosis Dementia Dysphagia Family history: Allergy Family history: Alzheimer's disease Family history: Asthma Family history: Breast disease Family history: Cardiovascular disease Family history: Gastrointestinal disease Family history: Glaucoma Family history: Osteoporosis Family history: Thyroid disorder Headache Hearing loss Hereditary disease History of - anemia History of - disorder History of - respiratory disease History of drug abuse Human immunodeficiency virus (HIV) seropositivity Hypercholesterolemia Infertile Kidney disease Malignant neoplasm of lung Parkinson's disease Prostate cancer Psychotic disorder Seizure disorder Stroke Tuberculosis Visual impairment Review of Systems ROS-Unable to Obtain: Drowsiness Constitutional: see HPI, malaise, weakness Physical Exam Physical Exam General Appearance: No Apparent Distress, Chronically ill, Other (Sleepy) Respiratory: Lungs Clear, Normal Breath Sounds Cardiovascular: Regular Rate, Rhythm Assessment/Plan Admission Diagnosis Assessment: Exacerbation CHF Volume overload Exacerbation COPD Chronic kidney disease Advanced age Severe debility Plan: Requests DNR Request did not dialyze Admission Status: Inpatient Order (span 2 midnights) Reason for Inpatient Admission: CHF Supervisory-Addendum Brief Verification & Attestation Participated in pt care: history, MDM, physical Personally performed: exam, history, MDM, supervision of care Care discussed with: Medical Student Procedures: n/a Results interpretation: Verified all documentation Verification and Attestation of Medical Student E/M Service A medical student performed and documented this service in my presence. I reviewed and verified all information documented by the medical student and made modifications to such information, when appropriate. I personally performed the physical exam and medical decision making. Baylee Ruiz Jun 15, 2021,06:12 BERTHA FINN Jun 14, 2021 15:29 BAYLEE RUIZ DO Jun 15, 2021 06:14
[2021-06-14] MEDS ORDERED: FURO40TA4 PO (15:49)
[2021-06-14] MEDS ORDERED: HYDR-3817 PO (15:49)
--- NOTE | 2021-06-14 16:31 | Consultation-Cardiology ---
HPI-Cardiology Cardiology Consultation: Date of Consultation 06/14/21 Date of Admission Attending Physician Baylee Can DO Admitting Physician Elaina Martinez MD Consulting Physician ELAINA RUIZ JR, MD HPI: Time Seen by a Provider: 16:29 Chief Complaint: The patient's daughter has been speaking with the nurse and case picker about considering hospice. I was consulted for heart failure in a patient with severe renal dysfunction who is of advanced age and does not want dialysis. In light of these findings, I will hold off on performing a consultation. If there are any changes overnight, please feel free to contact me again. See above. FIA-Ijvfpc-Xokiab Hx Patient Social History Smoking Status: Current Everyday Smoker 2nd Hand Smoke Exposure: Yes Have you traveled recently?: No Alcohol Use?: No Pt feels they are or have been: No Tobacco type used: Cigarettes Immunizations Up To Date Tetanus Booster (TDap): More than 5yrs Past Medical History PMH As described under Assessment. Family Medical History Family Medical History: Unable to obtain from pt d/t lethargy. Chart review shows father had CAD, HTN and ME. Mother had CHF. Family History: Cataract 03 MOTHER Chest pain 03 FATHER Congestive heart failure 03 MOTHER Family history: Arthritis 03 FATHER 03 MOTHER Family history: Coronary thrombosis 03 FATHER Family history: Diabetes mellitus 03 FATHER Family history: Hypertension 03 FATHER Heart disease 03 FATHER Myocardial infarction 03 FATHER No Family History of: Abdominal aortic aneurysm Conrado's disease Alcoholism Aphasia Cancer Cancer of colon Congenital heart disease Cystic fibrosis Dementia Dysphagia Family history: Allergy Family history: Alzheimer's disease Family history: Asthma Family history: Breast disease Family history: Cardiovascular disease Family history: Gastrointestinal disease Family history: Glaucoma Family history: Osteoporosis Family history: Thyroid disorder Headache Hearing loss Hereditary disease History of - anemia History of - disorder History of - respiratory disease History of drug abuse Human immunodeficiency virus (HIV) seropositivity Hypercholesterolemia Infertile Kidney disease Malignant neoplasm of lung Parkinson's disease Prostate cancer Psychotic disorder Seizure disorder Stroke Tuberculosis Visual impairment Allergies and Home Medications Allergies Coded Allergies: Sulfa (Sulfonamide Antibiotics) (Unverified Allergy, Mild, hives, 05/18/19) acetaminophen (Unverified Allergy, Unknown, 03/16/16) codeine (Unverified Allergy, Unknown, Pt has had Lortab in the past w/o issue, 05/19/19) erythromycin base (Unverified Allergy, Unknown, 03/16/16) oxycodone (Verified Allergy, Unknown, Pt has had Lortab in the past w/o issue, 06/13/21) makes pt vomit propoxyphene (Unverified Allergy, Unknown, 03/16/16) Patient Home Medication List Home Medication List Reviewed: Yes Amlodipine Besylate (Amlodipine Besylate) 5 Mg Tablet, 5 MG PO HS, (Reported) Entered as Reported by: AMY ROMAN on 05/18/191401 Last Action: Reviewed Aspirin (Ecotrin) 81 Mg Tablet.dr, 81 MG PO HS, (Reported) Entered as Reported by: ANDREAS BARTLETT on 12/13/161823 Last Action: Reviewed Atorvastatin Calcium (Atorvastatin Calcium) 10 Mg Tablet, 10 MG PO HS, (Reported) Entered as Reported by: RIKKI EL on 01/11/17 103 Last Action: Reviewed Diazepam (Diazepam) 2 Mg Tablet, 2 MG PO HS, (Reported) Entered as Reported by: ANDREAS BARTLETT on 12/13/161823 Last Action: Reviewed Doxazosin Mesylate (Doxazosin Mesylate) 4 Mg Tablet, 4 MG PO BID, (Reported) Entered as Reported by: AMY ROMAN on 05/18/191401 Last Action: Reviewed Furosemide (Furosemide) 40 Mg Tablet, 40 MG PO BID, (Reported) Entered as Reported by: EVARISTO WALL on 06/14/211548 Last Action: Reviewed Hydrocodone/Acetaminophen (Hydrocodone-Acetamin 7.5-325) 1 Each Tablet, 1 EA PO TID PRN for PAIN-MODERATE (5-7), (Reported) Entered as Reported by: EVARISTO WALL on 06/14/211548 Last Action: Reviewed Metoprolol Tartrate (Metoprolol Tartrate) 50 Mg Tablet, 50 MG PO BID, (Reported) Entered as Reported by: ANDREAS BARTLETT on 12/13/161823 Last Action: Reviewed Valsartan (Valsartan) 80 Mg Tablet, 80 MG PO HS, (Reported) Entered as Reported by: AMY ROMAN on 05/18/191401 Last Action: Reviewed Discontinued Medications Furosemide (Furosemide) 20 Mg Tablet, 20 MG PO DAILY PRN for SWELLING, (Reported) Discontinued Reason: Duplicate Order Entered as Reported by: RIKKI EL on 01/11/17 1035 Last Action: Discontinued Furosemide (Furosemide) 20 Mg Tablet, 20 MG PO BID, (Reported) Discontinued Reason: Duplicate Order Entered as Reported by: AMY ROMAN on 05/18/19 1419 Last Action: Discontinued Guaifenesin (Mucinex) 600 Mg Tab.er.12h, 600 MG PO BID Discontinued Reason: No Longer Taking Prescribed by: FER MENENDEZ on 05/20/1915 Last Action: Discontinued Hydrocodone Bit/Acetaminophen (HYDROcodone/APAP 7.5/325 TAB) 1 Each Tablet, 2 TAB PO Q6H PRN for PAIN-MODERATE (5-7), (Reported) Discontinued Reason: Duplicate Order Entered as Reported by: AMY ROMAN on 05/18/19 1408 Last Action: Discontinued Hydroxyzine HCl (Hydroxyzine HCl) 25 Mg Tablet, 25 MG PO Q12H PRN for RASH, (Reported) Discontinued Reason: No Longer Taking Entered as Reported by: ANDREAS BARTLETT on 12/13/16 1824 Last Action: Discontinued Potassium Chloride (Potassium Chloride) 20 Meq Tablet.er, 20 MEQ PO DAILY, (Reported) Discontinued Reason: No Longer Taking Entered as Reported by: AMY ROMAN on 05/18/19 1415 Last Action: Discontinued Prednisone (Prednisone) 20 Mg Tab, 40 MG PO DAILY@0700 Discontinued Reason: No Longer Taking Prescribed by: FER MENENDEZ on 05/20/19814 Last Action: Discontinued Exam Vital Signs Vital Signs Date Time Temp Pulse Resp B/P (MAP) Pulse Ox O2 Delivery O2 Flow Rate FiO2 06/14/21 15:25 37.2 73 18 133/61 (85) 90 Nasal Cannula 1.50 Labs Laboratory Tests Test 06/13/21 17:08 06/13/21 18:27 06/13/21 18:56 06/13/21 21:42 Range/Units White Blood Count 5.8 4.3-11.0 10^3/uL Red Blood Count 3.40 L 3.80-5.11 10^6/uL Hemoglobin 10.4 L 11.5-16.0 g/dL Hematocrit 35 35-52 % Mean Corpuscular Volume 102 H 80-99 fL Mean Corpuscular Hemoglobin 31 25-34 pg Mean Corpuscular Hemoglobin Concent 30 L 32-36 g/dL Red Cell Distribution Width 13.7 10.0-14.5 % Platelet Count 191 130-400 10^3/uL Mean Platelet Volume 10.8 9.0-12.2 fL Immature Granulocyte % (Auto) 0 % Neutrophils (%) (Auto) 74 42-75 % Lymphocytes (%) (Auto) 18 12-44 % Monocytes (%) (Auto) 8 0-12 % Eosinophils (%) (Auto) 0 0-10 % Basophils (%) (Auto) 0 0-10 % Neutrophils # (Auto) 4.3 1.8-7.8 10^3/uL Lymphocytes # (Auto) 1.1 1.0-4.0 10^3/uL Monocytes # (Auto) 0.5 0.0-1.0 10^3/uL Eosinophils # (Auto) 0.0 0.0-0.3 10^3/uL Basophils # (Auto) 0.0 0.0-0.1 10^3/uL Immature Granulocyte # (Auto) 0.0 0.0-0.1 10^3/uL Prothrombin Time 13.9 12.2-14.7 SEC INR Comment 1.0 0.8-1.4 Activated Partial Thromboplast Time 27 24-35 SEC Sodium Level 144 135-145 MMOL/L Potassium Level 5.7 H 3.6-5.0 MMOL/L Chloride Level 109 H 98-107 MMOL/L Carbon Dioxide Level 23 21-32 MMOL/L Anion Gap 12 5-14 MMOL/L Blood Urea Nitrogen 79 H 7-18 MG/DL Creatinine 3.64 H 0.60-1.30 MG/DL Estimat Glomerular Filtration Rate 12 BUN/Creatinine Ratio 22 Glucose Level 103 70-105 MG/DL Calcium Level 8.7 8.5-10.1 MG/DL Corrected Calcium 8.9 8.5-10.1 MG/DL Magnesium Level 2.5 H 1.6-2.4 MG/DL Total Bilirubin 0.5 0.1-1.0 MG/DL Aspartate Amino Transf (AST/SGOT) 21 5-34 U/L Alanine Aminotransferase (ALT/SGPT) 8 0-55 U/L Alkaline Phosphatase 63 40-136 U/L Myoglobin 153.8 H 10.0-92.0 NG/ML Troponin I 0.049 H <0.028 NG/ML B-Type Natriuretic Peptide 1762.6 H <100.0 PG/ML Total Protein 6.8 6.4-8.2 GM/DL Albumin 3.8 3.2-4.5 GM/DL Influenza Type A (RT-PCR) Not Detected Not Detecte Influenza Type B (RT-PCR) Not Detected Not Detecte SARS-CoV-2 RNA (RT-PCR) Not Detected Not Detecte Urine Color YELLOW Urine Clarity CLEAR Urine pH 6.0 5-9 Urine Specific [place] 1.015 L 1.016-1.022 Urine Protein TRACE H NEGATIVE Urine Glucose (UA) NEGATIVE NEGATIVE Urine Ketones NEGATIVE NEGATIVE Urine Nitrite NEGATIVE NEGATIVE Urine Bilirubin NEGATIVE NEGATIVE Urine Urobilinogen 0.2 < = 1.0 MG/DL Urine Leukocyte Esterase NEGATIVE NEGATIVE Urine RBC (Auto) 2+ H NEGATIVE Urine RBC NONE /HPF Urine WBC NONE /HPF Urine Squamous Epithelial Cells 2-5 /HPF Urine Renal Epithelial Cells NONE /HPF Urine Crystals NONE /LPF Urine Bacteria NEGATIVE /HPF Urine Casts NONE /LPF Urine Mucus NEGATIVE /LPF Urine Culture Indicated NO Glucometer 111 H 70-110 MG/DL Test 06/14/21 05:29 06/14/21 05:56 06/14/21 10:21 06/14/21 15:15 Range/Units White Blood Count 5.9 4.3-11.0 10^3/uL Red Blood Count 3.20 L 3.80-5.11 10^6/uL Hemoglobin 10.0 L 11.5-16.0 g/dL Hematocrit 32 L 35-52 % Mean Corpuscular Volume 101 H 80-99 fL Mean Corpuscular Hemoglobin 31 25-34 pg Mean Corpuscular Hemoglobin Concent 31 L 32-36 g/dL Red Cell Distribution Width 13.4 10.0-14.5 % Platelet Count 192 130-400 10^3/uL Mean Platelet Volume 11.1 9.0-12.2 fL Immature Granulocyte % (Auto) 1 % Neutrophils (%) (Auto) 92 H 42-75 % Lymphocytes (%) (Auto) 7 L 12-44 % Monocytes (%) (Auto) 1 0-12 % Eosinophils (%) (Auto) 0 0-10 % Basophils (%) (Auto) 0 0-10 % Neutrophils # (Auto) 5.4 1.8-7.8 10^3/uL Lymphocytes # (Auto) 0.4 L 1.0-4.0 10^3/uL Monocytes # (Auto) 0.0 0.0-1.0 10^3/uL Eosinophils # (Auto) 0.0 0.0-0.3 10^3/uL Basophils # (Auto) 0.0 0.0-0.1 10^3/uL Immature Granulocyte # (Auto) 0.0 0.0-0.1 10^3/uL Sodium Level 142 135-145 MMOL/L Potassium Level 5.8 H 3.6-5.0 MMOL/L Chloride Level 109 H 98-107 MMOL/L Carbon Dioxide Level 22 21-32 MMOL/L Anion Gap 11 5-14 MMOL/L Blood Urea Nitrogen 79 H 7-18 MG/DL Creatinine 3.71 H 0.60-1.30 MG/DL Estimat Glomerular Filtration Rate 12 BUN/Creatinine Ratio 21 Glucose Level 145 H 70-105 MG/DL Calcium Level 8.4 L 8.5-10.1 MG/DL Corrected Calcium 8.8 8.5-10.1 MG/DL Total Bilirubin 0.3 0.1-1.0 MG/DL Aspartate Amino Transf (AST/SGOT) 17 5-34 U/L Alanine Aminotransferase (ALT/SGPT) 7 0-55 U/L Alkaline Phosphatase 57 40-136 U/L Total Protein 6.4 6.4-8.2 GM/DL Albumin 3.5 3.2-4.5 GM/DL Triglycerides Level 49 <150 MG/DL Cholesterol Level 137 < 200 MG/DL LDL Cholesterol Direct 73 1-129 MG/DL VLDL Cholesterol 10 5-40 MG/DL HDL Cholesterol 52 40-60 MG/DL Glucometer 128 H 123 H 116 H 70-110 MG/DL ELAINA RUIZ JR, MD Jun 14, 2021 16:31
[2021-06-14 20:20] VITALS: BP 142/63
[2021-06-14] MEDS ORDERED: AtorvaSTATin TABLET 10 MG TABLET PO SCH (21:00)
[2021-06-14] MEDS ORDERED: ASPIRIN E.C. 81 MG (ECOTRIN) TAB PO SCH (21:00)
[2021-06-14] MEDS: doxAzosin 4 MG (CARDURA) TAB PO SCH (22:23)
[2021-06-14] MEDS: meTOprolol TARTRATE 50 MG (LOPRESSOR) TAB PO SCH (22:23)
[2021-06-15] VITALS: BP 104/51
[2021-06-15 04:43] VITALS: BP 113/56
[2021-06-15 06:18] LABS: BASOPHILS % (AUTO) 0 % (0-10); EOSINOPHILS % (AUTO) 0 % (0-10); HEMATOCRIT 35 % (35-52); HEMOGLOBIN 10.2 g/dL (11.5-16.0); LYMPHOCYTES # (AUTO) 0.8 10^3/uL (1.0-4.0); LYMPHOCYTES % (AUTO) 12 % (12-44); MEAN CORPUSCULAR HEMOGLOBIN 31 pg (25-34); MEAN CORPUSCULAR HGB CONC 30 g/dL (32-36); MEAN CORPUSCULAR VOLUME 104 fL (80-99); MEAN PLATELET VOLUME 10.6 fL (9.0-12.2); MONOCYTES # (AUTO) 0.2 10^3/uL (0.0-1.0); MONOCYTES % (AUTO) 4 % (0-12); NEUTROPHILS # (AUTO) 5.4 10^3/uL (1.8-7.8); NEUTROPHILS % (AUTO) 83 % (42-75); PLATELET COUNT 174 10^3/uL (130-400); WHITE BLOOD COUNT 6.5 10^3/uL (4.3-11.0)
[2021-06-15 06:42] LABS: ALBUMIN 3.4 GM/DL (3.2-4.5); POTASSIUM 6.3 MMOL/L (3.6-5.0)
[2021-06-15 06:43] LABS: CALCIUM 8.2 MG/DL (8.5-10.1)
[2021-06-15 06:44] LABS: TOTAL PROTEIN 6.3 GM/DL (6.4-8.2)
[2021-06-15 06:46] LABS: BILIRUBIN,TOTAL 0.3 MG/DL (0.1-1.0)
[2021-06-15] MEDS: inSUlin ASPART (NovoLOG) 1 UNIT/0.01 ML (CHARGE PER UNIT) SC SCH ×2 (06:46→11:46)
[2021-06-15 06:48] LABS: CREATININE SERUM 4.06 MG/DL (0.60-1.30)
[2021-06-15 08:00] VITALS: BP 110/53
--- NOTE | 2021-06-15 09:51 | Physical Therapy Progress Note ---
Therapy Progress Note Patient unresponsive upon PT attempt to assess and treat patient. RN confirms. Will attempt later today or tomorrow. VALDEZ POWERS PT Jun 15, 2021 09:51
[2021-06-15] MEDS: methylPREDNISolone 40 MG/ML (Solu-MEDROL) VIAL IV SCH (09:52)
[2021-06-15] MEDS: meTOprolol TARTRATE 50 MG (LOPRESSOR) TAB PO SCH (09:52)
[2021-06-15] MEDS: amLODIPine 5 MG (NORVASC) TAB PO SCH (09:53)
[2021-06-15] MEDS: DOCUSATE SODIUM 100 MG (COLACE) CAP PO SCH (09:56)
[2021-06-15] MEDS: SENNA W/DOCUSATE (SENOKOT S) TABLET PO SCH (09:56)
[2021-06-15] MEDS: doxAzosin 4 MG (CARDURA) TAB PO SCH (10:08)
--- NOTE | 2021-06-15 10:46 | Physical Therapy Progress Note ---
Therapy Progress Note PT consult with physician. PT to dismiss patient from services at this time due to decline in status. VALDEZ POWERS PT Jun 15, 2021 10:45
--- NOTE | 2021-06-15 11:20 | Occ Therapy Progress Note ---
Therapy Progress Note Pt lying in bed sleeping. Pt did acknowledge questions though did not open eyes. Pt declined any movement or completing ADLs. While VIVAS reporting to nrsg, nrsg stated that family is considering placing pt on hospice. 1-refusal ANTONIO HOWARD Jun 15, 2021 11:20
[2021-06-15 12:00] VITALS: BP 122/58
[2021-06-15] MEDS ORDERED: BISACODYL 10 MG SUPP (DULCOLAX) PR PRN (12:00)
[2021-06-15] MEDS ORDERED: ONDANSETRON 4 MG/2 ML (SDV) Z0FRAN IVP PRN (12:00)
[2021-06-15] MEDS ORDERED: RT-ALBUTEROL/IPRATROPIUM 3 ML (DUONEB) VIAL INH PRN (12:00)
[2021-06-15] MEDS ORDERED: PROMETHAZINE INJ 25 MG/ML (PHENERGAN) AMP IVP PRN (12:00)
[2021-06-15] MEDS ORDERED: LORazepam INJ 2 MG/ML (ATIVAN) VIAL IVP PRN (12:00)
[2021-06-15] MEDS ORDERED: SALIVA STIMULANT MOUTH SPRAY (BIOTENE) 1.5 OZ MM PRN (12:00)
[2021-06-15] MEDS ORDERED: GLYCOPYRROLATE 0.2 MG/ML (ROBINUL) 2 ML VIAL IV PRN (12:00)
[2021-06-15] MEDS ORDERED: ACETAMINOPHEN 650 MG SUPP (TYLENOL) PR PRN (12:00)
[2021-06-15] MEDS ORDERED: morphine INJ 4 MG/ML 1 ML (VIAL/SYRINGE) IV PRN (12:00)
[2021-06-15] MEDS ORDERED: ARTIFICAL TEARS 0.4 ML UNIT DOSE (REFRESH PLUS) OU PRN (12:00)
--- NOTE | 2021-06-15 14:40 | Physician Query Clarification ---
Physician Query-General Query to Physician: The medical record reflects the following clinical scenario: The patient, in the setting of History/Risk factors, HTN, CKD Clinical Findings Admission Labs: BNP 1762, Cr 3.64, Recent echo report showing "estimated EF is 50 to 55% Doppler parameters are consistent with abnormal left ventricular relaxation , grade 1 diastolic dysfunction" 1+pitting edema, Treatment Lasix IV, Multiple doses, Cardiology consult, I and 0, Question: Can you further specify CHF exacerbation, CKD per the clinical indicators above? Please document your response in the Progress Notes or Discharge Summary. 1. Acute Diastolic Heart Failure, in the setting of HTN and CKD, present on admission 2. Other, with explanation of clinical findings 3. Clinically undetermined, no explanation for clinical findings Please clarify and document your clinical opinion in the Progress Notes and Discharge Summary including the definitive and/or presumptive diagnosis, (suspected or probable), related to the above clinical findings. Please include clinical findings supporting your diagnosis. In responding to this query, please exercise your independent professional judgment. The purpose of this communication is to more accurately reflect the complexity of your patients condition. The fact that a question is asked does not imply that any particular answer is desired or expected. Please remember a lack of response to the above will prompt a phone page by CDI/coding staff. Thank you for timely response to this clarification. Janki Miller MSN, RN Clinical Metallurgical Or Materials Technician [phone] [email or web address] PHYSICIAN RESPONSE: Based on the clinical findings in the record, please respond to the query above on this document as an addendum. Physician Response: Physician Response 1 If you have questions please contact: Synthetic Chemist: Ext: Thank you for your time and cooperation. Clinical Metallurgical Or Materials Technician/Synthetic Chemist This is a permanent part of the medical record JANKI MILLER Jun 15, 2021 14:40 CASTILLO RUIZ DO Jun 15, 2021 20:04
--- NOTE | 2021-06-15 14:51 | Physician Query Clarification ---
Physician Query-General Query to Physician: The medical record reflects the following clinical evidence: Clinical Indicators: Admission Sp02 87% on RA, (P/F=256), Sp02 91% on 2L (P/F=221), RR 16, (18-28 after admission), Nursing documentation of SOA with exertion and at rest Risk Factor(s): CHF, COPD, Smoker, No documentation of home 02, Treatment: Supplemental 02, Albuterol, IV Lasix, IV Solumedrol, 1. Acute respiratory failure with hypoxia, present on admission 2. Other explanation of clinical findings 3. Unable to determine (no explanation for clinical findings) Please clarify and document your clinical opinion in the progress notes and discharge summary including the definitive and/or presumptive diagnosis, (susp ected or probable), related to the above clinical findings. Please include clinical findings supporting your diagnosis. Janki Miller MSN, RN Clinical Lav Crewman [phone] [email or web address] PHYSICIAN RESPONSE: Based on the clinical findings in the record, please respond to the query above on this document as an addendum. Physician Response: Physician Response 1 If you have questions please contact: Filter Washer: Ext: Thank you for your time and cooperation. Clinical Lav Crewman/Filter Washer This is a permanent part of the medical record JANKI MILLER Jun 15, 2021 14:51 CASTILLO RUIZ DO Jun 15, 2021 20:04
--- NOTE | 2021-06-15 15:01 | Progress Note - Hospitalist ---
BERTHA FINN 06/15/21 1501: Subjective HPI/CC On Admission Date Seen by Provider: Jun 15, 2021 Time Seen by Provider: 09:30 CC: Exacerbation of CHF HPI: This is an 86yoWF who has a history of chronic kidney disease managed by nephrology in [place] who presented to the ER with SOb and cough. Pt was found t o have exacerbation of CHF and COPD. She had a long conversation with the ER provider along with her daughter, who does not wish to be on dialysis and wanted a DNR but currently she is doing a lot better, shandra lethargic and drowsy in the morning, generally that is her general routine but her daughter is now second guessing the DNR and no dialysis. It does not appear that she has an immediate need for dialysis but that will have to be addressed by an advance directive evaluation. Subjective/Events-last exam Patient was sleeping when I went in to the room. When I attempted to wake her and talk to her she fell back asleep while talking. Palliative care saw patient and daughter yesterday. Daughter did not understand severity of her mothers condition. Wanted to speak with sister before making any decisions. They did end up signing a DNR and wanting to proceed with comfort care. Patient will most likely be discharged on saturday. Objective Exam Vital Signs Vital Signs Date Time Temp Pulse Resp B/P (MAP) Pulse Ox O2 Delivery O2 Flow Rate FiO2 06/15/21 12:00 37.0 73 28 122/58 (79) 90 Nasal Cannula 1.50 Capillary Refill : Less Than 3 Seconds General Appearance: Chronically ill Respiratory: Chest Non Tender, Lungs Clear, Normal Breath Sounds, No Accessory Muscle Use, No Respiratory Distress Cardiovascular: Regular Rate, Rhythm, Normal Peripheral Pulses Rectal: Deferred Extremity: Pedal Edema Neurologic/Psychiatric: Other (Groggy; unable to arouse) Results/Procedures Lab Laboratory Tests 06/15/21 05:30 06/15/21 06:00 Patient resulted labs reviewed. Assessment/Plan Assessment and Plan Assess & Plan/Chief Complaint Assessment: Exacerbation CHF Volume overload Exacerbation COPD Chronic kidney disease Advanced age Severe debility Plan: Requests DNR Request did not dialyze 06/15/2021: Daughter (DPOA) signed DNR Comfort care Morphine and ativan Potential discharge saturday BAYLEE RUIZ DO 06/16/21 0554: Subjective Subjective/Events-last exam Pt has chosen to go comfort care I did put all the orders in and cancel all the active meds Creatinine is 4 and elevated potassium noted DNR and palliative care nurse and I did confer She appears to be even more groggy Objective Exam General Appearance: Chronically ill Assessment/Plan Assessment and Plan Assess & Plan/Chief Complaint Comfort care Supervisory-Addendum Brief Verification & Attestation Participated in pt care: history, MDM, physical Personally performed: exam, history, MDM, supervision of care Care discussed with: Medical Student Procedures: n/a Results interpretation: Verified all documentation Verification and Attestation of Medical Student E/M Service A medical student performed and documented this service in my presence. I reviewed and verified all information documented by the medical student and made modifications to such information, when appropriate. I personally performed the physical exam and medical decision making. Baylee Ruiz, Jun 16, 2021,05:54 BERTHA FINN Jun 15, 2021 15:01 BAYLEE RUIZ DO Jun 16, 2021 05:54
--- NOTE | 2021-06-15 17:24 | Discharge Summary ---
Discharge Summary Hospital Course Was the Problem List Reviewed?: Yes Problems/Dx: (1) CHF exacerbation Status: Acute (2) CKD (chronic kidney disease) Hospital Course Date of Admission: Jun 13, 2021 at 18:49 Admission Diagnosis : Family Physician/Provider: Alvaro Martinez MD Date of Discharge: 06/15/21 Discharge Diagnosis: Acute on chronic renal failure, acute on chronic congestive heart failure Hospital Course: Patient a brief hospital course she was admitted for IV Lasix and IV steroids for exacerbation of CHF and COPD respectively. Chronic kidney disease progr essed rapidly patient was placed DNR and comfort care initiated and she quickly. Labs and Pending Lab Test: Laboratory Tests 06/14/21 20:31: Glucometer 115H 06/15/21 05:30: White Blood Count 6.5, Red Blood Count 3.31L, Hemoglobin 10.2L, Hematocrit 35, Mean Corpuscular Volume 104H, Mean Corpuscular Hemoglobin 31, Mean Corpuscular Hemoglobin Concent 30L, Red Cell Distribution Width 13.3, Platelet Count 174, Mean Platelet Volume 10.6, Immature Granulocyte % (Auto) 1, Neutrophils (%) (Auto) 83H, Lymphocytes (%) (Auto) 12, Monocytes (%) (Auto) 4, Eosinophils (%) (Auto) 0, Basophils (%) (Auto) 0, Neutrophils # (Auto) 5.4, Lymphocytes # (Auto) 0.8L, Monocytes # (Auto) 0.2, Eosinophils # (Auto) 0.0, Basophils # (Auto) 0.0, Immature Granulocyte # (Auto) 0.1 06/15/21 06:00: Sodium Level 143, Potassium Level 6.3H, Chloride Level 107, Carbon Dioxide Level 24, Anion Gap 12, Blood Urea Nitrogen 84H, Creatinine 4.06H, Estimat Glomerular Filtration Rate 10, BUN/Creatinine Ratio 21, Glucose Level 111H, Calcium Level 8.2L, Corrected Calcium 8.7, Total Bilirubin 0.3, Aspartate Amino Transf (AST/SGOT) 14, Alanine Aminotransferase (ALT/SGPT) 8, Alkaline Phosphatase 49, Total Protein 6.3L, Albumin 3.4 06/15/21 06:35: Glucometer 99 06/15/21 11:45: Glucometer 88 Home Meds Active Reported Furosemide 40 Mg Tablet 40 Mg PO BID Hydrocodone-Acetamin 7.5-325 (Hydrocodone/Acetaminophen) 1 Each Tablet 1 Ea PO TID PRN Amlodipine Besylate 5 Mg Tablet 5 Mg PO HS Valsartan 80 Mg Tablet 80 Mg PO HS Doxazosin Mesylate 4 Mg Tablet 4 Mg PO BID Atorvastatin Calcium 10 Mg Tablet 10 Mg PO HS Diazepam 2 Mg Tablet 2 Mg PO HS Metoprolol Tartrate 50 Mg Tablet 50 Mg PO BID Ecotrin (Aspirin) 81 Mg Tablet.dr 81 Mg PO HS Assessment/Pt Instructions Discharge Planning: <30 minutes discharge planning Discharge Physical Examination Vital Signs Vital Signs Date Time Temp Pulse Resp B/P (MAP) Pulse Ox O2 Delivery O2 Flow Rate FiO2 06/15/21 12:00 37.0 73 28 122/58 (79) 90 Nasal Cannula 1.50 Allergies: Coded Allergies: Sulfa (Sulfonamide Antibiotics) (Unverified Allergy, Mild, hives, 05/18/19) acetaminophen (Unverified Allergy, Unknown, 03/16/16) codeine (Unverified Allergy, Unknown, Pt has had Lortab in the past w/o issue, 05/19/19) erythromycin base (Unverified Allergy, Unknown, 03/16/16) oxycodone (Verified Allergy, Unknown, Pt has had Lortab in the past w/o issue, 06/13/21) makes pt vomit propoxyphene (Unverified Allergy, Unknown, 03/16/16) Discharge Summary Date of Admission Jun 13, 2021 at 18:49 Date of Discharge Admission Diagnosis Assessment: Exacerbation CHF Volume overload Exacerbation COPD Chronic kidney disease Advanced age Severe debility Plan: Requests DNR Request did not dialyze Comfort Measures/ End of Life Care: Comfort Measures CASTILLO RUIZ DO Jun 15, 2021 17:24
== END 2021-06-15 17:38 | disposition expired | DRG 291 ==
LOC: EDUNIT# 16:23 → ER 16:24 → 4TH 18:49
PROVIDERS: ADMIT Internal Medicine; ATTEND Internal Medicine
DX: I13.0 Hypertensive heart and chronic kidney disease with heart failure and stage 1 through stage 4 chronic kidney disease, or unspecified chronic kidney disease (principal); I50.31 Acute diastolic (congestive) heart failure; J96.01 Acute respiratory failure with hypoxia; N17.9 Acute kidney failure, unspecified; J44.1 Chronic obstructive pulmonary disease with (acute) exacerbation; N18.4 Chronic kidney disease, stage 4 (severe); Z66 Do not resuscitate; Z51.5 Encounter for palliative care; I25.10 Atherosclerotic heart disease of native coronary artery without angina pectoris; I25.2 Old myocardial infarction; E78.00 Pure hypercholesterolemia, unspecified; K57.90 Diverticulosis of intestine, part unspecified, without perforation or abscess without bleeding; M06.9 Rheumatoid arthritis, unspecified; M54.9 Dorsalgia, unspecified; F41.9 Anxiety disorder, unspecified; F32.A Depression, unspecified; R53.81 Other malaise; F17.210 Nicotine dependence, cigarettes, uncomplicated; Z20.822 Contact with and (suspected) exposure to COVID-19; Z88.2 Allergy status to sulfonamides; Z88.5 Allergy status to narcotic agent; Z79.82 Long term (current) use of aspirin; Z79.899 Other long term (current) drug therapy; Z95.1 Presence of aortocoronary bypass graft; Z95.5 Presence of coronary angioplasty implant and graft
CPT/HCPCS: 36415; 71045; 80053; 80061; 81000; 82947; 83735; 83874; 83880; 84484; 85025; 85610; 85730; 87636; 93005; 93041; 93306